=== PATIENT | male | born 1940 | race Caucasian/White ===

== ENCOUNTER 2021-01-13 11:55 | Outpatient (REF) | payer MEDICARE, SELFPAY ==
[2021-01-13 13:11] LABS: Estimated Average Glucose 105 mg/dL; Hemoglobin A1c % 5.3 %
[2021-01-13 13:41] LABS: Anion Gap 11 (12-20); Blood Urea Nitrogen 21 mg/dL (9-16); Carbon Dioxide 30 mmol/L (22-29); Chloride 109 mmol/L (96-108); Estimated Glomerular Filt Rate > 60; Glucose Fasting 109 mg/dL (60-99); Potassium 4.4 mmol/L (3.3-5.1); Sodium 146 mmol/L (135-145)
[2021-01-13 14:43] LABS: Creatinine Urine 203.04 mg/dL; Microalbum/Creatinine Ratio Ur 9.3 ug/mg cr
== END 2021-01-13 11:56 | disposition home or self-care (01) ==
LOC: HO.LAB 11:55
PROVIDERS: PCP Family Medicine; Visit Provider Family Medicine
DX: I10 Essential (primary) hypertension (principal); E11.9 Type 2 diabetes mellitus without complications
CPT/HCPCS: 36415; 80051; 82043; 82565; 82947; 83036; 84520

== ENCOUNTER 2021-06-10 12:08 | Outpatient (REF) | payer MEDICARE, SELFPAY ==
[2021-06-10 13:34] LABS: Alanine Aminotransferase 24 U/L (0-40); Anion Gap 9 (12-20); Blood Urea Nitrogen 20 mg/dL (9-16); Carbon Dioxide 30 mmol/L (22-29); Chloride 105 mmol/L (96-108); Estimated Glomerular Filt Rate > 60; Glucose Fasting 109 mg/dL (60-99); Potassium 4.4 mmol/L (3.3-5.1); Sodium 140 mmol/L (135-145)
[2021-06-10 13:56] LABS: Estimated Average Glucose 111 mg/dL; Hemoglobin A1c % 5.5 %
== END 2021-06-10 12:09 | disposition home or self-care (01) ==
LOC: HO.LAB 12:08
PROVIDERS: PCP Family Medicine; Visit Provider Family Medicine
DX: I10 Essential (primary) hypertension (principal); E11.9 Type 2 diabetes mellitus without complications; E78.00 Pure hypercholesterolemia, unspecified; Z79.899 Other long term (current) drug therapy
CPT/HCPCS: 36415; 80051; 82550; 82565; 82947; 83036; 84460; 84520

== ENCOUNTER 2021-08-20 13:22 | Outpatient (REF) | payer MEDICARE, SELFPAY ==
[2021-08-20 13:44] LABS: MANUAL DIFF FLAG NO
[2021-08-20 14:29] LABS: Basophils Percent Auto 0.3 % (0-2); Eosinophils Absolute Auto 0.1 X10*3/uL (0.0-0.4); Eosinophils Percent Auto 1.5 % (0-4); Hematocrit 38.7 % (42-52); Hemoglobin 12.7 g/dl (14.0-18.0); Imm Gran Abs Auto 0.02 X10*3/uL (0.00-0.03); Imm Gran Pct Auto 0.3 % (0.0-0.4); Lymphocytes Absolute Auto 0.7 X10*3/uL (1.2-4.9); Lymphocytes Percent Auto 11.3 % (20-40); Mean Corpuscular HGB Conc 32.8 g/dl (31.0-36.0); Mean Corpuscular Hemoglobin 33.6 pg (27.0-33.0); Mean Corpuscular Volume 102.4 fL (80-98); Mean Platelet Volume 10.4 fL (9.4-12.4); Monocytes Absolute Auto 0.7 X10*3/uL (0.1-1.2); Neutrophils Absolute Auto 4.5 X10*3/uL (2.0-8.3); Neutrophils Percent Auto 75.6 % (45-73); Platelet Count 134 X10*3/uL (160-400); Red Blood Count 3.78 X10*6/uL (4.60-5.80); Red Cell Distribution Width 13.4 % (11.0-16.0)
[2021-08-20 14:33] LABS: Alanine Aminotransferase 24 U/L (0-40); Albumin Level 3.6 g/dL (3.5-5.0); Alkaline Phosphatase 73 U/L (39-117); Anion Gap 11 (12-20); Aspartate Amino Transferase 22 U/L (5-37); Bilirubin Total 1.3 mg/dL (0.0-1.0); Blood Urea Nitrogen 26 mg/dL (9-16); Calcium 8.9 mg/dL (8.4-10.2); Carbon Dioxide 28 mmol/L (22-29); Chloride 106 mmol/L (96-108); Estimated Glomerular Filt Rate > 60; Glucose Fasting 102 mg/dL (60-99); Potassium 4.5 mmol/L (3.3-5.1); Sodium 140 mmol/L (135-145); Total Protein 6.1 g/dL (6.5-8.0)
[2021-08-20 14:47] LABS: Estimated Average Glucose 103 mg/dL; Hemoglobin A1c % 5.2 %
[2021-08-20 14:55] LABS: Free T4 (Free Thyroxine) 0.98 ng/dL (0.71-1.85)
== END 2021-08-20 13:23 | disposition home or self-care (01) ==
LOC: HO.LAB 13:22
PROVIDERS: PCP Student in an Organized Health Care Education/Training Program; Visit Provider Family Medicine
DX: R63.4 Abnormal weight loss (principal); R53.83 Other fatigue; E11.9 Type 2 diabetes mellitus without complications
CPT/HCPCS: 36415; 80053; 83036; 84439; 85025

== ENCOUNTER 2021-09-06 14:59 | Outpatient (REF) | payer MEDICARE, SELFPAY ==
[2021-09-06 16:11] LABS: Appearance Urine CLOUDY; Color Urine YELLOW; Glucose Urine UA NEG (NEG); Leukocyte Esterase Urine 3+ (NEG); Nitrite Urine POS (NEG); PH 7.5 (5.0-8.0); UACC Culture Trigger YES; Urine Blood 1+ (NEG); Urine Ketones NEG (NEG); Urine Protein 1+ MG/DL (NEG-TRACE)
[2021-09-06 16:18] LABS: WBC Urine TNTC /HPF (0-4)
[2021-09-06 16:19] LABS: Bacteria Urine 2+ /LPF
== END 2021-09-06 15:00 | disposition home or self-care (01) ==
LOC: HO.LAB 14:59
PROVIDERS: PCP Family Medicine; Visit Provider Family Medicine
DX: N39.0 Urinary tract infection, site not specified (principal)
CPT/HCPCS: 81001; 87086; 87088; 87186

== ENCOUNTER 2021-11-18 13:02 | Outpatient (REF) | payer MEDICARE, SELFPAY ==
[2021-11-18 13:56] LABS: Estimated Average Glucose 103 mg/dL; Glucose Fasting 105 mg/dL (60-99); Hemoglobin A1c % 5.2 %
[2021-11-18 14:15] LABS: Prostate Specific Antigen 1.57 ng/mL (<0.05-4.0)
== END 2021-11-18 13:03 | disposition home or self-care (01) ==
LOC: HO.LAB 13:02
PROVIDERS: PCP Family Medicine; Visit Provider Family Medicine
DX: Z12.5 Encounter for screening for malignant neoplasm of prostate (principal); E11.9 Type 2 diabetes mellitus without complications; N40.0 Benign prostatic hyperplasia without lower urinary tract symptoms; R33.9 Retention of urine, unspecified
CPT/HCPCS: 36415; 82947; 83036; 84153

== ENCOUNTER 2022-05-11 13:02 | Outpatient (REF) | payer MEDICARE, SELFPAY ==
[2022-05-11 13:25] LABS: MANUAL DIFF FLAG NO
[2022-05-11 14:17] LABS: Basophils Percent Auto 0.5 % (0-2); Eosinophils Absolute Auto 0.1 X10*3/uL (0.0-0.4); Eosinophils Percent Auto 1.9 % (0-4); Hemoglobin 13.3 g/dl (14.0-18.0); Imm Gran Abs Auto 0.02 X10*3/uL (0.00-0.03); Imm Gran Pct Auto 0.5 % (0.0-0.4); Lymphocytes Absolute Auto 0.7 X10*3/uL (1.2-4.9); Lymphocytes Percent Auto 17.3 % (20-40); Mean Corpuscular HGB Conc 33.3 g/dl (31.0-36.0); Mean Corpuscular Hemoglobin 33.8 pg (27.0-33.0); Mean Corpuscular Volume 101.8 fL (80.0-98.0); Mean Platelet Volume 10.7 fL (9.4-12.4); Monocytes Absolute Auto 0.5 X10*3/uL (0.1-1.2); Neutrophils Absolute Auto 2.9 x10*3/uL (2.0-8.3); Neutrophils Percent Auto 68.8 % (45-73); Platelet Count 117 X10*3/uL (160-400); Red Blood Count 3.93 X10*6/uL (4.60-5.80); Red Cell Distribution Width 13.1 % (11.0-16.0); White Blood Count 4.3 X10*3/uL (4.8-10.8)
[2022-05-11 14:25] LABS: Alanine Aminotransferase 30 U/L (0-40); Anion Gap 11 (12-20); Blood Urea Nitrogen 28 mg/dL (9-16); Carbon Dioxide 28 mmol/L (22-29); Chloride 105 mmol/L (96-108); Estimated Glomerular Filt Rate > 60; Potassium 4.6 mmol/L (3.3-5.1); Sodium 139 mmol/L (135-145)
== END 2022-05-11 13:03 | disposition home or self-care (01) ==
LOC: HO.LAB 13:02
PROVIDERS: PCP Family Medicine; Visit Provider Family Medicine
DX: I10 Essential (primary) hypertension (principal); E78.00 Pure hypercholesterolemia, unspecified; D69.6 Thrombocytopenia, unspecified; Z79.899 Other long term (current) drug therapy
CPT/HCPCS: 36415; 80051; 82550; 82565; 84460; 84520; 85025

== ENCOUNTER 2022-08-17 15:07 | Outpatient (REF) | payer MEDICARE, SELFPAY ==
[2022-08-17 15:38] LABS: Hemoglobin 13.3 g/dl (14.0-18.0); Imm Gran Abs Auto 0.02 X10*3/uL (0.00-0.03); Imm Gran Pct Auto 0.4 % (0.0-0.4); MANUAL DIFF FLAG SCAN; PLT CLUMP 1; SCAN SMEAR FLAG 1
[2022-08-17 15:39] LABS: Basophils Percent Auto 0.6 % (0-2); Eosinophils Absolute Auto 0.1 X10*3/uL (0.0-0.4); Eosinophils Percent Auto 1.7 % (0-4); Hematocrit 40.5 % (42.0-52.0); Lymphocytes Absolute Auto 0.6 X10*3/uL (1.2-4.9); Lymphocytes Percent Auto 11.4 % (20-40); Mean Corpuscular HGB Conc 32.8 g/dl (31.0-36.0); Mean Corpuscular Hemoglobin 33.3 pg (27.0-33.0); Mean Corpuscular Volume 101.5 fL (80.0-98.0); Mean Platelet Volume 11.1 fL (9.4-12.4); Monocytes Absolute Auto 0.8 X10*3/uL (0.1-1.2); Neutrophils Absolute Auto 3.7 x10*3/uL (2.0-8.3); Neutrophils Percent Auto 70.9 % (45-73); Red Blood Count 3.99 X10*6/uL (4.60-5.80); Red Cell Distribution Width 13.3 % (11.0-16.0)
[2022-08-17 15:57] LABS: Iron 84 mcg/dL (45-160); Percent Iron Saturation 33 % (15-50); Total Iron Binding Capacity 252 mcg/dL (228-428); Unsaturated Iron Binding 168 ug/dL
[2022-08-17 15:59] LABS: White Blood Count 5.3 X10*3/uL (4.8-10.8)
[2022-08-17 16:00] LABS: Platelet Count 118 X10*3/uL (160-400); SLIDE REVIEW VERIFIED
== END 2022-08-17 15:08 | disposition home or self-care (01) ==
LOC: HO.LAB 15:07
PROVIDERS: PCP Family Medicine; Visit Provider Family Medicine
DX: K62.5 Hemorrhage of anus and rectum (principal); R53.83 Other fatigue; R53.1 Weakness
CPT/HCPCS: 36415; 83540; 85025

== ENCOUNTER 2023-01-11 14:17 | Outpatient (REF) | payer MEDICARE, SELFPAY ==
[2023-01-11 15:46] LABS: Anion Gap 7 (12-20); Blood Urea Nitrogen 25 mg/dL (9-16); Carbon Dioxide 36 mmol/L (22-29); Chloride 106 mmol/L (96-108); Estimated Glomerular Filt Rate > 60; Potassium 4.2 mmol/L (3.3-5.1); Sodium 145 mmol/L (135-145)
== END 2023-01-11 14:18 | disposition home or self-care (01) ==
LOC: HO.LAB 14:17
PROVIDERS: PCP Family Medicine; Visit Provider Family Medicine
DX: I10 Essential (primary) hypertension (principal)
CPT/HCPCS: 36415; 80051; 82565; 84520

== ENCOUNTER 2023-07-17 12:54 | Outpatient (REF) | payer MEDICARE, SELFPAY ==
[2023-07-17 13:09] LABS: MANUAL DIFF FLAG NO
[2023-07-17 13:30] LABS: Estimated Average Glucose 97 mg/dL
[2023-07-17 13:35] LABS: Basophils Percent Auto 0.8 % (0-2); Eosinophils Absolute Auto 0.1 X10*3/uL (0.0-0.4); Eosinophils Percent Auto 1.5 % (0-4); Hematocrit 40.1 % (42.0-52.0); Hemoglobin 13.4 g/dl (14.0-18.0); Imm Gran Abs Auto 0.02 X10*3/uL (0.00-0.03); Imm Gran Pct Auto 0.4 % (0.0-0.4); Lymphocytes Absolute Auto 0.8 X10*3/uL (1.2-4.9); Lymphocytes Percent Auto 16.4 % (20-40); Mean Corpuscular HGB Conc 33.4 g/dl (31.0-36.0); Mean Corpuscular Volume 101.8 fL (80.0-98.0); Monocytes Absolute Auto 0.6 X10*3/uL (0.1-1.2); Monocytes Percent Auto 11.5 % (2-11); Neutrophils Absolute Auto 3.3 x10*3/uL (2.0-8.3); Neutrophils Percent Auto 69.4 % (45-73); Platelet Count 126 X10*3/uL (160-400); Red Blood Count 3.94 X10*6/uL (4.60-5.80); Red Cell Distribution Width 13.2 % (11.0-16.0); White Blood Count 4.8 X10*3/uL (4.8-10.8)
[2023-07-17 13:54] LABS: Alanine Aminotransferase 20 U/L (0-40); Albumin Level 3.7 g/dL (3.5-5.0); Alkaline Phosphatase 57 U/L (39-117); Anion Gap 9 (12-20); Aspartate Amino Transferase 21 U/L (5-37); Bilirubin Total 1.1 mg/dL (0.0-1.0); Blood Urea Nitrogen 24 mg/dL (9-16); Calcium 9.3 mg/dL (8.4-10.2); Carbon Dioxide 29 mmol/L (22-29); Chloride 106 mmol/L (96-108); Estimated Glomerular Filt Rate > 60; Glucose Fasting 102 mg/dL (60-99); Potassium 4.4 mmol/L (3.3-5.1); Sodium 140 mmol/L (135-145); Total Protein 6.5 g/dL (6.5-8.0)
== END 2023-07-17 12:55 | disposition home or self-care (01) ==
LOC: HO.LAB 12:54
PROVIDERS: PCP Family Medicine; Visit Provider Family Medicine
DX: R63.4 Abnormal weight loss (principal); E78.00 Pure hypercholesterolemia, unspecified; E11.9 Type 2 diabetes mellitus without complications; Z79.899 Other long term (current) drug therapy
CPT/HCPCS: 36415; 80053; 82550; 83036; 85025

== ENCOUNTER 2023-11-23 12:30 | Outpatient (REF) | payer MEDICARE, SELFPAY | END 2023-11-23 12:31 | disposition home or self-care (01) | LOC: HO.SH 12:30 | PROVIDERS: Visit Provider Family Medicine | DX: Z01.118 Encounter for examination of ears and hearing with other abnormal findings (principal); H90.3 Sensorineural hearing loss, bilateral | CPT/HCPCS: 92557 ==

== ENCOUNTER 2024-01-08 12:46 | Outpatient (REF) | payer MEDICARE, SELFPAY ==
[2024-01-08 13:00] LABS: MANUAL DIFF FLAG NO
[2024-01-08 13:14] LABS: Basophils Percent Auto 0.7 % (0-2); Eosinophils Absolute Auto 0.1 X10*3/uL (0.0-0.4); Eosinophils Percent Auto 2.4 % (0-4); Hematocrit 39.5 % (42.0-52.0); Imm Gran Abs Auto 0.01 X10*3/uL (0.00-0.03); Imm Gran Pct Auto 0.2 % (0.0-0.4); Lymphocytes Absolute Auto 0.9 X10*3/uL (1.2-4.9); Lymphocytes Percent Auto 22.1 % (20-40); Mean Corpuscular HGB Conc 32.9 g/dl (31.0-36.0); Mean Corpuscular Hemoglobin 32.9 pg (27.0-33.0); Mean Platelet Volume 10.4 fL (9.4-12.4); Monocytes Absolute Auto 0.5 X10*3/uL (0.1-1.2); Monocytes Percent Auto 11.9 % (2-11); Neutrophils Absolute Auto 2.6 x10*3/uL (2.0-8.3); Neutrophils Percent Auto 62.7 % (45-73); Platelet Count 110 X10*3/uL (160-400); Red Blood Count 3.95 X10*6/uL (4.60-5.80); Red Cell Distribution Width 13.2 % (11.0-16.0); White Blood Count 4.1 X10*3/uL (4.8-10.8)
[2024-01-08 13:34] LABS: Alanine Aminotransferase 20 U/L (0-40); Anion Gap 9 (12-20); Aspartate Amino Transferase 22 U/L (5-37); Blood Urea Nitrogen 27 mg/dL (9-16); Carbon Dioxide 32 mmol/L (22-29); Chloride 105 mmol/L (96-108); Estimated Glomerular Filt Rate > 60; Potassium 4.4 mmol/L (3.3-5.1); Sodium 142 mmol/L (135-145)
== END 2024-01-08 12:47 | disposition home or self-care (01) ==
LOC: HO.LAB 12:46
PROVIDERS: Visit Provider Family Medicine
DX: I10 Essential (primary) hypertension (principal); D61.818 Other pancytopenia; R27.0 Ataxia, unspecified
CPT/HCPCS: 36415; 80051; 82565; 84450; 84460; 84520; 85025

== ENCOUNTER 2024-05-22 13:25 | Outpatient (REF) | payer MEDICARE, SELFPAY ==
[2024-05-22 13:59] LABS: MANUAL DIFF FLAG NO
[2024-05-22 14:47] LABS: Basophils Percent Auto 0.8 % (0-2); Eosinophils Absolute Auto 0.1 X10*3/uL (0.0-0.4); Eosinophils Percent Auto 2.3 % (0-4); Hematocrit 38.9 % (42.0-52.0); Hemoglobin 13.1 g/dl (14.0-18.0); Imm Gran Abs Auto 0.02 X10*3/uL (0.00-0.03); Imm Gran Pct Auto 0.5 % (0.0-0.4); Lymphocytes Absolute Auto 0.7 X10*3/uL (1.2-4.9); Lymphocytes Percent Auto 16.8 % (20-40); Mean Corpuscular HGB Conc 33.7 g/dl (31.0-36.0); Mean Corpuscular Hemoglobin 34.7 pg (27.0-33.0); Mean Corpuscular Volume 102.9 fL (80.0-98.0); Mean Platelet Volume 11.4 fL (9.4-12.4); Monocytes Absolute Auto 0.5 X10*3/uL (0.1-1.2); Monocytes Percent Auto 12.8 % (2-11); Neutrophils Absolute Auto 2.7 x10*3/uL (2.0-8.3); Neutrophils Percent Auto 66.8 % (45-73); Platelet Count 103 X10*3/uL (160-400); Red Blood Count 3.78 X10*6/uL (4.60-5.80); Red Cell Distribution Width 13.2 % (11.0-16.0)
[2024-05-22 14:53] LABS: Estimated Average Glucose 105 mg/dL; Hemoglobin A1c % 5.3 % (<6.0)
[2024-05-22 15:13] LABS: Alanine Aminotransferase 23 U/L (0-40); Albumin Level 3.7 g/dL (3.5-5.0); Alkaline Phosphatase 56 U/L (39-117); Anion Gap 8 (12-20); Aspartate Amino Transferase 24 U/L (5-37); Blood Urea Nitrogen 23 mg/dL (9-16); Calcium 9.3 mg/dL (8.4-10.2); Carbon Dioxide 32 mmol/L (22-29); Chloride 105 mmol/L (96-108); Estimated Glomerular Filt Rate > 60; Glucose Random 103 mg/dL (60-115); Sodium 140 mmol/L (135-145); Total Protein 6.4 g/dL (6.5-8.0)
[2024-05-22 15:48] LABS: Creatinine Urine 141.95 mg/dL; Microalbum/Creatinine Ratio Ur 7.7 ug/mg cr (<30)
== END 2024-05-22 13:26 | disposition home or self-care (01) ==
LOC: HO.LAB 13:25
PROVIDERS: PCP Family Medicine; Visit Provider Family Medicine
DX: E11.9 Type 2 diabetes mellitus without complications (principal); I10 Essential (primary) hypertension; D61.818 Other pancytopenia; E78.00 Pure hypercholesterolemia, unspecified; Z79.899 Other long term (current) drug therapy
CPT/HCPCS: 36415; 80053; 82043; 82570; 83036; 85025

== ENCOUNTER 2024-09-10 14:53 | Inpatient (IN) | payer MEDICARE, SELFPAY ==
--- NOTE | ~2024-09-10 | XR_ITS ---
EXAMINATION: XR CHEST CLINICAL INFORMATION: Shortness of breath with question of pneumonia COMPARISON: 04/15/2019 TECHNIQUE: Frontal view of the chest was obtained. FINDINGS: Again seen are hypoinflated lungs with mild elevation of the left hemidiaphragm. Some coarse reticulonodular densities are seen most predominantly peripherally with some bibasilar atelectasis. No focal consolidation is seen. No large effusions. XR/XR chest 1V IMPRESSION: Hypoinflated lungs with coarse reticulonodular densities and bibasilar atelectasis. No focal consolidation. Electronically signed by: Emiliano Conteh MD 09/10/2024 07:12 PM EDT RP
--- NOTE | ~2024-09-10 | XR_ITS ---
EXAMINATION: XR CHEST CLINICAL INFORMATION: Hypoxia. COMPARISON: Prior mammograms, most recently 09/08/2024. TECHNIQUE: Frontal view of the chest was obtained. FINDINGS: The heart, great vessels, pulmonary vasculature and mediastinum are stable. Lung volumes are again somewhat diminished. In particular, there is stable moderate elevation of the left hemidiaphragm. At the lateral right base, there is very mild atelectasis versus infiltrate, with some silhouetting of the hemidiaphragm. The left base is now relatively clear. Tiny bilateral pleural effusions are questioned, with slight blunting of the bilateral lateral costophrenic angles. Monitor leads somewhat limited evaluation of the right lateral costophrenic angle. No pneumothorax is seen. There is no acute osseous abnormality. There appear to be garment buttons overlapping the bilateral shoulders. XR/XR chest 1V IMPRESSION: Lung volumes are somewhat diminished. There is stable moderate elevation of the left hemidiaphragm. Slight right base atelectasis versus infiltrate is redemonstrated. Minimal bilateral pleural effusions are questioned. Electronically signed by: Malcom Jewell MD 09/13/2024 10:36 PM EDT
--- NOTE | 2024-09-10 15:01 | ECG_ITS ---
Test Reason : ABNORMAL H/R Blood Pressure : / mmHG Vent. Rate : 053 BPM Atrial Rate : 000 BPM P-R Int : 000 ms QRS Dur : 078 ms QT Int : 412 ms P-R-T Axes : 000 -29 014 degrees QTc Int : 386 ms Normal sinus rhythm with first degree AV block and blocked PACs Inferior infarct , age undetermined Abnormal ECG When compared with ECG of 15-APR-2019 04:03, Blocked PACs present Referred By: Generic ED Physician Electronically Signed By:Kapil Fonseca
[2024-09-10 15:04] VITALS: BP 117/62; PULSE 63; RESP 12; TEMP 36.6; O2SAT 96; BMI 28.3
--- NOTE | 2024-09-10 15:13 | PC.NURSE ---
Patient reports that he missed his morning medications today.
[2024-09-10 15:57] LABS: MANUAL DIFF FLAG NO
[2024-09-10 16:04] LABS: INTERNATIONAL NORM RATIO 1.2 (0.9-1.1); Prothrombin Time 13.7 SEC (10.9-12.4)
[2024-09-10 16:14] LABS: Basophils Percent Auto 0.6 % (0-2); Eosinophils Absolute Auto 0.1 X10*3/uL (0.0-0.4); Eosinophils Percent Auto 1.7 % (0-4); Hematocrit 37.5 % (42.0-52.0); Hemoglobin 12.4 g/dl (14.0-18.0); Imm Gran Abs Auto 0.01 X10*3/uL (0.00-0.03); Imm Gran Pct Auto 0.3 % (0.0-0.4); Lymphocytes Absolute Auto 0.5 X10*3/uL (1.2-4.9); Mean Corpuscular HGB Conc 33.1 g/dl (31.0-36.0); Mean Corpuscular Hemoglobin 33.6 pg (27.0-33.0); Mean Corpuscular Volume 101.6 fL (80.0-98.0); Mean Platelet Volume 10.5 fL (9.4-12.4); Monocytes Absolute Auto 0.4 X10*3/uL (0.1-1.2); Monocytes Percent Auto 12.4 % (2-11); Neutrophils Absolute Auto 2.5 x10*3/uL (2.0-8.3); Red Blood Count 3.69 X10*6/uL (4.60-5.80); Red Cell Distribution Width 13.4 % (11.0-16.0); White Blood Count 3.6 X10*3/uL (4.8-10.8)
[2024-09-10 16:22] LABS: Platelet Count 95 X10*3/uL (160-400)
[2024-09-10 16:23] LABS: Alanine Aminotransferase 27 U/L (0-40); Albumin Level 3.4 g/dL (3.5-5.0); Alkaline Phosphatase 54 U/L (39-117); Anion Gap 9 (12-20); Aspartate Amino Transferase 30 U/L (5-37); Bilirubin Total 0.7 mg/dL (0.0-1.0); Blood Urea Nitrogen 25 mg/dL (9-16); Calcium 9.1 mg/dL (8.4-10.2); Carbon Dioxide 30 mmol/L (22-29); Chloride 108 mmol/L (96-108); Creatinine Clr Calc Pharmacy 55.4; Estimated Glomerular Filt Rate > 60; Glucose Random 116 mg/dL (60-115); Potassium 4.4 mmol/L (3.3-5.1); Sodium 143 mmol/L (135-145)
[2024-09-10 16:30] LABS: Troponin-I High Sensitivity 7.4 ng/L (<3.5-35.0)
--- NOTE | 2024-09-10 17:02 | ECG_ITS ---
Test Reason : RYTHMN CHANGE Blood Pressure : / mmHG Vent. Rate : 060 BPM Atrial Rate : 060 BPM P-R Int : 246 ms QRS Dur : 084 ms QT Int : 432 ms P-R-T Axes : 027 -25 013 degrees QTc Int : 432 ms Sinus rhythm with 1st degree A-V block Inferior infarct (cited on or before 10-SEP-2024) Abnormal ECG When compared with ECG of 10-SEP-2024 14:57, No significant changes seen Referred By: Generic ED Physician Electronically Signed By:Kapil Fonseca
--- NOTE | 2024-09-10 17:08 | ED.ARRPALP ---
HPI - Arrhythmia/Palpitations General Chief Complaint: Arrhythmia/Palpitations Stated Complaint: Sent by maciej Greer pacemaker Time Seen by Provider: 09/10/24 17:07 Source: patient Mode of arrival: EMS Limitations: no limitations History of Present Illness HPI narrative: 84-year-old male with a history of coronary artery disease status post RCA stent 09/12/2023 at [facility], diabetes, hypercholesterolemia, TIA, ataxic gait, second-degree AV block, pulmonary fibrosis, vascular dementia, GERD, hypertension, truong lobar emphysema, who was seen today for routine visit by his PCP Dr. Nelson and found to be in a heart block he was referred to the emergency department for evaluation. The patient states that he has been having shortness of breath x3 months. He states that he was having difficulty walking up the stairs and his apartment and has to walk 1 stair at a time. He denied chest pain, lightheadedness or dizziness. Denied fever, chills, nausea, vomiting, diarrhea, myalgias arthralgias. Patient states that his doctor noted a low pulse, did an EKG and was concerned and symptoms here to the emergency department by ambulance. PCP medication list includes the following atorvastatin, clopidogrel, famotidine, finasteride, lisinopril, ondansetron, terazosin, donepezil l, latanoprost eyedrops, antibiotic eyedrops, prednisolone eyedrops Related Data Allergies Allergy/AdvReac Type Severity Reaction Status Date / Time Penicillins [PCN] Allergy Unknown RASH Verified 09/10/24 15:08 Review of Systems Review of Systems: Yes all other systems are reviewed and are negative [facility] Social History Social History Smoked in Last 30 Days: No Use of substances other than those prescribed or required for medical reasons: No Advance Directives: No Advance Directives Information Provided: Yes Physical Exam Vital Signs: Vital Signs: Last Vital Signs Temp 97.8 F 09/10/24 15:04 Pulse 63 09/10/24 15:04 Resp 12 09/10/24 15:04 BP 117/62 09/10/24 15:04 Pulse Ox 96 09/10/24 15:04 O2 Del Method Room Air 09/10/24 15:04 BMI result Body Mass Index 28.3 Vital signs were normal Exam: General: Awake, alert in no distress Head: Normocephalic, atraumatic EENT: PERRL, Lids normal, sclera normal, conjunctiva normal, nose normal , ears normal, throat without erythema or exudates Neck: Supple, no adenopathy Lung: breath sounds symmetric, no wheezing, rales or rhonchi Chest: symmetric movement, nontender Heart: regular rate and rhythm, normal S1, S2 no murmurs or rubs Abdomen: soft, non-tender, nondistended, normal bowel sounds Back: no vertebral tenderness, no CVAT Extremities: no deformities, moves all extremities symmetrically, trace pitting edema bilaterally symmetric in his lower extremities Neuro: Awake, alert, oriented, normal speech, cranial nerves intact, moves all extremities symmetrically Psych: Pleasant, cooperative Medical Decision Making Medical Decision Making MDM Narrative: 84-year-old male with a history of coronary artery disease status post RCA stent 09/12/2023 at [facility], diabetes, hypercholesterolemia, TIA, ataxic gait, second-degree AV block, pulmonary fibrosis, vascular dementia, GERD, hypertension, truong lobar emphysema, who was seen today for routine visit by his PCP Dr. Nelson and found to be in a heart block he was referred to the emergency department for evaluation. Patient has had increased shortness of breath over last 3 months but no lightheadedness, dizziness or new syncopal episodes. Review of systems otherwise negative. Exam did reveal trace pitting edema bilaterally symmetric in his lower extremities otherwise unremarkable. Patient's EKG done at his PCP's office revealed a first-degree AV block, EKG in the emergency department revealed a 2nd-degree AV block but rhythm strip did reveal a episode of complete heart block. Differential diagnosis: ?Includes but is not limited to myocardial infarction, myocardial ischemia, bradyarrhythmia, third-degree heart block, electrolyte abnormalities, anemia, adverse reaction to medication Following evaluation was ordered: CBC, CMP, PT/INR, troponin, EKG Course: 18:01 My interpretation patient's laboratory evaluation as follows: Pancytopenia with macrocytic anemia-WBC 3600, H&H 12.4 and 37.5 with an MCV of 101.6. Platelet count was 40003. These values are unchanged since 2020. PT/INR elevated 1.2 and 13.7. BUN elevated 25 with a normal creatinine of 0.95. Elevated BUN is chronic. Bicarb elevated at 30-chronic. Glucose elevated 116. Troponin was detectable but not elevated at 7.4. Total protein and albumin were low 6.0 and 3.4. Patient's initial 12 EKG and repeat EKG were consistent with a Wenckebach 2nd-degree AV block with a IL interval of 246 milliseconds. Second EKG was also Wenckebach second-degree AV block. The rhythm strip was concerning and I did review this with our senior vice president and chief information officer Dr. Fonseca and he felt that this rhythm strip was consistent with a second-degree AV Wenckebach block as well. His recommendation was to admit the patient for telemetry observation. I did discuss the patient's presentation over tiger text with the covering hospitalist, Dr. Michael ross Admission/Observation Consideration of admission/observation: Escalation of care including admission/observation considered (Yes) Lab Data MDM Lab Attestation statement: I reviewed the patient's lab results. 09/10/24 15:51 09/10/24 15:51 Labs: Lab Results 09/10/24 Range/Units 15:51 WBC 3.6 L (4.8-10.8) X10*3/uL RBC 3.69 L (4.60-5.80) X10*6/uL Hgb 12.4 L (14.0-18.0) g/dl Hct 37.5 L (42.0-52.0) % MCV 101.6 H (80.0-98.0) fL MCH 33.6 H (27.0-33.0) pg MCHC 33.1 (31.0-36.0) g/dl RDW 13.4 (11.0-16.0) % Plt Count 95 L (160-400) X10*3/uL MPV 10.5 (9.4-12.4) fL Immature Gran % (Auto) 0.3 (0.0-0.4) % Neut % (Auto) 71.0 (45-73) % Lymph % (Auto) 14.0 L (20-40) % [place] % (Auto) 12.4 H (2-11) % Eos % (Auto) 1.7 (0-4) % Baso % (Auto) 0.6 (0-2) % Lymph # (Auto) 0.5 L (1.2-4.9) X10*3/uL [place] # (Auto) 0.4 (0.1-1.2) X10*3/uL Eos # (Auto) 0.1 (0.0-0.4) X10*3/uL Baso # (Auto) 0.0 (0.0-0.2) X10*3/uL Abs Immat Gran (auto) 0.01 (0.00-0.03) X10*3/uL Absolute Neuts (auto) 2.5 (2.0-8.3) x10*3/uL Absolute Nucleated RBC 0.000 (0.0-0.012) X10*3/uL Nucleated RBC % (auto) 0.0 (0.0-0.2) /100WBC PT 13.7 H (10.9-12.4) SEC INR 1.2 H (0.9-1.1) Sodium 143 (135-145) mmol/L Potassium 4.4 (3.3-5.1) mmol/L Chloride 108 (96-108) mmol/L Carbon Dioxide 30 H (22-29) mmol/L Anion Gap 9 L (12-20) BUN 25 H (9-16) mg/dL Creatinine 0.98 (0.5-1.4) mg/dL Estim Creat Clear Calc 55.4 Estimated GFR > 60 Random Glucose 116 H (60-115) mg/dL Calcium 9.1 (8.4-10.2) mg/dL Total Bilirubin 0.7 (0.0-1.0) mg/dL AST 30 (5-37) U/L ALT 27 (0-40) U/L Alkaline Phosphatase 54 (39-117) U/L Troponin I High Sens 7.4 (<3.5-35.0) ng/L Total Protein 6.0 L (6.5-8.0) g/dL Albumin 3.4 L (3.5-5.0) g/dL Independent Interpretation I performed an independent interpretation of an: EKG Interpretation: 1st EKG done at 14:57 hours was interpreted by me as follows: Bradycardia with a rate of 53, second-degree AV block Wenckebach type with prolonged IL interval and normal QRS and QTC intervals with Q-waves in 3 and AVF, no ST segment elevation, no ST segment depression, no significant T-wave abnormalities, no PACs, no PVCs My independent interpretation of the patient's 2nd EKG done 16:57 hours is as follows: Consistent with a second-degree AV block with a rate of 60, IL interval of 246 milliseconds, no significant change from the 1st EKG My independent interpretation of the patient's rhythm strip done at 17:02 hours was as follows: Complete heart block however Dr. Fonseca felt that this rhythm strip was more consistent with second-degree AV block Wenckebach type as well. Critical Care Time Critical Care Time Critical Care Time: Yes Total Critical Care Time: 40 Attestation: Critical Care: The patient was critically ill with a high probability of imminent or life threatening deterioration. I spent greater than 30 minutes of discontinuous time evaluating the patient,delivering critical care at the bedside, discussing and evaluating pertinent data with consultants. Critical care time does not include time spent performing separately billable procedures or teaching. Total time spent performing critical care was 40 minutes. Discharge Plan Discharge Patient Disposition: Admitted As Inpatient Print Language: Kiswahili
--- NOTE | 2024-09-10 18:44 | P.HPHOSP_ITS ---
History of Present Illness Date of Service: 09/10/24 Chief Complaint: Heart block 84-year-old gentleman with past medical history significant for hypertension, hyperlipidemia, type 2 diabetes mellitus, TIA, history of inferior wall OH with complete heart block status post drug eluded stent to RCA require temporary pacemaker for bradycardia, post OH course was complicated by sinus bradycardia with second-degree heart block Mobitz type 1 in 2022 was seen for a routine follow-up by PCP today and was found to be in heart block therefore was referred to emergency department for further evaluation, patient complains of shortness of breath of several weeks duration worse with reclining , denies shortness of breath with climbing stairs, he denies associated chest pain, no lightheadedness, no dizziness, denies recent bout of fever, no chills, no upper respiratory symptoms of cough or sputum production, no sick contacts, no new medication at baseline patient not on calcium channel blockers or beta-blockers, EKG in the emergency room showed second-degree heart block Mobitz type 1, few rhythm strip showed first-degree AV block, ED physician discuss case with show operations supervisor Dr. Fonseca he recommended admission to telemetry unit for close monitoring , workup in the ED showed chronic pancytopenia, stable hematocrit and platelets , stable renal function, blood sugar 116, troponin 7.4, normal LFTs, calcium 9.1 albumin 3.4, chest x-ray obtained report pending, will admit patient to telemetry unit. Review of Systems 2 Review of Systems: General no headache, no dizziness no fever chills. CVS no chest pain, no palpitation. Respiratory no cough , shortness of breath with reclining . Gastrointestinal no nausea no vomiting, left lower quadrant abdominal pain , not pressure-like on and off, normal bowel movement this morning, history of intermittent constipation Skin no rash no urinary urgency or frequency. All other system reviewed and are negative PMFSH Pertinent family history: No significant family history of coronary artery disease Social History Household Members: Children Household Members Other:: Son Housing: House Do you presently have visiting nurse or other home services: No Patient Tobacco Use Status: Former Tobacco user Tobacco use type: Cigarette Smoked in Last 30 Days: No e-Cigarette/Vaping Use: Never Used Use of substances other than those prescribed or required for medical reasons: No Currently Displaying Signs/Symptoms of Drug Intoxication Withdrawal: No Have you been hit, kicked, punched, or otherwise hurt by someone within the past year? If so, by whom?: No Do you feel safe in your current relationship?: No Current Relationship Is there a partner from a previous relationship who is making you feel unsafe now?: No Are you made to feel afraid or neglected: No [employer] Healthcare Practices: Buddhism Advance Directives: No Advance Directives Information Provided: Yes Recently lost weight without trying: Unsure Nutrition Risks: Dental problems Poor oral hygiene: Yes Meds Allergies Allergy/AdvReac Type Severity Reaction Status Date / Time Penicillins [PCN] Allergy Unknown RASH Verified 09/10/24 15:08 Active Medications: Current Medications Acetaminophen (Acetaminophen 325 Mg Tablet) 650 mg PO Q6H PRN PRN Reason: Pain, Mild (Pain Scale 1-3), fever or headache Calcium Carbonate (Calcium Carbonate 750 Mg Tab.Chew) 750 mg PO Q4H PRN PRN Reason: Heartburn Latanoprost (Latanoprost 0.005 % Ophth Isabel 2.5 Ml Drops) 1 drop EYE-BOTH BEDTIME JD Magnesium Hydroxide (Milk Of Magnesia 30 Ml Oral.Susp) 30 ml PO DAILY PRN PRN Reason: Constipation Melatonin (Melatonin 3 Mg Tablet) 6 mg PO BEDTIME PRN PRN Reason: Insomnia Ondansetron HCl (Ondansetron Hcl 4 Mg/2 Ml Vial) 4 mg IVPUSH Q8H PRN PRN Reason: Nausea and Vomiting Sodium Chloride (0.9 % Sodium Chloride Flush 3 Ml Syringe) 3 ml [facility]FLUSH [facility] Medications ?Medication ?Instructions ?Recorded ?Confirmed ?Last Taken ?Type atorvastatin 40 mg tablet 40 mg PO DAILY 09/10/24 09/10/24 09/09/24 History clopidogrel 75 mg tablet 75 mg PO DAILY 09/10/24 09/10/24 09/09/24 History famotidine 40 mg tablet 40 mg PO DAILY 09/10/24 09/10/24 09/09/24 History finasteride 5 mg tablet 5 mg PO BEDTIME 09/10/24 09/10/24 09/09/24 History latanoprost 0.005 % eye drops 1 drp ophthalmic (eye) BEDTIME 09/10/24 09/10/24 09/09/24 History lisinopril 5 mg tablet 5 mg PO DAILY 09/10/24 09/10/2409/09/24 History terazosin 5 mg capsule 5 mg PO BEDTIME 09/10/24 09/10/24 09/09/24 History Physical Exam 2 Vital Signs and Narrative: Vital Signs: Last Vital Signs Temp 97.8 F 09/10/24 15:04 Pulse 63 09/10/24 15:04 Resp 12 09/10/24 15:04 BP 117/62 09/10/24 15:04 Pulse Ox 96 09/10/24 15:04 O2 Del Method Room Air 09/10/24 15:04 BMI result Body Mass Index 28.3 Const: Other: General awake alert x3, resting comfortably in no acute distress. Anicteric sclera Neck supple no JVD. CVS regular rate rhythm, systolic murmur Respiratory lungs crackles at bases,no respiratory distress, no wheeze, no rhonchi. Gastrointestinal abdomen soft, non tender, bowel sounds audible, no guarding , no rigidity. Extremities mild edema. Neuro non focal, moving all 4 extremity speech clear. Skin no rash Psych appropriate affect Results Labs 09/10/24 15:51 09/10/24 15:51 Labs: Laboratory Results - last 24 hr 09/10/24 15:51 MCV 101.6 H MCH 33.6 H MCHC 33.1 RDW 13.4 Plt Count 95 L MPV 10.5 Immature Gran % (Auto) 0.3 Neut % (Auto) 71.0 Lymph % (Auto) 14.0 L [place] % (Auto) 12.4 H Eos % (Auto) 1.7 Baso % (Auto) 0.6 Lymph # (Auto) 0.5 L [place] # (Auto) 0.4 Eos # (Auto) 0.1 Baso # (Auto) 0.0 Abs Immat Gran (auto) 0.01 Absolute Neuts (auto) 2.5 Absolute Nucleated RBC 0.000 Nucleated RBC % (auto) 0.0 PT 13.7 H INR 1.2 H APTT 32.0 Anion Gap 9 L Estim Creat Clear Calc 55.4 Estimated GFR > 60 Random Glucose 116 H Calcium 9.1 Total Bilirubin 0.7 AST 30 ALT 27 Alkaline Phosphatase 54 Troponin I High Sens 7.4 Total Protein 6.0 L Albumin 3.4 L Assessment and Plan (1) Atrioventricular block, Mobitz type 1, Wenckebach: Status: Acute Plan 84-year-old gentleman with past medical history significant for inferior wall OH status post RCA stent currently on Plavix, history of TIA , hyperlipidemia type 2 diabetes mellitus, presented with type 2 heart block Mobitz type one [place]. Second-degree heart block Mobitz type 1 Shortness of breath times several weeks otherwise, no chest pain, no lightheadedness or dizziness Tele monitor Cardiology consult Not on beta-blockers or calcium channel blockers Follow chest x-ray/electrolytes/TSH/check BNP echo 09/11 showed normal systolic function oftaxdyl-vo-sajvaj hypokinesis inferior and inferolateral wall, moderately calcified aortic valve, decreased right ventricular systolic function, diastolic function not assessed. History of coronary artery disease status post RCA stent 08/2023 No chest pain, normal troponin, continue statins History of urinary retention continue terazosin and finasteride History of TIA Full code DVT prophylaxis with compression boots In my clinical judgment patient requires hospitalization for monitoring of second-degree heart block Mobitz type 1 requiring tele monitoring and expert consultation. Quality Stroke Does the patient have a stroke diagnosis?: No VTE Prior VTE?: No VTE Risk Level:: Medical - moderate - high VTE Device Contraindication: Treatment Not Indicated VTE Drug Contraindication: N/A - Med Ordered
[2024-09-10 19:15] VITALS: BP 145/60; PULSE 56; RESP 20; TEMP 36.9; O2SAT 97
--- NOTE | 2024-09-10 19:45 | PHA.MEDREC ---
Addendum entered by Júnior Schmitz [facility] 09/10/24 19:55: Med rec reviewed Original Note: Pharmacy Consult ? Medication Reconciliation Pharmacy has completed the medication reconciliation. Confirmed medications with patient and list brought in by patient. On patient list he had both Atorvastatin 10mg tabs and 40mg, in claims we only have Atorvastatin 40mg once daily at bedtime and no claims for 10, I called [facility] on [address] in [place] and they confirmed he got the Atorvastatin 40mg tabs and they have no claims for 10mg tabs once at bedtime. I also asked about Lisinopril 5mg tabs since the patient confirmed he was still on that once daily but in claims that has not been filled since 04/13/24 and that matched [facility] claims but they state that the patient ran out of refills and was waiting on the doctor to write more. He confirmed his Trazosin 5mg cap 1 cap at bedtime. He confirmed he took his medications yesterday and was not able to take any today.
--- NOTE | 2024-09-10 21:42 | PC.NURSE ---
pt on monitor sinus aida vs 2nd degree heart block. heart rate 60s-70s with episodes of dropping to 30s-40s, asymptomatic. pt is pleasant denies cp/sob bpo wnl. monitor strip printed and MD aware.
--- NOTE | 2024-09-10 23:07 | PC.NURSE ---
pt monitor alert for extreme aida, printed and shown to MD Talley. pt asymptomatic. vss.
[2024-09-10 23:08] VITALS: BP 119/54; PULSE 54; RESP 16; O2SAT 96
[2024-09-11] VITALS (7 sets, daily range): BP systolic 118–164; BP diastolic 56–73; PULSE 54–62; RESP 18–21; TEMP 36.3–36.8; O2SAT 91–94; BMI 28.6
--- NOTE | 2024-09-11 | ECG_ITS ---
Test Reason : follow up on abnormal rythm Blood Pressure : / mmHG Vent. Rate : 049 BPM Atrial Rate : 000 BPM P-R Int : 000 ms QRS Dur : 078 ms QT Int : 424 ms P-R-T Axes : 000 -30 013 degrees QTc Int : 383 ms Sinus bradycardia with first degree AV block with blocked PACs and junctional beats Left axis deviation Inferior infarct (cited on or before 10-SEP-2024) Abnormal ECG When compared with ECG of 10-SEP-2024 16:57, QT has shortened Referred By: Cristóbal Thompson Electronically Signed By:Kapil Fonseca
[2024-09-11] MEDS: 0.9 % Sodium Chloride Flush 3 ML SYRINGE IVFLUSH ×4 (00:45→20:48)
--- NOTE | 2024-09-11 01:59 | PC.NURSE ---
Patient admitted to Med/Tele from ED at approx [id number]. Upon initial assessment, patient A&Ox4, cooperative and pleasant. On tele, 2nd degree heart block type 1 noted, occasional bouts of bradycardia. Bilateral lower extremity edema noted, patient states this is his baseline and he wears compression socks. Denies dizziness and CP. Lung sounds clear to auscultation, on room air with even, unlabored RR. Abdomen soft, round, nontender, patient educated on NPO diet order. Given urinal to void. Skin overall warm dry and intact. Denies pain, and educated on plan of care. Call kilgore within reach, bed locked in lowest position, bed alarm on.
[2024-09-11] MEDS: lisinopriL 5 MG TABLET PO (08:06)
[2024-09-11] MEDS: Atorvastatin Calcium 40 MG TABLET PO (08:06)
[2024-09-11] MEDS: Famotidine 20 MG TABLET 40 MG PO (08:06)
[2024-09-11 08:56] LABS: Magnesium 2.1 mg/dL (1.6-2.6)
[2024-09-11 09:11] LABS: Thyroid Stimulating Hormone 2.37 uIU/mL (0.32-4.0)
--- NOTE | 2024-09-11 09:51 | PM.CNCAR ---
History of Present Illness History of Present Illness Date of Service: 09/11/24 Requesting physician: Cristóbal Thompson Chief complaint: SOB, Carmen. Narrative: 84-year-old gentleman who is presenting with concern for heart block. He has history of inferior wall LA in 08/2023. He is presenting for bradycardia. He is saying that he is bradycardic all the time. Denying any dizziness or lightheadedness. No syncope. He has been short of breath mostly with activity but also has been experiencing some orthopnea like episodes. No chest discomfort. EKGs reviewed which showed first-degree AV block. Telemetry has shown sinus bradycardia with blocked PACs. [facility] Social History Social History Household Members: Children Household Members Other:: Son Housing: House Do you presently have visiting nurse or other home services: No Patient Tobacco Use Status: Former Tobacco user Tobacco use type: Cigarette Smoked in Last 30 Days: No e-Cigarette/Vaping Use: Never Used Use of substances other than those prescribed or required for medical reasons: No Currently Displaying Signs/Symptoms of Drug Intoxication Withdrawal: No Have you been hit, kicked, punched, or otherwise hurt by someone within the past year? If so, by whom?: No Do you feel safe in your current relationship?: No Current Relationship Is there a partner from a previous relationship who is making you feel unsafe now?: No Are you made to feel afraid or neglected: No [employer] Healthcare Practices: [employer] Advance Directives: No Advance Directives Information Provided: Yes Recently lost weight without trying: Unsure Nutrition Risks: Dental problems Poor oral hygiene: Yes Meds Allergies Allergy/AdvReac Type Severity Reaction Status Date / Time Penicillins [PCN] Allergy Unknown RASH Verified 09/10/24 15:08 Active Medications: Current Medications Acetaminophen (Acetaminophen 325 Mg Tablet) 650 mg PO Q6H PRN PRN Reason: Pain, Mild (Pain Scale 1-3), fever or headache Atorvastatin Calcium (Atorvastatin Calcium 40 Mg Tablet) 40 mg PO DAILY [facility] Last Admin: 09/11/24 08:06 Dose: 40 mg Calcium Carbonate (Calcium Carbonate 750 Mg Tab.Chew) 750 mg PO Q4H PRN PRN Reason: Heartburn Doxazosin Mesylate (Doxazosin Mesylate 2 Mg Tablet) 4 mg PO BEDTIME [facility] Famotidine (Famotidine 20 Mg Tablet) 40 mg PO DAILY [facility] Last Admin: 09/11/24 08:06 Dose: 40 mg Finasteride (Finasteride 5 Mg Tablet) 5 mg PO BEDTIME [facility] Latanoprost (Latanoprost 0.005 % Ophth Isabel 2.5 Ml Drops) 1 drop EYE-BOTH BEDTIME [facility] Last Admin: 09/10/24 21:43 Dose: Not Given Lisinopril (Lisinopril 5 Mg Tablet) 5 mg PO DAILY [facility]; Protocol Last Admin: 09/11/24 08:06 Dose: 5 mg Magnesium Hydroxide (Milk Of Magnesia 30 Ml Oral.Susp) 30 ml PO DAILY PRN PRN Reason: Constipation Melatonin (Melatonin 3 Mg Tablet) 6 mg PO BEDTIME PRN PRN Reason: Insomnia Ondansetron HCl (Ondansetron Hcl 4 Mg/2 Ml Vial) 4 mg IVPUSH Q8H PRN PRN Reason: Nausea and Vomiting Sodium Chloride (0.9 % Sodium Chloride Flush 3 Ml Syringe) 3 ml IVFLUSH QSHIFT [facility] Last Admin: 09/11/24 08:06 Dose: 3 ml Home Medications ?Medication ?Instructions ?Recorded ?Confirmed ?Last Taken ?Type atorvastatin 40 mg tablet 40 mg PO DAILY 09/10/24 09/10/24 09/09/24 History clopidogrel 75 mg tablet 75 mg PO DAILY 09/10/24 09/10/24 09/09/24 History famotidine 40 mg tablet 40 mg PO DAILY 09/10/24 09/10/24 09/09/24 History finasteride 5 mg tablet 5 mg PO BEDTIME 09/10/24 09/10/24 09/09/24 History latanoprost 0.005 % eye drops 1 drp ophthalmic (eye) BEDTIME 09/10/24 09/10/24 09/09/24 History lisinopril 5 mg tablet 5 mg PO DAILY 09/10/24 09/10/24 09/09/24 History terazosin 5 mg capsule 5 mg PO BEDTIME 09/10/24 09/10/24 09/09/24 History Physical Exam Vital Signs: Vital Signs: Last Vital Signs Temp 97.9 F 09/11/24 07:04 Pulse 54 09/11/24 07:04 Resp 18 09/11/24 07:04 BP 143/63 H 09/11/24 07:04 Pulse Ox 92 09/11/24 07:04 O2 Del Method Room Air 09/11/24 07:04 BMI result Body Mass Index 28.6 GENERAL APPEARANCE: in no acute distress, pleasant. NECK: no carotid bruit, + jugular venous distention. SKIN: no suspicious lesions, warm and dry. HEART: no murmurs, irregular rate and rhythm. bradycardic LUNGS: Crackles both bases. ABDOMEN: soft, nontender. EXTREMITIES: + edema. PERIPHERAL PULSES: equal. NEUROLOGIC: No gross deficits, AAO X 3 Objective Labs and Meds 09/10/24 15:51 09/10/24 15:51 Lab results: Laboratory Results - last 24 hr 09/10/24 09/11/24 15:51 08:22 WBC 3.6 L RBC 3.69 L Hgb 12.4 L Hct 37.5 L MCV 101.6 H MCH 33.6 H MCHC 33.1 RDW 13.4 Plt Count 95 L MPV 10.5 Immature Gran % (Auto) 0.3 Neut % (Auto) 71.0 Lymph % (Auto) 14.0 L [place] % (Auto) 12.4 H Eos % (Auto) 1.7 Baso % (Auto) 0.6 Lymph # (Auto) 0.5 L [place] # (Auto) 0.4 Eos # (Auto) 0.1 Baso # (Auto) 0.0 Abs Immat Gran (auto) 0.01 Absolute Neuts (auto) 2.5 Absolute Nucleated RBC 0.000 Nucleated RBC % (auto) 0.0 Hold Purple Top SEE NOTE PT 13.7 H INR 1.2 H APTT 32.0 Sodium 143 Potassium 4.4 Chloride 108 Carbon Dioxide 30 H Anion Gap 9 L BUN 25 H Creatinine 0.98 Estim Creat Clear Calc 55.4 Estimated GFR > 60 Random Glucose 116 H Calcium 9.1 Magnesium 2.1 Total Bilirubin 0.7 AST 30 ALT 27 Alkaline Phosphatase 54 Troponin I High Sens 7.4 Total Protein 6.0 L Albumin 3.4 L TSH 2.37 Imaging Radiologist's impression: Impressions Chest X-Ray 09/10/24 18:20 IMPRESSION: Hypoinflated lungs with coarse reticulonodular densities and bibasilar atelectasis. No focal consolidation. Electronically signed by: Emiliano Conteh MD 09/10/2024 07:12 PM EDT Assessment and Plan (1) Bradycardia: Status: Acute (2) CHF (congestive heart failure): Status: Acute Plan Pleasant 84 year gentleman who has history of coronary artery disease with previous inferior wall LA and primary PCI in 09/08/2024 now presenting for bradycardia. Denying any chest discomfort. No syncope or dizziness. Telemetry is showing blocked PACs. Advised the nurse to walking in the hallways to see how his heart rate response to exercise. He is short of breath due to mild congestive heart failure. IV diuretics. Monitor I's and O's. Currently no clear indication for permanent pacemaker placement. I have discussed this with the patient. Obviously if clinical situation changes then we will arrange pacemaker for him. Thank you for allowing me to participate in the care of your patient. Please feel free to contact me if you have any questions. Procedures Date of Service Date of Service: 09/11/24
[2024-09-11] MEDS: Furosemide 40 MG/4 ML VIAL IVPUSH (10:26)
[2024-09-11 10:28] LABS: B Type Natriuretic Peptide 425 pg/mL (<100)
--- NOTE | 2024-09-11 12:22 | P.PNIM_ITS ---
Subjective Subjective Date of Service: 09/12/24 Interval History: Being followed for second-degree heart block, tele monitor showed is stable heart rate in 60s Patient denies chest pain, no lightheadedness or dizziness but c/o shortness of breath with reclining no shortness a breath with climbing stairs or ambulating. Review of Systems All other system reviewed and are negative Physical Exam 2 Vital Signs: Vital Signs: Last Vital Signs Temp 97.3 F 09/11/24 10:52 Pulse 62 09/11/24 10:52 Resp 20 09/11/24 10:52 BP 141/70 H 09/11/24 10:52 Pulse Ox 91 L 09/11/24 10:52 O2 Del Method Room Air 09/11/24 10:52 BMI result Body Mass Index 28.6 Const: Other: General awake alert x3, resting comfortably in no acute distress. Anicteric sclera Neck supple no JVD. CVS regular rate rhythm, systolic murmur Respiratory lungs crackles at bases,no respiratory distress, no wheeze, no rhonchi. Gastrointestinal abdomen soft, non tender, bowel sounds audible, no guarding , no rigidity. Extremities mild edema. Neuro non focal, moving all 4 extremity speech clear. Skin no rash Psych appropriate affect Objective Data Active Medications Acetaminophen (Acetaminophen 325 Mg Tablet) 650 mg PO Q6H PRN PRN Reason: Pain, Mild (Pain Scale 1-3), fever or headache Atorvastatin Calcium (Atorvastatin Calcium 40 Mg Tablet) 40 mg PO DAILY [facility] Last Admin: 09/11/24 08:06 Dose: 40 mg Documented By: DERRICK Calcium Carbonate (Calcium Carbonate 750 Mg Tab.Chew) 750 mg PO Q4H PRN PRN Reason: Heartburn Doxazosin Mesylate (Doxazosin Mesylate 2 Mg Tablet) 4 mg PO BEDTIME [facility] Famotidine (Famotidine 20 Mg Tablet) 40 mg PO DAILY [facility] Last Admin: 09/11/24 08:06 Dose: 40 mg Documented By: DERRICK Finasteride (Finasteride 5 Mg Tablet) 5 mg PO BEDTIME [facility] Latanoprost (Latanoprost 0.005 % Ophth Isabel 2.5 Ml Drops) 1 drop EYE-BOTH BEDTIME [facility] Last Admin: 09/10/24 21:43 Dose: Not Given Documented By: CARLOTTA Non-Admin Reason: Med Not Available Lisinopril (Lisinopril 5 Mg Tablet) 5 mg PO DAILY [facility]; Protocol Last Admin: 09/11/24 08:06 Dose: 5 mg Documented By: DERRICK Magnesium Hydroxide (Milk Of Magnesia 30 Ml Oral.Susp) 30 ml PO DAILY PRN PRN Reason: Constipation Melatonin (Melatonin 3 Mg Tablet) 6 mg PO BEDTIME PRN PRN Reason: Insomnia Ondansetron HCl (Ondansetron Hcl 4 Mg/2 Ml Vial) 4 mg IVPUSH Q8H PRN PRN Reason: Nausea and Vomiting Sodium Chloride (0.9 % Sodium Chloride Flush 3 Ml Syringe) 3 ml IVFLUSH QSHIFT [facility] Last Admin: 09/11/24 08:06 Dose: 3 ml Documented By: DERRICK Labs 09/10/24 15:51 09/12/24 08:11 Labs: Laboratory Results - last 24 hr 09/10/24 09/11/24 15:51 08:22 MCV 101.6 H MCH 33.6 H MCHC 33.1 RDW 13.4 Plt Count 95 L MPV 10.5 Immature Gran % (Auto) 0.3 Neut % (Auto) 71.0 Lymph % (Auto) 14.0 L Thomas % (Auto) 12.4 H Eos % (Auto) 1.7 Baso % (Auto) 0.6 Lymph # (Auto) 0.5 L Thomas # (Auto) 0.4 Eos # (Auto) 0.1 Baso # (Auto) 0.0 Abs Immat Gran (auto) 0.01 Absolute Neuts (auto) 2.5 Absolute Nucleated RBC 0.000 Nucleated RBC % (auto) 0.0 Hold Purple Top SEE NOTE PT 13.7 H INR 1.2 H APTT 32.0 Anion Gap 9 L Estim Creat Clear Calc 55.4 Estimated GFR > 60 Random Glucose 116 H Calcium 9.1 Magnesium 2.1 Total Bilirubin 0.7 AST 30 ALT 27 Alkaline Phosphatase 54 Troponin I High Sens 7.4 B-Natriuretic Peptide 425 H Total Protein 6.0 L Albumin 3.4 L TSH 2.37 Assessment and Plan (1) Atrioventricular block, Mobitz type 1, Wenckebach: Status: Acute (2) CHF (congestive heart failure): Status: Acute (3) Bradycardia: Status: Acute Plan 84-year-old gentleman with past medical history significant for inferior wall NE status post RCA stent currently on Plavix, history of TIA , hyperlipidemia type 2 diabetes mellitus, presented with type 2 heart block Mobitz type one Wenkebach. Second-degree heart block Mobitz type 1 Shortness of breath of several weeks duration with reclining, excessive daytime sleep , no chest pain, no lightheadedness or dizziness Tele monitor shows variable heart rate, prolonged [place], P waves with different morphology and Mobitz type 2 Wenckebach Not on beta-blockers or calcium channel blockers Stable electrolytes, normal magnesium, chest x-ray showed hypoinflated lungs with coarse reticulonodular densities and bibasilar atelectasis, no focal consolidation noted, normal TSH Elevated BNP echo 09/11 showed normal systolic function [id number] hypokinesis inferior and inferolateral wall, moderately calcified aortic valve, decreased right ventricular systolic function, diastolic function not assessed. Case discussed with Cardiology will continue tele monitor,Obtain echo, repeat EKG Give IV Lasix since appear fluid overloaded with bilateral leg edema and shortness of breath with reclining, follow echo History of coronary artery disease status post RCA stent 08/2023 No chest pain, normal troponin, continue statins History of urinary retention continue terazosin and finasteride History of TIA no acute neurological symptoms Full code DVT prophylaxis with compression boots In my clinical judgment patient requires inpatient hospitalization for monitoring of second-degree heart block Mobitz type 1 requiring tele monitoring and and further testing. Quality Stroke Does the patient have a stroke diagnosis?: No VTE Prior VTE?: No VTE Risk Level:: Medical - moderate - high VTE Device Contraindication: Treatment Not Indicated VTE Drug Contraindication: N/A - Med Ordered
[2024-09-11 12:48] LABS: Glucose, Whole Blood 113 mg/dL (60-115)
--- NOTE | 2024-09-11 14:15 | CA_ITS ---
Transthoracic Echocardiogram Patient (Last, First, Middle): Danish Cevallos, Gender: Male Date of : 1940 Age: 84 Procedure Date: 09/11/2024 Procedure Type: Transthoracic Echocardiogram Location: [facility] [place] Height: 170.18 cm Weight: 82.56 kg BSA: 1.94 m2 Heart Rate: bpm BP: 141 / 70 mmHg Staff Research Associate: Referring MD: Cristóbal Thompson MD Symptoms: arrythmia/chf Study Quality: Fair ECG Rhythm: Sinus with extra beats Conclusions: - Normal left ventricular size and systolic function. There is moderately increased left ventricular wall thickness. The visually estimated ejection fraction is between 60-65%. - Normal right ventricular cavity size and systolic function. - The left atrium is severely dilated. - There is severe mitral annular calcification. Findings Procedure Information Contrast agent, definity, is being given per protocol without apparent complications. Left Ventricle Normal left ventricular size and systolic function. There is moderately increased left ventricular wall thickness. The visually estimated ejection fraction is between 60-65%. There is no evidence of regional wall motion abnormalities. Diastolic function is indeterminate on the basis of available data. Right Ventricle Normal right ventricular cavity size and systolic function. Atria The left atrium is severely dilated. Aortic Valve The aortic valve was not well visualized. There is no aortic valve stenosis. There is no aortic valve regurgitation. Mitral Valve There is severe mitral annular calcification. There is trace mitral valve regurgitation. There is no mitral valve stenosis. Pulmonic Valve The pulmonic valve is likely normal. Tricuspid Valve Normal tricuspid valve structure and function. Normal right atrial pressure. There is no evidence of pulmonary hypertension. Great Vessels All visible segments of the aorta are normal in size. Venous The inferior vena cava is normal in size and collapses greater than 50% with inspiration. Pericardium/Pleural There is no evidence of pericardial effusion. Prior Study Comparison No prior study available for comparison. Measurements 2D Linear Measurements IVSd: 1.30 0.6-0.9/0.6-1.0 cm LVIDd: 4.24 3.9-5.3/4.2-5.9 cm LVIDd Index: 2.19 2.4-3.2/2.2-3.1 cm/m2 LVIDs: 2.93 2.0-3.6 cm LVPWd: 1.34 0.7-1.1 cm Ao Root: 3.20 2.1-3.5 cm LA Diam: 4.30 2.7-3.8/3.0-4.0 cm LAIDs Index: 2.22 1.5-2.3 cm/m2 LV Mass: 259.41 67-162/88-224 g LV Mass Index: 133.72 43-95/49-115 g/m2 LVOT Diam: 2.10 3.0+(-)1.3 cm Mitral Valve MV VTI: 0.50 MV Pk Jose: 1.49 MV Mn Jose: 0.89 MV Pk Grad: 9.00 MV Mn Grad: 4.00 MV Pk E: 1.23 MV PK A: 1.07 MV Decel Time: 517.00 E/A: 1.10 E'Lateral: 5.22 E'Medial: 4.24 E/E' Med: 29.00 E/E' Lat: 23.60 PHT: 151.00 MVA PHT: 1.46 MVA Continuity: 1.73 Decel [place]: 2.37 Aortic Valve AoV Pk Jose: 1.48 AoV Mn Jose: 1.00 AoV VTI: 0.32 AoV Pk Grad: 9.00 Aov Mn Grad: 5.00 SARA Cont.VTI: 2.70 LVOT LVOT Pk Jose: 0.88 LVOT Mn Jose: 0.61 LVOT VTI: 0.25 LVOT Pk Grad: 3.00 LVOT Mn Grad: 2.00 LVOT Diam: 2.10 LVOT Area: 3.46 Diastolic Function MV Pk E: 1.23 MV Pk A: 1.07 E/A: 1.10 E'Medial: 4.24 E/E' Med: 29.00 E' Laterial: 5.22 E/E' Lat: 23.60 Right Ventricle TAPSE (mm): 31.00 TVS' Jose: 10.00 Tricuspid Valve TR Pk Jose: 1.77 TR Pk Grad: 13.00 RA Press: 3.00 RVSP: 16.00 Great Vessels Aorta Ao Root-2D: 3.20 2.0-3.7 cm Ao Asc: 2.70 2.1-3.4 cm Pulmonary Valve PV Pk Jose: 1.02 Peak PV Grad: 4.00 Updated in Other Vendor System with Status of Final Kapil Fonseca MD electronically signed on 09/12/2024 2:03:08 PM with status of Final
[2024-09-11] MEDS: Doxazosin Mesylate 2 MG TABLET 4 MG PO (20:47)
[2024-09-11] MEDS: Latanoprost 0.005 % Ophth Sol 2.5 ML DROPS 1 DROP EYE-BOTH (20:47)
[2024-09-11] MEDS: Finasteride 5 MG TABLET PO (20:48)
[2024-09-12 03:23] VITALS: BP 107/55; PULSE 53; RESP 19; TEMP 36.7; O2SAT 91
[2024-09-12 07:05] VITALS: BP 117/59; PULSE 60; RESP 18; TEMP 36.1; O2SAT 91
--- NOTE | 2024-09-12 08:26 | MHC.CM.PN ---
CM met with Patient at bedside and addressed IMM with him, providing Patient with the original and a copy has been placed on the chart. Patient lives alone on his side of a duplex, with his Son/Jeff living on the other side. Patient receives [employer] 1/week for 2 hours and he uses a cane to assist with mobility. Home/resume said services is the goal and CM has initiated and will follow for dc planning. PCP is Dr. Pavel Nelson and Son will transport to home.
[2024-09-12 08:37] LABS: Anion Gap 8 (12-20); Blood Urea Nitrogen 25 mg/dL (9-16); Carbon Dioxide 33 mmol/L (22-29); Chloride 104 mmol/L (96-108); Creatinine Clr Calc Pharmacy 54.5; Estimated Glomerular Filt Rate > 60; Glucose Random 100 mg/dL (60-115); Potassium 4.4 mmol/L (3.3-5.1); Sodium 141 mmol/L (135-145)
[2024-09-12 08:44] LABS: B Type Natriuretic Peptide 370 pg/mL (<100)
[2024-09-12] MEDS: Famotidine 20 MG TABLET 40 MG PO (08:55)
[2024-09-12] MEDS: lisinopriL 5 MG TABLET PO (08:55)
[2024-09-12] MEDS: Atorvastatin Calcium 40 MG TABLET PO (08:55)
[2024-09-12] MEDS: 0.9 % Sodium Chloride Flush 3 ML SYRINGE IVFLUSH ×2 (08:55→20:19)
--- NOTE | 2024-09-12 09:39 | ECG_ITS ---
Test Reason : Assesment Blood Pressure : / mmHG Vent. Rate : 046 BPM Atrial Rate : 046 BPM P-R Int : 000 ms QRS Dur : 078 ms QT Int : 428 ms P-R-T Axes : 051 -42 010 degrees QTc Int : 374 ms Sinus bradycardia with Mobitz type 1 AV block Left axis deviation Inferior infarct (cited on or before 10-SEP-2024) Abnormal ECG When compared with ECG of 11-SEP-2024 13:54, Mobitz type 1 block Referred By: Kapli Fonseca Electronically Signed By:Kapil Fonseca
[2024-09-12 11:07] VITALS: BP 127/58; PULSE 47; RESP 17; TEMP 36.1; O2SAT 93
--- NOTE | 2024-09-12 11:30 | PM.PNCARD ---
Subjective Subjective Date of Service: 09/12/24 Interval history: Seen examined at bedside. No new complaints. Physical Exam Vital Signs: Last Vital Signs Temp 97.0 F 09/12/24 11:07 Pulse 47 L 09/12/24 11:07 Resp 17 09/12/24 11:07 BP 127/58 L 09/12/24 11:07 Pulse Ox 93 09/12/24 11:07 O2 Del Method Room Air 09/12/24 11:07 BMI result Body Mass Index 28.6 GENERAL APPEARANCE: in no acute distress, pleasant. NECK: no carotid bruit, no jugular venous distention. SKIN: no suspicious lesions, warm and dry. HEART: no murmurs, irregular rate and rhythm. bradycardic LUNGS: Clear to auscultation. ABDOMEN: soft, nontender. EXTREMITIES: + edema. PERIPHERAL PULSES: equal. NEUROLOGIC: No gross deficits, AAO X 3 Objective Labs and Meds 09/10/24 15:51 09/12/24 08:11 Lab results: Laboratory Results - last 24 hr 09/11/24 09/12/24 12:43 08:11 Sodium 141 Potassium 4.4 Chloride 104 Carbon Dioxide 33 H Anion Gap 8 L BUN 25 H Creatinine 1.00 Estim Creat Clear Calc 54.5 Estimated GFR > 60 POC Glucose 113 Random Glucose 100 Calcium 9.0 B-Natriuretic Peptide 370 H Progress Note: A&P Assessment and plan (1) CHF (congestive heart failure): Status: Acute (2) Bradycardia: Status: Acute Plan 84-year-old gentleman presenting for bradycardia. No advanced AV block has been noted so far. He also is asymptomatic and has no dizziness or lightheadedness. He was given diuretics yesterday for shortness of breath. He is saying his breathing is stable and he slept well overnight. Continue with oral Lasix. Ambulate in hallways to see how his heart rate is with activity. Please check the telemetry electrodes before ambulation because he has significant artifact on his telemetry. Thank you for allowing me to participate in the care of your patient. Please feel free to contact me if you have any questions. Time Spent With Patient Time: Total time managing care of this patient today ____ minutes. Progress Note: Quality Stroke Does the patient have a stroke diagnosis?: No Procedures Date of Service Date of Service: 09/12/24
--- NOTE | 2024-09-12 14:32 | HO.PM.IMPN ---
Subjective Subjective Date of Service: 09/12/24 Interval History: Being followed for Mobitz type 2 block Noted to have bradycardia, no significant heart blocks noted, patient denies chest pain, no palpitations no dizziness, no lightheadedness, slept well denies shortness of breath. Review of Systems All other system reviewed and are negative. Physical Exam Vital Signs: Vital Signs: Last Vital Signs Temp 97.0 F 09/12/24 11:07 Pulse 47 L 09/12/24 11:07 Resp 17 09/12/24 11:07 BP 127/58 L 09/12/24 11:07 Pulse Ox 93 09/12/24 11:07 O2 Del Method Room Air 09/12/24 11:07 BMI result Body Mass Index 28.6 Const: Other: General awake alert x3, resting comfortably in no acute distress. Anicteric sclera Neck supple no JVD. CVS regular rate rhythm, systolic murmur Respiratory lungs clear to auscultation,no respiratory distress, no wheeze, no rhonchi. Gastrointestinal abdomen soft, non tender, bowel sounds audible, no guarding , no rigidity. Extremities mild edema, improved. Neuro non focal, moving all 4 extremity, speech clear. Skin no rash Psych appropriate affect Objective Data Active Medications Acetaminophen (Acetaminophen 325 Mg Tablet) 650 mg PO Q6H PRN PRN Reason: Pain, Mild (Pain Scale 1-3), fever or headache Atorvastatin Calcium (Atorvastatin Calcium 40 Mg Tablet) 40 mg PO DAILY [facility] Last Admin: 09/12/24 08:55 Dose: 40 mg Documented By: DERRICK Calcium Carbonate (Calcium Carbonate 750 Mg Tab.Chew) 750 mg PO Q4H PRN PRN Reason: Heartburn Doxazosin Mesylate (Doxazosin Mesylate 2 Mg Tablet) 4 mg PO BEDTIME [facility] Last Admin: 09/11/24 20:47 Dose: 4 mg Documented By: SONIA Famotidine (Famotidine 20 Mg Tablet) 40 mg PO DAILY [facility] Last Admin: 09/12/24 08:55 Dose: 40 mg Documented By: DERRICK Finasteride (Finasteride 5 Mg Tablet) 5 mg PO BEDTIME [facility] Last Admin: 09/11/24 20:48 Dose: 5 mg Documented By: SONIA Latanoprost (Latanoprost 0.005 % Ophth Isabel 2.5 Ml Drops) 1 drop EYE-BOTH BEDTIME [facility] Last Admin: 09/11/24 20:47 Dose: 1 drop Documented By: SONIA Lisinopril (Lisinopril 5 Mg Tablet) 5 mg PO DAILY [facility]; Protocol Last Admin: 09/12/24 08:55 Dose: 5 mg Documented By: DERRICK Magnesium Hydroxide (Milk Of Magnesia 30 Ml Oral.Susp) 30 ml PO DAILY PRN PRN Reason: Constipation Melatonin (Melatonin 3 Mg Tablet) 6 mg PO BEDTIME PRN PRN Reason: Insomnia Ondansetron HCl (Ondansetron Hcl 4 Mg/2 Ml Vial) 4 mg IVPUSH Q8H PRN PRN Reason: Nausea and Vomiting Sodium Chloride (0.9 % Sodium Chloride Flush 3 Ml Syringe) 3 ml IVFLUSH QSHIFT [facility] Last Admin: 09/12/24 08:55 Dose: 3 ml Documented By: DERRICK Labs 09/10/24 15:51 09/12/24 08:11 Labs: Laboratory Results - last 24 hr 09/12/24 08:11 Anion Gap 8 L Estim Creat Clear Calc 54.5 Estimated GFR > 60 Random Glucose 100 Calcium 9.0 B-Natriuretic Peptide 370 H Assessment and Plan (1) CHF (congestive heart failure): Status: Acute (2) Atrioventricular block, Mobitz type 1, Wenckebach: Status: Acute (3) Bradycardia: Status: Acute Plan 84-year-old gentleman with past medical history significant for inferior wall [place] status post RCA stent currently on Plavix, history of TIA , hyperlipidemia type 2 diabetes mellitus, presented with type 2 heart block Mobitz type one Wenkebach. Second-degree heart block Mobitz type 1 Shortness of breath resolved, no chest pain, no lightheadedness or dizziness Tele monitor shows variable heart rate, prolonged [place], and Mobitz type 2 Wenckebach Not on beta-blockers or calcium channel blockers Stable electrolytes, normal magnesium, chest x-ray showed hypoinflated lungs with coarse reticulonodular densities and bibasilar atelectasis, no focal consolidation noted, normal TSH Patient ambulated in hallway heart rate remained stable, patient remained asymptomatic cardiology recommend to discharge home with no further intervention Mild acute diastolic heart failure Elevated BNP 425 improved to 370 after IV Lasix, greater than 1 L negative shortness of breath resolved echo 08/2023 showed normal systolic function [id number] hypokinesis inferior and inferolateral wall, moderately calcified aortic valve, decreased right ventricular systolic function, diastolic function not assessed. Will place on low-dose Lasix 20 mg daily starting tomorrow echo 09/10/24 showed EF 60-65%, severely dilated left atrium, no regional wall motion abnormality, indeterminate diastolic function. History of coronary artery disease status post RCA stent 08/2023 No chest pain, normal troponin, continue statins History of urinary retention continue terazosin and finasteride History of TIA no acute neurological symptoms Disposition patient feels he is not ready for discharge due to weakness and requiring assistance with ambulation, PT eval obtained they recommend home PT services for optimal functional gains due to gross deconditioning, impaired gait pattern and safety. Full code DVT prophylaxis with compression boots In my clinical judgment patient requires inpatient hospitalization for monitoring of second-degree heart block Mobitz type 1 requiring tele monitoring and safe disposition Quality Stroke Does the patient have a stroke diagnosis?: No VTE Prior VTE?: No VTE Risk Level:: Medical - moderate - high VTE Device Contraindication: Treatment Not Indicated VTE Drug Contraindication: N/A - Med Ordered
[2024-09-12 15:28] VITALS: BP 118/57; PULSE 55; RESP 18; TEMP 36.2; O2SAT 94
[2024-09-12 19:31] VITALS: BP 108/64; PULSE 56; RESP 18; TEMP 36.5; O2SAT 95
[2024-09-12] MEDS: Finasteride 5 MG TABLET PO (20:18)
[2024-09-12] MEDS: Latanoprost 0.005 % Ophth Sol 2.5 ML DROPS 1 DROP EYE-BOTH (20:18)
[2024-09-12] MEDS: Doxazosin Mesylate 2 MG TABLET 4 MG PO (20:18)
[2024-09-12 23:23] VITALS: BP 111/50; PULSE 65; RESP 20; TEMP 36.3; O2SAT 96
[2024-09-13 04:00] VITALS: BP 118/57; PULSE 54; RESP 16; TEMP 36.1; O2SAT 96
[2024-09-13 07:03] VITALS: BP 111/58; PULSE 53; RESP 18; TEMP 36.2; O2SAT 97
[2024-09-13] MEDS: Famotidine 20 MG TABLET 40 MG PO (08:27)
[2024-09-13] MEDS: Atorvastatin Calcium 40 MG TABLET PO (08:27)
[2024-09-13] MEDS: lisinopriL 5 MG TABLET PO (08:27)
[2024-09-13] MEDS: 0.9 % Sodium Chloride Flush 3 ML SYRINGE IVFLUSH ×2 (08:28→16:50)
[2024-09-13 09:25] VITALS: BP 111/58; PULSE 53; O2SAT 97
--- NOTE | 2024-09-13 09:37 | MHC.CM.PN ---
PT is now recommending STR; CM will follow.
[2024-09-13] MEDS: Enoxaparin Sodium 40 MG/0.4 ML SYRINGE SUBCUT (10:35)
[2024-09-13 11:02] VITALS: BP 111/56; PULSE 55; RESP 18; TEMP 36.4; O2SAT 97
--- NOTE | 2024-09-13 12:25 | PM.PNCARD ---
Subjective Subjective Date of Service: 09/13/24 Interval history: Seen and examined at bedside. He ambulated the hallways and was feeling rigidity in his muscles. No dizziness or lightheadedness. Telemetry reviewed which is showing Wenckebach and at times two-to-one block. Physical Exam Vital Signs: Last Vital Signs Temp 97.6 F 09/13/24 11:02 Pulse 55 09/13/24 11:02 Resp 18 09/13/24 11:02 BP 111/56 L 09/13/24 11:02 Pulse Ox 97 09/13/24 11:02 O2 Del Method Nasal Cannula 09/13/24 11:02 O2 Flow Rate 2 09/13/24 11:02 BMI result Body Mass Index 28.6 GENERAL APPEARANCE: in no acute distress, pleasant. NECK: no carotid bruit, no jugular venous distention. SKIN: no suspicious lesions, warm and dry. HEART: no murmurs, irregular rate and rhythm. bradycardic LUNGS: Clear to auscultation. ABDOMEN: soft, nontender. EXTREMITIES: + edema. PERIPHERAL PULSES: equal. NEUROLOGIC: No gross deficits, AAO X 3 Objective Labs and Meds 09/10/24 15:51 09/12/24 08:11 Progress Note: A&P Assessment and plan (1) Bradycardia: Status: Acute Plan [age] gentleman with background history of coronary disease with previous PCI to RCA in 09/08/2023. He is here for concern for bradycardia. He has been asymptomatic. With ambulation no advanced blocks noticed. He has AV Wenckebach on telemetry along with two-to-one block at times (mostly at nighttime when he sleeping). No obvious AV dissociation or any concerns for complete heart block. He has ambulated in the hallways and has no symptoms with activity other than muscle weakness and stiffness. He had episode of congestive heart failure on admission. Stop the lisinopril because blood pressure has been borderline. Lasix 20 mg p.o. daily. Stop the famotidine and changed to omeprazole. We will arrange a cardiac event monitor for him as outpatient. I have explained to the patient that currently there is no obvious indication for pacemaker placement but if his monitoring down the line showed any concerns and we will arrange permanent pacemaker placement. Thank you for allowing me to participate in the care of your patient. Please feel free to contact me if you have any questions. Time Spent With Patient Time: Total time managing care of this patient today ____ minutes. Progress Note: Quality Stroke Does the patient have a stroke diagnosis?: No Procedures Date of Service Date of Service: 09/13/24
--- NOTE | 2024-09-13 12:40 | PM.DS ---
DS: Providers Provider Date of Service: 09/13/24 Date of admission: 09/10/24 18:40 Primary care physician: Pavel Nelson MD Consults: 09/10/24 18:43 Consult to Cardiology Routine Consulting Provider: Kapil Fonseca Reason for consultation: heart block Has provider been notified: No DS: Diagnosis Discharge Diagnosis (1) Bradycardia: Status: Acute DS: Summary Hospital Course Hospital Course: History of presenting illness: Date of Service: 09/10/24 Chief Complaint: Heart block 84-year-old gentleman with past medical history significant for hypertension, hyperlipidemia, type 2 diabetes mellitus, TIA, history of inferior wall [place] with complete heart block status post drug eluded stent to RCA require temporary pacemaker for bradycardia, post [place] course was complicated by sinus bradycardia with second-degree heart block Mobitz type 1 in 2022 was seen for a routine follow-up by PCP today and was found to be in heart block therefore was referred to emergency department for further evaluation, patient complains of shortness of breath of several weeks duration worse with reclining , denies shortness of breath with climbing stairs, he denies associated chest pain, no lightheadedness, no dizziness, denies recent bout of fever, no chills, no upper respiratory symptoms of cough or sputum production, no sick contacts, no new medication at baseline patient not on calcium channel blockers or beta-blockers, EKG in the emergency room showed second-degree heart block Mobitz type 1, few rhythm strip showed first-degree AV block, ED physician discuss case with mems process engineer Dr. Fonseca he recommended admission to telemetry unit for close monitoring , workup in the ED showed chronic pancytopenia, stable hematocrit and platelets , stable renal function, blood sugar 116, troponin 7.4, normal LFTs, calcium 9.1 albumin 3.4, chest x-ray obtained report pending, will admit patient to telemetry unit. Hospital course: 84-year-old gentleman with past medical history significant for inferior wall [place] status post RCA stent currently on Plavix, history of TIA , hyperlipidemia type 2 diabetes mellitus, presented with type 2 Mobitz heart block Wenkebach and admitted to telemetry unit, patient noted to have persistent type 2 Wenckebach and type 1 heart block, no high-grade blocks noted, Pepcid discontinued since can cause heart blocks, patient electrolytes magnesium and TSH within normal range patient evaluated by mems process engineer they recommend outpatient event recorder, in regard to coronary artery disease status post RCA stent in 09/08/2023 patient had no recurrent chest pain troponins were negative has been continued on statins and Plavix. Mild acute diastolic heart failure noted to have shortness of breath and Elevated BNP 425 treated with IV Lasix BNP improved to 370 ,echo 09/10/24 showed EF 60-65%, severely dilated left atrium, no regional wall motion abnormality, indeterminate diastolic function, will place on low-dose Lasix 20 mg daily due to borderline soft blood pressure will discontinue lisinopril, noted to have hypoxia likely due to atelectasis stasis question aspiration continue oxygen and wean as tolerated no evidence of overt congestive heart failure or pneumonia. History of urinary retention continue terazosin and finasteride History of TIA no acute neurological symptoms on Plavix. Time Attestation Discharge Coordination Time (in mins): 36 Quality: Safe Use of Opioids Does Pt have an Active Cancer Diagnosis on the Problem List?: No Quality: Stroke Does the patient have a stroke diagnosis?: No Physical Exam Vital Signs: Vital Signs: Last Vital Signs Temp 97.6 F 09/13/24 11:02 Pulse 55 09/13/24 11:02 Resp 18 09/13/24 11:02 BP 111/56 L 09/13/24 11:02 Pulse Ox 97 09/13/24 11:02 O2 Del Method Nasal Cannula 09/13/24 11:02 O2 Flow Rate 2 09/13/24 11:02 BMI result Body Mass Index 28.6 Const: Other: General awake alert x3, resting comfortably in no acute distress. Anicteric sclera Neck supple no JVD. CVS regular rate rhythm, systolic murmur Respiratory lungs clear to auscultation,no respiratory distress, no wheeze, no rhonchi. Gastrointestinal abdomen soft, non tender, bowel sounds audible, no guarding , no rigidity. Extremities mild edema, improved. Neuro non focal, moving all 4 extremity, speech clear. Skin no rash Psych appropriate affect Discharge Plan Discharge Anticipated Discharge Date/Time: 09/13/24 07:33 Patient Disposition: Xfer Inpatient Rehab Fac Discharge Diagnosis: AV heart block Wenckebach Bradycardia Mild acute diastolic heart failure Referrals: [facility] [Outside] - 1 Week Pavel Nelson MD [Primary Care Provider] - 1 Week Discharge Medications: New omeprazole 20 mg capsule,delayed release(DR/EC) 20 mg PO DAILY Qty: 30 0RF furosemide [Lasix] 20 mg tablet 20 mg PO DAILY Qty: 30 0RF Continued terazosin 5 mg capsule 5 mg PO BEDTIME atorvastatin 40 mg tablet 40 mg PO DAILY clopidogrel 75 mg tablet 75 mg PO DAILY finasteride 5 mg tablet 5 mg PO BEDTIME latanoprost 0.005 % drops 1 drp ophthalmic (eye) BEDTIME Discontinued famotidine 40 mg tablet 40 mg PO DAILY lisinopril 5 mg tablet 5 mg PO DAILY Discharge Orders: Discharge Order (Routine); Ordered 09/13/24 Ordered By: Cristóbal Thompson Diet: Low fat, low cholesterol Activity on Discharge: As tolerated Stand Alone Forms: Patient Portal Discharge page Print Language: Divehi Care Plan Goals: Mild hypoxia continue oxygen supplement wean as tolerated not on home oxygen Bradycardia/second-degree AV block no concern for complete heart block avoid beta-blockers outpatient follow-up with Cardiology Take Lasix 20 mg daily for mild CHF Health Concerns: Coronary artery disease stable Plan of Treatment: Outpatient follow-up with primary care physician call for appointment Outpatient follow-up with mems process engineer Dr. Fonseca with, they will arrange for cardiac event monitor Assessment: As above
--- NOTE | 2024-09-13 12:46 | MHC.CM.PN ---
Patient has been medically cleared for dc to [facility] today at 3:30 PM, via [facility]. CM met with Patient at bedside, who spoke with his Son/Jeff, while CM was with him, and informed him of the dc plan. Last IMM addressed on 09/12/2024.
== END 2024-09-13 17:40 | DRG 308 ==
LOC: HO.ED 18:02 → HO.EDOVER 18:51 → HO.IMC 23:39
PROVIDERS: Admitting Provider Hospitalist; Emergency Provider Emergency Medicine Emergency Medical Services; PCP Family Medicine; Visit Provider Hospitalist
DX: I44.1 Atrioventricular block, second degree (principal); I50.31 Acute diastolic (congestive) heart failure; D61.818 Other pancytopenia; I25.2 Old myocardial infarction; I25.10 Atherosclerotic heart disease of native coronary artery without angina pectoris; J84.10 Pulmonary fibrosis, unspecified; J43.1 Panlobular emphysema; R33.9 Retention of urine, unspecified; Z86.73 Personal history of transient ischemic attack (TIA), and cerebral infarction without residual deficits; Z79.02 Long term (current) use of antithrombotics/antiplatelets; Z79.899 Other long term (current) drug therapy
CPT/HCPCS: 36415; 71045; 80048; 80053; 82947; 83735; 83880; 84443; 84484; 85025; 85610; 85730; 93005; 93306; 97110; 97116; 97162; 99222; 99285; J1650; J1940; Q9957

== ENCOUNTER 2024-09-10 18:40 | Outpatient (BNV) | payer MEDICARE, SELFPAY | END 2024-09-11 14:15 | PROVIDERS: Admitting Provider Hospitalist; Emergency Provider Emergency Medicine Emergency Medical Services; PCP Family Medicine; Visit Provider Internal Medicine Cardiovascular Disease | DX: I34.81 Nonrheumatic mitral (valve) annulus calcification (principal); I51.7 Cardiomegaly | CPT/HCPCS: 93010; 93306 ==

== ENCOUNTER 2024-09-10 18:40 | Outpatient (BNV) | payer MEDICARE, SELFPAY | END 2024-09-12 09:39 | PROVIDERS: Admitting Provider Hospitalist; Emergency Provider Emergency Medicine Emergency Medical Services; PCP Family Medicine; Visit Provider Internal Medicine Cardiovascular Disease | DX: R94.31 Abnormal electrocardiogram [ECG] [EKG] (principal) | CPT/HCPCS: 93010 ==

== ENCOUNTER → 2024-09-10 18:40 | Outpatient (BNV) | payer MEDICARE, SELFPAY | PROVIDERS: Admitting Provider Hospitalist; Emergency Provider Emergency Medicine Emergency Medical Services; PCP Family Medicine; Visit Provider Hospitalist | DX: I50.9 Heart failure, unspecified (principal); I44.1 Atrioventricular block, second degree; R00.1 Bradycardia, unspecified | CPT/HCPCS: 99223; 99232; 99233; 99239 ==

== ENCOUNTER → 2024-09-10 18:40 | Outpatient (BNV) | payer MEDICARE, SELFPAY | PROVIDERS: Admitting Provider Hospitalist; Emergency Provider Emergency Medicine Emergency Medical Services; PCP Family Medicine; Visit Provider Internal Medicine Cardiovascular Disease | DX: I50.9 Heart failure, unspecified (principal); R00.1 Bradycardia, unspecified | CPT/HCPCS: 93010; 99223; 99233 ==

== ENCOUNTER → 2024-10-04 13:44 | Outpatient (REF) | payer MEDICARE, SELFPAY | LOC: HO.CARD 13:44 | PROVIDERS: PCP Family Medicine; Visit Provider Internal Medicine Cardiovascular Disease | DX: R00.1 Bradycardia, unspecified (principal) | CPT/HCPCS: 93270 ==

== ENCOUNTER → 2024-10-04 13:47 | Outpatient (BNV) | payer MEDICARE, SELFPAY | PROVIDERS: PCP Family Medicine; Visit Provider Internal Medicine | DX: I48.91 Unspecified atrial fibrillation (principal); I47.10 Supraventricular tachycardia, unspecified | CPT/HCPCS: 93272 ==

== ENCOUNTER 2024-10-16 14:25 | Outpatient (AMB) | payer MEDICARE, SELFPAY ==
[2024-10-16 14:38] VITALS: BP 110/64; PULSE 56; BMI 29.3
--- NOTE | 2024-10-16 14:38 | MHC.OFFVIS ---
Vital Signs 10/16/24 14:38 Height 5 ft 7 in Weight 187 lb 6.287 oz BMI 29.3 BP 110/64 Blood Pressure Location Lt brachial Position Sitting Pulse 56 Pulse Source Pulse Oximeter Intake Visit Reasons: f/up-SOB Intake Note: f/up-SOB- pt state that his SOB have gotten better Enterprise Resource Planning Consultant Required: No Accompanied by: Son Allergies Penicillins [PCN] Allergy (Unknown, Verified 09/10/24 15:08) RASH Medication List - Last Reconciled 10/16/24 by Kapil Fonseca MD atorvastatin 40 mg PO DAILY finasteride 5 mg PO BEDTIME furosemide (Lasix) 20 mg PO DAILY latanoprost 0.005% 1 drp ophthalmic (eye) BEDTIME omeprazole 20 mg PO DAILY terazosin 5 mg PO BEDTIME HPI Comments Details: [age] year gentleman who is here for follow-up. He was seen in the hospital when he presented with bradycardia and congestive heart failure. He had AV Wenckebach on EKG and his heart rate was responding well with activity and exercise. He was sent home and a cardiac event monitor was arranged. Cardiac event monitor showed episodes of atrial fibrillation. He is brought back for discussion for management of AFib. He is on clopidogrel because he had inferior ST-elevation HI last year. He was quite sick at that time and had temporary pacemaker placement and stenting of the right coronary artery performed. No anginal symptoms. [facility] Social History (Reviewed 10/16/24 @ 14:45 by Aydee Hassan [facility]) Household Members: Children Household Members Other:: Son Housing: House Do you presently have visiting nurse or other home services: No Patient Tobacco Use Status: Former Tobacco user Tobacco use type: Cigarette e-Cigarette/Vaping Use: Never Used service: Yes Review of Systems Const Denies chills, Denies fatigue, Denies fever(s), Denies frequent falls, Denies weakness, Denies weight gain and Denies weight loss ENT Denies dizziness Card Denies chest pain, Denies leg edema, Denies lightheadedness, Denies palpitations, Denies dyspnea and Denies dyspnea on exertion Resp Denies cough, Denies dyspnea and Denies dyspnea on exertion GI Denies hematochezia Musc Denies abnormal gait, Denies muscle weakness, Denies numbness, Denies radiating pain into limb and Denies tingling Neuro Denies abnormal gait, Denies dizziness, Denies frequent falls, Denies numbness, Denies tingling and Denies weakness Endo Denies fatigue and Denies palpitations Physical Exam Vital Signs: Last Vital Signs Pulse 56 10/16/24 14:38 BP 110/64 10/16/24 14:38 BMI result Body Mass Index 29.3 GENERAL APPEARANCE: in no acute distress, pleasant. NECK: no carotid bruit, no jugular venous distention. SKIN: no suspicious lesions, warm and dry. HEART: no murmurs,regular rate and rhythm. bradycardic LUNGS: Crackles at bases.. ABDOMEN: soft, nontender. EXTREMITIES: +1 edema. PERIPHERAL PULSES: equal. NEUROLOGIC: No gross deficits, AAO X 3 Assessment & Plan Assessment & Plan (1) PAF (paroxysmal atrial fibrillation): Code(s): I48.0 - Paroxysmal atrial fibrillation Category: Medical (2) Bradycardia: Code(s): R00.1 - Bradycardia, unspecified Category: Medical (3) Chronic diastolic heart failure: Code(s): I50.32 - Chronic diastolic (congestive) heart failure Category: Medical Plan [age] year gentleman who has history of coronary disease with previous RCA PCI for inferior ST-elevation HI and recent admission with bradycardia to [facility]. He had episode of heart failure at that time. He is saying his breathing has been stable. Occasionally gets short of breath. He does have peripheral edema but no JVD. He has some crackles at bases. He is on Lasix 20 mg daily. Currently no changes in medicines from heart failure point of view. I have advised him that in case he notices any changes in his breathing then we may have to discuss increasing her Lasix dose. He will reach out to us. His cardiac event monitor has not shown any advanced heart block but did show episodes of atrial fibrillation. At his age he is high-risk for stroke. I had a detailed discussion with him about anticoagulation. We are going to stop the Plavix at this stage and start him on Eliquis 5 mg twice a day. I will check a CBC in 1 month to reassess hemoglobin. He will see us back in 3 months. Thank you for allowing me to participate in the care of your patient. Please feel free to contact me if you have any questions. Orders: Orders Complete Blood Count no Diff Today I48.0 - Paroxysmal atrial fibrillation Medications: New apixaban 5 mg PO BID 60 tabs 4RF Coding Level of Care Code Est Pt Level 4 (41962) Diagnoses PAF (paroxysmal atrial fibrillation) I48.0 Bradycardia R00.1 Chronic diastolic heart failure I50.32
== END 2024-10-16 15:15 | disposition home or self-care (01) ==
PROVIDERS: PCP Family Medicine; Visit Provider Internal Medicine Cardiovascular Disease
DX: I48.0 Paroxysmal atrial fibrillation (principal); R00.1 Bradycardia, unspecified; I50.32 Chronic diastolic (congestive) heart failure
CPT/HCPCS: 99214

== ENCOUNTER → 2024-10-16 14:25 | Outpatient (BNVA) | payer MEDICARE, SELFPAY | PROVIDERS: PCP Family Medicine; Visit Provider Internal Medicine Cardiovascular Disease | DX: I48.0 Paroxysmal atrial fibrillation (principal); I50.32 Chronic diastolic (congestive) heart failure; R00.1 Bradycardia, unspecified | CPT/HCPCS: 99212 ==

== ENCOUNTER 2024-10-24 12:21 | Inpatient (IN) | payer MEDICARE, SELFPAY ==
--- NOTE | ~2024-10-24 | CT_ITS ---
EXAMINATION: CT ANGIOGRAM CHEST CLINICAL INFORMATION: Cough. Shortness of breath. Heart failure. Paroxysmal atrial fibrillation. COMPARISON: Chest radiograph from 10/24/2024. TECHNIQUE: Prior to contrast administration, noncontrast localization images were obtained. Subsequently, multidetector volumetric imaging was performed from the thoracic inlet to below the diaphragms following the administration of 60 mL Omnipaque 350 intravenous contrast. No contrast reaction reported. Sagittal, coronal, and MIP oblique sagittal reformatted images were obtained on the CT workstation, uploaded to PACS, and reviewed. This CT examination was performed using dose optimization techniques as appropriate, variously including the following: *Automated exposure control. *Adjustment of mA and/or kV according to patient size (this includes techniques or standardized protocols for targeted exams where dose is matched to indication/reason for exam; i.e. extremities or head). *Use of iterative reconstruction technique. DLP: 363 mGy-cm FINDINGS: QUALITY OF STUDY/CONTRAST BOLUS: Satisfactory bolus timing. Moderate degradation related to respiratory motion. PULMONARY ARTERIES: No central or segmental pulmonary emboli. THORACIC AORTA: The thoracic aorta is of normal contour and caliber with moderate calcific atherosclerotic disease. LUNG: Small to moderate right-sided pleural effusion. Trace left-sided pleural effusion. No pneumothorax. Mild bibasilar compressive subsegmental moderate subpleural architectural distortion within the right greater than left lungs. Atelectasis. No focal consolidation, nodules or masses. MEDIASTINUM: Normal heart size. No pericardial effusion. No hilar or mediastinal lymphadenopathy. No evidence of septal bowing or right heart strain. Coronary artery calcifications: Present - advanced. CHEST WALL/AXILLA: No axillary or internal mammary lymphadenopathy. OSSEOUS STRUCTURES: Moderate multilevel degenerative spondyloarthropathy of the thoracic spine. Chronic healed deformity of the mid sternal body. No acute or suspicious osseous abnormality. UPPER ABDOMEN: No demonstrated significant abnormalities of the visualized upper abdomen. No reflux of contrast into the hepatic veins to suggest elevated right heart pressures. CT/CT angio chest PE protocol IMPRESSION: 1. No evidence of pulmonary embolism. 2. Small to moderate right-sided pleural effusion. Trace left-sided pleural effusion. 3. No additional acute pulmonary abnormalities. VTE: negative. Electronically signed by: Tucker Santacruz DO 10/24/2024 07:39 PM [facility]
--- NOTE | ~2024-10-24 | XR_ITS ---
EXAMINATION: XR CHEST 1 VIEW CLINICAL INFORMATION: Obtunded COMPARISON: October 24, 2024 TECHNIQUE: Single portable frontal view. Tubes and lines: Electronic device embedded in the left chest wall unchanged. Lungs and pleura: There is pulmonary vascular congestion, redemonstration of small subpulmonic pleural effusions, cannot rule out underlying mild infiltrate and/or atelectasis. Heart and mediastinum: The mediastinum is within normal limits.. Bones/soft tissue: Skeletal structures included are normal for patient's age. XR/XR chest 1V IMPRESSION: 1. Mild congestive heart failure. 2. Redemonstration of small subpulmonic pleural effusions, cannot rule out underlying mild infiltrate and/or atelectasis. 3. No significant change. Electronically signed by: Radha Reddy MD 10/27/2024 11:14 AM ESTHER MIKE
--- NOTE | ~2024-10-24 | CT_ITS ---
EXAMINATION: CT HEAD WITHOUT CONTRAST CLINICAL INFORMATION: Obtunded, cerebral vascular accident COMPARISON: CT scan of brain on 09/09/2019 TECHNIQUE: Contiguous axial imaging was performed from the skull base to vertex without intravenous administration of contrast. This CT examination was performed using dose optimization techniques as appropriate, variously including the following: *Automated exposure control *Adjustment of mA and/or kV according to patient size (this includes techniques or standardized protocols for targeted exams where dose is matched to indication/reason for exam; i.e. extremities or head) *Use of iterative reconstruction technique DLP: 671 mGy-cm FINDINGS: Ventricles, sulci and cisterns are dilated. Bilateral frontal and parietal deep white matters show patchy mild decrease in attenuation. There is no midline shift, no abnormal intra- or extra- axial fluid accumulation. Francois and white matter differentiation is normal. Bone window images show no evidence of skull fracture. CT/CT head/brain wo IV con IMPRESSION: 1. Unchanged age related cerebral atrophy and ischemic white matter disease compatible with microangiopathy. 2. No intracranial hemorrhage or skull fracture is seen. 3. No evidence of space occupying lesion could be found. 4. The current plain CT scan of the brain shows no diagnostic evidence of acute cerebral infarction. Electronically signed by: Vanesa Covarrubias MD 10/28/2024 07:37 AM EST
--- NOTE | ~2024-10-24 | XR_ITS ---
EXAMINATION: XR CHEST CLINICAL INFORMATION: productive cough COMPARISON: X-ray dated September 13, 2024. TECHNIQUE: 2 views of the chest were obtained. FINDINGS: Patchy opacities extending from the perihilar region to the periphery of the lower lungs. Blunting of the costophrenic angles bilaterally. Haziness in the lower hemithoraces bilaterally. No pneumothorax. Elevated left hemidiaphragm. Cardiomediastinal silhouette appears normal in size with calcified plaque thoracic aortic arch. Multilevel thoracic spondylosis. Osteopenia versus osteoporosis. XR/XR chest 2V IMPRESSION: Pulmonary edema and bilateral pleural effusions right greater than left. Electronically signed by: Ed Ansari MD 10/24/2024 02:23 PM ESTHER
--- NOTE | 2024-10-24 12:24 | ED_ITS ---
HPI - General Adult General Chief complaint: Upper Respiratory Symptoms Stated complaint: SOB, congestion Time Seen by Provider: 10/24/24 16:00 Source: patient Mode of arrival: ambulatory Limitations: no limitations History of Present Illness ED Provider: Ashley Kapadia NP HPI narrative: Patient is an 84-year-old male who presents to the emergency department for evaluation reporting chills, productive cough with yellow phlegm, chest congestion, shortness of breath over the past few days. Reports that visiting nurse was in the home today and expressed concern for lung sounds consistent with ?fluid in the lungs? and advised him to seek evaluation in the emergency department. He states that he experiences orthopnea. He reports having chronic swelling to the bilateral ankles does not feel this is any worse than usual. He denies any known sick contacts. He denies associated chest pain or known fever. Denies nausea, vomiting, abdominal pain, numbness or tingling of the extremities, alcohol use, or recreational drug use Related Data Home Medications ?Medication ?Instructions ?Recorded ?Confirmed atorvastatin 40 mg tablet 40 mg PO DAILY 09/10/24 10/24/24 finasteride 5 mg tablet 5 mg PO BEDTIME 09/10/24 10/24/24 latanoprost 0.005 % eye drops 1 drp ophthalmic (eye) BEDTIME 09/10/24 10/24/24 terazosin 5 mg capsule 5 mg PO BEDTIME 09/10/24 10/24/24 clopidogrel 75 mg tablet 75 mg PO DAILY 10/24/24 10/24/24 famotidine 40 mg tablet 40 mg PO DAILY 10/24/24 10/24/24 multivitamin 1 tab PO DAILY 10/24/24 10/24/24 Previous Rx's ?Medication ?Instructions ?Recorded furosemide 20 mg tablet (Lasix) 20 mg PO DAILY #30 tabs 09/13/24 Allergies Allergy/AdvReac Type Severity Reaction Status Date / Time Penicillins [PCN] Allergy Unknown RASH Verified 10/24/24 12:28 Review of Systems 2 Review of Systems: Yes all other systems are reviewed and are negative PMFSH Past Medical History Attestation statement: The following information was validated with the patient. Source: old records reviewed Medical History (Updated 10/24/24 @ 22:37 by Robyn Lisa MD) BPH (benign prostatic hyperplasia) CAD (coronary artery disease) Social History Social History (Reviewed 10/16/24 @ 14:45 by Aydee Hassan [facility]) Household Members: Children Household Members Other:: Son Housing: House Do you presently have visiting nurse or other home services: No Patient Tobacco Use Status: Former Tobacco user Tobacco use type: Cigarette e-Cigarette/Vaping Use: Never Used Advance Directives: No Advance Directives Information Provided: Yes Do you have a plan to hurt others: No Plan service: Yes Physical Exam ED Vital Signs: Vital Signs - 24 hr 10/24/24 12:25 10/24/24 16:36 10/24/24 17:17 Temperature 98.0 F 98.6 F Pulse Rate 72 74 Respiratory Rate 18 20 Blood Pressure 135/60 135/60 140/66 H Pulse Oximetry 94 93 Oxygen Delivery Method Room Air Room Air 10/24/24 19:07 10/24/24 19:07 Temperature 97.9 F Pulse Rate 55 Respiratory Rate 17 Blood Pressure 136/73 Pulse Oximetry 93 93 Oxygen Delivery Method Room Air Room Air BMI result Body Mass Index 29.1 Appearance: Alert.?Oriented to person, place and time. No acute distress.?Normal affect. Eyes: Pupils equal, round and reactive to light.? ENT: Pharynx normal.?? Neck: Normal inspection.? Neck supple.??No JVD. CVS: Heart sounds normal. Normal heart rate and rhythm.? Pulses normal.?? Respiratory: No respiratory distress.? Lung sounds rales bilaterally Abdomen: Soft and non-tender. Normoactive bowel sounds. Skin: Skin warm and dry.? Normal skin color.? Extremities: 2+ pitting bilateral lower extremity edema.? No calf ttp? Neuro: Moves all extremities spontaneously. Sensation intact bilaterally. No focal neuro deficits. Ambulates with ataxic gait. Course Course Course Narrative: This is a Rapid Medical Examination (RME) performed by Zackary Menard PA-C in triage. Full HPI, ROS, assessment and treatment plan per primary provider in the Main ED. 84-year-old male with past medical history significant for atrial fibrillation, CHF, first-degree AV block here for eval of chills, congestion and cough productive of yellow sputum times a few days. no known sick contacts. denies chest pain. + satting 94% on room air Plan: Labs, EKG, chest x-ray Medications Administered Generic Name Dose Route Start Last Admin Trade Name Freq PRN Reason Stop Dose Admin Apixaban 5 mg 10/24/24 22:35 10/24/24 23:37 Apixaban 5 Mg Tablet PO Not Given BID JD Finasteride 5 mg 10/24/24 22:30 10/24/24 23:07 Finasteride 5 Mg Tablet PO 5 mg BEDTIME JD Administration Latanoprost 1 drop 10/24/24 22:30 10/24/24 23:11 Latanoprost 0.005 % Ophth Isabel 2.5 Ml Drops EYE-BOTH Not Given BEDTIME JD Discontinued Medications Generic Name Dose Route Start Last Admin Trade Name Freq PRN Reason Stop Dose Admin Furosemide 40 mg 10/24/24 16:15 10/24/24 16:36 Furosemide 40 Mg/4 Ml Vial IVPUSH 10/24/24 16:16 40 mg ONCE ONE Administration Protocol Iohexol 100 ml 10/24/24 18:15 10/24/24 18:15 Iohexol 350 Mg/Ml 100 Ml Infus..Btl IV 10/24/24 18:16 65 ml ONCE ONE Administration Medical Decision Making Medical Decision Making MDM Narrative: Patient is an 84-year-old male with past medical history of coronary artery disease status post RCA stent 09/12/2023 [facility], diabetes, hypercholesterolemia, TIA, ataxic gait, second-degree AV block Wenckebach, paroxysmal atrial fibrillation, pulmonary fibrosis, vascular dementia, GERD, hypertension, lobar emphysema presenting to emergency department for evaluation of cough, chest congestion and chills as per HPI. Overall appearing, nontoxic, afebrile, no respiratory distress at rest. He endorses orthopnea and has 2+ bilateral pitting lower extremity edema, rales upon auscultation of the lungs bilaterally concerning for CHF exacerbation, pleural effusion. He denies lower extremity pain or redness, no history of VTE/malignancy. he does have by his account chronic pitting edema, recent cardiac event monitoring showing episodes of atrial fibrillation, on Plavix due to a prior [place]. He was recently evaluated by Dr. Fonseca in office, with recommendation to discontinue the Plavix and start him on Eliquis due to high risk for stroke, however patient informs me at this time that the cost at the pharmacy was upwards of 500 dollars therefore he has not begun taking this nor has he been able to get in contact with the ad operations specialist office to discuss next steps. Differential Diagnosis Differential Diagnoses: The differential diagnosis associated with the presentation includes No rash or lesions, urticaria, or evidence of angioedema to suggest allergic reaction/anaphylaxis. No swallowing difficulties to suggest aspiration. No associated chest pain to suggest ACS. No palpitations or history of known arrhythmias. No recent trauma or injury, no tracheal deviation, unlikely tension pneumothorax. No recent URI symptoms to suggest viral illness, or pneumonia. No history of diabetes, unlikely DKA. No acute bleeding or known anemia, no associated dizziness fatigue or chest pain to suggest acute anemia. No history of asthma or COPD to suggest acute exacerbation. Admission/Observation Consideration of admission/observation: Escalation of care including admission/observation considered Consult Healthcare Provider Management of the patient was discussed with: Hospitalist Admitted to medicine service spoke with hospitalist Dr. Sukhdeep Lisa, admission for CHF exacerbation, CT angio of the chest without evidence of pulmonary embolism Lab Data MDM Lab Attestation statement: I reviewed the patient's lab results. CBC revealing a chronic pancytopenia consistent with baseline, does not meet criteria for blood transfusion. No electrolyte derangement. No AVINASH. LFTs within normal range. High sensitive troponin within normal range. BNP 681, increased when compared to prior viral serologies are negative 10/24/24 22:53 10/24/24 22:53 Labs: Lab Results 10/24/24 Range/Units 13:08 WBC 3.8 L (4.8-10.8) X10*3/uL RBC 3.83 L (4.60-5.80) X10*6/uL Hgb 12.7 L (14.0-18.0) g/dl Hct 38.2 L (42.0-52.0) % MCV 99.7 H (80.0-98.0) fL MCH 33.2 H (27.0-33.0) pg MCHC 33.2 (31.0-36.0) g/dl RDW 13.8 (11.0-16.0) % Plt Count 97 L (160-400) X10*3/uL MPV 10.5 (9.4-12.4) fL Immature Gran % (Auto) 0.3 (0.0-0.4) % Neut % (Auto) 72.5 (45-73) % Lymph % (Auto) 13.6 L (20-40) % [place] % (Auto) 12.3 H (2-11) % Eos % (Auto) 1.0 (0-4) % Baso % (Auto) 0.3 (0-2) % Lymph # (Auto) 0.5 L (1.2-4.9) X10*3/uL [place] # (Auto) 0.5 (0.1-1.2) X10*3/uL Eos # (Auto) 0.0 (0.0-0.4) X10*3/uL Baso # (Auto) 0.0 (0.0-0.2) X10*3/uL Abs Immat Gran (auto) 0.01 (0.00-0.03) X10*3/uL Absolute Neuts (auto) 2.8 (2.0-8.3) x10*3/uL Absolute Nucleated RBC 0.000 (0.0-0.012) X10*3/uL Nucleated RBC % (auto) 0.0 (0.0-0.2) /100WBC Sodium 141 (135-145) mmol/L Potassium 4.1 (3.3-5.1) mmol/L Chloride 107 (96-108) mmol/L Carbon Dioxide 31 H (22-29) mmol/L Anion Gap 7 L (12-20) BUN 26 H (9-16) mg/dL Creatinine 1.09 (0.5-1.4) mg/dL Estim Creat Clear Calc 50.5 Estimated GFR > 60 Random Glucose 125 H (60-115) mg/dL Calcium 8.7 (8.4-10.2) mg/dL Magnesium 2.1 (1.6-2.6) mg/dL Total Bilirubin 0.9 (0.0-1.0) mg/dL AST 27 (5-37) U/L ALT 18 (0-40) U/L Alkaline Phosphatase 63 (39-117) U/L Troponin I High Sens 9.0 (<3.5-35.0) ng/L B-Natriuretic Peptide 601 H (<100) pg/mL Total Protein 6.4 L (6.5-8.0) g/dL Albumin 3.3 L (3.5-5.0) g/dL Influenza Type A (PCR) NEGATIVE (Negative) Influenza Type B (PCR) NEGATIVE (Negative) RSV RNA Qual (PCR) NEGATIVE (Negative) SARS-CoV-2 RNA (RT-PCR) NEGATIVE (Negative) Independent Interpretation I performed an independent interpretation of an: Plain X-Ray (Bilateral pleural effusion) Radiology Impression Discussion of test interpretation with radiology: I have reviewed the radiologist's reading. Radiologist Impression: XR/XR chest 2V IMPRESSION: Pulmonary edema and bilateral pleural effusions right greater than left. CT/CT angio chest PE protocol IMPRESSION: 1. No evidence of pulmonary embolism. 2. Small to moderate right-sided pleural effusion. Trace left-sided pleural effusion. 3. No additional acute pulmonary abnormalities. External Record Review External record reviewed: Inpatient record and Outpatient record Critical Care Time Critical Care Time Critical Care Time: Yes Total Critical Care Time: 40 Attestation: I personally attest to this critical care time spent taking care of the patient exclusive of all other billable procedures was approximately 40 minutes including initial evaluation of patient, ordering tests, x-ray interpretation, EKG interpretation, IV furosemide and re-evaluation, medical consultation, documentation, re-evaluation. Discharge Plan Discharge Patient Disposition: Admitted As Inpatient Interventions: Admission Worksheet (ED) Last Done: 10/24/24 23:25
[2024-10-24 12:25] VITALS: BP 135/60; PULSE 72; RESP 18; TEMP 36.7; O2SAT 94; BMI 29.1
--- NOTE | 2024-10-24 12:33 | ECG_ITS ---
Test Reason : SOB Blood Pressure : / mmHG Vent. Rate : 069 BPM Atrial Rate : 069 BPM P-R Int : 220 ms QRS Dur : 080 ms QT Int : 406 ms P-R-T Axes : 002 -47 012 degrees QTc Int : 435 ms Sinus rhythm with 1st degree A-V block with occasional Premature ventricular complexes and Premature atrial complexes Left axis deviation Inferior infarct (cited on or before 10-SEP-2024) Abnormal ECG When compared with ECG of 12-SEP-2024 09:44, Premature ventricular complexes are now Present Premature atrial complexes are now Present NE interval has increased Vent. rate has increased BY 23 BPM QT has lengthened Referred By: Angelica Menard Electronically Signed By:Kapil Fonseca
[2024-10-24 13:16] LABS: MANUAL DIFF FLAG NO
[2024-10-24 13:20] LABS: Basophils Percent Auto 0.3 % (0-2); Hematocrit 38.2 % (42.0-52.0); Hemoglobin 12.7 g/dl (14.0-18.0); Imm Gran Abs Auto 0.01 X10*3/uL (0.00-0.03); Imm Gran Pct Auto 0.3 % (0.0-0.4); Lymphocytes Absolute Auto 0.5 X10*3/uL (1.2-4.9); Lymphocytes Percent Auto 13.6 % (20-40); Mean Corpuscular HGB Conc 33.2 g/dl (31.0-36.0); Mean Corpuscular Hemoglobin 33.2 pg (27.0-33.0); Mean Corpuscular Volume 99.7 fL (80.0-98.0); Mean Platelet Volume 10.5 fL (9.4-12.4); Monocytes Absolute Auto 0.5 X10*3/uL (0.1-1.2); Monocytes Percent Auto 12.3 % (2-11); Neutrophils Absolute Auto 2.8 x10*3/uL (2.0-8.3); Neutrophils Percent Auto 72.5 % (45-73); Red Blood Count 3.83 X10*6/uL (4.60-5.80); Red Cell Distribution Width 13.8 % (11.0-16.0); White Blood Count 3.8 X10*3/uL (4.8-10.8)
[2024-10-24 13:22] LABS: Platelet Count 97 X10*3/uL (160-400)
[2024-10-24 13:32] LABS: Alanine Aminotransferase 18 U/L (0-40); Albumin Level 3.3 g/dL (3.5-5.0); Alkaline Phosphatase 63 U/L (39-117); Anion Gap 7 (12-20); Aspartate Amino Transferase 27 U/L (5-37); Bilirubin Total 0.9 mg/dL (0.0-1.0); Blood Urea Nitrogen 26 mg/dL (9-16); Calcium 8.7 mg/dL (8.4-10.2); Carbon Dioxide 31 mmol/L (22-29); Chloride 107 mmol/L (96-108); Creatinine Clr Calc Pharmacy 50.5; Estimated Glomerular Filt Rate > 60; Glucose Random 125 mg/dL (60-115); Magnesium 2.1 mg/dL (1.6-2.6); Potassium 4.1 mmol/L (3.3-5.1); Sodium 141 mmol/L (135-145); Total Protein 6.4 g/dL (6.5-8.0)
[2024-10-24 13:37] LABS: B Type Natriuretic Peptide 601 pg/mL (<100)
[2024-10-24 14:06] LABS: Influenza A PCR NEGATIVE (Negative); Influenza B PCR NEGATIVE (Negative); Resp Syncy Virus RNA Qual PCR NEGATIVE (Negative); SARS COV2 PCR INHOUSE NEGATIVE (Negative)
[2024-10-24 16:36] VITALS: BP 135/60
[2024-10-24] MEDS: Furosemide 40 MG/4 ML VIAL IVPUSH (16:36)
[2024-10-24 17:17] VITALS: BP 140/66; PULSE 74; RESP 20; TEMP 37; O2SAT 93
[2024-10-24] MEDS: iohexoL 350 MG/ML 100 ML INFUS..BTL IV (18:15)
[2024-10-24 19:07] VITALS: BP 136/73; PULSE 55; RESP 17; TEMP 36.6; O2SAT 93
--- NOTE | 2024-10-24 19:10 | PC.NURSE ---
Addendum entered by Rosanne Graham RN 10/24/24 19:57: IV noted to left forearm and left AC placed by prior RN, left AC IV removed d/t unable to flush Original Note: Assumed care of pt at this time, pt resting comfortably in stretcher reporting no pain, urinal emptied at this time. stretcher locked in lowest position callbell within reach
--- NOTE | 2024-10-24 22:09 | PHA.MEDREC ---
Addendum entered by Darren Palomo RPh 10/24/24 22:13: Reviewed by [facility]. Original Note: Pharmacy Consult ? Medication Reconciliation Pharmacy has completed the medication reconciliation. Spoke to patient to confirm med list. patient states he no longer takes Diclofenac sod gel, Lisinopril 5 mg ( stopped 3 weeks ago) Omeprazole 20 mg and Eliquis 5 mg (Never started due to high copay) patient is on plavix 75 mg.
--- NOTE | 2024-10-24 22:12 | PM.IMHP ---
History of Present Illness Date of Service: 10/24/24 Attending physician on admission: Robyn Lisa Chief Complaint: Shortness on breath Danish Cevallos is a very pleasant 84 years old man with past medical history significant for CAD s/p RCA stent Aug 2023, dementia and hypercholesterolemia presents to the emergency department complaining of shortness on breath over the last week associated with productive cough. He also report worsening swelling to the lower extremities. He denied chest pain, palpitations or dizziness. He denies fever or chills. He did not report any acute gastrointestinal or genitourinary symptoms. He denied tobacco smoking, alcohol abuse or illicit drug use. The patient was recently evaluated by Cardiology and has a cardiac event monitor that showed AFib. He was prescribed Eliquis but unable to obtain it due to insurance issues. In the ED, to have stable vital signs. Blood workup is essentially unremarkable due to elevated BNP, 601 and troponin is negative. CXR showed pulmonary edema and bilateral pleural effusions (R>L). He underwent a pulmonary CTA with IV contrast and showed no evidence of pulmonary embolism, there is [id number] right pleural effusion and trace left pleural effusion. ECG shows some mild sinus rhythm with 1st degree AV block and PACs. ED tx: Lasix 40 mg IV Review of Systems Review of Systems: All 12 systems were reviewed and normal except as noted in HPI. [facility] Medical History (Updated 10/24/24 @ 22:37 by Robyn Lisa MD) BPH (benign prostatic hyperplasia) CAD (coronary artery disease) Social History Household Members: Children Household Members Other:: Son Housing: House Do you presently have visiting nurse or other home services: No Patient Tobacco Use Status: Former Tobacco user Tobacco use type: Cigarette e-Cigarette/Vaping Use: Never Used Advance Directives: No Advance Directives Information Provided: Yes Do you have a plan to hurt others: No Plan service: Yes Meds Allergies Allergy/AdvReac Type Severity Reaction Status Date / Time Penicillins [PCN] Allergy Unknown RASH Verified 10/24/24 12:28 Active Medications: Current Medications Acetaminophen (Acetaminophen 325 Mg Tablet) 650 mg PO Q6H PRN PRN Reason: Pain, Mild (Pain Scale 1-3), fever or headache Calcium Carbonate (Calcium Carbonate 750 Mg Tab.Chew) 750 mg PO Q4H PRN PRN Reason: Heartburn Magnesium Hydroxide (Milk Of Magnesia 30 Ml Oral.Susp) 30 ml PO DAILY PRN PRN Reason: Constipation Melatonin (Melatonin 3 Mg Tablet) 6 mg PO BEDTIME PRN PRN Reason: Insomnia Sodium Chloride (0.9 % Sodium Chloride Flush 3 Ml Syringe) 3 ml IVFLUSH QSHIFT [facility] Home Medications ?Medication ?Instructions ?Recorded ?Confirmed ?Last Taken ?Type atorvastatin 40 mg tablet 40 mg PO DAILY 09/10/24 10/24/24 10/23/24 History finasteride 5 mg tablet 5 mg PO BEDTIME 09/10/24 10/24/24 10/23/24 History latanoprost 0.005 % eye drops 1 drp ophthalmic (eye) BEDTIME 09/10/24 10/24/24 10/23/24 History terazosin 5 mg capsule 5 mg PO BEDTIME 09/10/24 10/24/24 10/23/24 History clopidogrel 75 mg tablet 75 mg PO DAILY 10/24/24 10/24/24 10/23/24 History famotidine 40 mg tablet 40 mg PO DAILY 10/24/24 10/24/24 10/23/24 History multivitamin 1 tab PO DAILY 10/24/24 10/24/24 10/23/24 History Physical Exam Vital Signs and Narrative: Vital Signs: Last Vital Signs Temp 97.9 F 10/24/24 19:07 Pulse 55 10/24/24 19:07 Resp 17 10/24/24 19:07 BP 136/73 10/24/24 19:07 Pulse Ox 93 10/24/24 19:07 O2 Del Method Room Air 10/24/24 19:07 BMI result Body Mass Index 29.1 Constitutional - Awake and Alert, No apparent distress. Pleasant. Cooperative. Coughing at times. HEENT - PER, EOMI Heart - RRR, no murmurs. Extra beats. Respiratory - Normal lung expansion, Normal respiratory effort, No respiratory distress. Decreased breath sounds bilaterally. No crackles. No rhonchi. Abdomen - NT / ND; +BS; No rebound or guarding Extremities - bilateral pitting edema Musculoskeletal - Normal inspection, normal ROM Skin - Warm/Dry Neurological - Alert & oriented x3. No focal weakness grossly noted. Normal speech. Psychological - Appropriate affect Results Labs 10/24/24 13:08 10/24/24 13:08 Labs: Laboratory Results - last 24 hr 10/24/24 13:08 MCV 99.7 H MCH 33.2 H MCHC 33.2 RDW 13.8 Plt Count 97 L MPV 10.5 Immature Gran % (Auto) 0.3 Neut % (Auto) 72.5 Lymph % (Auto) 13.6 L Rankin % (Auto) 12.3 H Eos % (Auto) 1.0 Baso % (Auto) 0.3 Lymph # (Auto) 0.5 L Rankin # (Auto) 0.5 Eos # (Auto) 0.0 Baso # (Auto) 0.0 Abs Immat Gran (auto) 0.01 Absolute Neuts (auto) 2.8 Absolute Nucleated RBC 0.000 Nucleated RBC % (auto) 0.0 Anion Gap 7 L Estim Creat Clear Calc 50.5 Estimated GFR > 60 Random Glucose 125 H Calcium 8.7 Magnesium 2.1 Total Bilirubin 0.9 AST 27 ALT 18 Alkaline Phosphatase 63 Troponin I High Sens 9.0 B-Natriuretic Peptide 601 H Total Protein 6.4 L Albumin 3.3 L Influenza Type A (PCR) NEGATIVE Influenza Type B (PCR) NEGATIVE RSV RNA Qual (PCR) NEGATIVE SARS-CoV-2 RNA (RT-PCR) NEGATIVE Imaging Radiologist's Impressions: Impressions Chest X-Ray 10/24/24 12:28 IMPRESSION: Pulmonary edema and bilateral pleural effusions right greater than left. Electronically signed by: Ed Ansari MD 10/24/2024 02:23 PM EST RP Chest CTA 10/24/24 18:06 IMPRESSION: 1. No evidence of pulmonary embolism. 2. Small to moderate right-sided pleural effusion. Trace left-sided pleural effusion. 3. No additional acute pulmonary abnormalities. VTE: negative. Electronically signed by: Tucker Santacruz DO 10/24/2024 07:39 PM EST RP Assessment and Plan (1) Acute on chronic diastolic congestive heart failure: Status: Acute (2) Bilateral pleural effusion: Status: Acute Plan Danish Cevallos is a 84 y/o man with PMHx significant for CAD s/p RCA stent admitted with: Acute on chronic diastolic congestive heart failure associated with bilateral pleural effusions (R>L). Admit to hospitalist service. Telemetry. Pulse oximetry. Supplemental oxygen as needed to keep O2 sats > 90%. I's and o's. Daily weight. Low-salt diet. Continue Lasix 40 mg IV daily. Cardiology consult. Paroxysmal atrial fibrillation, currently NSR. Start Eliquis. Stop Plavix. CAD. Continue statin. GERD. Continue PPI. BPH. Continue terazosin and finasteride. DVT prophylaxis: Cieraquis Code status: Full Patient will need hospitalization for at least 2 midnights for acute on chronic diastolic congestive heart failure associated with bilateral pleural effusion treatment with IV diuresis, continuous cardiac monitoring and specialty evaluation. Quality Stroke Does the patient have a stroke diagnosis?: No VTE Prior VTE?: No VTE Risk Level:: Medical - moderate - high VTE Device Contraindication: Treatment Not Indicated VTE Drug Contraindication: N/A - Med Ordered
[2024-10-24 22:15] VITALS: BP 138/71; PULSE 63; RESP 24; TEMP 36.6; O2SAT 92
[2024-10-24 23:04] LABS: PLT CLUMP 1; Red Cell Distribution Width 13.6 % (11.0-16.0)
[2024-10-24 23:06] LABS: Hemoglobin 13.2 g/dl (14.0-18.0); Mean Corpuscular HGB Conc 33.8 g/dl (31.0-36.0); Mean Corpuscular Hemoglobin 33.2 pg (27.0-33.0); Mean Platelet Volume 10.8 fL (9.4-12.4); Red Blood Count 3.98 X10*6/uL (4.60-5.80)
[2024-10-24] MEDS: Finasteride 5 MG TABLET PO (23:07)
[2024-10-24 23:14] LABS: Anion Gap 13 (12-20); Blood Urea Nitrogen 23 mg/dL (9-16); Calcium 8.8 mg/dL (8.4-10.2); Carbon Dioxide 29 mmol/L (22-29); Chloride 104 mmol/L (96-108); Creatinine Clr Calc Pharmacy 58.5; Estimated Glomerular Filt Rate > 60; Glucose Random 88 mg/dL (60-115); Magnesium 2.1 mg/dL (1.6-2.6); Potassium 3.8 mmol/L (3.3-5.1); Sodium 142 mmol/L (135-145)
[2024-10-24 23:16] LABS: Platelet Count 93 X10*3/uL (160-400); White Blood Count 3.5 X10*3/uL (4.8-10.8)
[2024-10-25] VITALS (8 sets, daily range): BP systolic 108–148; BP diastolic 50–72; PULSE 42–100; RESP 18–19; TEMP 36.1–37; O2SAT 92–94; BMI 29.1
[2024-10-25] MEDS: Omeprazole 20 MG CAPSULE.DR PO (08:32)
[2024-10-25] MEDS: Multivitamin TABLET 1 TAB PO (08:32)
[2024-10-25] MEDS: Atorvastatin Calcium 40 MG TABLET PO (08:32)
[2024-10-25] MEDS: 0.9 % Sodium Chloride Flush 3 ML SYRINGE IVFLUSH ×2 (08:33→16:13)
[2024-10-25] MEDS: Furosemide 40 MG/4 ML VIAL IVPUSH (08:33)
--- NOTE | 2024-10-25 09:37 | MHC.CM.PN ---
IMM 10/25/24, Pt lives in a duplex with his son on the other side. He has home manager services from [facility] and [place]. He is active with [facility] following a stay at [facility] in Aug. HCP on file and confirmed: Law, PCP confirmed: Paulie Nelson. Transport home at DC is by son. DCP: home, resume services. CM to follow and assist with DC plan.
--- NOTE | 2024-10-25 11:20 | P.CONCA_ITS ---
History of Present Illness History of Present Illness Date of Service: 10/25/24 Requesting physician: Oz Cuevas Chief complaint: Right pleural effusion Narrative: [age] year gentleman with known history of coronary artery disease with previous RCA PCI in the setting of ST-elevation HI and recent admission with bradycardia and diastolic heart failure. He was diuresed and sent home on 20 of Lasix. He had cardiac event monitor placed which interestingly did not show any significant bradycardia but did show episodes of paroxysmal atrial fibrillation. He was seen in the office end of September at nighttime he had lower extremity edema and some crackles on examination but he was denying any symptoms and was taking 20 mg of Lasix only. A discussion was done with him to change Plavix to Eliquis given the fact that he has atrial fibrillation and has stroke risk. He is here because he has been experiencing shortness of breath and cough. His imaging has shown bilateral effusions with concern for heart failure. He is saying that he got 1 month of Eliquis free but he will be charged 500 dollars by insurance if he continues this. This is not affordable for him. We will check whether he can have better coverage for this. His questions are can be changed to any other medication and we discussed about Coumadin as an option. [facility] Past Medical History Medical History BPH (benign prostatic hyperplasia) CAD (coronary artery disease) Social History Social History Household Members: Other Household Members Other:: live in [facility]. He lives on one sidee, son lives on other side Housing: Apartment Do you presently have visiting nurse or other home services: No Patient Tobacco Use Status: Former Tobacco user Tobacco use type: Cigarette e-Cigarette/Vaping Use: Never Used service: No Meds Allergies Allergy/AdvReac Type Severity Reaction Status Date / Time Penicillins [PCN] Allergy Unknown RASH Verified 10/24/24 12:28 Active Medications: Current Medications Acetaminophen (Acetaminophen 325 Mg Tablet) 650 mg PO Q6H PRN PRN Reason: Pain, Mild (Pain Scale 1-3), fever or headache Apixaban (Apixaban 5 Mg Tablet) 5 mg PO BID JD Last Admin: 10/25/24 08:34 Dose: Not Given Atorvastatin Calcium (Atorvastatin Calcium 40 Mg Tablet) 40 mg PO DAILY [facility] Last Admin: 10/25/24 08:32 Dose: 40 mg Calcium Carbonate (Calcium Carbonate 750 Mg Tab.Chew) 750 mg PO Q4H PRN PRN Reason: Heartburn Doxazosin Mesylate (Doxazosin Mesylate 2 Mg Tablet) 4 mg PO BEDTIME [facility] Finasteride (Finasteride 5 Mg Tablet) 5 mg PO BEDTIME [facility] Last Admin: 10/24/24 23:07 Dose: 5 mg Furosemide (Furosemide 40 Mg/4 Ml Vial) 40 mg IVPUSH DAILY [facility]; Protocol Last Admin: 10/25/24 08:33 Dose: 40 mg Latanoprost (Latanoprost 0.005 % Ophth Isabel 2.5 Ml Drops) 1 drop EYE-BOTH BEDTIME [facility] Last Admin: 10/24/24 23:11 Dose: Not Given Magnesium Hydroxide (Milk Of Magnesia 30 Ml Oral.Susp) 30 ml PO DAILY PRN PRN Reason: Constipation Melatonin (Melatonin 3 Mg Tablet) 6 mg PO BEDTIME PRN PRN Reason: Insomnia Multivitamins/Vitamin C (Multivitamin Tablet) 1 tab PO DAILY [facility] Last Admin: 10/25/24 08:32 Dose: 1 tab Omeprazole (Omeprazole 20 Mg Capsule.Dr) 20 mg PO DAILY [facility] Last Admin: 10/25/24 08:32 Dose: 20 mg Sodium Chloride (0.9 % Sodium Chloride Flush 3 Ml Syringe) 3 ml IVFLUSH QSHIFT [facility] Last Admin: 10/25/24 08:33 Dose: 3 ml Home Medications ?Medication ?Instructions ?Recorded ?Confirmed ?Last Taken ?Type atorvastatin 40 mg tablet 40 mg PO DAILY 09/10/24 10/24/24 10/23/24 History finasteride 5 mg tablet 5 mg PO BEDTIME 09/10/24 10/24/24 10/23/24 History latanoprost 0.005 % eye drops 1 drp ophthalmic (eye) BEDTIME 09/10/24 10/24/24 10/23/24 History terazosin 5 mg capsule 5 mg PO BEDTIME 09/10/24 10/24/24 10/23/24 History clopidogrel 75 mg tablet 75 mg PO DAILY 10/24/24 10/24/24 10/23/24 History famotidine 40 mg tablet 40 mg PO DAILY 10/24/24 10/24/24 10/23/24 History multivitamin 1 tab PO DAILY 10/24/24 10/24/24 10/23/24 History Physical Exam 2 Vital Signs: Vital Signs: Last Vital Signs Temp 98.0 F 10/25/24 11:03 Pulse 58 10/25/24 11:03 Resp 18 10/25/24 11:03 BP 117/55 L 10/25/24 11:03 Pulse Ox 92 10/25/24 11:03 O2 Del Method Room Air 10/25/24 11:03 BMI result Body Mass Index 29.1 GENERAL APPEARANCE: in no acute distress, pleasant. NECK: no carotid bruit, + jugular venous distention. SKIN: no suspicious lesions, warm and dry. HEART: no murmurs, regular rate and rhythm. LUNGS: Diminished breath sounds at bases. ABDOMEN: soft, nontender. EXTREMITIES: no edema. PERIPHERAL PULSES: equal. NEUROLOGIC: No gross deficits, AAO X 3 Objective Labs and Meds 10/24/24 22:53 10/24/24 22:53 Lab results: Laboratory Results - last 24 hr 10/24/24 10/24/24 13:08 22:53 WBC 3.8 L 3.5 L RBC 3.83 L 3.98 L Hgb 12.7 L 13.2 L Hct 38.2 L 39.0 L MCV 99.7 H 98.0 MCH 33.2 H 33.2 H MCHC 33.2 33.8 RDW 13.8 13.6 Plt Count 97 L 93 L MPV 10.5 10.8 Immature Gran % (Auto) 0.3 Neut % (Auto) 72.5 Lymph % (Auto) 13.6 L Kershaw % (Auto) 12.3 H Eos % (Auto) 1.0 Baso % (Auto) 0.3 Lymph # (Auto) 0.5 L Kershaw # (Auto) 0.5 Eos # (Auto) 0.0 Baso # (Auto) 0.0 Abs Immat Gran (auto) 0.01 Absolute Neuts (auto) 2.8 Absolute Nucleated RBC 0.000 0.000 Nucleated RBC % (auto) 0.0 0.0 Sodium 141 142 Potassium 4.1 3.8 Chloride 107 104 Carbon Dioxide 31 H 29 Anion Gap 7 L 13 BUN 26 H 23 H Creatinine 1.09 0.94 Estim Creat Clear Calc 50.5 58.5 Estimated GFR > 60 > 60 Random Glucose 125 H 88 Calcium 8.7 8.8 Magnesium 2.1 2.1 Total Bilirubin 0.9 AST 27 ALT 18 Alkaline Phosphatase 63 Troponin I High Sens 9.0 B-Natriuretic Peptide 601 H Total Protein 6.4 L Albumin 3.3 L Influenza Type A (PCR) NEGATIVE Influenza Type B (PCR) NEGATIVE RSV RNA Qual (PCR) NEGATIVE SARS-CoV-2 RNA (RT-PCR) NEGATIVE Imaging Radiologist's impression: Impressions Chest X-Ray 10/24/24 12:28 IMPRESSION: Pulmonary edema and bilateral pleural effusions right greater than left. Electronically signed by: Ed Ansari MD 10/24/2024 02:23 PM EST RP Chest CTA 10/24/24 18:06 IMPRESSION: 1. No evidence of pulmonary embolism. 2. Small to moderate right-sided pleural effusion. Trace left-sided pleural effusion. 3. No additional acute pulmonary abnormalities. VTE: negative. Electronically signed by: Tucker Santacruz DO 10/24/2024 07:39 PM EST RP Assessment and Plan (1) Bilateral pleural effusion: Status: Acute (2) Acute on chronic diastolic congestive heart failure: Status: Acute (3) PAF (paroxysmal atrial fibrillation): Status: Acute Plan 84-year-old gentleman with known history of coronary artery disease, diastolic heart failure and paroxysmal atrial fibrillation diagnosed recently on cardiac event monitor. He is presenting with shortness of breath and diastolic heart failure. He is on IV diuretics 40 mg IV daily. Clinically he is overloaded at this point I think we should continue diuretics. I have sent a message to our nurse to see if he can get better coverage for Eliquis. If in fact he can not get coverage then only good option left will be Coumadin and he will be referred to Coumadin Clinic. He has been taken off the Plavix at this stage. We will follow along with you. Thank you for allowing me to participate in the care of your patient. Please feel free to contact me if you have any questions. Procedures Date of Service Date of Service: 10/25/24
--- NOTE | 2024-10-25 14:30 | HO.PM.IMPN ---
Subjective Subjective Date of Service: 10/25/24 Interval History: breathing 90% better negative 2350 mL thus far no chest pain Review of Systems Review of Systems: Yes all other systems are reviewed and are negative Physical Exam Vital Signs: Vital Signs: Last Vital Signs Temp 98.0 F 10/25/24 11:03 Pulse 58 10/25/24 11:03 Resp 18 10/25/24 11:03 BP 117/55 L 10/25/24 11:03 Pulse Ox 92 10/25/24 11:03 O2 Del Method Room Air 10/25/24 11:03 BMI result Body Mass Index 29.1 Gen: in no acute distress HEENT: sclera anicteric, moist mucus membranes Neck: supple, JVD Lungs: diminished R base Heart: regular rate and rhythm, no murmurs Abd: soft, non-tender, non-distended Ext: no edema Skin: warm/well-perfused Neuro: alert and oriented x3, no focal findings Psych: appropriate affect Objective Data Active Medications Acetaminophen (Acetaminophen 325 Mg Tablet) 650 mg PO Q6H PRN PRN Reason: Pain, Mild (Pain Scale 1-3), fever or headache Apixaban (Apixaban 5 Mg Tablet) 5 mg PO BID [facility] Last Admin: 10/25/24 08:34 Dose: Not Given Documented By: WESLEY Non-Admin Reason: Patient Refused Atorvastatin Calcium (Atorvastatin Calcium 40 Mg Tablet) 40 mg PO DAILY [facility] Last Admin: 10/25/24 08:32 Dose: 40 mg Documented By: WESLEY Calcium Carbonate (Calcium Carbonate 750 Mg Tab.Chew) 750 mg PO Q4H PRN PRN Reason: Heartburn Doxazosin Mesylate (Doxazosin Mesylate 2 Mg Tablet) 4 mg PO BEDTIME [facility] Finasteride (Finasteride 5 Mg Tablet) 5 mg PO BEDTIME [facility] Last Admin: 10/24/24 23:07 Dose: 5 mg Documented By: NONI Furosemide (Furosemide 40 Mg/4 Ml Vial) 40 mg IVPUSH DAILY [facility]; Protocol Last Admin: 10/25/24 08:33 Dose: 40 mg Documented By: WESLEY Latanoprost (Latanoprost 0.005 % Ophth Isabel 2.5 Ml Drops) 1 drop EYE-BOTH BEDTIME [facility] Last Admin: 10/24/24 23:11 Dose: Not Given Documented By: NONI Non-Admin Reason: Med Not Available Magnesium Hydroxide (Milk Of Magnesia 30 Ml Oral.Susp) 30 ml PO DAILY PRN PRN Reason: Constipation Melatonin (Melatonin 3 Mg Tablet) 6 mg PO BEDTIME PRN PRN Reason: Insomnia Multivitamins/Vitamin C (Multivitamin Tablet) 1 tab PO DAILY [facility] Last Admin: 10/25/24 08:32 Dose: 1 tab Documented By: WESLEY Omeprazole (Omeprazole 20 Mg Capsule.Dr) 20 mg PO DAILY [facility] Last Admin: 10/25/24 08:32 Dose: 20 mg Documented By: WESLEY Sodium Chloride (0.9 % Sodium Chloride Flush 3 Ml Syringe) 3 ml IVFLUSH QSHIFT [facility] Last Admin: 10/25/24 08:33 Dose: 3 ml Documented By: WESLEY Labs 10/24/24 22:53 10/24/24 22:53 Labs: Laboratory Results - last 24 hr 10/24/24 10/24/24 13:08 22:53 MCV 98.0 MCH 33.2 H MCHC 33.8 RDW 13.6 Plt Count 93 L MPV 10.8 Absolute Nucleated RBC 0.000 Nucleated RBC % (auto) 0.0 Anion Gap 13 Estim Creat Clear Calc 58.5 Estimated GFR > 60 Random Glucose 88 Calcium 8.8 Magnesium 2.1 Troponin I High Sens 9.0 Assessment and Plan (1) Chronic diastolic heart failure: Status: Acute Plan d2 for 84yo M with CAD, dCHF, pAF recently diagnosed on CHEMO; presenting with dyspnea; admitted for CHF exacerbation acute/chronic HFpEF - continue IV furosemide, trend BNP, monitor I/O + lytes; Cardiology consulted pAF - continue apixaban- will need to look into coverage as it is unaffordable for pt; may need to go on warfarin unless rivaroxaban is an option CAD - continue statin GERD - continue PPI BPH - continue terazosin + finasteride VTE ppx - apixaban dispo - PT eval In my clinical judgment, the patient requires continued inpatient hospitalization for the following reasons: IV diuresis Quality Stroke Does the patient have a stroke diagnosis?: No VTE Prior VTE?: No VTE Risk Level:: Medical - moderate - high VTE Device Contraindication: Treatment Not Indicated VTE Drug Contraindication: N/A - Med Ordered
[2024-10-25] MEDS: Finasteride 5 MG TABLET PO (23:40)
[2024-10-25] MEDS: Doxazosin Mesylate 2 MG TABLET 4 MG PO (23:40)
[2024-10-25] MEDS: Melatonin 3 MG TABLET 6 MG PO (23:40)
[2024-10-25] MEDS: Apixaban 5 MG TABLET PO (23:40)
[2024-10-26] VITALS (8 sets, daily range): BP systolic 110–126; BP diastolic 56–66; PULSE 50–84; RESP 12–20; TEMP 36.1–36.4; O2SAT 86–98
[2024-10-26 08:05] LABS: B Type Natriuretic Peptide 393 pg/mL (<100)
[2024-10-26] MEDS: Furosemide 40 MG/4 ML VIAL IVPUSH (08:07)
[2024-10-26] MEDS: Multivitamin TABLET 1 TAB PO (08:08)
[2024-10-26] MEDS: Atorvastatin Calcium 40 MG TABLET PO (08:08)
[2024-10-26] MEDS: Omeprazole 20 MG CAPSULE.DR PO (08:08)
[2024-10-26] MEDS: 0.9 % Sodium Chloride Flush 3 ML SYRINGE IVFLUSH ×4 (08:09→22:44)
[2024-10-26 08:31] LABS: Anion Gap 12 (12-20); Blood Urea Nitrogen 27 mg/dL (9-16); Calcium 8.4 mg/dL (8.4-10.2); Carbon Dioxide 27 mmol/L (22-29); Chloride 103 mmol/L (96-108); Creatinine Clr Calc Pharmacy 49.1; Estimated Glomerular Filt Rate > 60; Glucose Random 105 mg/dL (60-115); Magnesium 2.1 mg/dL (1.6-2.6); Potassium 3.8 mmol/L (3.3-5.1); Sodium 138 mmol/L (135-145)
--- NOTE | 2024-10-26 10:02 | PM.PNCARD ---
Subjective Subjective Date of Service: 10/26/24 Interval history: Seen examined at bedside. Clinically improving. He can not afford Eliquis. Physical Exam Vital Signs: Last Vital Signs Temp 96.9 F 10/26/24 03:35 Pulse 59 10/26/24 03:35 Resp 18 10/26/24 03:35 BP 121/66 10/26/24 03:35 Pulse Ox 93 10/26/24 05:49 O2 Del Method Nasal Cannula 10/26/24 05:49 O2 Flow Rate 2 10/26/24 05:49 BMI result Body Mass Index 29.1 GENERAL APPEARANCE: in no acute distress, pleasant. NECK: no carotid bruit, no jugular venous distention. SKIN: no suspicious lesions, warm and dry. HEART: no murmurs, regular rate and rhythm. LUNGS: Diminished breath sounds at bases. ABDOMEN: soft, nontender. EXTREMITIES: no edema. PERIPHERAL PULSES: equal. NEUROLOGIC: No gross deficits, AAO X 3 Objective Labs and Meds 10/24/24 22:53 10/26/24 06:41 Lab results: Laboratory Results - last 24 hr 10/26/24 06:41 Sodium 138 Potassium 3.8 Chloride 103 Carbon Dioxide 27 Anion Gap 12 BUN 27 H Creatinine 1.12 Estim Creat Clear Calc 49.1 Estimated GFR > 60 Random Glucose 105 Calcium 8.4 Magnesium 2.1 B-Natriuretic Peptide 393 H Progress Note: A&P Assessment and plan (1) Bradycardia: Status: Acute Plan [age] year gentleman with background history of coronary disease with previous PCI to RCA in 09/08/2023 a recent admission with bradycardia when he had AV Wenckebach and diastolic heart failure. He was diuresed and discharged home. He had cardiac event monitor placed which showed paroxysmal atrial fibrillation. He was changed to Eliquis. He got admitted again with cough and shortness of breath and clinically he was noted to be in heart failure. He is being diuresed and is getting better. He is more or less euvolemic at this stage. Can be changed to oral Lasix 40 mg daily from tomorrow. He can not afford Eliquis. We tried to talk to insurance but unfortunately he is monthly cost will be 500 dollars. We have decided to change him to Coumadin. I am referring him to Coumadin clinic. Thank you for allowing me to participate in the care of your patient. Please feel free to contact me if you have any questions. Time Spent With Patient Time: Total time managing care of this patient today ____ minutes. Progress Note: Quality Stroke Does the patient have a stroke diagnosis?: No Procedures Date of Service Date of Service: 10/26/24
[2024-10-26 12:01] LABS: INTERNATIONAL NORM RATIO 1.3 (0.9-1.1); Prothrombin Time 14.7 SEC (10.9-12.4)
--- NOTE | 2024-10-26 13:36 | P.PNIM_ITS ---
Subjective Subjective Date of Service: 10/26/24 Interval History: net negative 3.1L dyspnea improved Review of Systems Review of Systems: Yes all other systems are reviewed and are negative Physical Exam 2 Vital Signs: Vital Signs: Last Vital Signs Temp 97.2 F 10/26/24 12:00 Pulse 57 10/26/24 12:00 Resp 20 10/26/24 12:00 BP 110/56 L 10/26/24 12:00 Pulse Ox 96 10/26/24 12:00 O2 Del Method Nasal Cannula 10/26/24 12:00 O2 Flow Rate 1 10/26/24 12:00 BMI result Body Mass Index 29.1 Gen: in no acute distress HEENT: sclera anicteric, moist mucus membranes Neck: supple, no JVD Lungs: diminished R base Heart: regular rate and rhythm, no murmurs Abd: soft, non-tender, non-distended Ext: no edema Skin: warm/well-perfused Neuro: alert and oriented x3, no focal findings Psych: appropriate affect Objective Data Active Medications Acetaminophen (Acetaminophen 325 Mg Tablet) 650 mg PO Q6H PRN PRN Reason: Pain, Mild (Pain Scale 1-3), fever or headache Atorvastatin Calcium (Atorvastatin Calcium 40 Mg Tablet) 40 mg PO DAILY [facility] Last Admin: 10/26/24 08:08 Dose: 40 mg Documented By: PODMORASHID Calcium Carbonate (Calcium Carbonate 750 Mg Tab.Chew) 750 mg PO Q4H PRN PRN Reason: Heartburn Doxazosin Mesylate (Doxazosin Mesylate 2 Mg Tablet) 4 mg PO BEDTIME [facility] Last Admin: 10/25/24 23:40 Dose: 4 mg Documented By: ANASTASIYA Finasteride (Finasteride 5 Mg Tablet) 5 mg PO BEDTIME [facility] Last Admin: 10/25/24 23:40 Dose: 5 mg Documented By: ANASTASIYA Furosemide (Furosemide 40 Mg Tablet) 40 mg PO DAILY [facility]; Protocol Latanoprost (Latanoprost 0.005 % Ophth Isabel 2.5 Ml Drops) 1 drop EYE-BOTH BEDTIME [facility] Last Admin: 10/25/24 23:30 Dose: Not Given Documented By: ANASTASIYA Non-Admin Reason: Med Not Available Magnesium Hydroxide (Milk Of Magnesia 30 Ml Oral.Susp) 30 ml PO DAILY PRN PRN Reason: Constipation Melatonin (Melatonin 3 Mg Tablet) 6 mg PO BEDTIME PRN PRN Reason: Insomnia Last Admin: 10/25/24 23:40 Dose: 6 mg Documented By: ANASTASIYA Multivitamins/Vitamin C (Multivitamin Tablet) 1 tab PO DAILY [facility] Last Admin: 10/26/24 08:08 Dose: 1 tab Documented By: PODMORP Omeprazole (Omeprazole 20 Mg Capsule.Dr) 20 mg PO DAILY [facility] Last Admin: 10/26/24 08:08 Dose: 20 mg Documented By: PODMORP Sodium Chloride (0.9 % Sodium Chloride Flush 3 Ml Syringe) 3 ml IVFLUSH QSHIFT [facility] Last Admin: 10/26/24 08:09 Dose: 3 ml Documented By: PODMORP Warfarin Sodium (Warfarin Sodium 5 Mg Tablet) 5 mg PO DAILY@1800 [facility] Labs 10/24/24 22:53 10/26/24 06:41 Labs: Laboratory Results - last 24 hr 10/26/24 10/26/24 10/26/24 06:41 11:44 11:44 PT 14.7 H Cancelled INR 1.3 H Anion Gap 12 Estim Creat Clear Calc 49.1 Estimated GFR > 60 Random Glucose 105 Calcium 8.4 Magnesium 2.1 B-Natriuretic Peptide 393 H 10/26/24 11:44 PT INR Cancelled Anion Gap Estim Creat Clear Calc Estimated GFR Random Glucose Calcium Magnesium B-Natriuretic Peptide Assessment and Plan (1) Chronic diastolic heart failure: Status: Acute Plan d3 for 84yo M with CAD, dCHF, pAF recently diagnosed on CHEMO; presenting with dyspnea; admitted for CHF exacerbation acute/chronic HFpEF - chnage IV to PO furosemide tomorrow, trend BNP, monitor I/O [3.1L negative thus far] + lytes; Cardiology following pAF - apixaban unaffordable for pt; will start warfarin with daily INR monitoring for now CAD - continue statin GERD - continue PPI BPH - continue terazosin + finasteride VTE ppx - warfarin dispo - PT eval: AIR recommended In my clinical judgment, the patient requires continued inpatient hospitalization for the following reasons: IV diuresis then placement Total time managing care of this patient today: 35 minutes. Quality Stroke Does the patient have a stroke diagnosis?: No VTE Prior VTE?: No VTE Risk Level:: Medical - moderate - high VTE Device Contraindication: Treatment Not Indicated VTE Drug Contraindication: N/A - Med Ordered
[2024-10-26] MEDS: Warfarin Sodium 5 MG TABLET PO (17:18)
[2024-10-26] MEDS: Finasteride 5 MG TABLET PO (22:42)
[2024-10-26] MEDS: Doxazosin Mesylate 2 MG TABLET 4 MG PO (22:42)
[2024-10-26] MEDS: Latanoprost 0.005 % Ophth Sol 2.5 ML DROPS 1 DROP EYE-BOTH (23:03)
[2024-10-27] VITALS (7 sets, daily range): BP systolic 110–126; BP diastolic 51–61; PULSE 51–67; RESP 16–22; TEMP 36.3–37.1; O2SAT 94–98
--- NOTE | 2024-10-27 | ECG_ITS ---
Test Reason : Obtunded Blood Pressure : / mmHG Vent. Rate : 096 BPM Atrial Rate : 119 BPM P-R Int : 000 ms QRS Dur : 080 ms QT Int : 346 ms P-R-T Axes : 000 -54 020 degrees QTc Int : 437 ms Sinus tachycardia with 2nd degree A-V block (Mobitz I) Left axis deviation Inferior-posterior infarct (cited on or before 10-SEP-2024) Abnormal ECG When compared with ECG of 24-OCT-2024 12:31, Premature ventricular complexes are no longer Present Premature atrial complexes are no longer Present Sinus rhythm is now with 2nd degree A-V block (Mobitz I) Referred By: Joyce Burdick Electronically Signed By:Kapil Fonseca
[2024-10-27] MEDS: Acetaminophen 325 MG TABLET 650 MG PO (03:19)
[2024-10-27 06:40] LABS: Glucose, Whole Blood 111 mg/dL (60-115)
[2024-10-27 06:50] LABS: ABG HCO3 29 mmol/L (22-26); ABG pCO2 57 mmHg (32-45); ABG pH 7.31 (7.35-7.45); ABG pO2 139 mmHg (83-108)
--- NOTE | 2024-10-27 07:12 | PM.EVENT ---
Event Note Date of Service: 10/27/24 Event Note: Rapid response called for pt, rresponded to call with Dr Tarango. pt was obtunded. O2 sat dropped to 77%. started on oxymask and ABG showed respiratory acidosis. ICU consulted and discussed case, pt to be transferred to ICU for bipap. morning team aware. Time Spent With Patient Time: Total time managing care of this patient today ____ minutes.
[2024-10-27 07:13] LABS: MANUAL DIFF FLAG NO
--- NOTE | 2024-10-27 07:15 | PC.RT ---
Rapid response at approximately [address]. [address] patient on Bipap per MD order, per ABG results. Patient unwilling to have mask placed on face. patient ripped mask off when placed on his face. patient was never placed on bipap for any period of time.
[2024-10-27 07:21] LABS: Eosinophils Absolute Auto 0.1 X10*3/uL (0.0-0.4); Eosinophils Percent Auto 1.2 % (0-4); Hematocrit 39.7 % (42.0-52.0); Imm Gran Abs Auto 0.02 X10*3/uL (0.00-0.03); Imm Gran Pct Auto 0.3 % (0.0-0.4); Mean Corpuscular Volume 96.6 fL (80.0-98.0); PLT CLUMP 1; Red Blood Count 4.11 X10*6/uL (4.60-5.80); SCAN SMEAR FLAG 1
[2024-10-27 07:23] LABS: Basophils Percent Auto 0.3 % (0-2); Hemoglobin 13.6 g/dl (14.0-18.0); Lymphocytes Absolute Auto 0.9 X10*3/uL (1.2-4.9); Lymphocytes Percent Auto 12.6 % (20-40); Mean Corpuscular HGB Conc 34.3 g/dl (31.0-36.0); Mean Corpuscular Hemoglobin 33.1 pg (27.0-33.0); Mean Platelet Volume 10.6 fL (9.4-12.4); Monocytes Percent Auto 14.1 % (2-11); Neutrophils Absolute Auto 5.2 x10*3/uL (2.0-8.3); Neutrophils Percent Auto 71.5 % (45-73); Red Cell Distribution Width 13.1 % (11.0-16.0)
[2024-10-27 07:32] LABS: White Blood Count 7.2 X10*3/uL (4.8-10.8)
[2024-10-27 07:33] LABS: Platelet Count 109 X10*3/uL (160-400)
[2024-10-27 07:38] LABS: Alanine Aminotransferase 12 U/L (0-40); Albumin Level 3.3 g/dL (3.5-5.0); Alkaline Phosphatase 66 U/L (39-117); Anion Gap 16 (12-20); Aspartate Amino Transferase 22 U/L (5-37); Blood Urea Nitrogen 28 mg/dL (9-16); Calcium 8.4 mg/dL (8.4-10.2); Calcium 8.7 mg/dL (8.4-10.2); Carbon Dioxide 26 mmol/L (22-29); Carbon Dioxide 27 mmol/L (22-29); Chloride 99 mmol/L (96-108); Creatinine Clr Calc Pharmacy 56.1; Estimated Glomerular Filt Rate > 60; Glucose Random 126 mg/dL (60-115); Glucose Random 127 mg/dL (60-115); Potassium 3.7 mmol/L (3.3-5.1); Sodium 137 mmol/L (135-145); Sodium 138 mmol/L (135-145); Total Protein 6.5 g/dL (6.5-8.0)
[2024-10-27 07:43] LABS: B Type Natriuretic Peptide 392 pg/mL (<100)
--- NOTE | 2024-10-27 07:46 | PC.NURSE ---
around 0640 This RN notified by [employer] and floor nurses to come to patients bedside STAT. Upon my arrival patient is unresponsive with clear secretions coming out the side of his mouth-yankauer used for oral suction. patient only withdrawing from deep pain, visibly diaphoretic & said to have been hypoxic down to 77 on 2L nasal cannula before my arrival. pt with admitted for CHF, lungs remain unchanged upon assessment with coarse crackles. Rapid response called. blood sugar was checked - 111. blood pressure stable, patient was placed on oxy mask 15 liters and deep suctioned by respiratory for a junky cough- deep suction with good effect patient turned down to 9L oxy mask sating 94%. Patient is now more responsive, spontaneously opening his eyes, moving all 4 extremities, pushing against staff in attempts for ABG to be obtained, pt held and ABGs performed. Stat labs, chest x ray and head CT ordered. Patient said to be retaining CO2, Dr. Tarango consulted ICU. Bipap trialed on patient, as soon as the mask was secured patient ripped it off and would not keep it on. Mental status re-assessed patient is now alert to self, and 88% on RA, awaiting further testing to be performed along with transfer to ICU. Upon waiting for transfer Dr. Cuevas came to bedside to assess patient along with respiratory and decided for patient to stay on med/tele floor and receive further work up. at this time this RN gave report to day nurse.
[2024-10-27] MEDS: Atorvastatin Calcium 40 MG TABLET PO (08:46)
[2024-10-27] MEDS: Furosemide 40 MG TABLET PO (08:46)
[2024-10-27] MEDS: 0.9 % Sodium Chloride Flush 3 ML SYRINGE IVFLUSH (08:46)
[2024-10-27] MEDS: Multivitamin TABLET 1 TAB PO (08:46)
[2024-10-27] MEDS: Omeprazole 20 MG CAPSULE.DR PO (08:46)
--- NOTE | 2024-10-27 10:48 | HO.PM.IMPN ---
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 found to be obtunded, hypoxic with SaO2 77% placed on Oxymask 15L, ABG with pH 7.31/pCO2 57 [no known hx of chronic lung disease or CO2 retention] large amount of secretions suctioned placed on BiPAP for <2 , pulled off and now awake/alert/oriented, no c/o dyspnea Review of Systems Review of Systems: Yes all other systems are reviewed and are negative Physical Exam Vital Signs: Vital Signs: Last Vital Signs Temp 97.3 F 10/27/24 08:00 Pulse 60 10/27/24 08:00 Resp 22 H 10/27/24 08:00 BP 121/61 10/27/24 08:00 Pulse Ox 94 10/27/24 08:00 O2 Del Method Nasal Cannula 10/27/24 08:00 O2 Flow Rate 3 10/27/24 08:00 Oxygen Flow Rate 9 10/27/24 07:35 BMI result Body Mass Index 29.1 Gen: in no acute distress HEENT: sclera anicteric, moist mucus membranes Neck: supple Lungs: clear to auscultation bilaterally Heart: regular rate and rhythm, no murmurs Abd: soft, non-tender, non-distended Ext: no edema Skin: warm/well-perfused Neuro: alert and oriented x3, no focal findings Psych: appropriate affect Objective Data Active Medications Acetaminophen (Acetaminophen 325 Mg Tablet) 650 mg PO Q6H PRN PRN Reason: Pain, Mild (Pain Scale 1-3), fever or headache Last Admin: 10/27/24 03:19 Dose: 650 mg Documented By: LENO Atorvastatin Calcium (Atorvastatin Calcium 40 Mg Tablet) 40 mg PO DAILY [facility] Last Admin: 10/27/24 08:46 Dose: 40 mg Documented By: SHANDA Calcium Carbonate (Calcium Carbonate 750 Mg Tab.Chew) 750 mg PO Q4H PRN PRN Reason: Heartburn Doxazosin Mesylate (Doxazosin Mesylate 2 Mg Tablet) 4 mg PO BEDTIME [facility] Last Admin: 10/26/24 22:42 Dose: 4 mg Documented By: LEON Finasteride (Finasteride 5 Mg Tablet) 5 mg PO BEDTIME [facility] Last Admin: 10/26/24 22:42 Dose: 5 mg Documented By: LEON Furosemide (Furosemide 40 Mg Tablet) 40 mg PO DAILY [facility]; Protocol Last Admin: 10/27/24 08:46 Dose: 40 mg Documented By: SHANDA Latanoprost (Latanoprost 0.005 % Ophth Isabel 2.5 Ml Drops) 1 drop EYE-BOTH BEDTIME [facility] Last Admin: 10/26/24 23:03 Dose: 1 drop Documented By: LEON Magnesium Hydroxide (Milk Of Magnesia 30 Ml Oral.Susp) 30 ml PO DAILY PRN PRN Reason: Constipation Melatonin (Melatonin 3 Mg Tablet) 6 mg PO BEDTIME PRN PRN Reason: Insomnia Last Admin: 10/25/24 23:40 Dose: 6 mg Documented By: ANASTASIYA Multivitamins/Vitamin C (Multivitamin Tablet) 1 tab PO DAILY [facility] Last Admin: 10/27/24 08:46 Dose: 1 tab Documented By: SHANDA Omeprazole (Omeprazole 20 Mg Capsule.Dr) 20 mg PO DAILY [facility] Last Admin: 10/27/24 08:46 Dose: 20 mg Documented By: SHANDA Sodium Chloride (0.9 % Sodium Chloride Flush 3 Ml Syringe) 3 ml IVFLUSH QSHIFT [facility] Last Admin: 10/27/24 08:46 Dose: 3 ml Documented By: SHANDA Warfarin Sodium (Warfarin Sodium 5 Mg Tablet) 5 mg PO DAILY@1800 [facility] Last Admin: 10/26/24 17:18 Dose: 5 mg Documented By: PODMORP Labs 10/27/24 07:09 10/27/24 07:09 Labs: Laboratory Results - last 24 hr 10/26/24 10/26/24 10/26/24 11:44 11:44 11:44 MCV MCH MCHC RDW Plt Count MPV Immature Gran % (Auto) Neut % (Auto) Lymph % (Auto) [place] % (Auto) Eos % (Auto) Baso % (Auto) Lymph # (Auto) [place] # (Auto) Eos # (Auto) Baso # (Auto) Abs Immat Gran (auto) Absolute Neuts (auto) Absolute Nucleated RBC Nucleated RBC % (auto) PT 14.7 H Cancelled INR 1.3 H Cancelled O2 Saturation ABG pH at Pt Temp ABG pCO2 at Pt Temp ABG pO2 at Pt Temp ABG HCO3 ABG Base Excess (Actual) Anion Gap Estim Creat Clear Calc Estimated GFR POC Glucose Random Glucose Calcium Magnesium Total Bilirubin AST ALT Alkaline Phosphatase B-Natriuretic Peptide Total Protein Albumin 10/27/24 10/27/24 10/27/24 06:37 06:40 07:09 MCV Cancelled MCH MCHC RDW Plt Count MPV Immature Gran % (Auto) Neut % (Auto) Lymph % (Auto) [place] % (Auto) Eos % (Auto) Baso % (Auto) Lymph # (Auto) [place] # (Auto) Eos # (Auto) Baso # (Auto) Abs Immat Gran (auto) Absolute Neuts (auto) Absolute Nucleated RBC Nucleated RBC % (auto) PT INR O2 Saturation 100.0 ABG pH at Pt Temp 7.31 L ABG pCO2 at Pt Temp 57 H ABG pO2 at Pt Temp 139 H ABG HCO3 29 H ABG Base Excess (Actual) 2.0 Anion Gap Estim Creat Clear Calc Estimated GFR POC Glucose 111 Random Glucose Calcium Magnesium Total Bilirubin AST ALT Alkaline Phosphatase B-Natriuretic Peptide Total Protein Albumin 10/27/24 10/27/24 10/27/24 07:09 07:09 07:09 MCV 96.6 MCH Cancelled 33.1 H MCHC Cancelled 34.3 RDW Cancelled Plt Count MPV Immature Gran % (Auto) Neut % (Auto) Lymph % (Auto) [place] % (Auto) Eos % (Auto) Baso % (Auto) Lymph # (Auto) [place] # (Auto) Eos # (Auto) Baso # (Auto) Abs Immat Gran (auto) Absolute Neuts (auto) Absolute Nucleated RBC Nucleated RBC % (auto) PT INR O2 Saturation ABG pH at Pt Temp ABG pCO2 at Pt Temp ABG pO2 at Pt Temp ABG HCO3 ABG Base Excess (Actual) Anion Gap Estim Creat Clear Calc Estimated GFR POC Glucose Random Glucose Calcium Magnesium Total Bilirubin AST ALT Alkaline Phosphatase B-Natriuretic Peptide Total Protein Albumin 10/27/24 10/27/24 10/27/24 07:09 07:09 07:09 MCV MCH MCHC RDW 13.1 Plt Count Cancelled 109 L MPV Cancelled 10.6 Immature Gran % (Auto) 0.3 Neut % (Auto) 71.5 Lymph % (Auto) 12.6 L [place] % (Auto) 14.1 H Eos % (Auto) 1.2 Baso % (Auto) 0.3 Lymph # (Auto) 0.9 L [place] # (Auto) 1.0 Eos # (Auto) 0.1 Baso # (Auto) 0.0 Abs Immat Gran (auto) 0.02 Absolute Neuts (auto) 5.2 Absolute Nucleated RBC Cancelled Nucleated RBC % (auto) PT INR O2 Saturation ABG pH at Pt Temp ABG pCO2 at Pt Temp ABG pO2 at Pt Temp ABG HCO3 ABG Base Excess (Actual) Anion Gap Estim Creat Clear Calc Estimated GFR POC Glucose Random Glucose Calcium Magnesium Total Bilirubin AST ALT Alkaline Phosphatase B-Natriuretic Peptide Total Protein Albumin 10/27/24 10/27/24 10/27/24 07:09 07:09 07:09 MCV MCH MCHC RDW Plt Count MPV Immature Gran % (Auto) Neut % (Auto) Lymph % (Auto) [place] % (Auto) Eos % (Auto) Baso % (Auto) Lymph # (Auto) [place] # (Auto) Eos # (Auto) Baso # (Auto) Abs Immat Gran (auto) Absolute Neuts (auto) Absolute Nucleated RBC 0.000 Nucleated RBC % (auto) Cancelled 0.0 PT INR O2 Saturation ABG pH at Pt Temp ABG pCO2 at Pt Temp ABG pO2 at Pt Temp ABG HCO3 ABG Base Excess (Actual) Anion Gap 16 16 Estim Creat Clear Calc 55.0 Estimated GFR POC Glucose Random Glucose Calcium Magnesium Total Bilirubin AST ALT Alkaline Phosphatase B-Natriuretic Peptide Total Protein Albumin 10/27/24 10/27/24 10/27/24 07:09 07:09 07:09 MCV MCH MCHC RDW Plt Count MPV Immature Gran % (Auto) Neut % (Auto) Lymph % (Auto) [place] % (Auto) Eos % (Auto) Baso % (Auto) Lymph # (Auto) [place] # (Auto) Eos # (Auto) Baso # (Auto) Abs Immat Gran (auto) Absolute Neuts (auto) Absolute Nucleated RBC Nucleated RBC % (auto) PT INR O2 Saturation ABG pH at Pt Temp ABG pCO2 at Pt Temp ABG pO2 at Pt Temp ABG HCO3 ABG Base Excess (Actual) Anion Gap Estim Creat Clear Calc 56.1 Estimated GFR > 60 > 60 POC Glucose Random Glucose 127 H 126 H Calcium 8.4 Magnesium Total Bilirubin AST ALT Alkaline Phosphatase B-Natriuretic Peptide Total Protein Albumin 10/27/24 07:09 MCV MCH MCHC RDW Plt Count MPV Immature Gran % (Auto) Neut % (Auto) Lymph % (Auto) [place] % (Auto) Eos % (Auto) Baso % (Auto) Lymph # (Auto) [place] # (Auto) Eos # (Auto) Baso # (Auto) Abs Immat Gran (auto) Absolute Neuts (auto) Absolute Nucleated RBC Nucleated RBC % (auto) PT INR O2 Saturation ABG pH at Pt Temp ABG pCO2 at Pt Temp ABG pO2 at Pt Temp ABG HCO3 ABG Base Excess (Actual) Anion Gap Estim Creat Clear Calc Estimated GFR POC Glucose Random Glucose Calcium 8.7 Magnesium 2.0 Total Bilirubin 1.0 AST 22 ALT 12 Alkaline Phosphatase 66 B-Natriuretic Peptide 392 H Total Protein 6.5 Albumin 3.3 L Assessment and Plan (1) Chronic diastolic heart failure: Status: Acute Plan d4 for 84yo M with CAD, dCHF, pAF recently diagnosed on CHEMO; presenting with dyspnea; admitted for CHF exacerbation acute hypoxic/hypercapneic resp failure - due to secretions, ?undiagnosed MARY GRACE- Pulm consult pending - continue on suppl O2 with goal SaO2 88-92% acute/chronic HFpEF - negative 3.57L cumulatively; changed IV to PO furosemide today pAF - apixaban unaffordable for pt; started warfarin 10/26 with daily INR monitoring CAD - continue statin GERD - continue PPI BPH - continue terazosin + finasteride VTE ppx - warfarin dispo - PT eval: AIR recommended In my clinical judgment, the patient requires continued inpatient hospitalization for the following reasons: resp failure Total time managing care of this patient today: 55 minutes. Quality Stroke Does the patient have a stroke diagnosis?: No VTE Prior VTE?: No VTE Risk Level:: Medical - moderate - high VTE Device Contraindication: Treatment Not Indicated VTE Drug Contraindication: N/A - Med Ordered
[2024-10-27 10:53] LABS: INTERNATIONAL NORM RATIO 1.2 (0.9-1.1); Prothrombin Time 13.4 SEC (10.9-12.4)
--- NOTE | 2024-10-27 11:17 | P.PNCA_ITS ---
Subjective Subjective Date of Service: 10/27/24 Interval history: Seen examined at bedside. Clinically does not appear to be volume overloaded. He had hypoxia earlier today-etiology is unclear. Physical Exam Vital Signs: Last Vital Signs Temp 97.3 F 10/27/24 08:00 Pulse 60 10/27/24 08:00 Resp 22 H 10/27/24 08:00 BP 121/61 10/27/24 08:00 Pulse Ox 94 10/27/24 08:00 O2 Del Method Nasal Cannula 10/27/24 08:00 O2 Flow Rate 3 10/27/24 08:00 Oxygen Flow Rate 9 10/27/24 07:35 BMI result Body Mass Index 29.1 GENERAL APPEARANCE: in no acute distress, pleasant. NECK: no carotid bruit, no jugular venous distention. SKIN: no suspicious lesions, warm and dry. HEART: no murmurs, regular rate and rhythm. LUNGS: Bibasilar crackles. ABDOMEN: soft, nontender. EXTREMITIES: no edema. PERIPHERAL PULSES: equal. NEUROLOGIC: No gross deficits, AAO X 3 Objective Labs and Meds 10/27/24 07:09 10/27/24 07:09 Lab results: Laboratory Results - last 24 hr 10/26/24 10/26/24 10/26/24 11:44 11:44 11:44 WBC RBC Hgb Hct MCV MCH MCHC RDW Plt Count MPV Immature Gran % (Auto) Neut % (Auto) Lymph % (Auto) [place] % (Auto) Eos % (Auto) Baso % (Auto) Lymph # (Auto) [place] # (Auto) Eos # (Auto) Baso # (Auto) Abs Immat Gran (auto) Absolute Neuts (auto) Absolute Nucleated RBC Nucleated RBC % (auto) PT 14.7 H Cancelled INR 1.3 H Cancelled O2 Saturation ABG pH at Pt Temp ABG pCO2 at Pt Temp ABG pO2 at Pt Temp ABG HCO3 ABG Base Excess (Actual) Sodium Potassium Chloride Carbon Dioxide Anion Gap BUN Creatinine Estim Creat Clear Calc Estimated GFR POC Glucose Random Glucose Calcium Magnesium Total Bilirubin AST ALT Alkaline Phosphatase B-Natriuretic Peptide Total Protein Albumin 10/27/24 10/27/24 10/27/24 06:37 06:40 07:09 WBC Cancelled RBC Hgb Hct MCV MCH MCHC RDW Plt Count MPV Immature Gran % (Auto) Neut % (Auto) Lymph % (Auto) [place] % (Auto) Eos % (Auto) Baso % (Auto) Lymph # (Auto) [place] # (Auto) Eos # (Auto) Baso # (Auto) Abs Immat Gran (auto) Absolute Neuts (auto) Absolute Nucleated RBC Nucleated RBC % (auto) PT INR O2 Saturation 100.0 ABG pH at Pt Temp 7.31 L ABG pCO2 at Pt Temp 57 H ABG pO2 at Pt Temp 139 H ABG HCO3 29 H ABG Base Excess (Actual) 2.0 Sodium Potassium Chloride Carbon Dioxide Anion Gap BUN Creatinine Estim Creat Clear Calc Estimated GFR POC Glucose 111 Random Glucose Calcium Magnesium Total Bilirubin AST ALT Alkaline Phosphatase B-Natriuretic Peptide Total Protein Albumin 10/27/24 10/27/24 10/27/24 07:09 07:09 07:09 WBC 7.2 RBC Cancelled 4.11 L Hgb Cancelled 13.6 L Hct Cancelled MCV MCH MCHC RDW Plt Count MPV Immature Gran % (Auto) Neut % (Auto) Lymph % (Auto) [place] % (Auto) Eos % (Auto) Baso % (Auto) Lymph # (Auto) [place] # (Auto) Eos # (Auto) Baso # (Auto) Abs Immat Gran (auto) Absolute Neuts (auto) Absolute Nucleated RBC Nucleated RBC % (auto) PT INR O2 Saturation ABG pH at Pt Temp ABG pCO2 at Pt Temp ABG pO2 at Pt Temp ABG HCO3 ABG Base Excess (Actual) Sodium Potassium Chloride Carbon Dioxide Anion Gap BUN Creatinine Estim Creat Clear Calc Estimated GFR POC Glucose Random Glucose Calcium Magnesium Total Bilirubin AST ALT Alkaline Phosphatase B-Natriuretic Peptide Total Protein Albumin 10/27/24 10/27/24 10/27/24 07:09 07:09 07:09 WBC RBC Hgb Hct 39.7 L MCV Cancelled 96.6 MCH Cancelled 33.1 H MCHC Cancelled RDW Plt Count MPV Immature Gran % (Auto) Neut % (Auto) Lymph % (Auto) [place] % (Auto) Eos % (Auto) Baso % (Auto) Lymph # (Auto) [place] # (Auto) Eos # (Auto) Baso # (Auto) Abs Immat Gran (auto) Absolute Neuts (auto) Absolute Nucleated RBC Nucleated RBC % (auto) PT INR O2 Saturation ABG pH at Pt Temp ABG pCO2 at Pt Temp ABG pO2 at Pt Temp ABG HCO3 ABG Base Excess (Actual) Sodium Potassium Chloride Carbon Dioxide Anion Gap BUN Creatinine Estim Creat Clear Calc Estimated GFR POC Glucose Random Glucose Calcium Magnesium Total Bilirubin AST ALT Alkaline Phosphatase B-Natriuretic Peptide Total Protein Albumin 10/27/24 10/27/24 10/27/24 07:09 07:09 07:09 WBC RBC Hgb Hct MCV MCH MCHC 34.3 RDW Cancelled 13.1 Plt Count Cancelled 109 L MPV Cancelled Immature Gran % (Auto) Neut % (Auto) Lymph % (Auto) [place] % (Auto) Eos % (Auto) Baso % (Auto) Lymph # (Auto) [place] # (Auto) Eos # (Auto) Baso # (Auto) Abs Immat Gran (auto) Absolute Neuts (auto) Absolute Nucleated RBC Nucleated RBC % (auto) PT INR O2 Saturation ABG pH at Pt Temp ABG pCO2 at Pt Temp ABG pO2 at Pt Temp ABG HCO3 ABG Base Excess (Actual) Sodium Potassium Chloride Carbon Dioxide Anion Gap BUN Creatinine Estim Creat Clear Calc Estimated GFR POC Glucose Random Glucose Calcium Magnesium Total Bilirubin AST ALT Alkaline Phosphatase B-Natriuretic Peptide Total Protein Albumin 10/27/24 10/27/24 10/27/24 07:09 07:09 07:09 WBC RBC Hgb Hct MCV MCH MCHC RDW Plt Count MPV 10.6 Immature Gran % (Auto) 0.3 Neut % (Auto) 71.5 Lymph % (Auto) 12.6 L [place] % (Auto) 14.1 H Eos % (Auto) 1.2 Baso % (Auto) 0.3 Lymph # (Auto) 0.9 L [place] # (Auto) 1.0 Eos # (Auto) 0.1 Baso # (Auto) 0.0 Abs Immat Gran (auto) 0.02 Absolute Neuts (auto) 5.2 Absolute Nucleated RBC Cancelled 0.000 Nucleated RBC % (auto) Cancelled 0.0 PT INR O2 Saturation ABG pH at Pt Temp ABG pCO2 at Pt Temp ABG pO2 at Pt Temp ABG HCO3 ABG Base Excess (Actual) Sodium 137 Potassium Chloride Carbon Dioxide Anion Gap BUN Creatinine Estim Creat Clear Calc Estimated GFR POC Glucose Random Glucose Calcium Magnesium Total Bilirubin AST ALT Alkaline Phosphatase B-Natriuretic Peptide Total Protein Albumin 10/27/24 10/27/2410/27/24 07:09 07:09 07:09 WBC RBC Hgb Hct MCV MCH MCHC RDW Plt Count MPV Immature Gran % (Auto) Neut % (Auto) Lymph % (Auto) [place] % (Auto) Eos % (Auto) Baso % (Auto) Lymph # (Auto) [place] # (Auto) Eos # (Auto) Baso # (Auto) Abs Immat Gran (auto) Absolute Neuts (auto) Absolute Nucleated RBC Nucleated RBC % (auto) PT INR O2 Saturation ABG pH at Pt Temp ABG pCO2 at Pt Temp ABG pO2 at Pt Temp ABG HCO3 ABG Base Excess (Actual) Sodium 138 Potassium 3.7 3.7 Chloride 99 99 Carbon Dioxide 26 Anion Gap BUN Creatinine Estim Creat Clear Calc Estimated GFR POC Glucose Random Glucose Calcium Magnesium Total Bilirubin AST ALT Alkaline Phosphatase B-Natriuretic Peptide Total Protein Albumin 10/27/24 10/27/24 10/27/24 07:09 07:09 07:09 WBC RBC Hgb Hct MCV MCH MCHC RDW Plt Count MPV Immature Gran % (Auto) Neut % (Auto) Lymph % (Auto) [place] % (Auto) Eos % (Auto) Baso % (Auto) Lymph # (Auto) [place] # (Auto) Eos # (Auto) Baso # (Auto) Abs Immat Gran (auto) Absolute Neuts (auto) Absolute Nucleated RBC Nucleated RBC % (auto) PT INR O2 Saturation ABG pH at Pt Temp ABG pCO2 at Pt Temp ABG pO2 at Pt Temp ABG HCO3 ABG Base Excess (Actual) Sodium Potassium Chloride Carbon Dioxide 27 Anion Gap 16 16 BUN 28 H 28 H Creatinine 1.00 Estim Creat Clear Calc Estimated GFR POC Glucose Random Glucose Calcium Magnesium Total Bilirubin AST ALT Alkaline Phosphatase B-Natriuretic Peptide Total Protein Albumin 10/27/24 10/27/24 10/27/24 07:09 07:09 07:09 WBC RBC Hgb Hct MCV MCH MCHC RDW Plt Count MPV Immature Gran % (Auto) Neut % (Auto) Lymph % (Auto) [place] % (Auto) Eos % (Auto) Baso % (Auto) Lymph # (Auto) [place] # (Auto) Eos # (Auto) Baso # (Auto) Abs Immat Gran (auto) Absolute Neuts (auto) Absolute Nucleated RBC Nucleated RBC % (auto) PT INR O2 Saturation ABG pH at Pt Temp ABG pCO2 at Pt Temp ABG pO2 at Pt Temp ABG HCO3 ABG Base Excess (Actual) Sodium Potassium Chloride Carbon Dioxide Anion Gap BUN Creatinine 0.98 Estim Creat Clear Calc 55.0 56.1 Estimated GFR > 60 > 60 POC Glucose Random Glucose 127 H Calcium Magnesium Total Bilirubin AST ALT Alkaline Phosphatase B-Natriuretic Peptide Total Protein Albumin 10/27/24 10/27/24 10/27/24 07:09 07:09 10:35 WBC RBC Hgb Hct MCV MCH MCHC RDW Plt Count MPV Immature Gran % (Auto) Neut % (Auto) Lymph % (Auto) [place] % (Auto) Eos % (Auto) Baso % (Auto) Lymph # (Auto) [place] # (Auto) Eos # (Auto) Baso # (Auto) Abs Immat Gran (auto) Absolute Neuts (auto) Absolute Nucleated RBC Nucleated RBC % (auto) PT 13.4 H INR 1.2 H O2 Saturation ABG pH at Pt Temp ABG pCO2 at Pt Temp ABG pO2 at Pt Temp ABG HCO3 ABG Base Excess (Actual) Sodium Potassium Chloride Carbon Dioxide Anion Gap BUN Creatinine Estim Creat Clear Calc Estimated GFR POC Glucose Random Glucose 126 H Calcium 8.4 8.7 Magnesium 2.0 Total Bilirubin 1.0 AST 22 ALT 12 Alkaline Phosphatase 66 B-Natriuretic Peptide 392 H Total Protein 6.5 Albumin 3.3 L Progress Note: A&P Assessment and plan (1) Bilateral pleural effusion: Status: Acute (2) Acute on chronic diastolic congestive heart failure: Status: Acute (3) PAF (paroxysmal atrial fibrillation): Status: Acute Plan [age] year gentleman with acute on chronic diastolic heart failure. He has been diuresed and clinically appears to be euvolemic at this stage. Continue 40 mg Lasix p.o.. He had episode of hypoxia earlier. He is saying that he has poor appetite and has no energy. These symptoms can be due to a developing infection. Chest x-ray is showing atelectasis with effusions. Maybe we should empirically treat him for pneumonia. We will discuss with Medicine team. On Coumadin for atrial fibrillation. Thank you for allowing me to participate in the care of your patient. Please feel free to contact me if you have any questions. Time Spent With Patient Time: Total time managing care of this patient today ____ minutes. Progress Note: Quality Stroke Does the patient have a stroke diagnosis?: No Procedures Date of Service Date of Service: 10/27/24
--- NOTE | 2024-10-27 12:07 | PM.CNPUL ---
History of Present Illness History of Present Illness Consult date: 10/27/24 Chief complaint: Right pleural effusion Narrative: 84-year-old gentleman, former 30+ pack-year smoker, with underlying CAD, dementia, likely COPD admitted on 10/24/2024 with dyspnea and treated for exacerbation of underlying congestive heart failure with significant improvement. Hospital course is significant for development of acute hypercapnic respiratory failure secondary to iatrogenic hyperoxia this a.m. briefly requiring BiPAP support, now again nasal cannula. On my examination patient is complaining productive cough and improving dyspnea. Review of Systems Cardiovascular: Cardiovascular: Reports dyspnea on exertion and Reports orthopnea Respiratory: Respiratory: Reports cough, Reports excessive phlegm production and Reports dyspnea on exertion PMFSH Past Medical History Medical History (Updated 10/27/24 @ 12:13 by Hema Fuentes MD) BPH (benign prostatic hyperplasia) CAD (coronary artery disease) Social History Social History Household Members: Other Household Members Other:: live in [facility]. He lives on one sidee, son lives on other side Housing: Apartment Do you presently have visiting nurse or other home services: No Patient Tobacco Use Status: Former Tobacco user Tobacco use type: Cigarette e-Cigarette/Vaping Use: Never Used service: No Meds Allergies Allergy/AdvReac Type Severity Reaction Status Date / Time Penicillins [PCN] Allergy Unknown RASH Verified 10/24/24 12:28 Active Medications: Current Medications Acetaminophen (Acetaminophen 325 Mg Tablet) 650 mg PO Q6H PRN PRN Reason: Pain, Mild (Pain Scale 1-3), fever or headache Last Admin: 10/27/24 03:19 Dose: 650 mg Atorvastatin Calcium (Atorvastatin Calcium 40 Mg Tablet) 40 mg PO DAILY [facility] Last Admin: 10/27/24 08:46 Dose: 40 mg Calcium Carbonate (Calcium Carbonate 750 Mg Tab.Chew) 750 mg PO Q4H PRN PRN Reason: Heartburn Doxazosin Mesylate (Doxazosin Mesylate 2 Mg Tablet) 4 mg PO BEDTIME [facility] Last Admin: 10/26/24 22:42 Dose: 4 mg Doxycycline Monohydrate (Doxycycline Monohydrate 100 Mg Capsule) 100 mg PO Q12H JD Finasteride (Finasteride 5 Mg Tablet) 5 mg PO BEDTIME JD Last Admin: 10/26/24 22:42 Dose: 5 mg Furosemide (Furosemide 40 Mg Tablet) 40 mg PO DAILY [facility]; Protocol Last Admin: 10/27/24 08:46 Dose: 40 mg Latanoprost (Latanoprost 0.005 % Ophth Isabel 2.5 Ml Drops) 1 drop EYE-BOTH BEDTIME [facility] Last Admin: 10/26/24 23:03 Dose: 1 drop Magnesium Hydroxide (Milk Of Magnesia 30 Ml Oral.Susp) 30 ml PO DAILY PRN PRN Reason: Constipation Melatonin (Melatonin 3 Mg Tablet) 6 mg PO BEDTIME PRN PRN Reason: Insomnia Last Admin: 10/25/24 23:40 Dose: 6 mg Multivitamins/Vitamin C (Multivitamin Tablet) 1 tab PO DAILY [facility] Last Admin: 10/27/24 08:46 Dose: 1 tab Omeprazole (Omeprazole 20 Mg Capsule.Dr) 20 mg PO DAILY [facility] Last Admin: 10/27/24 08:46 Dose: 20 mg Sodium Chloride (0.9 % Sodium Chloride Flush 3 Ml Syringe) 3 ml IVFLUSH QSHIFT [facility] Last Admin: 10/27/24 08:46 Dose: 3 ml Warfarin Sodium (Warfarin Sodium 5 Mg Tablet) 5 mg PO DAILY@1800 [facility] Last Admin: 10/26/24 17:18 Dose: 5 mg Home Medications ?Medication ?Instructions ?Recorded ?Confirmed ?Last Taken ?Type atorvastatin 40 mg tablet 40 mg PO DAILY 09/10/24 10/24/24 10/23/24 History finasteride 5 mg tablet 5 mg PO BEDTIME 09/10/24 10/24/24 10/23/24 History latanoprost 0.005 % eye drops 1 drp ophthalmic (eye) BEDTIME 09/10/24 10/24/24 10/23/24 History terazosin 5 mg capsule 5 mg PO BEDTIME 09/10/24 10/24/24 10/23/24 History famotidine 40 mg tablet 40 mg PO DAILY 10/24/24 10/24/24 10/23/24 History multivitamin 1 tab PO DAILY 10/24/24 10/24/24 10/23/24 History Physical Exam Vital Signs: Vital Signs: Last Vital Signs Temp 97.3 F 10/27/24 08:00 Pulse 60 10/27/24 08:00 Resp 22 H 10/27/24 08:00 BP 121/61 10/27/24 08:00 Pulse Ox 94 10/27/24 08:00 O2 Del Method Nasal Cannula 10/27/24 08:00 O2 Flow Rate 3 10/27/24 08:00 Oxygen Flow Rate 9 10/27/24 07:35 BMI result Body Mass Index 29.1 Const: General: no acute distress, alert and awake Eyes: Sclerae: sclerae normal EOM: EOMs intact bilaterally Neck: Neck: Yes no lymphadenopathy, Yes trachea midline and Yes supple Resp: Effort & Inspection: normal respiratory effort and no respiratory distress Auscultation: clear to auscultation bilaterally Cardio: Rate: regular rate Rhythm: regular rhythm Heart sounds: no gallops, no murmurs and no rubs GI: Palpation (GI): Soft to palpation and Other GI palpation findings present ( Nontender) Auscultation: normal bowel sounds Extrem: General: No clubbing, No cyanosis and Yes edema (1+ bilateral) Results Laboratory Findings 10/27/24 07:09 10/27/24 07:09 ABG, PT/INR, D-dimer: PT/INR, D-dimer PT 13.4 SEC (10.9-12.4) H 10/27/24 10:35 INR 1.2 (0.9-1.1) H 10/27/24 10:35 Abnormal lab findings: Abnormal Labs 10/24/24 10/24/24 10/26/24 13:08 22:53 06:41 WBC 3.8 L 3.5 L RBC 3.83 L 3.98 L Hgb 12.7 L 13.2 L Hct 38.2 L 39.0 L MCV 99.7 H MCH 33.2 H 33.2 H Plt Count 97 L 93 L Lymph % (Auto) 13.6 L [place] % (Auto) 12.3 H Lymph # (Auto) 0.5 L PT INR ABG pH at Pt Temp ABG pCO2 at Pt Temp ABG pO2 at Pt Temp ABG HCO3 Carbon Dioxide 31 H Anion Gap 7 L BUN 26 H 23 H 27 H Random Glucose 125 H B-Natriuretic Peptide 601 H 393 H Total Protein 6.4 L Albumin 3.3 L 10/26/24 10/27/24 10/27/24 11:44 06:40 07:09 WBC RBC 4.11 L Hgb 13.6 L Hct 39.7 L MCV MCH 33.1 H Plt Count 109 L Lymph % (Auto) 12.6 L [place] % (Auto) 14.1 H Lymph # (Auto) 0.9 L PT 14.7 H INR 1.3 H ABG pH at Pt Temp 7.31 L ABG pCO2 at Pt Temp 57 H ABG pO2 at Pt Temp 139 H ABG HCO3 29 H Carbon Dioxide Anion Gap BUN 28 H Random Glucose B-Natriuretic Peptide Total Protein Albumin 10/27/24 10/27/24 10/27/24 07:09 07:09 10:35 WBC RBC Hgb Hct MCV MCH Plt Count Lymph % (Auto) [place] % (Auto) Lymph # (Auto) PT 13.4 H INR 1.2 H ABG pH at Pt Temp ABG pCO2 at Pt Temp ABG pO2 at Pt Temp ABG HCO3 Carbon Dioxide Anion Gap BUN 28 H Random Glucose 127 H 126 H B-Natriuretic Peptide 392 H Total Protein Albumin 3.3 L Assessment and Plan (1) Chronic diastolic heart failure: Status: Acute (2) COPD (chronic obstructive pulmonary disease): Status: Acute (3) CO2 retention: Status: Acute Plan Impression: 84-year-old gentleman with chronic diastolic congestive heart failure admitted with dyspnea secondary to acute chronic exacerbation of his underlying diastolic heart failure and bronchitic exacerbation of underlying COPD with CO2 retention, improving slowly. Patient did have a mild episode of CO2 retention secondary to iatrogenic hyperoxia this a.m. at resolved with brief application of BiPAP. Recommendations: Maintain O2 sat of 88-92%. Agree with empiric diuresis, consider addition azithromycin for mild COPD exacerbation. Procedures Date of Service Date of Service: 10/27/24
[2024-10-27] MEDS: Doxycycline Monohydrate 100 MG CAPSULE PO (12:26)
[2024-10-27 12:52] LABS: Procalcitonin 0.04 ng/mL
[2024-10-27] MEDS: Warfarin Sodium 5 MG TABLET PO (18:13)
[2024-10-27 18:27] LABS: ABG Refer to POC result
[2024-10-27] MEDS: Doxazosin Mesylate 2 MG TABLET 4 MG PO (22:13)
[2024-10-27] MEDS: Finasteride 5 MG TABLET PO (22:16)
[2024-10-27] MEDS: Latanoprost 0.005 % Ophth Sol 2.5 ML DROPS 1 DROP EYE-BOTH (22:17)
[2024-10-28] VITALS (8 sets, daily range): BP systolic 119–135; BP diastolic 56–62; PULSE 50–62; RESP 16–20; TEMP 36.4–37.1; O2SAT 92–97; BMI 27.4
[2024-10-28] MEDS: Doxycycline Monohydrate 100 MG CAPSULE PO ×3 (00:46→22:41)
[2024-10-28] MEDS: 0.9 % Sodium Chloride Flush 3 ML SYRINGE IVFLUSH ×4 (00:49→22:41)
[2024-10-28] MEDS: Milk of Magnesia 30 ML ORAL.SUSP PO (05:48)
[2024-10-28 06:31] LABS: Venous Blood Gas Refer to POC result
[2024-10-28 06:40] LABS: Hematocrit 38.8 % (42.0-52.0); Hemoglobin 13.1 g/dl (14.0-18.0); Mean Corpuscular HGB Conc 33.8 g/dl (31.0-36.0); Mean Corpuscular Hemoglobin 33.2 pg (27.0-33.0); Mean Corpuscular Volume 98.5 fL (80.0-98.0); Mean Platelet Volume 11.3 fL (9.4-12.4); Red Blood Count 3.94 X10*6/uL (4.60-5.80); White Blood Count 5.2 X10*3/uL (4.8-10.8)
[2024-10-28 06:41] LABS: Platelet Count 94 X10*3/uL (160-400)
[2024-10-28 07:03] LABS: Anion Gap 10 (12-20); Blood Urea Nitrogen 27 mg/dL (9-16); Calcium 8.8 mg/dL (8.4-10.2); Carbon Dioxide 33 mmol/L (22-29); Chloride 98 mmol/L (96-108); Creatinine Clr Calc Pharmacy 49.1; Estimated Glomerular Filt Rate > 60; Glucose Random 102 mg/dL (60-115); Potassium 3.7 mmol/L (3.3-5.1); Sodium 137 mmol/L (135-145)
[2024-10-28 08:46] LABS: INTERNATIONAL NORM RATIO 1.3 (0.9-1.1); Prothrombin Time 14.7 SEC (10.9-12.4)
[2024-10-28] MEDS: Omeprazole 20 MG CAPSULE.DR PO (09:16)
[2024-10-28] MEDS: Furosemide 40 MG TABLET PO (09:16)
[2024-10-28] MEDS: Multivitamin TABLET 1 TAB PO (09:16)
[2024-10-28] MEDS: Atorvastatin Calcium 40 MG TABLET PO (09:16)
--- NOTE | 2024-10-28 14:24 | HO.WOUND ---
Wound Consult: Initial 84yr old?male admitted to [facility] on 10/24/24 - See progress notes and H&P for detailed history.? Wound consult placed for coccyx.? Patient agreeable to assessment and photo documentation.? Coccyx Etiology: ?MASD (Moisture Associated Skin Damage) Measurements: 4cm xc4m x 0.1cm Wound Bed: maceration noted - scattered partial thickness tissue loss red pink wound bed Drainage / Odor: none noted Edges: ? mirrored with in the deep gluteal fold [place] wound: intact - ? No Induration, Fluctuance or Warmth noted Pain: denies Goals of Treatment: ? Off L:oad Pressure and barrier cream to protect from moisture and friction Recommendations: 1. Turn and Reposition every 2 hours and as needed for patient comfort.? Use pillows or wedges to support off loading positions. 2. Off Load all bony prominences with use of pillows and heel boots if needed.? Apply Preventative foams where needed. ? 3. Monitor for incontinence and moisture control, use barrier creams when needed for prevention and treatment. 4. Provide adequate and supplemental nutrition.? 5. Order low air loss mattress. 6. When applicable maintain blood glucose levels per Providers order. 7. Coccyx / Gluteal fold - Off load pressure - Q2hr turns when in bed. Cleanse with Ph Balanced wipes, dry well. Apply barrier cream twice a day and PRN. Prevent further skin breakdown with Low air loss mattress, continue with waffle chair cushion. Foam dressing would not benefit patient as the gluteal fold is deep and the foam dressing would likely not reach depth of fold. Re-consult wound care Nurse for wound deterioration or wound changes.
--- NOTE | 2024-10-28 14:43 | HO.PM.IMPN ---
Subjective Subjective Date of Service: 10/28/24 Interval History: Feels better able having difficulty coughing up phlegm, denies pain, no headaches no dizziness, noted to have hypoxia overnight with oxygenation dropping in 70s, stable oxygenation during daytime, Tolerating diet no nausea, no vomiting, no other acute events overnight. Review of Systems All other system reviewed and are negative Physical Exam Vital Signs: Vital Signs: Last Vital Signs Temp 98.8 F 10/28/24 11:10 Pulse 56 10/28/24 11:10 Resp 20 10/28/24 11:10 BP 119/57 L 10/28/24 11:10 Pulse Ox 97 10/28/24 11:10 O2 Del Method Room Air 10/28/24 11:10 O2 Flow Rate 1 10/28/24 07:06 Oxygen Flow Rate 9 10/27/24 07:35 BMI result Body Mass Index 27.4 Const: Other: Gen: in no acute distress HEENT: sclera anicteric, moist mucus membranes Neck: supple Lungs: clear to auscultation bilaterally, diminished Heart: regular rate and rhythm, no murmurs Abd: soft, non-tender, non-distended Ext: no edema Skin: warm/well-perfused Neuro: alert and oriented x3, no focal findings Psych: appropriate affect Objective Data Active Medications Acetaminophen (Acetaminophen 325 Mg Tablet) 650 mg PO Q6H PRN PRN Reason: Pain, Mild (Pain Scale 1-3), fever or headache Last Admin: 10/27/24 03:19 Dose: 650 mg Documented By: LEON Albuterol Sulfate (Albuterol Sulfate (0.083%) 2.5 Mg/3 Ml Vial.Neb) 2.5 mg INHALE Q2H PRN PRN Reason: Shortness of Breath/Wheezing Atorvastatin Calcium (Atorvastatin Calcium 40 Mg Tablet) 40 mg PO DAILY [facility] Last Admin: 10/28/24 09:16 Dose: 40 mg Documented By: LARISSA Calcium Carbonate (Calcium Carbonate 750 Mg Tab.Chew) 750 mg PO Q4H PRN PRN Reason: Heartburn Doxazosin Mesylate (Doxazosin Mesylate 2 Mg Tablet) 4 mg PO BEDTIME [facility] Last Admin: 10/27/24 22:13 Dose: 4 mg Documented By: LEON Doxycycline Monohydrate (Doxycycline Monohydrate 100 Mg Capsule) 100 mg PO Q12H [facility] Last Admin: 10/28/24 11:12 Dose: 100 mg Documented By: LARISSA Finasteride (Finasteride 5 Mg Tablet) 5 mg PO BEDTIME [facility] Last Admin: 10/27/24 22:16 Dose: 5 mg Documented By: LEON Furosemide (Furosemide 40 Mg Tablet) 40 mg PO DAILY [facility]; Protocol Last Admin: 10/28/24 09:16 Dose: 40 mg Documented By: LARISSA Latanoprost (Latanoprost 0.005 % Ophth Isabel 2.5 Ml Drops) 1 drop EYE-BOTH BEDTIME [facility] Last Admin: 10/27/24 22:17 Dose: 1 drop Documented By: LEON Magnesium Hydroxide (Milk Of Magnesia 30 Ml Oral.Susp) 30 ml PO DAILY PRN PRN Reason: Constipation Last Admin: 10/28/24 05:48 Dose: 30 ml Documented By: LEON Melatonin (Melatonin 3 Mg Tablet) 6 mg PO BEDTIME PRN PRN Reason: Insomnia Last Admin: 10/25/24 23:40 Dose: 6 mg Documented By: ANASTASIYA Multivitamins/Vitamin C (Multivitamin Tablet) 1 tab PO DAILY [facility] Last Admin: 10/28/24 09:16 Dose: 1 tab Documented By: LARISSA Omeprazole (Omeprazole 20 Mg Capsule.Dr) 20 mg PO DAILY [facility] Last Admin: 10/28/24 09:16 Dose: 20 mg Documented By: LARISSA Sodium Chloride (0.9 % Sodium Chloride Flush 3 Ml Syringe) 3 ml IVFLUSH QSHIFT [facility] Last Admin: 10/28/24 09:16 Dose: 3 ml Documented By: LARISSA Warfarin Sodium (Warfarin Sodium 5 Mg Tablet) 5 mg PO DAILY@1800 [facility] Last Admin: 10/27/24 18:13 Dose: 5 mg Documented By: SHANDA Labs 10/28/24 06:18 10/28/24 06:18 Labs: Laboratory Results - last 24 hr 10/28/24 10/28/24 06:18 07:48 MCV 98.5 H MCH 33.2 H MCHC 33.8 RDW 13.0 Plt Count 94 L MPV 11.3 Absolute Nucleated RBC 0.000 Nucleated RBC % (auto) 0.0 PT 14.7 H INR 1.3 H Anion Gap 10 L Estim Creat Clear Calc 49.1 Estimated GFR > 60 Random Glucose 102 Calcium 8.8 Assessment and Plan (1) CO2 retention: Status: Acute (2) COPD (chronic obstructive pulmonary disease): Status: Acute (3) Acute on chronic diastolic congestive heart failure: Status: Acute Plan 84yo M with CAD, dCHF, pAF recently diagnosed on CHEMO; presenting with dyspnea; admitted for CHF exacerbation acute hypoxic/hypercapneic resp failure with mild acute COPD exacerbation - due to secretions, likely undiagnosed COPD with CO2 retention likely secondary to iatrogenic hypoxia improved with use of BiPAP, seen by pulmonology they recommend to keep O2 sat 88-92% and agreed with empiric diuresis - continue on suppl O2 with goal SaO2 88-92% - continue doxycycline, add expectorant, noted to have hypoxia at night will obtain overnight finger oximetry acute/chronic HFpEF - negative 3.57L cumulatively; status post IV diuretics, transitioned to PO furosemide 10/27 pAF - apixaban unaffordable for pt; started warfarin 10/26 with daily INR monitoring, INR remains subtherapeutic 1.3 will increase dose of Coumadin to 7.5 mg CAD - continue statin GERD - continue PPI BPH - continue terazosin + finasteride VTE ppx - warfarin dispo - PT eval: AIR recommended In my clinical judgment, the patient requires continued inpatient hospitalization for the following reasons: resp failure. Quality Stroke Does the patient have a stroke diagnosis?: No VTE Prior VTE?: No VTE Risk Level:: Medical - moderate - high VTE Device Contraindication: Treatment Not Indicated VTE Drug Contraindication: N/A - Med Ordered
--- NOTE | 2024-10-28 14:47 | MHC.CM.PN ---
Addendum entered by Yany Edwards 10/28/24 14:54: This CM met with pt to discuss his discharge plan, PT evaluated him and recommended acute rehab. At this time, the pt would not like to go to a facility for rehab, and would like to return home with resumption of VNA services. Original Note: EMR reviewed and per MD rounds, pt is not medically cleared for discharge due to management of CHF exacerbation.
[2024-10-28] MEDS: Warfarin Sodium 7.5 MG TABLET PO (17:14)
[2024-10-28] MEDS: Doxazosin Mesylate 2 MG TABLET 4 MG PO (22:33)
[2024-10-28] MEDS: Finasteride 5 MG TABLET PO (22:39)
[2024-10-28] MEDS: guaiFENesin LA 600 MG TAB.ER.12H PO (22:40)
[2024-10-28] MEDS: Latanoprost 0.005 % Ophth Sol 2.5 ML DROPS 1 DROP EYE-BOTH (22:40)
[2024-10-29] VITALS (8 sets, daily range): BP systolic 105–147; BP diastolic 52–63; PULSE 58–70; RESP 18–20; TEMP 36.3–37.1; O2SAT 89–93; BMI 27.6
[2024-10-29] MEDS: Furosemide 40 MG TABLET PO (07:47)
[2024-10-29] MEDS: Omeprazole 20 MG CAPSULE.DR PO (07:47)
[2024-10-29] MEDS: guaiFENesin LA 600 MG TAB.ER.12H PO ×2 (07:47→22:25)
[2024-10-29] MEDS: 0.9 % Sodium Chloride Flush 3 ML SYRINGE IVFLUSH ×3 (07:47→22:26)
[2024-10-29] MEDS: Multivitamin TABLET 1 TAB PO (07:47)
[2024-10-29] MEDS: Atorvastatin Calcium 40 MG TABLET PO (07:47)
[2024-10-29 07:55] LABS: INTERNATIONAL NORM RATIO 1.4 (0.9-1.1); Prothrombin Time 16.3 SEC (10.9-12.4)
[2024-10-29] MEDS: Albuterol Sulfate 2.5 MG, Albuterol/Iprat 2.5/0.5MG 3 ML 3 ML INHALE (10:01)
--- NOTE | 2024-10-29 10:16 | MHC.CM.PN ---
EMR REVIEWED, PER HOSPITALIST ANTIC PT WILL BE CLEARED FOR DC TOMORROW FOR REHAB, CM MET W/PT NOW AGREEABLE TO ACUTE REHAB AT [facility] HOWEVER DOES HAVE CONCERNS REGARDING PAYING FOR AMBULANCE LAST TIME HE WENT TO [facility] HE RECEIVED A BILL FOR $300, REFERRAL PLACED AND CM WILL ENQUIRE IF PT CAN TAKE HIS OWN TRANSPORT, CM WILL CONT TO FOLLOW DC NEEDS.
[2024-10-29] MEDS: Doxycycline Monohydrate 100 MG CAPSULE PO ×2 (13:21→22:23)
--- NOTE | 2024-10-29 13:21 | P.PNIM_ITS ---
Subjective Subjective Date of Service: 10/29/24 Interval History: Complaining of coughing with difficulty bringing up phlegm, denies fever, no chills, had overnight oximetry and qualifies for 2 L of oxygen at night. Review of Systems All other system reviewed and are negative. Physical Exam 2 Vital Signs: Vital Signs: Last Vital Signs Temp 98.4 F 10/29/24 11:14 Pulse 70 10/29/24 11:14 Resp 18 10/29/24 11:14 BP 105/55 L 10/29/24 11:14 Pulse Ox 92 10/29/24 11:14 O2 Del Method Room Air 10/29/24 11:14 O2 Flow Rate 1 10/28/24 07:06 Oxygen Flow Rate 9 10/27/24 07:35 BMI result Body Mass Index 27.6 Const: Other: Gen: in no acute distress HEENT: sclera anicteric, moist mucus membranes Neck: supple Lungs: clear to auscultation bilaterally, diminished, few expiratory wheeze Heart: regular rate and rhythm, no murmurs Abd: soft, non-tender, non-distended Ext: no edema Skin: warm/well-perfused Neuro: alert and oriented x3, no focal findings Psych: appropriate affect Objective Data Active Medications Acetaminophen (Acetaminophen 325 Mg Tablet) 650 mg PO Q6H PRN PRN Reason: Pain, Mild (Pain Scale 1-3), fever or headache Last Admin: 10/27/24 03:19 Dose: 650 mg Documented By: NURY-VELMA Acetylcysteine (Acetylcysteine 10 % 400 Mg/4 Ml Vial) 400 mg INHALE RBID [facility] Last Admin: 10/29/24 10:24 Dose: Not Given Documented By: TALYA Non-Admin Reason: Patient Condition Contraindication Albuterol Sulfate (Albuterol Sulfate (0.083%) 2.5 Mg/3 Ml Vial.Neb) 2.5 mg INHALE Q2H PRN PRN Reason: Shortness of Breath/Wheezing Atorvastatin Calcium (Atorvastatin Calcium 40 Mg Tablet) 40 mg PO DAILY [facility] Last Admin: 10/29/24 07:47 Dose: 40 mg Documented By: LARISSA Calcium Carbonate (Calcium Carbonate 750 Mg Tab.Chew) 750 mg PO Q4H PRN PRN Reason: Heartburn Doxazosin Mesylate (Doxazosin Mesylate 2 Mg Tablet) 4 mg PO BEDTIME [facility] Last Admin: 10/28/24 22:33 Dose: 4 mg Documented By: LEON Doxycycline Monohydrate (Doxycycline Monohydrate 100 Mg Capsule) 100 mg PO Q12H [facility] Last Admin: 10/28/24 22:41 Dose: 100 mg Documented By: LEON Finasteride (Finasteride 5 Mg Tablet) 5 mg PO BEDTIME [facility] Last Admin: 10/28/24 22:39 Dose: 5 mg Documented By: LEON Furosemide (Furosemide 40 Mg Tablet) 40 mg PO DAILY [facility]; Protocol Last Admin: 10/29/24 07:47 Dose: 40 mg Documented By: LARISSA Guaifenesin (Guaifenesin La 600 Mg Tab.Er.12h) 600 mg PO BID [facility] Last Admin: 10/29/24 07:47 Dose: 600 mg Documented By: LARISSA Latanoprost (Latanoprost 0.005 % Ophth Isabel 2.5 Ml Drops) 1 drop EYE-BOTH BEDTIME [facility] Last Admin: 10/28/24 22:40 Dose: 1 drop Documented By: LEON Magnesium Hydroxide (Milk Of Magnesia 30 Ml Oral.Susp) 30 ml PO DAILY PRN PRN Reason: Constipation Last Admin: 10/28/24 05:48 Dose: 30 ml Documented By: LEON Melatonin (Melatonin 3 Mg Tablet) 6 mg PO BEDTIME PRN PRN Reason: Insomnia Last Admin: 10/25/24 23:40 Dose: 6 mg Documented By: ANASTASIYA Multivitamins/Vitamin C (Multivitamin Tablet) 1 tab PO DAILY [facility] Last Admin: 10/29/24 07:47 Dose: 1 tab Documented By: LARISSA Omeprazole (Omeprazole 20 Mg Capsule.Dr) 20 mg PO DAILY [facility] Last Admin: 10/29/24 07:47 Dose: 20 mg Documented By: LARISSA Sodium Chloride (0.9 % Sodium Chloride Flush 3 Ml Syringe) 3 ml IVFLUSH QSHIFT [facility] Last Admin: 10/29/24 07:47 Dose: 3 ml Documented By: LARISSA Warfarin Sodium (Warfarin Sodium 7.5 Mg Tablet) 7.5 mg PO DAILY@1800 [facility] Last Admin: 10/28/24 17:14 Dose: 7.5 mg Documented By: LARISSA Labs 10/28/24 06:18 10/28/24 06:18 Labs: Laboratory Results - last 24 hr 10/29/24 06:43 PT 16.3 H INR 1.4 H Assessment and Plan (1) CO2 retention: Status: Acute (2) COPD (chronic obstructive pulmonary disease): Status: Acute (3) Acute on chronic diastolic congestive heart failure: Status: Acute Plan 84yo M with CAD, dCHF, pAF recently diagnosed on CHEMO; presenting with dyspnea; admitted for CHF exacerbation acute hypoxic/hypercapneic resp failure with mild acute COPD exacerbation - likely undiagnosed COPD with CO2 retention likely secondary to iatrogenic hypoxia improved with use of BiPAP, seen by pulmonology they recommend to keep O2 sat 88-92% and agreed with empiric diuresis - overnight finger oximetry showed hypoxia qualifies for 2 L of oxygen with goal SaO2 88-92% - continue doxycycline, expectorant, and as needed inhalers acute/chronic HFpEF - negative 3.57L cumulatively; status post IV diuretics, now on PO furosemide since 10/27 - BNP improved from 601-392, follow BMP pAF - apixaban unaffordable for pt; started warfarin 10/26 with daily INR monitoring, INR remains subtherapeutic 1.4 on Coumadin inc. to 7.5 mg on 10/28. CAD - continue statin GERD - continue PPI BPH - continue terazosin + finasteride VTE ppx - warfarin dispo - PT eval: Recommend acute rehab protective services case worker arranging for safe disposition to acute rehab versus short-term rehab, lives alone in a duplex with son living next door In my clinical judgment, the patient requires continued inpatient hospitalization for the following reasons: resp failure. Quality Stroke Does the patient have a stroke diagnosis?: No VTE Prior VTE?: No VTE Risk Level:: Medical - moderate - high VTE Device Contraindication: Treatment Not Indicated VTE Drug Contraindication: N/A - Med Ordered
[2024-10-29] MEDS: Warfarin Sodium 7.5 MG TABLET PO (16:52)
[2024-10-29] MEDS: Doxazosin Mesylate 2 MG TABLET 4 MG PO (22:23)
[2024-10-29] MEDS: Finasteride 5 MG TABLET PO (22:25)
[2024-10-29] MEDS: Latanoprost 0.005 % Ophth Sol 2.5 ML DROPS 1 DROP EYE-BOTH (22:26)
[2024-10-30] VITALS: BP 114/55; PULSE 53; RESP 20; TEMP 36.8; O2SAT 92
--- OUTSIDE RECORDS SUMMARY | 2024-10-30 02:06 | XMS_ITS | Clinical Summary ---
Author Organization Unknown Care Team Providers Care Toppiece Chopper Name Role Phone JACKSON PALOMO, CANDACE Unavailable Unavailable JUAN J STONE, KALYANI Unavailable Unavailab javier BEARD LPN, HERMES Unavailable Unavail able JAYANT PT, MARINA Unavailable Unavailable [facility] AIDE, ALTAGRACIA Unavailable Unavailable SPAFFORD OT, ABELARDO Unavailable Unavailable CONDINO KIANA/OLGUIN, ANASTACIA Unavailable Unav ailable Payers Payer Name Policy Type Policy Number Effective Date Expira tion Date MEDICARE.NGS.PDGM [id number] Problems Condition Name Condition Details Condition Category Status Onset Date Resolution Date Last Treatment Date Treating Clinician Comments ATRIOVENTRIC ULAR BLOCK, SECOND DEGREE Active 2023-11 00:00: 00 HYPERTENSIVE HEART DISEASE WITH HEART FAILURE Active 11-20 00:00: 00 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 Active 11-20 00:00: 00 TYPE 2 DIABETES MELLITUS WITHOUT COMPLICATION S Active 11-20 00:00: 00 ACUTE RESPIRATORY FAILURE, UNSP W HYPOXIA OR HYPERCAPNIA Active 11-20 00:00: 00 ANEMIA, UNSPECIFIED Active 11-20 00:00: 00 OLD MYOCARDIAL INFARCTION Active 11-20 00:00: 00 HYPERLIPIDEM IA, UNSPECIFIED Active 11-20 00:00: 00 GASTRO-ESOPH AGEAL REFLUX DISEASE WITHOUT ESOPHAGITIS Active 11-20 00:00: 00 BENIGN PROSTATIC HYPERPLASIA WITHOUT LOWER URINRY TRACT SYMP Active 11-20 00:00: 00 CARE HOME (CURRENT) USE OF ANTITHROMBOT ICS/ANTIPLAT ELETS Active 11-20 00:00: 00 DEPENDENCE ON SUPPLEMENTAL OXYGEN Active 11-20 00:00: 00 PRSNL HX OF TIA (TIA), 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 Ordering Clinician Indication Dosage Frequency Signature (SIG) Comments Components diclofenac 1 % topical gel 2023-11 00:00: 00 Yes [id number] ARTHRITIS Per instruc tions 3 TIMES DAILY Per instructio ns 3 TIMES DAILY (route: topical) Med Classific ation: Dermatolo gical finasteride 5 mg tablet 2023-11 00:00: 00 Yes [id number] BPH 1 tablet AT BEDTIME 1 tablet AT BEDTIME (route: oral) Med Classific ation: Genitouri nary Therapy atorvastati n 40 mg tablet 2023-11 00:00: 00 Yes [id number] CHOLESTEROL 1 tablet DAILY 1 tablet DAILY (route: oral) Med Classific ation: Cardiovas cular Therapy Agents calcium magnesium zinc 15mcg-1000m g-40 2023-11 00:00: 00 Yes [id number] SUPPLEMENT 3 tablet DAILY 3 tablet DAILY (route: BY MOUTH) Med Classific ation: MISCELLAN EOUS HERBS AND SUPPLEMEN TS Co Q-10 100 mg capsule 2023-11 00:00: 00 Yes [id number] SUPPLEMENT 1 capsule DAILY 1 capsule DAILY (route: oral) Med Classific ation: Alternati ve Therapy famotidine 40 mg tablet 2023-11 00:00: 00 Yes [id number] GERD 1 tablet DAILY 1 tablet DAILY (route: oral) Med Classific ation: Gastroint estinal Therapy Agents furosemide 20 mg tablet 2023-11 00:00: 00 Yes [id number] CHF 1 tablet DAILY 1 tablet DAILY (route: oral) Med Classific ation: Cardiovas cular Therapy Agents latanoprost 0.005 % eye drops 2023-11 00:00: 00 Yes [id number] GLAUCOMA 1 drops DAILY 1 drops DAILY (route: ophthalmic (eye)) Med Classific ation: Ophthalmi c Agents multivitami n with minerals tablet 2023-11 00:00: 00 Yes [id number] SUPPLEMENT 1 tablet DAILY 1 tablet DAILY (route: oral) Med Classific ation: Electroly te Balance-N utritiona l Products terazosin 5 mg capsule 2023-11 00:00: 00 Yes [id number] HTN 1 capsule DAILY 1 capsule DAILY (route: oral) Med Classific ation: Cardiovas cular Therapy Agents Senna Lax 8.6 mg tablet 2023-11 00:00: 00 Yes [id number] CONSTIPATIO N 1 tablet DAILY 1 tablet DAILY (route: oral) Med Classific ation: Gastroint estinal Therapy Agents clopidogrel 75 mg tablet 2023-11 00:00: 00 Yes [id number] hld 1 tablet DAILY 1 tablet DAILY (route: oral) Med Classific ation: Hematolog ical Agents Immunizations Ordered Immunization Name Filled Immunization Name Date Status Comments Refusal Reason INFLUENZA, TIV (INACTIVATED) 2024-09-10 00:00:00 SINGLE DOSE REGIMEN, COVID-19 VACCINE 2024-09-02 00:00:00 Vital Signs Vital Name Observation Time Observation Value Commen ts Temperature 2024-10-24 10:54:00.000 97.5 [degF] Temperature 2024-10-18 14:29:00.000 97.6 [degF] Temperature 2024-10-15 11:30:00.000 98.4 [degF] Temperature 2024-10-09 11:59:00.000 97.6 [degF] Temperature 2024-10-08 15:12:00.000 97.7 [degF] Temperature 2024-10-07 15:01:00.000 97.3 [degF] Temperature 2024-10-02 12:41:00.000 97.1 [degF] Temperature 2024-10-01 15:00:00.000 97.6 [degF] Temperature 2024-09-25 11:54:00.000 97.6 [degF] BMI (%) 2024-09-25 11:36:22.000 26 kg/m2 Height 2024-09-25 11:36:06.000 67 [in_us] Pulse 2024-10-24 10:54:00.000 66 /min Pulse 2024-10-18 14:29:00.000 60 /min Pulse 2024-10-15 11:30:00.000 63 /min Pulse 2024-10-09 11:59:00.000 82 /min Pulse 2024-10-08 15:12:00.000 67 /min Pulse 2024-10-07 15:01:00.000 73 /min Pulse 2024-10-02 12:41:00.000 58 /min Pulse 2024-10-01 15:00:00.000 63 /min Pulse 2024-09-25 11:54:00.000 55 /min O2 Saturation (%) 2024-10-24 10:54:00.000 92 % O2 Saturation (%) 2024-10-18 14:29:00.000 94 % O2 Saturation (%) 2024-10-15 11:30:00.000 95 % O2 Saturation (%) 2024-10-09 12:00:00.000 98 % O2 Saturation (%) 2024-10-08 15:12:00.000 95 % O2 Saturation (%) 2024-10-07 15:01:00.000 96 % O2 Saturation (%) 2024-10-02 12:46:00.000 97 % O2 Saturation (%) 2024-10-01 15:00:00.000 95 % O2 Saturation (%) 2024-09-25 11:54:00.000 99 % Respirations 2024-10-24 10:54:00.000 25 /min Respirations 2024-10-18 14:29:00.000 16 /min Respirations 2024-10-15 11:30:00.000 18 /min Respirations 2024-10-09 11:59:00.000 18 /min Respirations 2024-10-08 15:12:00.000 18 /min Respirations 2024-10-07 15:01:00.000 18 /min Respirations 2024-10-02 12:41:00.000 18 /min Respirations 2024-10-01 15:00:00.000 18 /min Respirations 2024-09-25 11:54:00.000 18 /min Weight (lbs) 2024-10-18 14:29:00.000 183.4 [lb_av] Weight (lbs) 2024-10-15 11:30:00.000 184.4 [lb_av] Weight (lbs) 2024-10-09 12:00:00.000 185.4 [lb_av] Weight (lbs) 2024-10-08 15:12:00.000 184.8 [lb_av] Weight (lbs) 2024-10-07 15:11:00.000 184.8 [lb_av] Weight (lbs) 2024-10-02 12:46:00.000 185.8 [lb_av] Weight (lbs) 2024-10-01 15:00:00.000 180 [lb_av] Weight (lbs) 2024-09-25 11:36:22.000 170 [lb_av] Systolic Blood Pressure 2024-10-24 10:54:00.000 118 mm [Hg] Systolic Blood Pressure 2024-10-18 14:29:00.000 128 mm [Hg] Systolic Blood Pressure 2024-10-15 11:30:00.000 126 mm [Hg] Systolic Blood Pressure 2024-10-09 11:59:00.000 110 mm [Hg] Systolic Blood Pressure 2024-10-08 15:12:00.000 140 mm [Hg] Systolic Blood Pressure 2024-10-07 15:01:00.000 126 mm [Hg] Systolic Blood Pressure 2024-10-02 12:41:00.000 144 mm [Hg] Systolic Blood Pressure 2024-10-01 15:00:00.000 130 mm [Hg] Systolic Blood Pressure 2024-09-25 11:54:00.000 130 mm [Hg] Diastolic Blood Pressure 2024-10-24 10:54:00.000 64 mm [Hg] Diastolic Blood Pressure 2024-10-18 14:29:00.000 64 mm [Hg] Diastolic Blood Pressure 2024-10-15 11:30:00.000 62 mm [Hg] Diastolic Blood Pressure 2024-10-09 11:59:00.000 58 mm [Hg] Diastolic Blood Pressure 2024-10-08 15:12:00.000 70 mm [Hg] Diastolic Blood Pressure 2024-10-07 15:01:00.000 62 mm [Hg] Diastolic Blood Pressure 2024-10-02 12:41:00.000 68 mm [Hg] Diastolic Blood Pressure 2024-10-01 15:00:00.000 66 mm [Hg] Diastolic Blood Pressure 2024-09-25 11:54:00.000 62 mm [Hg] Plan of Treatment Planned Activity Planned Date Details Comments Future Scheduled Test PHYSICAL T HERAPIST TO EVALUATE FOR STRENGTH AND MOBILITY [code = PHYSICAL THERAPIST TO EVALUATE FOR STRENGTH AND MOBILITY ] Future Scheduled Test OCCUPATION AL THERAPIST TO EVALUATE FOR ADLS [code = OCCUPATIONAL THERAPIST TO EVALUATE FOR ADLS ] Future Scheduled Test MEDICATION MANAGEMENT; RN/CLINICAL TRAINING SPECIALIST/ENVIRONMENTAL ASSISTANT TO REVIEW MEDICATIONS FOR INTERACTIONS, EFFECTIVENESS OF DRUG THERAPY, AND SIGNS/SYMPTOMS OF ADVERSE REACTIONS. MAY INSTRUCT AND REINFORCE MEDICATION TEACHING RELATED TO THE USE OF MEDICATIONS, DOSAGE, FREQUENCY, PURPOSE, SIDE EFFECTS, AND TO REPORT COMPLICATIONS. [code = MEDICATION MANAGEMENT; RN/CLINICAL TRAINING SPECIALIST/ENVIRONMENTAL ASSISTANT TO REVIEW MEDICATIONS FOR INTERACTIONS, EFFECTIVENESS OF DRUG THERAPY, AND SIGNS/SYMPTOMS OF ADVERSE REACTIONS. MAY INSTRUCT AND REINFORCE MEDICATION TEACHING RELATED TO THE USE OF MEDICATIONS, DOSAGE, FREQUENCY, PURPOSE, SIDE EFFECTS, AND TO REPORT COMPLICATIONS.] Future Scheduled Test FALL REDUC TION MANAGEMENT; RN TO ASSESS AND TEACH, CLINICAL TRAINING SPECIALIST/ENVIRONMENTAL ASSISTANT TO OBSERVE AND TEACH ON EDUCATION AND INTERVENTION TO IDENTIFY FALL RISK FACTORS SUCH MEDICATIONS THAT MAY CAUSE DIZZINESS, CHRONIC DISEASES, PSYCHOLOGICAL FACTORS, AND EMPOWER/EDUCATE PATIENT/CAREGIVER TO MINIMIZE FALL RISK. [code = FALL REDUCTION MANAGEMENT; RN TO ASSESS AND TEACH, CLINICAL TRAINING SPECIALIST/ENVIRONMENTAL ASSISTANT TO OBSERVE AND TEACH ON EDUCATION AND INTERVENTION TO IDENTIFY FALL RISK FACTORS SUCH MEDICATIONS THAT MAY CAUSE DIZZINESS, CHRONIC DISEASES, PSYCHOLOGICAL FACTORS, AND EMPOWER/EDUCATE PATIENT/CAREGIVER TO MINIMIZE FALL RISK.] Future Scheduled Test DIABETES M ANAGEMENT; RN TO ASSESS AND TEACH, ENVIRONMENTAL ASSISTANT/CLINICAL TRAINING SPECIALIST TO OBSERVE AND TEACH INSTRUCTIONS OF DIABETIC CARE TO INCLUDE: DIABETIC DIET, SKIN CARE, SIGNS AND SYMPTOMS OF HYPO/HYPERGLYCEMIA, RN/ENVIRONMENTAL ASSISTANT/CLINICAL TRAINING SPECIALIST TO INSTRUCT ON DIABETIC FOOT CARE AND MONITOR FOR SKIN LESIONS ON LOWER EXTREMITIES. RN/ENVIRONMENTAL ASSISTANT/CLINICAL TRAINING SPECIALIST TO INSTRUCT PATIENT ON IMPORTANCE OF HGBA1C MONITORING, KIDNEY FUNCTION TEST, EYE AND FOOT EXAMS. [code = DIABETES MANAGEMENT; RN TO ASSESS AND TEACH, ENVIRONMENTAL ASSISTANT/CLINICAL TRAINING SPECIALIST TO OBSERVE AND TEACH INSTRUCTIONS OF DIABETIC CARE TO INCLUDE: DIABETIC DIET, SKIN CARE, SIGNS AND SYMPTOMS OF HYPO/HYPERGLYCEMIA, RN/ENVIRONMENTAL ASSISTANT/CLINICAL TRAINING SPECIALIST TO INSTRUCT ON DIABETIC FOOT CARE AND MONITOR FOR SKIN LESIONS ON LOWER EXTREMITIES. RN/ENVIRONMENTAL ASSISTANT/CLINICAL TRAINING SPECIALIST TO INSTRUCT PATIENT ON IMPORTANCE OF HGBA1C MONITORING, KIDNEY FUNCTION TEST, EYE AND FOOT EXAMS.] Future Scheduled Test RN TO OBSE RVE, ASSESS, EVALUATE, AND DEVELOP AN INDIVIDUALIZED PLAN OF CARE. AGENCY MAY ACCEPT ORDERS FROM CONSULTING PHYSICIANS. RN TO OBSERVE AND ASSESS, CLINICAL TRAINING SPECIALIST/ENVIRONMENTAL ASSISTANT TO OBSERVE FOR RISK FOR FALLS AND INSTRUCT IN FALL PREVENTION, HOME SAFETY, MEDICATION MANAGEMENT, INFECTION PREVENTION, AND NUTRITION MANAGEMENT. RN/CLINICAL TRAINING SPECIALIST/ENVIRONMENTAL ASSISTANT NURSE MAY PERFORM O2 SATURATION LEVEL ON ADMISSION AND PRN FOR RN TO ASSESS/CLINICAL TRAINING SPECIALIST TO OBSERVE PATIENT, WITH NOTIFICATION TO THE PHYSICIAN IF SATURATION IS 90% IN THE ABSENCE OF MORE SPECIFIC PARAMETERS FROM THE PHYSICIAN. AGENCY MAY PERFORM A RESUMPTION OF CARE VISIT FOLLOWING ANY HOSPITAL ADMISSION. RN/CLINICAL TRAINING SPECIALIST/ENVIRONMENTAL ASSISTANT TO MONITOR CO-MORBID CONDITIONS LISTED ON THE PLAN OF CARE AND ANY NEW CONDITIONS THAT PRESENT THEMSELVES DURING THIS EPISODE TO IDENTIFY CHANGES AND INTERVENE TO MINIMIZE COMPLICATIONS. [code = RN TO OBSERVE, ASSESS, EVALUATE, AND DEVELOP AN INDIVIDUALIZED PLAN OF CARE. AGENCY MAY ACCEPT ORDERS FROM CONSULTING PHYSICIANS. RN TO OBSERVE AND ASSESS, CLINICAL TRAINING SPECIALIST/ENVIRONMENTAL ASSISTANT TO OBSERVE FOR RISK FOR FALLS AND INSTRUCT IN FALL PREVENTION, HOME SAFETY, MEDICATION MANAGEMENT, INFECTION PREVENTION, AND NUTRITION MANAGEMENT. RN/CLINICAL TRAINING SPECIALIST/ENVIRONMENTAL ASSISTANT NURSE MAY PERFORM O2 SATURATION LEVEL ON ADMISSION AND PRN FOR RN TO ASSESS/CLINICAL TRAINING SPECIALIST TO OBSERVE PATIENT, WITH NOTIFICATION TO THE PHYSICIAN IF SATURATION IS 90% IN THE ABSENCE OF MORE SPECIFIC PARAMETERS FROM THE PHYSICIAN. AGENCY MAY PERFORM A RESUMPTION OF CARE VISIT FOLLOWING ANY HOSPITAL ADMISSION. RN/CLINICAL TRAINING SPECIALIST/ENVIRONMENTAL ASSISTANT TO MONITOR CO-MORBID CONDITIONS LISTED ON THE PLAN OF CARE AND ANY NEW CONDITIONS THAT PRESENT THEMSELVES DURING THIS EPISODE TO IDENTIFY CHANGES AND INTERVENE TO MINIMIZE COMPLICATIONS.] Future Scheduled Test PAIN MANAG EMENT; RN TO ASSESS AND TEACH, ENVIRONMENTAL ASSISTANT/CLINICAL TRAINING SPECIALIST TO OBSERVE AND TEACH AND PROVIDE EDUCATION ON PAIN MANAGEMENT TECHNIQUES. [code = PAIN MANAGEMENT; RN TO ASSESS AND TEACH, ENVIRONMENTAL ASSISTANT/CLINICAL TRAINING SPECIALIST TO OBSERVE AND TEACH AND PROVIDE EDUCATION ON PAIN MANAGEMENT TECHNIQUES.] Future Scheduled Test RISK FOR H OSPITALIZATION; RN TO ASSESS/TEACH, ENVIRONMENTAL ASSISTANT/CLINICAL TRAINING SPECIALIST TO OBSERVE/TEACH PATIENT/CAREGIVER ON RISK FOR HOSPITALIZATION/EMERGENCY ROOM VISITS, TEACH SIGNS AND SYMPTOMS THAT PUT PATIENT AT RISK, WHEN TO NOTIFY NURSE/PHYSICIAN OF COMPLICATIONS/DECLINE, AND WHEN TO CALL 911. [code = RISK FOR HOSPITALIZATION; RN TO ASSESS/TEACH, ENVIRONMENTAL ASSISTANT/CLINICAL TRAINING SPECIALIST TO OBSERVE/TEACH PATIENT/CAREGIVER ON RISK FOR HOSPITALIZATION/EMERGENCY ROOM VISITS, TEACH SIGNS AND SYMPTOMS THAT PUT PATIENT AT RISK, WHEN TO NOTIFY NURSE/PHYSICIAN OF COMPLICATIONS/DECLINE, AND WHEN TO CALL 911.] Future Scheduled Test CARDIOVASC ULAR SYSTEM; RN TO ASSESS/TEACH, CLINICAL TRAINING SPECIALIST/ENVIRONMENTAL ASSISTANT TO OBSERVE/TEACH RELATED TO ALTERED CARDIOVASCULAR STATUS TO MINIMIZE COMPLICATIONS AND REDUCE HOSPITALIZATION. [code = CARDIOVASCULAR SYSTEM; RN TO ASSESS/TEACH, CLINICAL TRAINING SPECIALIST/ENVIRONMENTAL ASSISTANT TO OBSERVE/TEACH RELATED TO ALTERED CARDIOVASCULAR STATUS TO MINIMIZE COMPLICATIONS AND REDUCE HOSPITALIZATION.] Future Scheduled Test HEART FAIL URE; RN TO ASSESS/TEACH, CLINICAL TRAINING SPECIALIST/ENVIRONMENTAL ASSISTANT TO OBSERVE/TEACH CARDIOPULMONARY SYSTEM TO IDENTIFY SIGNS OF DECOMPENSATION AND INTERVENE TO MINIMIZE THE SEVERITY OF FLUID OVERLOAD. OBSERVE PATIENT ABILITY TO MONITOR AND RECORD DAILY WEIGHTS AND VITAL SIGNS, INCLUDING PULSE AND BLOOD PRESSURE; RECORD PATIENT REPORTED WEIGHT, OR WEIGH PATIENT NEEDED. REPORT INCREASED EDEMA OR WEIGHT GAIN OF >2 LBS IN 1 DAY OR >5 LBS IN 1 WEEK OR 5LBS OR MORE OVER TARGET WEIGHT. MAY MEASURE ABDOMINAL GIRTH IF UNABLE TO WEIGH. SCALES AND BP MONITOR TO BE PROVIDED IF NEEDED. [code = HEART FAILURE; RN TO ASSESS/TEACH, CLINICAL TRAINING SPECIALIST/ENVIRONMENTAL ASSISTANT TO OBSERVE/TEACH CARDIOPULMONARY SYSTEM TO IDENTIFY SIGNS OF DECOMPENSATION AND INTERVENE TO MINIMIZE THE SEVERITY OF FLUID OVERLOAD. OBSERVE PATIENT ABILITY TO MONITOR AND RECORD DAILY WEIGHTS AND VITAL SIGNS, INCLUDING PULSE AND BLOOD PRESSURE; RECORD PATIENT REPORTED WEIGHT, OR WEIGH PATIENT NEEDED. REPORT INCREASED EDEMA OR WEIGHT GAIN OF >2 LBS IN 1 DAY OR >5 LBS IN 1 WEEK OR 5LBS OR MORE OVER TARGET WEIGHT. MAY MEASURE ABDOMINAL GIRTH IF UNABLE TO WEIGH. SCALES AND BP MONITOR TO BE PROVIDED IF NEEDED.] Future Scheduled Test ACUTE MYOC ARDIAL INFARCT; RN TO ASSESS/TEACH, CLINICAL TRAINING SPECIALIST/ENVIRONMENTAL ASSISTANT TO OBSERVE/TEACH WARNING SIGNS AND SYMPTOMS TO AVOID HOSPITALIZATION. [code = ACUTE MYOCARDIAL INFARCT; RN TO ASSESS/TEACH, CLINICAL TRAINING SPECIALIST/ENVIRONMENTAL ASSISTANT TO OBSERVE/TEACH WARNING SIGNS AND SYMPTOMS TO AVOID HOSPITALIZATION.] Future Scheduled Test HYPERTENSI ON MANAGEMENT; RN TO ASSESS AND TEACH, CLINICAL TRAINING SPECIALIST/ENVIRONMENTAL ASSISTANT TO OBSERVE AND TEACH WARNING SIGNS AND SYMPTOMS TO AVOID HOSPITALIZATION. [code = HYPERTENSION MANAGEMENT; RN TO ASSESS AND TEACH, CLINICAL TRAINING SPECIALIST/ENVIRONMENTAL ASSISTANT TO OBSERVE AND TEACH WARNING SIGNS AND SYMPTOMS TO AVOID HOSPITALIZATION.] Future Scheduled Test SKIN INTEG RITY RN TO ASSESS AND TEACH, CLINICAL TRAINING SPECIALIST/ENVIRONMENTAL ASSISTANT TO OBSERVE AND TEACH INTEGUMENTARY STATUS TO IDENTIFY CHANGES AND INTERVENE TO MINIMIZE COMPLICATIONS. PROVIDE SKILLED TEACHING OF GENERAL WOUND AND SKIN CARE AND PREVENTION RELATED TO POTENTIAL FOR OR ACTUAL ALTERED SKIN INTEGRITY [code = SKIN INTEGRITY RN TO ASSESS AND TEACH, CLINICAL TRAINING SPECIALIST/ENVIRONMENTAL ASSISTANT TO OBSERVE AND TEACH INTEGUMENTARY STATUS TO IDENTIFY CHANGES AND INTERVENE TO MINIMIZE COMPLICATIONS. PROVIDE SKILLED TEACHING OF GENERAL WOUND AND SKIN CARE AND PREVENTION RELATED TO POTENTIAL FOR OR ACTUAL ALTERED SKIN INTEGRITY ] Future Scheduled Test ARRHYTHMIA MANAGEMENT; RN TO ASSESS AND TEACH, CLINICAL TRAINING SPECIALIST/ENVIRONMENTAL ASSISTANT TO OBSERVE AND TEACH WARNING SIGNS AND SYMPTOMS TO AVOID HOSPITALIZATION. [code = ARRHYTHMIA MANAGEMENT; RN TO ASSESS AND TEACH, CLINICAL TRAINING SPECIALIST/ENVIRONMENTAL ASSISTANT TO OBSERVE AND TEACH WARNING SIGNS AND SYMPTOMS TO AVOID HOSPITALIZATION.] Goal Patient Goal - I WOULD LIKE TO BE ABLE TO GET MORE STEADY ON MY FEET AND FEEL CONFIDENT WALKING Goal Provider Goal - Goal Provider Goal - Goal Provider Goal - PATIENT/CAREGIVER TO VERBALIZE, AND CONSISTENTLY DEMONSTRATE EFFECTIVE, SAFE MANAGEMENT OF MEDICATION INCLUDING KNOWLEDGE OF EFFECTIVENESS, POTENTIAL SIDE EFFECTS AND DRUG REACTIONS AND WHEN TO CONTACT THE APPROPRIATE CARE PROVIDER. PATIENT/CAREGIVER WILL BE ABLE TO VERBALIZE UNDERSTANDING OF MEDICATION REGIMEN AND ACCURATELY TAKE MEDICATIONS PRESCRIBED WITHOUT ADVERSE EFFECTS BY EOE Goal Provider Goal - PATIENT/CAREGIVER ABLE TO IDENTIFY FALL RISK FACTORS AND IMPLEMENT STRATEGIES TO MINIMIZE FALL RISK. PATIENT/CAREGIVER WILL VERBALIZE/DEMONSTRATE AN ABILITY TO ADHERE TO FALL REDUCTION SELF-MANAGEMENT AND LIFE-STYLE CHANGES AT DISCHARGE. PERSONAL GOAL(S) STATED BY PATIENT/CAREGIVER WILL BE MET BY EOE. Goal Provider Goal - PATIENT / CAREGIVER WILL VERBALIZE / DEMONSTRATE AN ABILITY TO ADHERE TO SELF-MANAGEMENT OF DIABETES MANAGEMENT BY EOE. Goal Provider Goal - A PLAN OF CARE WILL BE ESTABLISHED THAT MEETS THE PATIENTS NEEDS. PATIENT WILL DEMONSTRATE OXYGEN SATURATION WITHIN NORMAL LIMITS OR PATIENTS OPTIMAL LEVEL ESTABLISHED BY THE PHYSICIAN THROUGHOUT CARE. CHANGES TO CO-MORBID CONDITIONS AND ANY NEW CONDITIONS WILL BE IDENTIFIED AND REPORTED TO THE PHYSICIAN. Goal Provider Goal - PATIENT / CAREGIVER WILL VERBALIZE / DEMONSTRATE UNDERSTANDING OF PAIN CONTROL MEASURES BY EOE Goal Provider Goal - PATIENT/CAREGIVER WILL VERBALIZE UNDERSTANDING OF SIGNS AND SYMPTOMS THAT PUT THE PATIENT AT RISK FOR HOSPITALIZATION /EMERGENCY ROOM VISITS, WHEN TO NOTIFY NURSE/PHYSICIAN OF COMPLICATIONS/DECLINE AND WHEN TO CALL 911. Goal Provider Goal - PATIENT / CAREGIVER WILL VERBALIZE/DEMONSTRATE UNDERSTANDING OF MEASURES TO MANAGE ALTERED CARDIOVASCULAR STATUS BY EOE. Goal Provider Goal - PATIENT / CAREGIVER WILL VERBALIZE/DEMONSTRATE AN ABILITY TO ADHERE TO SELF-MANAGEMENT OF HF TO MINIMIZE COMPLICATIONS AND AVOID HOSPITALIZATION BY END OF EPISODE. Goal Provider Goal - PATIENT / CAREGIVER WILL VERBALIZE/DEMONSTRATE CARE AND SELF-MANAGEMENT OF AMI TO MINIMIZE COMPLICATIONS AND AVOID HOSPITALIZATION BY END OF EPISODE. Goal Provider Goal - PATIENT / CAREGIVER WILL VERBALIZE/DEMONSTRATE AN ABILITY TO ADHERE TO SELF-MANAGEMENT OF HTN TO MINIMIZE COMPLICATIONS AND AVOID HOSPITALIZATION BY END OF EPISODE. Goal Provider Goal - CHANGES IN SKIN INTEGRITY STATUS WILL BE IDENTIFIED AND REPORTED TO THE PHYSICIAN FOR PROMPT INTERVENTION. PATIENT / CAREGIVER WILL VERBALIZE/DEMONSTRATE ADEQUATE KNOWLEDGE OF INTEGUMENTARY STATUS AND APPROPRIATE MEASURES TO PROMOTE SKIN INTEGRITY AND PREVENT INJURY BY EOE Goal Provider Goal - PATIENT / CAREGIVER WILL VERBALIZE/DEMONSTRATE AN ABILITY TO ADHERE TO SELF-MANAGEMENT OF HEART ARRHYTHMIA TO MINIMIZE COMPLICATIONS AND AVOID HOSPITALIZATION BY END OF EPISODE. Encounters Start Date/Time End Date/Time Encounter Type Admission Type Attending [facility] Care Department Encounter ID Discharge Date Discharge Status Discharge Condition Discharge Reason Percent Goals Met 2024-09-25 00:00:00 2024-11-23 00:00:00 Outpatient NEW ADMISSION KALYANI ARITA [facility] [id number]
--- OUTSIDE RECORDS SUMMARY | 2024-10-30 02:10 | XMS_ITS | Clinical Summary ---
Author Organization Unknown Care Team Providers Care German Teacher Name Role Phone JACKSON PALOMO, CANDACE Unavailable Unavailable JUAN J STONE, KALYANI Unavailable Unavailab javier BEARD LPN, HERMES Unavailable Unavail able JAYANT PT, MARINA Unavailable Unavailable SAMANTHA AIR QUALITY ENGINEER, ALTAGRACIA Unavailable Unavailable SPAFFORD OT, ABELARDO Unavailable Unavailable CONDINO KIANA/OLGUIN, ANASTACIA Unavailable Unav ailable Payers Payer Name Policy Type Policy Number Effective Date Expira tion Date MEDICARE.NGS.PDGM [id number] Problems Condition Name Condition Details Condition Category [...] URINRY TRACT SYMP Active 11-20 00:00: 00 SKILLED NURSING (CURRENT) USE OF ANTITHROMBOT ICS/ANTIPLAT ELETS Active [...] % topical gel 2023-11 00:00: 00 Yes [id number] ARTHRITIS Per instruc tions 3 TIMES DAILY Per instructio ns 3 TIMES DAILY (route: topical) Med Classific ation: Dermatolo gical finasteride 5 mg tablet 2023-11 00:00: 00 Yes [id number] BPH 1 tablet AT BEDTIME 1 tablet AT BEDTIME (route: oral) Med Classific ation: Genitouri nary Therapy atorvastati n 40 mg tablet 2023-11 00:00: 00 Yes [id number] CHOLESTEROL 1 tablet DAILY 1 tablet DAILY (route: oral) Med Classific ation: Cardiovas cular Therapy Agents calcium magnesium zinc 15mcg-1000m g-40 2023-11 00:00: 00 Yes [id number] SUPPLEMENT 3 tablet DAILY 3 tablet DAILY (route: BY MOUTH) Med Classific ation: MISCELLAN EOUS HERBS AND SUPPLEMEN TS Co Q-10 100 mg capsule 2023-11 00:00: 00 Yes [id number] SUPPLEMENT 1 capsule DAILY 1 capsule DAILY (route: oral) Med Classific ation: Alternati ve Therapy famotidine 40 mg tablet 2023-11 00:00: 00 Yes [id number] GERD 1 tablet DAILY 1 tablet DAILY (route: oral) Med Classific ation: Gastroint estinal Therapy Agents furosemide 20 mg tablet 2023-11 00:00: 00 Yes [id number] CHF 1 tablet DAILY 1 tablet DAILY (route: oral) Med Classific ation: Cardiovas cular Therapy Agents latanoprost 0.005 % eye drops 2023-11 00:00: 00 Yes [id number] GLAUCOMA 1 drops DAILY 1 drops DAILY (route: ophthalmic (eye)) Med Classific ation: Ophthalmi c Agents multivitami n with minerals tablet 2023-11 00:00: 00 Yes [id number] SUPPLEMENT 1 tablet DAILY 1 tablet DAILY (route: oral) Med Classific ation: Electroly te Balance-N utritiona l Products terazosin 5 mg capsule 2023-11 00:00: 00 Yes [id number] HTN 1 capsule DAILY 1 capsule DAILY (route: oral) Med Classific ation: Cardiovas cular Therapy Agents Senna Lax 8.6 mg tablet 2023-11 00:00: 00 Yes [id number] CONSTIPATIO N 1 tablet DAILY 1 tablet DAILY (route: oral) Med Classific ation: Gastroint estinal Therapy Agents clopidogrel 75 mg tablet 2023-11 00:00: 00 Yes [id number] hld 1 tablet DAILY 1 tablet DAILY [...] ADLS ] Future Scheduled Test MEDICATION MANAGEMENT; RN/MANAGER DEMAND/DECK OFFICER TO REVIEW MEDICATIONS FOR INTERACTIONS, EFFECTIVENESS OF DRUG THERAPY, AND SIGNS/SYMPTOMS OF ADVERSE REACTIONS. MAY INSTRUCT AND REINFORCE MEDICATION TEACHING RELATED TO THE USE OF MEDICATIONS, DOSAGE, FREQUENCY, PURPOSE, SIDE EFFECTS, AND TO REPORT COMPLICATIONS. [code = MEDICATION MANAGEMENT; RN/MANAGER DEMAND/DECK OFFICER TO REVIEW MEDICATIONS FOR INTERACTIONS, EFFECTIVENESS OF DRUG THERAPY, AND SIGNS/SYMPTOMS OF ADVERSE REACTIONS. MAY INSTRUCT AND REINFORCE MEDICATION TEACHING RELATED TO THE USE OF MEDICATIONS, DOSAGE, FREQUENCY, PURPOSE, SIDE EFFECTS, AND TO REPORT COMPLICATIONS.] Future Scheduled Test FALL REDUC TION MANAGEMENT; RN TO ASSESS AND TEACH, MANAGER DEMAND/DECK OFFICER TO OBSERVE AND TEACH ON EDUCATION AND INTERVENTION TO IDENTIFY FALL RISK FACTORS SUCH MEDICATIONS THAT MAY CAUSE DIZZINESS, CHRONIC DISEASES, PSYCHOLOGICAL FACTORS, AND EMPOWER/EDUCATE PATIENT/CAREGIVER TO MINIMIZE FALL RISK. [code = FALL REDUCTION MANAGEMENT; RN TO ASSESS AND TEACH, MANAGER DEMAND/DECK OFFICER TO OBSERVE AND TEACH ON EDUCATION AND INTERVENTION TO IDENTIFY FALL RISK FACTORS SUCH MEDICATIONS THAT MAY CAUSE DIZZINESS, CHRONIC DISEASES, PSYCHOLOGICAL FACTORS, AND EMPOWER/EDUCATE PATIENT/CAREGIVER TO MINIMIZE FALL RISK.] Future Scheduled Test DIABETES M ANAGEMENT; RN TO ASSESS AND TEACH, DECK OFFICER/MANAGER DEMAND TO OBSERVE AND TEACH INSTRUCTIONS OF DIABETIC CARE TO INCLUDE: DIABETIC DIET, SKIN CARE, SIGNS AND SYMPTOMS OF HYPO/HYPERGLYCEMIA, RN/DECK OFFICER/MANAGER DEMAND TO INSTRUCT ON DIABETIC FOOT CARE AND MONITOR FOR SKIN LESIONS ON LOWER EXTREMITIES. RN/DECK OFFICER/MANAGER DEMAND TO INSTRUCT PATIENT ON IMPORTANCE OF HGBA1C MONITORING, KIDNEY FUNCTION TEST, EYE AND FOOT EXAMS. [code = DIABETES MANAGEMENT; RN TO ASSESS AND TEACH, DECK OFFICER/MANAGER DEMAND TO OBSERVE AND TEACH INSTRUCTIONS OF DIABETIC CARE TO INCLUDE: DIABETIC DIET, SKIN CARE, SIGNS AND SYMPTOMS OF HYPO/HYPERGLYCEMIA, RN/DECK OFFICER/MANAGER DEMAND TO INSTRUCT ON DIABETIC FOOT CARE AND MONITOR FOR SKIN LESIONS ON LOWER EXTREMITIES. RN/DECK OFFICER/MANAGER DEMAND TO INSTRUCT PATIENT ON IMPORTANCE OF HGBA1C MONITORING, KIDNEY FUNCTION TEST, EYE AND FOOT EXAMS.] Future Scheduled Test RN TO OBSE RVE, ASSESS, EVALUATE, AND DEVELOP AN INDIVIDUALIZED PLAN OF CARE. AGENCY MAY ACCEPT ORDERS FROM CONSULTING PHYSICIANS. RN TO OBSERVE AND ASSESS, MANAGER DEMAND/DECK OFFICER TO OBSERVE FOR RISK FOR FALLS AND INSTRUCT IN FALL PREVENTION, HOME SAFETY, MEDICATION MANAGEMENT, INFECTION PREVENTION, AND NUTRITION MANAGEMENT. RN/MANAGER DEMAND/DECK OFFICER NURSE MAY PERFORM O2 SATURATION LEVEL ON ADMISSION AND PRN FOR RN TO ASSESS/MANAGER DEMAND TO OBSERVE PATIENT, WITH NOTIFICATION TO THE PHYSICIAN IF SATURATION IS 90% IN THE ABSENCE OF MORE SPECIFIC PARAMETERS FROM THE PHYSICIAN. AGENCY MAY PERFORM A RESUMPTION OF CARE VISIT FOLLOWING ANY HOSPITAL ADMISSION. RN/MANAGER DEMAND/DECK OFFICER TO MONITOR CO-MORBID CONDITIONS LISTED ON THE PLAN OF CARE AND ANY NEW CONDITIONS THAT PRESENT THEMSELVES DURING THIS EPISODE TO IDENTIFY CHANGES AND INTERVENE TO MINIMIZE COMPLICATIONS. [code = RN TO OBSERVE, ASSESS, EVALUATE, AND DEVELOP AN INDIVIDUALIZED PLAN OF CARE. AGENCY MAY ACCEPT ORDERS FROM CONSULTING PHYSICIANS. RN TO OBSERVE AND ASSESS, MANAGER DEMAND/DECK OFFICER TO OBSERVE FOR RISK FOR FALLS AND INSTRUCT IN FALL PREVENTION, HOME SAFETY, MEDICATION MANAGEMENT, INFECTION PREVENTION, AND NUTRITION MANAGEMENT. RN/MANAGER DEMAND/DECK OFFICER NURSE MAY PERFORM O2 SATURATION LEVEL ON ADMISSION AND PRN FOR RN TO ASSESS/MANAGER DEMAND TO OBSERVE PATIENT, WITH NOTIFICATION TO THE PHYSICIAN IF SATURATION IS 90% IN THE ABSENCE OF MORE SPECIFIC PARAMETERS FROM THE PHYSICIAN. AGENCY MAY PERFORM A RESUMPTION OF CARE VISIT FOLLOWING ANY HOSPITAL ADMISSION. RN/MANAGER DEMAND/DECK OFFICER TO MONITOR CO-MORBID CONDITIONS LISTED ON THE PLAN OF CARE AND ANY NEW CONDITIONS THAT PRESENT THEMSELVES DURING THIS EPISODE TO IDENTIFY CHANGES AND INTERVENE TO MINIMIZE COMPLICATIONS.] Future Scheduled Test PAIN MANAG EMENT; RN TO ASSESS AND TEACH, DECK OFFICER/MANAGER DEMAND TO OBSERVE AND TEACH AND PROVIDE EDUCATION ON PAIN MANAGEMENT TECHNIQUES. [code = PAIN MANAGEMENT; RN TO ASSESS AND TEACH, DECK OFFICER/MANAGER DEMAND TO OBSERVE AND TEACH AND PROVIDE EDUCATION ON PAIN MANAGEMENT TECHNIQUES.] Future Scheduled Test RISK FOR H OSPITALIZATION; RN TO ASSESS/TEACH, DECK OFFICER/MANAGER DEMAND TO OBSERVE/TEACH PATIENT/CAREGIVER ON RISK FOR HOSPITALIZATION/EMERGENCY ROOM VISITS, TEACH SIGNS AND SYMPTOMS THAT PUT PATIENT AT RISK, WHEN TO NOTIFY NURSE/PHYSICIAN OF COMPLICATIONS/DECLINE, AND WHEN TO CALL 911. [code = RISK FOR HOSPITALIZATION; RN TO ASSESS/TEACH, DECK OFFICER/MANAGER DEMAND TO OBSERVE/TEACH PATIENT/CAREGIVER ON RISK FOR HOSPITALIZATION/EMERGENCY ROOM VISITS, TEACH SIGNS AND SYMPTOMS THAT PUT PATIENT AT RISK, WHEN TO NOTIFY NURSE/PHYSICIAN OF COMPLICATIONS/DECLINE, AND WHEN TO CALL 911.] Future Scheduled Test CARDIOVASC ULAR SYSTEM; RN TO ASSESS/TEACH, MANAGER DEMAND/DECK OFFICER TO OBSERVE/TEACH RELATED TO ALTERED CARDIOVASCULAR STATUS TO MINIMIZE COMPLICATIONS AND REDUCE HOSPITALIZATION. [code = CARDIOVASCULAR SYSTEM; RN TO ASSESS/TEACH, MANAGER DEMAND/DECK OFFICER TO OBSERVE/TEACH RELATED TO ALTERED CARDIOVASCULAR STATUS TO MINIMIZE COMPLICATIONS AND REDUCE HOSPITALIZATION.] Future Scheduled Test HEART FAIL URE; RN TO ASSESS/TEACH, MANAGER DEMAND/DECK OFFICER TO OBSERVE/TEACH CARDIOPULMONARY SYSTEM TO IDENTIFY SIGNS [...] [code = HEART FAILURE; RN TO ASSESS/TEACH, MANAGER DEMAND/DECK OFFICER TO OBSERVE/TEACH CARDIOPULMONARY SYSTEM TO IDENTIFY SIGNS [...] ACUTE MYOC ARDIAL INFARCT; RN TO ASSESS/TEACH, MANAGER DEMAND/DECK OFFICER TO OBSERVE/TEACH WARNING SIGNS AND SYMPTOMS TO AVOID HOSPITALIZATION. [code = ACUTE MYOCARDIAL INFARCT; RN TO ASSESS/TEACH, MANAGER DEMAND/DECK OFFICER TO OBSERVE/TEACH WARNING SIGNS AND SYMPTOMS TO AVOID HOSPITALIZATION.] Future Scheduled Test HYPERTENSI ON MANAGEMENT; RN TO ASSESS AND TEACH, MANAGER DEMAND/DECK OFFICER TO OBSERVE AND TEACH WARNING SIGNS AND SYMPTOMS TO AVOID HOSPITALIZATION. [code = HYPERTENSION MANAGEMENT; RN TO ASSESS AND TEACH, MANAGER DEMAND/DECK OFFICER TO OBSERVE AND TEACH WARNING SIGNS AND SYMPTOMS TO AVOID HOSPITALIZATION.] Future Scheduled Test SKIN INTEG RITY RN TO ASSESS AND TEACH, MANAGER DEMAND/DECK OFFICER TO OBSERVE AND TEACH INTEGUMENTARY STATUS TO IDENTIFY CHANGES AND INTERVENE TO MINIMIZE COMPLICATIONS. PROVIDE SKILLED TEACHING OF GENERAL WOUND AND SKIN CARE AND PREVENTION RELATED TO POTENTIAL FOR OR ACTUAL ALTERED SKIN INTEGRITY [code = SKIN INTEGRITY RN TO ASSESS AND TEACH, MANAGER DEMAND/DECK OFFICER TO OBSERVE AND TEACH INTEGUMENTARY STATUS TO IDENTIFY CHANGES AND INTERVENE TO MINIMIZE COMPLICATIONS. PROVIDE SKILLED TEACHING OF GENERAL WOUND AND SKIN CARE AND PREVENTION RELATED TO POTENTIAL FOR OR ACTUAL ALTERED SKIN INTEGRITY ] Future Scheduled Test ARRHYTHMIA MANAGEMENT; RN TO ASSESS AND TEACH, MANAGER DEMAND/DECK OFFICER TO OBSERVE AND TEACH WARNING SIGNS AND SYMPTOMS TO AVOID HOSPITALIZATION. [code = ARRHYTHMIA MANAGEMENT; RN TO ASSESS AND TEACH, MANAGER DEMAND/DECK OFFICER TO OBSERVE AND TEACH WARNING SIGNS AND [...] End Date/Time Encounter Type Admission Type Attending [facility] Care Department Encounter ID Discharge Date Discharge Status Discharge Condition Discharge Reason Percent Goals Met 2024-09-25 00:00:00 2024-11-23 00:00:00 Outpatient NEW ADMISSION KALYANI ARITA [facility] [id number] 42.42
--- OUTSIDE RECORDS SUMMARY | 2024-10-30 02:10 | XMS_ITS | Clinical Summary ---
Author Organization Unknown Care Team Providers Care Cabin Equipment Supervisor Name Role Phone JACKSON PALOMO, CANDACE Unavailable Unavailable JUAN J STONE, KALYANI Unavailable Unavailab javier BEARD LPN, HERMES Unavailable Unavail able JAYANT PT, MARINA Unavailable Unavailable SAMANTHA AMMONIA NITRATE OPERATOR, ALTAGRACIA Unavailable Unavailable SPAFFORD OT, ABELARDO Unavailable Unavailable CONDINO KIANA/OLGUIN, ANASTACIA Unavailable Unav ailable Payers Payer Name Policy Type Policy Number Effective Date Expira tion Date MEDICARE.NGS.PDGM [id number] Problems Condition Name Condition Details Condition Category [...] % topical gel 2023-11 00:00: 00 Yes [id number] ARTHRITIS Per instruc tions 3 TIMES DAILY Per instructio ns 3 TIMES DAILY (route: topical) Med Classific ation: Dermatolo gical finasteride 5 mg tablet 2023-11 00:00: 00 Yes [id number] BPH 1 tablet AT BEDTIME 1 tablet AT BEDTIME (route: oral) Med Classific ation: Genitouri nary Therapy atorvastati n 40 mg tablet 2023-11 00:00: 00 Yes [id number] CHOLESTEROL 1 tablet DAILY 1 tablet DAILY (route: oral) Med Classific ation: Cardiovas cular Therapy Agents calcium magnesium zinc 15mcg-1000m g-40 2023-11 00:00: 00 Yes [id number] SUPPLEMENT 3 tablet DAILY 3 tablet DAILY (route: BY MOUTH) Med Classific ation: MISCELLAN EOUS HERBS AND SUPPLEMEN TS Co Q-10 100 mg capsule 2023-11 00:00: 00 Yes [id number] SUPPLEMENT 1 capsule DAILY 1 capsule DAILY (route: oral) Med Classific ation: Alternati ve Therapy famotidine 40 mg tablet 2023-11 00:00: 00 Yes [id number] GERD 1 tablet DAILY 1 tablet DAILY (route: oral) Med Classific ation: Gastroint estinal Therapy Agents furosemide 20 mg tablet 2023-11 00:00: 00 Yes [id number] CHF 1 tablet DAILY 1 tablet DAILY (route: oral) Med Classific ation: Cardiovas cular Therapy Agents latanoprost 0.005 % eye drops 2023-11 00:00: 00 Yes [id number] GLAUCOMA 1 drops DAILY 1 drops DAILY (route: ophthalmic (eye)) Med Classific ation: Ophthalmi c Agents multivitami n with minerals tablet 2023-11 00:00: 00 Yes [id number] SUPPLEMENT 1 tablet DAILY 1 tablet DAILY (route: oral) Med Classific ation: Electroly te Balance-N utritiona l Products terazosin 5 mg capsule 2023-11 00:00: 00 Yes [id number] HTN 1 capsule DAILY 1 capsule DAILY (route: oral) Med Classific ation: Cardiovas cular Therapy Agents Senna Lax 8.6 mg tablet 2023-11 00:00: 00 Yes [id number] CONSTIPATIO N 1 tablet DAILY 1 tablet DAILY (route: oral) Med Classific ation: Gastroint estinal Therapy Agents clopidogrel 75 mg tablet 2023-11 00:00: 00 Yes [id number] hld 1 tablet DAILY 1 tablet DAILY [...] ADLS ] Future Scheduled Test MEDICATION MANAGEMENT; RN/BUNG DROPPER/SHIPPING MANAGER TO REVIEW MEDICATIONS FOR INTERACTIONS, EFFECTIVENESS OF DRUG THERAPY, AND SIGNS/SYMPTOMS OF ADVERSE REACTIONS. MAY INSTRUCT AND REINFORCE MEDICATION TEACHING RELATED TO THE USE OF MEDICATIONS, DOSAGE, FREQUENCY, PURPOSE, SIDE EFFECTS, AND TO REPORT COMPLICATIONS. [code = MEDICATION MANAGEMENT; RN/BUNG DROPPER/SHIPPING MANAGER TO REVIEW MEDICATIONS FOR INTERACTIONS, EFFECTIVENESS OF DRUG THERAPY, AND SIGNS/SYMPTOMS OF ADVERSE REACTIONS. MAY INSTRUCT AND REINFORCE MEDICATION TEACHING RELATED TO THE USE OF MEDICATIONS, DOSAGE, FREQUENCY, PURPOSE, SIDE EFFECTS, AND TO REPORT COMPLICATIONS.] Future Scheduled Test FALL REDUC TION MANAGEMENT; RN TO ASSESS AND TEACH, BUNG DROPPER/SHIPPING MANAGER TO OBSERVE AND TEACH ON EDUCATION AND INTERVENTION TO IDENTIFY FALL RISK FACTORS SUCH MEDICATIONS THAT MAY CAUSE DIZZINESS, CHRONIC DISEASES, PSYCHOLOGICAL FACTORS, AND EMPOWER/EDUCATE PATIENT/CAREGIVER TO MINIMIZE FALL RISK. [code = FALL REDUCTION MANAGEMENT; RN TO ASSESS AND TEACH, BUNG DROPPER/SHIPPING MANAGER TO OBSERVE AND TEACH ON EDUCATION AND INTERVENTION TO IDENTIFY FALL RISK FACTORS SUCH MEDICATIONS THAT MAY CAUSE DIZZINESS, CHRONIC DISEASES, PSYCHOLOGICAL FACTORS, AND EMPOWER/EDUCATE PATIENT/CAREGIVER TO MINIMIZE FALL RISK.] Future Scheduled Test DIABETES M ANAGEMENT; RN TO ASSESS AND TEACH, SHIPPING MANAGER/BUNG DROPPER TO OBSERVE AND TEACH INSTRUCTIONS OF DIABETIC CARE TO INCLUDE: DIABETIC DIET, SKIN CARE, SIGNS AND SYMPTOMS OF HYPO/HYPERGLYCEMIA, RN/SHIPPING MANAGER/BUNG DROPPER TO INSTRUCT ON DIABETIC FOOT CARE AND MONITOR FOR SKIN LESIONS ON LOWER EXTREMITIES. RN/SHIPPING MANAGER/BUNG DROPPER TO INSTRUCT PATIENT ON IMPORTANCE OF HGBA1C MONITORING, KIDNEY FUNCTION TEST, EYE AND FOOT EXAMS. [code = DIABETES MANAGEMENT; RN TO ASSESS AND TEACH, SHIPPING MANAGER/BUNG DROPPER TO OBSERVE AND TEACH INSTRUCTIONS OF DIABETIC CARE TO INCLUDE: DIABETIC DIET, SKIN CARE, SIGNS AND SYMPTOMS OF HYPO/HYPERGLYCEMIA, RN/SHIPPING MANAGER/BUNG DROPPER TO INSTRUCT ON DIABETIC FOOT CARE AND MONITOR FOR SKIN LESIONS ON LOWER EXTREMITIES. RN/SHIPPING MANAGER/BUNG DROPPER TO INSTRUCT PATIENT ON IMPORTANCE OF HGBA1C MONITORING, KIDNEY FUNCTION TEST, EYE AND FOOT EXAMS.] Future Scheduled Test RN TO OBSE RVE, ASSESS, EVALUATE, AND DEVELOP AN INDIVIDUALIZED PLAN OF CARE. AGENCY MAY ACCEPT ORDERS FROM CONSULTING PHYSICIANS. RN TO OBSERVE AND ASSESS, BUNG DROPPER/SHIPPING MANAGER TO OBSERVE FOR RISK FOR FALLS AND INSTRUCT IN FALL PREVENTION, HOME SAFETY, MEDICATION MANAGEMENT, INFECTION PREVENTION, AND NUTRITION MANAGEMENT. RN/BUNG DROPPER/SHIPPING MANAGER NURSE MAY PERFORM O2 SATURATION LEVEL ON ADMISSION AND PRN FOR RN TO ASSESS/BUNG DROPPER TO OBSERVE PATIENT, WITH NOTIFICATION TO THE PHYSICIAN IF SATURATION IS 90% IN THE ABSENCE OF MORE SPECIFIC PARAMETERS FROM THE PHYSICIAN. AGENCY MAY PERFORM A RESUMPTION OF CARE VISIT FOLLOWING ANY HOSPITAL ADMISSION. RN/BUNG DROPPER/SHIPPING MANAGER TO MONITOR CO-MORBID CONDITIONS LISTED ON THE PLAN OF CARE AND ANY NEW CONDITIONS THAT PRESENT THEMSELVES DURING THIS EPISODE TO IDENTIFY CHANGES AND INTERVENE TO MINIMIZE COMPLICATIONS. [code = RN TO OBSERVE, ASSESS, EVALUATE, AND DEVELOP AN INDIVIDUALIZED PLAN OF CARE. AGENCY MAY ACCEPT ORDERS FROM CONSULTING PHYSICIANS. RN TO OBSERVE AND ASSESS, BUNG DROPPER/SHIPPING MANAGER TO OBSERVE FOR RISK FOR FALLS AND INSTRUCT IN FALL PREVENTION, HOME SAFETY, MEDICATION MANAGEMENT, INFECTION PREVENTION, AND NUTRITION MANAGEMENT. RN/BUNG DROPPER/SHIPPING MANAGER NURSE MAY PERFORM O2 SATURATION LEVEL ON ADMISSION AND PRN FOR RN TO ASSESS/BUNG DROPPER TO OBSERVE PATIENT, WITH NOTIFICATION TO THE PHYSICIAN IF SATURATION IS 90% IN THE ABSENCE OF MORE SPECIFIC PARAMETERS FROM THE PHYSICIAN. AGENCY MAY PERFORM A RESUMPTION OF CARE VISIT FOLLOWING ANY HOSPITAL ADMISSION. RN/BUNG DROPPER/SHIPPING MANAGER TO MONITOR CO-MORBID CONDITIONS LISTED ON THE PLAN OF CARE AND ANY NEW CONDITIONS THAT PRESENT THEMSELVES DURING THIS EPISODE TO IDENTIFY CHANGES AND INTERVENE TO MINIMIZE COMPLICATIONS.] Future Scheduled Test PAIN MANAG EMENT; RN TO ASSESS AND TEACH, SHIPPING MANAGER/BUNG DROPPER TO OBSERVE AND TEACH AND PROVIDE EDUCATION ON PAIN MANAGEMENT TECHNIQUES. [code = PAIN MANAGEMENT; RN TO ASSESS AND TEACH, SHIPPING MANAGER/BUNG DROPPER TO OBSERVE AND TEACH AND PROVIDE EDUCATION ON PAIN MANAGEMENT TECHNIQUES.] Future Scheduled Test RISK FOR H OSPITALIZATION; RN TO ASSESS/TEACH, SHIPPING MANAGER/BUNG DROPPER TO OBSERVE/TEACH PATIENT/CAREGIVER ON RISK FOR HOSPITALIZATION/EMERGENCY ROOM VISITS, TEACH SIGNS AND SYMPTOMS THAT PUT PATIENT AT RISK, WHEN TO NOTIFY NURSE/PHYSICIAN OF COMPLICATIONS/DECLINE, AND WHEN TO CALL 911. [code = RISK FOR HOSPITALIZATION; RN TO ASSESS/TEACH, SHIPPING MANAGER/BUNG DROPPER TO OBSERVE/TEACH PATIENT/CAREGIVER ON RISK FOR HOSPITALIZATION/EMERGENCY ROOM VISITS, TEACH SIGNS AND SYMPTOMS THAT PUT PATIENT AT RISK, WHEN TO NOTIFY NURSE/PHYSICIAN OF COMPLICATIONS/DECLINE, AND WHEN TO CALL 911.] Future Scheduled Test CARDIOVASC ULAR SYSTEM; RN TO ASSESS/TEACH, BUNG DROPPER/SHIPPING MANAGER TO OBSERVE/TEACH RELATED TO ALTERED CARDIOVASCULAR STATUS TO MINIMIZE COMPLICATIONS AND REDUCE HOSPITALIZATION. [code = CARDIOVASCULAR SYSTEM; RN TO ASSESS/TEACH, BUNG DROPPER/SHIPPING MANAGER TO OBSERVE/TEACH RELATED TO ALTERED CARDIOVASCULAR STATUS TO MINIMIZE COMPLICATIONS AND REDUCE HOSPITALIZATION.] Future Scheduled Test HEART FAIL URE; RN TO ASSESS/TEACH, BUNG DROPPER/SHIPPING MANAGER TO OBSERVE/TEACH CARDIOPULMONARY SYSTEM TO IDENTIFY SIGNS [...] [code = HEART FAILURE; RN TO ASSESS/TEACH, BUNG DROPPER/SHIPPING MANAGER TO OBSERVE/TEACH CARDIOPULMONARY SYSTEM TO IDENTIFY SIGNS [...] ACUTE MYOC ARDIAL INFARCT; RN TO ASSESS/TEACH, BUNG DROPPER/SHIPPING MANAGER TO OBSERVE/TEACH WARNING SIGNS AND SYMPTOMS TO AVOID HOSPITALIZATION. [code = ACUTE MYOCARDIAL INFARCT; RN TO ASSESS/TEACH, BUNG DROPPER/SHIPPING MANAGER TO OBSERVE/TEACH WARNING SIGNS AND SYMPTOMS TO AVOID HOSPITALIZATION.] Future Scheduled Test HYPERTENSI ON MANAGEMENT; RN TO ASSESS AND TEACH, BUNG DROPPER/SHIPPING MANAGER TO OBSERVE AND TEACH WARNING SIGNS AND SYMPTOMS TO AVOID HOSPITALIZATION. [code = HYPERTENSION MANAGEMENT; RN TO ASSESS AND TEACH, BUNG DROPPER/SHIPPING MANAGER TO OBSERVE AND TEACH WARNING SIGNS AND SYMPTOMS TO AVOID HOSPITALIZATION.] Future Scheduled Test SKIN INTEG RITY RN TO ASSESS AND TEACH, BUNG DROPPER/SHIPPING MANAGER TO OBSERVE AND TEACH INTEGUMENTARY STATUS TO IDENTIFY CHANGES AND INTERVENE TO MINIMIZE COMPLICATIONS. PROVIDE SKILLED TEACHING OF GENERAL WOUND AND SKIN CARE AND PREVENTION RELATED TO POTENTIAL FOR OR ACTUAL ALTERED SKIN INTEGRITY [code = SKIN INTEGRITY RN TO ASSESS AND TEACH, BUNG DROPPER/SHIPPING MANAGER TO OBSERVE AND TEACH INTEGUMENTARY STATUS TO IDENTIFY CHANGES AND INTERVENE TO MINIMIZE COMPLICATIONS. PROVIDE SKILLED TEACHING OF GENERAL WOUND AND SKIN CARE AND PREVENTION RELATED TO POTENTIAL FOR OR ACTUAL ALTERED SKIN INTEGRITY ] Future Scheduled Test ARRHYTHMIA MANAGEMENT; RN TO ASSESS AND TEACH, BUNG DROPPER/SHIPPING MANAGER TO OBSERVE AND TEACH WARNING SIGNS AND SYMPTOMS TO AVOID HOSPITALIZATION. [code = ARRHYTHMIA MANAGEMENT; RN TO ASSESS AND TEACH, BUNG DROPPER/SHIPPING MANAGER TO OBSERVE AND TEACH WARNING SIGNS AND [...] End Date/Time Encounter Type Admission Type Attending [facility] Care Department Encounter ID Discharge Date Discharge Status Discharge Condition Discharge Reason Percent Goals Met 2024-09-25 00:00:00 2024-11-23 00:00:00 Outpatient NEW ADMISSION KALYANI ARITA [facility] [id number] 42.42
[2024-10-30 04:00] VITALS: BP 117/55; PULSE 56; RESP 18; TEMP 36.4; O2SAT 94
[2024-10-30 06:00] VITALS: BMI 28.4
[2024-10-30 06:30] LABS: Prothrombin Time 22.8 SEC (10.9-12.4)
[2024-10-30 06:40] LABS: Anion Gap 11 (12-20); Blood Urea Nitrogen 33 mg/dL (9-16); Calcium 8.7 mg/dL (8.4-10.2); Carbon Dioxide 33 mmol/L (22-29); Chloride 101 mmol/L (96-108); Creatinine Clr Calc Pharmacy 45.1; Estimated Glomerular Filt Rate 58; Glucose Random 109 mg/dL (60-115); Potassium 4.2 mmol/L (3.3-5.1); Sodium 141 mmol/L (135-145)
[2024-10-30 07:22] VITALS: BP 126/58; PULSE 57; RESP 20; TEMP 37; O2SAT 93
[2024-10-30] MEDS: Omeprazole 20 MG CAPSULE.DR PO (09:29)
[2024-10-30] MEDS: Multivitamin TABLET 1 TAB PO (09:29)
[2024-10-30] MEDS: 0.9 % Sodium Chloride Flush 3 ML SYRINGE IVFLUSH (09:30)
[2024-10-30] MEDS: Furosemide 40 MG TABLET PO (09:30)
[2024-10-30] MEDS: Atorvastatin Calcium 40 MG TABLET PO (09:30)
[2024-10-30] MEDS: guaiFENesin LA 600 MG TAB.ER.12H PO (09:30)
--- NOTE | 2024-10-30 10:27 | MHC.CM.PN ---
IMM 10/30/24, PT MEDICALLY CLEARED FOR DC TO [facility] AT 11:30AM, PT'S SON WILL TRANSPORT TO FACILITY.
--- NOTE | 2024-10-30 10:50 | P.DS_ITS ---
DS: Providers Provider Date of Service: 10/30/24 Date of admission: 10/24/24 22:01 Date of discharge: 10/30/24 Primary care physician: Pavel Nelson MD Consults: 10/24/24 22:11 Consult to Cardiology Routine Consulting Provider: [facility] Reason for consultation: right pleural effusion, a-fib Has provider been notified: Yes 10/27/24 07:22 Consult to Pulmonology Routine Consulting Provider: [facility] Reason for consultation: hypercapnea 10/28/24 09:31 Consult to Wound Care Routine Reason for consultation: redness to coccyx DS: Diagnosis Discharge Diagnosis (1) CO2 retention: Status: Acute (2) COPD (chronic obstructive pulmonary disease): Status: Acute (3) Acute on chronic diastolic congestive heart failure: Status: Acute DS: Summary Hospital Course Hospital Course: HISTORY OF PRESENTING ILLNESS: Date of Service: 10/24/24 Attending physician on admission: Robyn Lisa Chief Complaint: Shortness on breath Danish Cevallos is a very pleasant 84 years old man with past medical history significant for CAD s/p RCA stent Aug 2023, dementia and hypercholesterolemia presents to the emergency department complaining of shortness on breath over the last week associated with productive cough. He also report worsening swelling to the lower extremities. He denied chest pain, palpitations or dizziness. He denies fever or chills. He did not report any acute gastrointestinal or genitourinary symptoms. He denied tobacco smoking, alcohol abuse or illicit drug use. The patient was recently evaluated by Cardiology and has a cardiac event monitor that showed AFib. He was prescribed Eliquis but unable to obtain it due to insurance issues. In the ED, to have stable vital signs. Blood workup is essentially unremarkable due to elevated BNP, 601 and troponin is negative. CXR showed pulmonary edema and bilateral pleural effusions (R>L). He underwent a pulmonary CTA with IV contrast and showed no evidence of pulmonary embolism, there is [id number] right pleural effusion and trace left pleural effusion. ECG shows some mild sinus rhythm with 1st degree AV block and PACs. ED tx: Lasix 40 mg IV Hospital course: 84yo M with CAD, dCHF, pAF recently diagnosed presented with dyspnea; admitted for CHF exacerbation and had following medical issues. acute hypoxic/hypercapneic resp failure with mild acute COPD exacerbation, likely undiagnosed COPD with CO2 retention likely secondary to iatrogenic hypoxia improved with use of BiPAP, seen by pulmonology they recommend to keep O2 sat 88-92% , overnight finger oximetry showed hypoxia qualifies for 1- 2 L of oxygen with goal SaO2 88-92%, continue doxycycline, expectorant, and as needed inhalers. Acute on chronic HFpEF treated with intravenous diuretics with good response, transition to by mouth Lasix 40 mg daily, BNP improved, electrolytes and renal function are stable recommend to follow BMP since dose of Lasix increased from 20 mg baseline to 40 mg daily. Paroxysmal atrial pAF, not on beta-blockers with history of bradycardia, currently in normal sinus rhythm, apixaban unaffordable for pt; started warfarin 10/26 with daily INR monitoring, INR 2 today on Coumadin 7.5 mg since 10/28, recommend to check INR daily keep INR between 2-2.5 and adjust dose. CAD - continue statin, not on beta-blockers with history of bradycardia and first-degree AV block, had no acute chest pains during hospitalization. GERD - continue famotidine BPH - continue terazosin + finasteride Time Attestation Discharge Coordination Time (in mins): 40 Quality: Safe Use of Opioids Does Pt have an Active Cancer Diagnosis on the Problem List?: No Quality: Stroke Does the patient have a stroke diagnosis?: No Physical Exam Vital Signs: Vital Signs: Last Vital Signs Temp 98.6 F 10/30/24 07:22 Pulse 57 10/30/24 07:22 Resp 20 10/30/24 07:22 BP 126/58 L 10/30/24 07:22 Pulse Ox 93 10/30/24 07:22 O2 Del Method Room Air 10/30/24 07:22 O2 Flow Rate 1 10/28/24 07:06 Oxygen Flow Rate 9 10/27/24 07:35 BMI result Body Mass Index 28.4 Const: Other: Gen: Awake alert x3, in no acute distress HEENT: sclera anicteric, moist mucus membranes Neck: supple Lungs: clear to auscultation bilaterally, diminished, few expiratory wheeze Heart: regular rate and rhythm, no murmurs Abd: soft, non-tender, non-distended Ext: no edema Skin: warm/well-perfused Neuro: alert and oriented x3, no focal findings Psych: appropriate affect DS: Data Data Completed and Pending Labs on day of discharge: Laboratory Results - last 24 hr 10/30/24 05:58 PT 22.8 H D INR 2.0 H Sodium 141 Potassium 4.2 Chloride 101 Carbon Dioxide 33 H Anion Gap 11 L BUN 33 H Creatinine 1.19 Estim Creat Clear Calc 45.1 Estimated GFR 58 Random Glucose 109 Calcium 8.7 Discharge Plan Discharge Anticipated Discharge Date/Time: 10/30/24 10:25 Patient Disposition: Xfer SNF Discharge Diagnosis: Acute hypoxic/hypercapnic respiratory failure Mild acute COPD exacerbation Acute on chronic CHF with preserved EF Paroxysmal atrial fibrillation on Coumadin Referrals: [facility] [Outside] - 1 Day (SHORT TERM REHAB) Pavel Nelson MD [Primary Care Provider] - 1 Week Discharge Medications: New furosemide 40 mg Tablet 40 mg PO DAILY Qty: 30 0RF Protocol: Hold for SBP< HOLD for SBP < : 90 doxycycline monohydrate 100 mg capsule 100 mg PO BID Qty: 4 0RF warfarin [Jantoven] 7.5 mg Tablet 7.5 mg PO DAILY@1800 Qty: 30 0RF dextromethorphan-guaifenesin 10-100 mg/5 mL Syrup 10 ml PO TID Qty: 237 0RF Continued terazosin 5 mg capsule 5 mg PO BEDTIME atorvastatin 40 mg tablet 40 mg PO DAILY finasteride 5 mg tablet 5 mg PO BEDTIME latanoprost 0.005 % drops 1 drp ophthalmic (eye) BEDTIME famotidine 40 mg tablet 40 mg PO DAILY multivitamin Tablet 1 tab PO DAILY Discontinued furosemide [Lasix] 20 mg tablet 20 mg PO DAILY Qty: 30 0RF Discharge Orders: Discharge Order (Routine); Ordered 10/30/24 Ordered By: Cristóbal Thompson Diet: Low salt diet Activity on Discharge: As tolerated Stand Alone Forms: Patient Portal Discharge page Print Language: Estonian Care Plan Goals: Nocturnal hypoxia continue oxygen 1-2 L at night only to keep finger oximetry 88-92% Continue Coumadin monitor INR closely to keep INR between 2-2.5, INR today 2 currently on 7.5 mg of Coumadin Monitor BMP, since dose of Lasix increased to 40 mg Finished course of doxycycline and continue cough medication for next 3-4 days. PT/INR AT AM Health Concerns: COPD Atrial fibrillation Take all medications as prescribed Plan of Treatment: Outpatient follow-up with primary care physician Outpatient follow-up with Dr. Fonseca with for acute on chronic diastolic heart failure, call for appointment. Assessment: As above
[2024-10-30] MEDS: guaiFENesin DM 200/20/10 ML 10 ML SYRUP PO (11:23)
[2024-10-30] MEDS: Doxycycline Monohydrate 100 MG CAPSULE PO (11:23)
== END 2024-10-30 11:39 | disposition skilled nursing facility (03) | DRG 291 ==
LOC: HO.ED 17:22 → HO.EDOVER 22:34 → HO.IMC 23:16
PROVIDERS: Family Medicine; Physician Assistant; Physician Assistant Medical; Admitting Provider Internal Medicine; Emergency Provider Emergency Medicine; PCP Family Medicine; Visit Provider Hospitalist
DX: I50.33 Acute on chronic diastolic (congestive) heart failure (principal); J96.01 Acute respiratory failure with hypoxia; J96.02 Acute respiratory failure with hypercapnia; J44.1 Chronic obstructive pulmonary disease with (acute) exacerbation; I25.10 Atherosclerotic heart disease of native coronary artery without angina pectoris; I48.0 Paroxysmal atrial fibrillation; T45.516A Underdosing of anticoagulants, initial encounter; D69.6 Thrombocytopenia, unspecified; Z91.120 Patient's intentional underdosing of medication regimen due to financial hardship; F03.90 Unspecified dementia, unspecified severity, without behavioral disturbance, psychotic disturbance, mood disturbance, and anxiety; K21.9 Gastro-esophageal reflux disease without esophagitis; N40.0 Benign prostatic hyperplasia without lower urinary tract symptoms; E78.00 Pure hypercholesterolemia, unspecified; T41.5X5A Adverse effect of therapeutic gases, initial encounter; Z20.822 Contact with and (suspected) exposure to COVID-19; Z95.5 Presence of coronary angioplasty implant and graft; Z79.01 Long term (current) use of anticoagulants; Z87.891 Personal history of nicotine dependence; Z79.899 Other long term (current) drug therapy
CPT/HCPCS: 0241U; 36415; 70450; 71045; 71046; 71275; 80048; 80053; 82803; 82947; 83735; 83880; 84145; 84484; 85025; 85027; 85610; 93005; 94640; 97162; 97166; 97530; 97535; 99285; J1940; Q9967

== ENCOUNTER → 2024-10-24 12:28 | Outpatient (BNV) | payer MEDICARE, SELFPAY | PROVIDERS: PCP Family Medicine; Visit Provider Radiology Diagnostic Radiology | DX: R05.8 Other specified cough (principal) | CPT/HCPCS: 71046 ==

== ENCOUNTER → 2024-10-24 12:33 | Outpatient (BNV) | payer MEDICARE, SELFPAY | PROVIDERS: Emergency Provider Emergency Medicine; PCP Family Medicine; Visit Provider Internal Medicine Cardiovascular Disease | DX: R94.31 Abnormal electrocardiogram [ECG] [EKG] (principal) | CPT/HCPCS: 93010 ==

== ENCOUNTER 2024-10-24 22:01 | Outpatient (BNV) | payer MEDICARE, SELFPAY | END 2024-10-27 06:46 | PROVIDERS: Admitting Provider Internal Medicine; Emergency Provider Emergency Medicine; PCP Family Medicine; Visit Provider Internal Medicine Cardiovascular Disease | DX: R94.31 Abnormal electrocardiogram [ECG] [EKG] (principal) | CPT/HCPCS: 93010 ==

== ENCOUNTER → 2024-10-24 22:01 | Outpatient (BNV) | payer MEDICARE, SELFPAY | PROVIDERS: Admitting Provider Internal Medicine; Emergency Provider Emergency Medicine; PCP Family Medicine; Visit Provider Internal Medicine Pulmonary Disease | DX: I50.32 Chronic diastolic (congestive) heart failure (principal); J44.9 Chronic obstructive pulmonary disease, unspecified; E87.29 Other acidosis | CPT/HCPCS: 99222 ==

== ENCOUNTER → 2024-10-24 22:01 | Outpatient (BNV) | payer MEDICARE, SELFPAY | PROVIDERS: Admitting Provider Internal Medicine; Emergency Provider Emergency Medicine; PCP Family Medicine; Visit Provider Internal Medicine Cardiovascular Disease | DX: R00.1 Bradycardia, unspecified (principal) | CPT/HCPCS: 99223; 99232; 99233 ==

== ENCOUNTER → 2024-10-24 22:01 | Outpatient (BNV) | payer MEDICARE, SELFPAY | PROVIDERS: Admitting Provider Internal Medicine; Emergency Provider Emergency Medicine; PCP Family Medicine; Visit Provider Internal Medicine | DX: I50.33 Acute on chronic diastolic (congestive) heart failure (principal); J44.1 Chronic obstructive pulmonary disease with (acute) exacerbation; E87.29 Other acidosis | CPT/HCPCS: 99223; 99232; 99233; 99239; 99499 ==

== ENCOUNTER 2024-11-27 12:50 | Outpatient (AMB) | payer MEDICARE, SELFPAY ==
--- OUTSIDE RECORDS SUMMARY | 2024-11-27 12:53 | XMS_ITS | Clinical Summary ---
Author Organization Unknown Care Team Providers Care Drafting Teacher Name Role Phone JACKSON PALOMO, CANDACE Unavailable Unavailable JUAN J STONE, KALYANI Unavailable Unavailab javier BEARD LPN, HERMES Unavailable Unavail able JAYANT PT, MARINA Unavailable Unavailable SAMANTHA PSYCHOLOGY TECHNICIAN, ALTAGRACIA Unavailable Unavailable SPAFFORD OT, ABELARDO Unavailable Unavailable CONDINO KIANA/OLGUIN, ANASTACIA Unavailable Unav ailable Payers Payer Name Policy Type Policy Number Effective Date Expira tion Date MEDICARE.NGS.PDGM [id number] Problems Condition Name Condition Details Condition Category Status Onset Date Resolution Date Last Treatment Date Treating Clinician Comments 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 Active 11-21 00:00: 00 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 Active 11-21 00:00: 00 ACUTE RESPIRATORY FAILURE WITH HYPOXIA Active 11-21 00:00: 00 ACUTE RESPIRATORY FAILURE WITH HYPERCAPNIA Active 11-21 00:00: 00 ATHSCL HEART DISEASE OF [place] CORONARY ARTERY W/O ANG PCTRS Active 11-21 00:00: 00 PAROXYSMAL ATRIAL FIBRILLATION Active 11-21 00:00: 00 NONSPECIFIC INTRAVENTRIC ULAR BLOCK Active 11-21 00:00: 00 PLEURAL EFFUSION, NOT ELSEWHERE CLASSIFIED Active 11-21 00:00: 00 UNSP DEMENTIA, UNSP SEVERITY, WITHOUT BEH/PSYCH/MO OD/ANX Active 11-21 00:00: 00 BENIGN PROSTATIC HYPERPLASIA WITHOUT LOWER URINRY TRACT SYMP Active 11-21 00:00: 00 UNSPECIFIED GLAUCOMA Active 11-21 00:00: 00 GASTRO-ESOPH AGEAL REFLUX DISEASE WITHOUT ESOPHAGITIS Active 11-21 00:00: 00 HYPERLIPIDEM IA, UNSPECIFIED Active 11-21 00:00: 00 FAMILY DINNER SERVICE SPECIALIST (CURRENT) USE OF ANTICOAGULAN TS Active 11-21 00:00: 00 DEPENDENCE ON SUPPLEMENTAL OXYGEN Active 11-21 00:00: 00 Allergies, Adverse Reactions, Alerts Allergy Name Allergy Type Status Severity Reaction(s) Onset Date Inactive Date Treating Clinician Comments NO KNOWN ALLERGIES Propensity to adverse reactions Active 11-21 12:52: 35 Medications Ordered Medication Name Filled Medication Name Start Date Stop Date Current Medication? Ordering Clinician Indication Dosage Frequency Signature (SIG) Comments Components diclofenac 1 % topical gel 2023-11 00:00: 00 Yes [id number] ARTHRITIS Per instruc tions 3 TIMES DAILY Per instructio ns 3 TIMES DAILY (route: topical) Med Classific ation: Dermatolo gical finasteride 5 mg tablet 2023-11 00:00: 00 Yes [id number] BPH 1 tablet AT BEDTIME 1 tablet AT BEDTIME (route: oral) Med Classific ation: Genitouri nary Therapy atorvastati n 40 mg tablet 2023-11 00:00: 00 Yes [id number] CHOLESTEROL 1 tablet DAILY 1 tablet DAILY (route: oral) Med Classific ation: Cardiovas cular Therapy Agents calcium magnesium zinc 15mcg-1000m g-40 2023-11 00:00: 00 Yes [id number] SUPPLEMENT 3 tablet DAILY 3 tablet DAILY (route: BY MOUTH) Med Classific ation: MISCELLAN EOUS HERBS AND SUPPLEMEN TS Co Q-10 100 mg capsule 2023-11 00:00: 00 Yes [id number] SUPPLEMENT 1 capsule DAILY 1 capsule DAILY (route: oral) Med Classific ation: Alternati ve Therapy famotidine 40 mg tablet 2023-11 00:00: 00 Yes [id number] GERD 1 tablet DAILY 1 tablet DAILY (route: oral) Med Classific ation: Gastroint estinal Therapy Agents furosemide 20 mg tablet 2023-11 00:00: 00 Yes [id number] CHF 1 tablet DAILY 1 tablet DAILY (route: oral) Med Classific ation: Cardiovas cular Therapy Agents latanoprost 0.005 % eye drops 2023-11 00:00: 00 Yes [id number] GLAUCOMA 1 drops DAILY 1 drops DAILY (route: ophthalmic (eye)) Med Classific ation: Ophthalmi c Agents multivitami n with minerals tablet 2023-11 00:00: 00 Yes [id number] SUPPLEMENT 1 tablet DAILY 1 tablet DAILY (route: oral) Med Classific ation: Electroly te Balance-N utritiona l Products terazosin 5 mg capsule 2023-11 00:00: 00 Yes [id number] HTN 1 capsule DAILY 1 capsule DAILY (route: oral) Med Classific ation: Cardiovas cular Therapy Agents Senna Lax 8.6 mg tablet 2023-11 00:00: 00 Yes [id number] CONSTIPATIO N 1 tablet DAILY 1 tablet DAILY (route: oral) Med Classific ation: Gastroint estinal Therapy Agents clopidogrel 75 mg tablet 2023-11 00:00: 00 Yes [id number] hld 1 tablet DAILY 1 tablet DAILY (route: oral) Med Classific ation: Hematolog ical Agents Vital Signs Vital Name Observation Time Observation Value Commen ts Temperature 2024-11-25 13:08:00.000 98.6 [degF] Temperature 2024-11-21 13:29:00.000 96.4 [degF] BMI (%) 2024-11-21 13:15:11.000 26 kg/m2 Height 2024-11-21 13:15:00.000 67 [in_us] Pulse 2024-11-25 13:08:00.000 60 /min Pulse 2024-11-21 13:29:00.000 61 /min O2 Saturation (%) 2024-11-25 13:13:00.000 94 % Respirations 2024-11-25 13:08:00.000 18 /min Respirations 2024-11-21 13:29:00.000 18 /min Weight (lbs) 2024-11-25 13:13:00.000 170.6 [lb_av] Weight (lbs) 2024-11-21 13:15:11.000 170 [lb_av] Systolic Blood Pressure 2024-11-25 13:08:00.000 158 mm [Hg] Systolic Blood Pressure 2024-11-21 13:29:00.000 142 mm [Hg] Diastolic Blood Pressure 2024-11-25 13:08:00.000 80 mm [Hg] Diastolic Blood Pressure 2024-11-21 13:29:00.000 64 mm [Hg] Plan of Treatment Planned Activity Planned Date Details Comments Future Scheduled Test MEDICATION MANAGEMENT; RN/IT COMMUNICATIONS MANAGER/RADIO MECHANIC HELPER TO REVIEW MEDICATIONS FOR INTERACTIONS, EFFECTIVENESS OF DRUG THERAPY, AND SIGNS/SYMPTOMS OF ADVERSE REACTIONS. MAY INSTRUCT AND REINFORCE MEDICATION TEACHING RELATED TO THE USE OF MEDICATIONS, DOSAGE, FREQUENCY, PURPOSE, SIDE EFFECTS, AND TO REPORT COMPLICATIONS. [code = MEDICATION MANAGEMENT; RN/IT COMMUNICATIONS MANAGER/RADIO MECHANIC HELPER TO REVIEW MEDICATIONS FOR INTERACTIONS, EFFECTIVENESS OF DRUG THERAPY, AND SIGNS/SYMPTOMS OF ADVERSE REACTIONS. MAY INSTRUCT AND REINFORCE MEDICATION TEACHING RELATED TO THE USE OF MEDICATIONS, DOSAGE, FREQUENCY, PURPOSE, SIDE EFFECTS, AND TO REPORT COMPLICATIONS.] Future Scheduled Test ANTICOAGUL ATION MANAGEMENT; RN TO ASSESS AND TEACH, IT COMMUNICATIONS MANAGER/RADIO MECHANIC HELPER TO OBSERVE/TEACH/MONITOR EFFECTIVENESS OF ANTICOAGULATION THERAPY. RN/IT COMMUNICATIONS MANAGER/RADIO MECHANIC HELPER TO INSTRUCT ON SIGNS AND SYMPTOMS OF BLEEDING/ADVERSE REACTIONS TO REPORT TO PHYSICIAN. RN/IT COMMUNICATIONS MANAGER/RADIO MECHANIC HELPER TO PERFORM PT/INR VIA VENIPUNCTURE OR COAGUCHECK PER MD ORDER DUE 11/25/24 RN/IT COMMUNICATIONS MANAGER/RADIO MECHANIC HELPER TO FAX/CALL IN RESULTS TO DR PAZ TIMELY IF NO PT/INR ORDERED, PT/INR TO BE PERFORMED AT [facility] RN/IT COMMUNICATIONS MANAGER/RADIO MECHANIC HELPER TO OBTAIN LAB RESULTS FROM [facility] AND FOLLOW UP WITH THE PHYSICIAN WITH RESULTS TO VERIFY ANY MEDICATION CHANGES. [code = ANTICOAGULATION MANAGEMENT; RN TO ASSESS AND TEACH, IT COMMUNICATIONS MANAGER/RADIO MECHANIC HELPER TO OBSERVE/TEACH/MONITOR EFFECTIVENESS OF ANTICOAGULATION THERAPY. RN/IT COMMUNICATIONS MANAGER/RADIO MECHANIC HELPER TO INSTRUCT ON SIGNS AND SYMPTOMS OF BLEEDING/ADVERSE REACTIONS TO REPORT TO PHYSICIAN. RN/IT COMMUNICATIONS MANAGER/RADIO MECHANIC HELPER TO PERFORM PT/INR VIA VENIPUNCTURE OR COAGUCHECK PER MD ORDER DUE 11/25/24 RN/IT COMMUNICATIONS MANAGER/RADIO MECHANIC HELPER TO FAX/CALL IN RESULTS TO DR PAZ TIMELY IF NO PT/INR ORDERED, PT/INR TO BE PERFORMED AT [facility] RN/IT COMMUNICATIONS MANAGER/RADIO MECHANIC HELPER TO OBTAIN LAB RESULTS FROM [facility] AND FOLLOW UP WITH THE PHYSICIAN WITH RESULTS TO VERIFY ANY MEDICATION CHANGES.] Future Scheduled Test RESPIRATOR Y SYSTEM MANAGEMENT; RN TO ASSESS AND TEACH, IT COMMUNICATIONS MANAGER/RADIO MECHANIC HELPER TO OBSERVE AND TEACH RELATED TO ALTERED RESPIRATORY STATUS TO MINIMIZE COMPLICATIONS AND REDUCE HOSPITALIZATION. [code = RESPIRATORY SYSTEM MANAGEMENT; RN TO ASSESS AND TEACH, IT COMMUNICATIONS MANAGER/RADIO MECHANIC HELPER TO OBSERVE AND TEACH RELATED TO ALTERED RESPIRATORY STATUS TO MINIMIZE COMPLICATIONS AND REDUCE HOSPITALIZATION.] Future Scheduled Test COPD MANAG EMENT; RN TO ASSESS AND TEACH, IT COMMUNICATIONS MANAGER/RADIO MECHANIC HELPER TO OBSERVE AND TEACH SIGNS/SYMPTOMS OF COPD EXACERBATION AND PROVIDE EARLY INTERVENTIONS TO MINIMIZE RISK OF HOSPITALIZATION. RN/IT COMMUNICATIONS MANAGER/RADIO MECHANIC HELPER TO INSTRUCT ON SELF-CARE MANAGEMENT INCLUDING BREATHING TECHNIQUES, AIRWAY CLEARANCE, AND PROPER USE OF COPD MEDICATIONS. RN TO ASSESS AND TEACH, IT COMMUNICATIONS MANAGER/RADIO MECHANIC HELPER TO OBSERVE AND TEACH PATIENT/CAREGIVER ABILITY TO MONITOR AND RECORD VITAL SIGNS INCLUDING PULSE OXIMETRY AND BLOOD PRESSURE. PULSE OXIMETER AND BP MONITOR TO BE PROVIDED IF NEEDED [code = COPD MANAGEMENT; RN TO ASSESS AND TEACH, IT COMMUNICATIONS MANAGER/RADIO MECHANIC HELPER TO OBSERVE AND TEACH SIGNS/SYMPTOMS OF COPD EXACERBATION AND PROVIDE EARLY INTERVENTIONS TO MINIMIZE RISK OF HOSPITALIZATION. RN/IT COMMUNICATIONS MANAGER/RADIO MECHANIC HELPER TO INSTRUCT ON SELF-CARE MANAGEMENT INCLUDING BREATHING TECHNIQUES, AIRWAY CLEARANCE, AND PROPER USE OF COPD MEDICATIONS. RN TO ASSESS AND TEACH, IT COMMUNICATIONS MANAGER/RADIO MECHANIC HELPER TO OBSERVE AND TEACH PATIENT/CAREGIVER ABILITY TO MONITOR AND RECORD VITAL SIGNS INCLUDING PULSE OXIMETRY AND BLOOD PRESSURE. PULSE OXIMETER AND BP MONITOR TO BE PROVIDED IF NEEDED ] Future Scheduled Test OXYGEN THE RAPY; RN/IT COMMUNICATIONS MANAGER/RADIO MECHANIC HELPER TO INSTRUCT ON OXYGEN MANAGEMENT INCLUDING: ADMINISTRATION AT 1L/MIN VIA NC AT BEDTIME FOR HYPOXIA, CARE OF EQUIPMENT AND SAFETY. [code = OXYGEN THERAPY; RN/IT COMMUNICATIONS MANAGER/RADIO MECHANIC HELPER TO INSTRUCT ON OXYGEN MANAGEMENT INCLUDING: ADMINISTRATION AT 1L/MIN VIA NC AT BEDTIME FOR HYPOXIA, CARE OF EQUIPMENT AND SAFETY.] Future Scheduled Test FALL REDUC TION MANAGEMENT; RN TO ASSESS AND OBSERVE, IT COMMUNICATIONS MANAGER/RADIO MECHANIC HELPER TO OBSERVE FALL RISK FACTORS AND EDUCATE PATIENT/CAREGIVER ON STRATEGIES TO MINIMIZE THE RISK OF FALLING. [code = FALL REDUCTION MANAGEMENT; RN TO ASSESS AND OBSERVE, IT COMMUNICATIONS MANAGER/RADIO MECHANIC HELPER TO OBSERVE FALL RISK FACTORS AND EDUCATE PATIENT/CAREGIVER ON STRATEGIES TO MINIMIZE THE RISK OF FALLING.] Future Scheduled Test RN TO OBSE RVE, ASSESS, EVALUATE, AND DEVELOP AN INDIVIDUALIZED PLAN OF CARE. AGENCY MAY ACCEPT ORDERS FROM CONSULTING PHYSICIANS RN TO OBSERVE AND ASSESS, IT COMMUNICATIONS MANAGER/RADIO MECHANIC HELPER TO OBSERVE FOR RISK FOR FALLS AND INSTRUCT IN FALL PREVENTION, HOME SAFETY, MEDICATION MANAGEMENT, INFECTION PREVENTION, AND NUTRITION MANAGEMENT. RN/IT COMMUNICATIONS MANAGER/RADIO MECHANIC HELPER NURSE MAY PERFORM O2 SATURATION LEVEL ON ADMISSION AND PRN FOR RESP STATUS CHANGES FOR RN TO ASSESS/IT COMMUNICATIONS MANAGER TO OBSERVE PATIENT, WITH NOTIFICATION TO THE PHYSICIAN IF SATURATION IS 90% IN THE ABSENCE OF MORE SPECIFIC PARAMETERS FROM THE PHYSICIAN. AGENCY MAY PERFORM A RESUMPTION OF CARE VISIT FOLLOWING ANY HOSPITAL ADMISSION. RN/IT COMMUNICATIONS MANAGER/RADIO MECHANIC HELPER TO MONITOR CO-MORBID CONDITIONS LISTED ON THE PLAN OF CARE AND ANY NEW CONDITIONS THAT PRESENT THEMSELVES DURING THIS EPISODE TO IDENTIFY CHANGES AND INTERVENE TO MINIMIZE COMPLICATIONS. [code = RN TO OBSERVE, ASSESS, EVALUATE, AND DEVELOP AN INDIVIDUALIZED PLAN OF CARE. AGENCY MAY ACCEPT ORDERS FROM CONSULTING PHYSICIANS RN TO OBSERVE AND ASSESS, IT COMMUNICATIONS MANAGER/RADIO MECHANIC HELPER TO OBSERVE FOR RISK FOR FALLS AND INSTRUCT IN FALL PREVENTION, HOME SAFETY, MEDICATION MANAGEMENT, INFECTION PREVENTION, AND NUTRITION MANAGEMENT. RN/IT COMMUNICATIONS MANAGER/RADIO MECHANIC HELPER NURSE MAY PERFORM O2 SATURATION LEVEL ON ADMISSION AND PRN FOR RESP STATUS CHANGES FOR RN TO ASSESS/IT COMMUNICATIONS MANAGER TO OBSERVE PATIENT, WITH NOTIFICATION TO THE PHYSICIAN IF SATURATION IS 90% IN THE ABSENCE OF MORE SPECIFIC PARAMETERS FROM THE PHYSICIAN. AGENCY MAY PERFORM A RESUMPTION OF CARE VISIT FOLLOWING ANY HOSPITAL ADMISSION. RN/IT COMMUNICATIONS MANAGER/RADIO MECHANIC HELPER TO MONITOR CO-MORBID CONDITIONS LISTED ON THE PLAN OF CARE AND ANY NEW CONDITIONS THAT PRESENT THEMSELVES DURING THIS EPISODE TO IDENTIFY CHANGES AND INTERVENE TO MINIMIZE COMPLICATIONS.] Future Scheduled Test PAIN MANAG EMENT; RN TO ASSESS AND TEACH, RADIO MECHANIC HELPER/IT COMMUNICATIONS MANAGER TO OBSERVE AND TEACH AND PROVIDE EDUCATION ON PAIN MANAGEMENT TECHNIQUES. [code = PAIN MANAGEMENT; RN TO ASSESS AND TEACH, RADIO MECHANIC HELPER/IT COMMUNICATIONS MANAGER TO OBSERVE AND TEACH AND PROVIDE EDUCATION ON PAIN MANAGEMENT TECHNIQUES.] Future Scheduled Test RISK FOR H OSPITALIZATION; RN TO ASSESS/TEACH, RADIO MECHANIC HELPER/IT COMMUNICATIONS MANAGER TO OBSERVE/TEACH PATIENT/CAREGIVER ON RISK FOR HOSPITALIZATION/EMERGENCY ROOM VISITS, TEACH SIGNS AND SYMPTOMS THAT PUT PATIENT AT RISK, WHEN TO NOTIFY NURSE/PHYSICIAN OF COMPLICATIONS/DECLINE, AND WHEN TO CALL 911. [code = RISK FOR HOSPITALIZATION; RN TO ASSESS/TEACH, RADIO MECHANIC HELPER/IT COMMUNICATIONS MANAGER TO OBSERVE/TEACH PATIENT/CAREGIVER ON RISK FOR HOSPITALIZATION/EMERGENCY ROOM VISITS, TEACH SIGNS AND SYMPTOMS THAT PUT PATIENT AT RISK, WHEN TO NOTIFY NURSE/PHYSICIAN OF COMPLICATIONS/DECLINE, AND WHEN TO CALL 911.] Future Scheduled Test CARDIOVASC ULAR SYSTEM; RN TO ASSESS/TEACH, IT COMMUNICATIONS MANAGER/RADIO MECHANIC HELPER TO OBSERVE/TEACH RELATED TO ALTERED CARDIOVASCULAR STATUS TO MINIMIZE COMPLICATIONS AND REDUCE HOSPITALIZATION. [code = CARDIOVASCULAR SYSTEM; RN TO ASSESS/TEACH, IT COMMUNICATIONS MANAGER/RADIO MECHANIC HELPER TO OBSERVE/TEACH RELATED TO ALTERED CARDIOVASCULAR STATUS TO MINIMIZE COMPLICATIONS AND REDUCE HOSPITALIZATION.] Future Scheduled Test HEART FAIL URE; RN TO ASSESS/TEACH, IT COMMUNICATIONS MANAGER/RADIO MECHANIC HELPER TO OBSERVE/TEACH CARDIOPULMONARY SYSTEM TO IDENTIFY SIGNS [...] [code = HEART FAILURE; RN TO ASSESS/TEACH, IT COMMUNICATIONS MANAGER/RADIO MECHANIC HELPER TO OBSERVE/TEACH CARDIOPULMONARY SYSTEM TO IDENTIFY SIGNS [...] BE PROVIDED IF NEEDED.] Future Scheduled Test ARRHYTHMIA MANAGEMENT; RN TO ASSESS AND TEACH, IT COMMUNICATIONS MANAGER/RADIO MECHANIC HELPER TO OBSERVE AND TEACH WARNING SIGNS AND SYMPTOMS TO AVOID HOSPITALIZATION. [code = ARRHYTHMIA MANAGEMENT; RN TO ASSESS AND TEACH, IT COMMUNICATIONS MANAGER/RADIO MECHANIC HELPER TO OBSERVE AND TEACH WARNING SIGNS AND SYMPTOMS TO AVOID HOSPITALIZATION. ] Goal Patient Goal - TO STAY HOME Goal Provider Goal - PATIENT/CAREGIVER TO VERBALIZE, AND CONSISTENTLY DEMONSTRATE EFFECTIVE, SAFE MANAGEMENT OF MEDICATION INCLUDING KNOWLEDGE OF EFFECTIVENESS, POTENTIAL SIDE EFFECTS AND DRUG REACTIONS AND WHEN TO CONTACT THE APPROPRIATE CARE PROVIDER. PATIENT/CAREGIVER WILL BE ABLE TO VERBALIZE UNDERSTANDING OF MEDICATION REGIMEN AND ACCURATELY TAKE MEDICATIONS PRESCRIBED WITHOUT ADVERSE EFFECTS BY 01/19/25 Goal Provider Goal - INEFFECTIVE ANTICOAGULATION THERAPY WILL BE IDENTIFIED AND PROMPTLY REPORTED TO THE PHYSICIAN. PATIENT / CAREGIVER WILL VERBALIZE UNDERSTANDING OF MEASURES TO MAINTAIN EFFECTIVE ANTICOAGULATION THERAPY BY 01/19/25 Goal Provider Goal - PATIENT / CAREGIVER WILL VERBALIZE/DEMONSTRATE UNDERSTANDING OF MEASURES TO MANAGE ALTERED RESPIRATORY STATUS BY END OF EPISODE. Goal Provider Goal - PATIENT / CAREGIVER WILL VERBALIZE/DEMONSTRATE AN ABILITY TO ADHERE TO SELF-MANAGEMENT OF COPD TO MINIMIZE COMPLICATIONS AND AVOID HOSPITALIZATION BY END OF EPISODE. Goal Provider Goal - PATIENT/CAREGIVER WILL VERBALIZE/DEMONSTRATE UNDERSTANDING OF CARE AND MANAGEMENT OF OXYGEN THERAPY BY END OF EPISODE Goal Provider Goal - PATIENT/CAREGIVER WILL VERBALIZE/DEMONSTRATE UNDERSTANDING OF FALL RISK FACTORS AND IMPLEMENT STRATEGIES TO MINIMIZE FALL RISK. PATIENT/CAREGIVER WILL VERBALIZE/DEMONSTRATE AN ABILITY TO ADHERE TO FALL REDUCTION SELF-MANAGEMENT AND LIFE-STYLE CHANGES BY 01/19/25 Goal Provider Goal - A PLAN OF [...] DEMONSTRATE UNDERSTANDING OF PAIN CONTROL MEASURES BY 01/19/25 Goal Provider Goal - PATIENT/CAREGIVER WILL VERBALIZE UNDERSTANDING OF SIGNS AND SYMPTOMS THAT PUT THE PATIENT AT RISK FOR HOSPITALIZATION /EMERGENCY ROOM VISITS, WHEN TO NOTIFY NURSE/PHYSICIAN OF COMPLICATIONS/DECLINE AND WHEN TO CALL 911. Goal Provider Goal - PATIENT / CAREGIVER WILL VERBALIZE/DEMONSTRATE UNDERSTANDING OF MEASURES TO MANAGE ALTERED CARDIOVASCULAR STATUS BY 01/19/25 Goal Provider Goal - PATIENT / CAREGIVER [...] End Date/Time Encounter Type Admission Type Attending [facility] Care Department Encounter ID Discharge Date Discharge Status Discharge Condition Discharge Reason Percent Goals Met 2024-11-21 00:00:00 2025-01-19 00:00:00 Outpatient [facility]ALY[facility] [id number] 16.67
--- OUTSIDE RECORDS SUMMARY | 2024-11-27 12:53 | XMS_ITS | Clinical Summary ---
Author Organization Unknown Care Team Providers Care Diesel Scoop Operator Name Role Phone JACKSON PALOMO, CANDACE Unavailable Unavailable JUAN J STONE, KALYANI Unavailable Unavailab javier BEARD LPN, HERMES Unavailable Unavail able JAYANT PT, MARINA Unavailable Unavailable SAMANTHA MANAGER INTERNAL, ALTAGRACIA Unavailable Unavailable SPAFFORD OT, ABELARDO Unavailable Unavailable CONDINO KIANA/OLGUIN, ANASTACIA Unavailable Unav ailable Payers Payer Name Policy Type Policy Number Effective Date Expira tion Date MEDICARE.NGS.PDGM [id number] Problems Condition Name Condition Details Condition Category Status Onset Date Resolution Date Last Treatment Date Treating Clinician Comments 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 Active 11-21 00:00: 00 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 Active 11-21 00:00: 00 ACUTE RESPIRATORY FAILURE WITH HYPOXIA Active 11-21 00:00: 00 ACUTE RESPIRATORY FAILURE WITH HYPERCAPNIA Active 11-21 00:00: 00 ATHSCL HEART DISEASE OF [place] CORONARY ARTERY W/O ANG PCTRS Active 11-21 [...] HYPERLIPIDEM IA, UNSPECIFIED Active 11-21 00:00: 00 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 TS Active 11-21 [...] % topical gel 2023-11 00:00: 00 Yes [id number] ARTHRITIS Per instruc tions 3 TIMES DAILY Per instructio ns 3 TIMES DAILY (route: topical) Med Classific ation: Dermatolo gical finasteride 5 mg tablet 2023-11 00:00: 00 Yes [id number] BPH 1 tablet AT BEDTIME 1 tablet AT BEDTIME (route: oral) Med Classific ation: Genitouri nary Therapy atorvastati n 40 mg tablet 2023-11 00:00: 00 Yes [id number] CHOLESTEROL 1 tablet DAILY 1 tablet DAILY (route: oral) Med Classific ation: Cardiovas cular Therapy Agents calcium magnesium zinc 15mcg-1000m g-40 2023-11 00:00: 00 Yes [id number] SUPPLEMENT 3 tablet DAILY 3 tablet DAILY (route: BY MOUTH) Med Classific ation: MISCELLAN EOUS HERBS AND SUPPLEMEN TS Co Q-10 100 mg capsule 2023-11 00:00: 00 Yes [id number] SUPPLEMENT 1 capsule DAILY 1 capsule DAILY (route: oral) Med Classific ation: Alternati ve Therapy famotidine 40 mg tablet 2023-11 00:00: 00 Yes [id number] GERD 1 tablet DAILY 1 tablet DAILY (route: oral) Med Classific ation: Gastroint estinal Therapy Agents furosemide 20 mg tablet 2023-11 00:00: 00 Yes [id number] CHF 1 tablet DAILY 1 tablet DAILY (route: oral) Med Classific ation: Cardiovas cular Therapy Agents latanoprost 0.005 % eye drops 2023-11 00:00: 00 Yes [id number] GLAUCOMA 1 drops DAILY 1 drops DAILY (route: ophthalmic (eye)) Med Classific ation: Ophthalmi c Agents multivitami n with minerals tablet 2023-11 00:00: 00 Yes [id number] SUPPLEMENT 1 tablet DAILY 1 tablet DAILY (route: oral) Med Classific ation: Electroly te Balance-N utritiona l Products terazosin 5 mg capsule 2023-11 00:00: 00 Yes [id number] HTN 1 capsule DAILY 1 capsule DAILY (route: oral) Med Classific ation: Cardiovas cular Therapy Agents Senna Lax 8.6 mg tablet 2023-11 00:00: 00 Yes [id number] CONSTIPATIO N 1 tablet DAILY 1 tablet DAILY (route: oral) Med Classific ation: Gastroint estinal Therapy Agents clopidogrel 75 mg tablet 2023-11 00:00: 00 Yes [id number] hld 1 tablet DAILY 1 tablet DAILY [...] Details Comments Future Scheduled Test MEDICATION MANAGEMENT; RN/LOOM INSPECTOR/LARDER COOK TO REVIEW MEDICATIONS FOR INTERACTIONS, EFFECTIVENESS OF DRUG THERAPY, AND SIGNS/SYMPTOMS OF ADVERSE REACTIONS. MAY INSTRUCT AND REINFORCE MEDICATION TEACHING RELATED TO THE USE OF MEDICATIONS, DOSAGE, FREQUENCY, PURPOSE, SIDE EFFECTS, AND TO REPORT COMPLICATIONS. [code = MEDICATION MANAGEMENT; RN/LOOM INSPECTOR/LARDER COOK TO REVIEW MEDICATIONS FOR INTERACTIONS, EFFECTIVENESS OF DRUG THERAPY, AND SIGNS/SYMPTOMS OF ADVERSE REACTIONS. MAY INSTRUCT AND REINFORCE MEDICATION TEACHING RELATED TO THE USE OF MEDICATIONS, DOSAGE, FREQUENCY, PURPOSE, SIDE EFFECTS, AND TO REPORT COMPLICATIONS.] Future Scheduled Test ANTICOAGUL ATION MANAGEMENT; RN TO ASSESS AND TEACH, LOOM INSPECTOR/LARDER COOK TO OBSERVE/TEACH/MONITOR EFFECTIVENESS OF ANTICOAGULATION THERAPY. RN/LOOM INSPECTOR/LARDER COOK TO INSTRUCT ON SIGNS AND SYMPTOMS OF BLEEDING/ADVERSE REACTIONS TO REPORT TO PHYSICIAN. RN/LOOM INSPECTOR/LARDER COOK TO PERFORM PT/INR VIA VENIPUNCTURE OR COAGUCHECK PER MD ORDER DUE 11/25/24 RN/LOOM INSPECTOR/LARDER COOK TO FAX/CALL IN RESULTS TO DR PAZ TIMELY IF NO PT/INR ORDERED, PT/INR TO BE PERFORMED AT [facility] RN/LOOM INSPECTOR/LARDER COOK TO OBTAIN LAB RESULTS FROM [facility] AND FOLLOW UP WITH THE PHYSICIAN WITH RESULTS TO VERIFY ANY MEDICATION CHANGES. [code = ANTICOAGULATION MANAGEMENT; RN TO ASSESS AND TEACH, LOOM INSPECTOR/LARDER COOK TO OBSERVE/TEACH/MONITOR EFFECTIVENESS OF ANTICOAGULATION THERAPY. RN/LOOM INSPECTOR/LARDER COOK TO INSTRUCT ON SIGNS AND SYMPTOMS OF BLEEDING/ADVERSE REACTIONS TO REPORT TO PHYSICIAN. RN/LOOM INSPECTOR/LARDER COOK TO PERFORM PT/INR VIA VENIPUNCTURE OR COAGUCHECK PER MD ORDER DUE 11/25/24 RN/LOOM INSPECTOR/LARDER COOK TO FAX/CALL IN RESULTS TO DR PAZ TIMELY IF NO PT/INR ORDERED, PT/INR TO BE PERFORMED AT [facility] RN/LOOM INSPECTOR/LARDER COOK TO OBTAIN LAB RESULTS FROM [facility] AND FOLLOW UP WITH THE PHYSICIAN WITH RESULTS TO VERIFY ANY MEDICATION CHANGES.] Future Scheduled Test RESPIRATOR Y SYSTEM MANAGEMENT; RN TO ASSESS AND TEACH, LOOM INSPECTOR/LARDER COOK TO OBSERVE AND TEACH RELATED TO ALTERED RESPIRATORY STATUS TO MINIMIZE COMPLICATIONS AND REDUCE HOSPITALIZATION. [code = RESPIRATORY SYSTEM MANAGEMENT; RN TO ASSESS AND TEACH, LOOM INSPECTOR/LARDER COOK TO OBSERVE AND TEACH RELATED TO ALTERED RESPIRATORY STATUS TO MINIMIZE COMPLICATIONS AND REDUCE HOSPITALIZATION.] Future Scheduled Test COPD MANAG EMENT; RN TO ASSESS AND TEACH, LOOM INSPECTOR/LARDER COOK TO OBSERVE AND TEACH SIGNS/SYMPTOMS OF COPD EXACERBATION AND PROVIDE EARLY INTERVENTIONS TO MINIMIZE RISK OF HOSPITALIZATION. RN/LOOM INSPECTOR/LARDER COOK TO INSTRUCT ON SELF-CARE MANAGEMENT INCLUDING BREATHING TECHNIQUES, AIRWAY CLEARANCE, AND PROPER USE OF COPD MEDICATIONS. RN TO ASSESS AND TEACH, LOOM INSPECTOR/LARDER COOK TO OBSERVE AND TEACH PATIENT/CAREGIVER ABILITY TO MONITOR AND RECORD VITAL SIGNS INCLUDING PULSE OXIMETRY AND BLOOD PRESSURE. PULSE OXIMETER AND BP MONITOR TO BE PROVIDED IF NEEDED [code = COPD MANAGEMENT; RN TO ASSESS AND TEACH, LOOM INSPECTOR/LARDER COOK TO OBSERVE AND TEACH SIGNS/SYMPTOMS OF COPD EXACERBATION AND PROVIDE EARLY INTERVENTIONS TO MINIMIZE RISK OF HOSPITALIZATION. RN/LOOM INSPECTOR/LARDER COOK TO INSTRUCT ON SELF-CARE MANAGEMENT INCLUDING BREATHING TECHNIQUES, AIRWAY CLEARANCE, AND PROPER USE OF COPD MEDICATIONS. RN TO ASSESS AND TEACH, LOOM INSPECTOR/LARDER COOK TO OBSERVE AND TEACH PATIENT/CAREGIVER ABILITY TO MONITOR AND RECORD VITAL SIGNS INCLUDING PULSE OXIMETRY AND BLOOD PRESSURE. PULSE OXIMETER AND BP MONITOR TO BE PROVIDED IF NEEDED ] Future Scheduled Test OXYGEN THE RAPY; RN/LOOM INSPECTOR/LARDER COOK TO INSTRUCT ON OXYGEN MANAGEMENT INCLUDING: ADMINISTRATION AT 1L/MIN VIA NC AT BEDTIME FOR HYPOXIA, CARE OF EQUIPMENT AND SAFETY. [code = OXYGEN THERAPY; RN/LOOM INSPECTOR/LARDER COOK TO INSTRUCT ON OXYGEN MANAGEMENT INCLUDING: ADMINISTRATION AT 1L/MIN VIA NC AT BEDTIME FOR HYPOXIA, CARE OF EQUIPMENT AND SAFETY.] Future Scheduled Test FALL REDUC TION MANAGEMENT; RN TO ASSESS AND OBSERVE, LOOM INSPECTOR/LARDER COOK TO OBSERVE FALL RISK FACTORS AND EDUCATE PATIENT/CAREGIVER ON STRATEGIES TO MINIMIZE THE RISK OF FALLING. [code = FALL REDUCTION MANAGEMENT; RN TO ASSESS AND OBSERVE, LOOM INSPECTOR/LARDER COOK TO OBSERVE FALL RISK FACTORS AND EDUCATE PATIENT/CAREGIVER ON STRATEGIES TO MINIMIZE THE RISK OF FALLING.] Future Scheduled Test RN TO OBSE RVE, ASSESS, EVALUATE, AND DEVELOP AN INDIVIDUALIZED PLAN OF CARE. AGENCY MAY ACCEPT ORDERS FROM CONSULTING PHYSICIANS RN TO OBSERVE AND ASSESS, LOOM INSPECTOR/LARDER COOK TO OBSERVE FOR RISK FOR FALLS AND INSTRUCT IN FALL PREVENTION, HOME SAFETY, MEDICATION MANAGEMENT, INFECTION PREVENTION, AND NUTRITION MANAGEMENT. RN/LOOM INSPECTOR/LARDER COOK NURSE MAY PERFORM O2 SATURATION LEVEL ON ADMISSION AND PRN FOR RESP STATUS CHANGES FOR RN TO ASSESS/LOOM INSPECTOR TO OBSERVE PATIENT, WITH NOTIFICATION TO THE PHYSICIAN IF SATURATION IS 90% IN THE ABSENCE OF MORE SPECIFIC PARAMETERS FROM THE PHYSICIAN. AGENCY MAY PERFORM A RESUMPTION OF CARE VISIT FOLLOWING ANY HOSPITAL ADMISSION. RN/LOOM INSPECTOR/LARDER COOK TO MONITOR CO-MORBID CONDITIONS LISTED ON THE PLAN OF CARE AND ANY NEW CONDITIONS THAT PRESENT THEMSELVES DURING THIS EPISODE TO IDENTIFY CHANGES AND INTERVENE TO MINIMIZE COMPLICATIONS. [code = RN TO OBSERVE, ASSESS, EVALUATE, AND DEVELOP AN INDIVIDUALIZED PLAN OF CARE. AGENCY MAY ACCEPT ORDERS FROM CONSULTING PHYSICIANS RN TO OBSERVE AND ASSESS, LOOM INSPECTOR/LARDER COOK TO OBSERVE FOR RISK FOR FALLS AND INSTRUCT IN FALL PREVENTION, HOME SAFETY, MEDICATION MANAGEMENT, INFECTION PREVENTION, AND NUTRITION MANAGEMENT. RN/LOOM INSPECTOR/LARDER COOK NURSE MAY PERFORM O2 SATURATION LEVEL ON ADMISSION AND PRN FOR RESP STATUS CHANGES FOR RN TO ASSESS/LOOM INSPECTOR TO OBSERVE PATIENT, WITH NOTIFICATION TO THE PHYSICIAN IF SATURATION IS 90% IN THE ABSENCE OF MORE SPECIFIC PARAMETERS FROM THE PHYSICIAN. AGENCY MAY PERFORM A RESUMPTION OF CARE VISIT FOLLOWING ANY HOSPITAL ADMISSION. RN/LOOM INSPECTOR/LARDER COOK TO MONITOR CO-MORBID CONDITIONS LISTED ON THE PLAN OF CARE AND ANY NEW CONDITIONS THAT PRESENT THEMSELVES DURING THIS EPISODE TO IDENTIFY CHANGES AND INTERVENE TO MINIMIZE COMPLICATIONS.] Future Scheduled Test PAIN MANAG EMENT; RN TO ASSESS AND TEACH, LARDER COOK/LOOM INSPECTOR TO OBSERVE AND TEACH AND PROVIDE EDUCATION ON PAIN MANAGEMENT TECHNIQUES. [code = PAIN MANAGEMENT; RN TO ASSESS AND TEACH, LARDER COOK/LOOM INSPECTOR TO OBSERVE AND TEACH AND PROVIDE EDUCATION ON PAIN MANAGEMENT TECHNIQUES.] Future Scheduled Test RISK FOR H OSPITALIZATION; RN TO ASSESS/TEACH, LARDER COOK/LOOM INSPECTOR TO OBSERVE/TEACH PATIENT/CAREGIVER ON RISK FOR HOSPITALIZATION/EMERGENCY ROOM VISITS, TEACH SIGNS AND SYMPTOMS THAT PUT PATIENT AT RISK, WHEN TO NOTIFY NURSE/PHYSICIAN OF COMPLICATIONS/DECLINE, AND WHEN TO CALL 911. [code = RISK FOR HOSPITALIZATION; RN TO ASSESS/TEACH, LARDER COOK/LOOM INSPECTOR TO OBSERVE/TEACH PATIENT/CAREGIVER ON RISK FOR HOSPITALIZATION/EMERGENCY ROOM VISITS, TEACH SIGNS AND SYMPTOMS THAT PUT PATIENT AT RISK, WHEN TO NOTIFY NURSE/PHYSICIAN OF COMPLICATIONS/DECLINE, AND WHEN TO CALL 911.] Future Scheduled Test CARDIOVASC ULAR SYSTEM; RN TO ASSESS/TEACH, LOOM INSPECTOR/LARDER COOK TO OBSERVE/TEACH RELATED TO ALTERED CARDIOVASCULAR STATUS TO MINIMIZE COMPLICATIONS AND REDUCE HOSPITALIZATION. [code = CARDIOVASCULAR SYSTEM; RN TO ASSESS/TEACH, LOOM INSPECTOR/LARDER COOK TO OBSERVE/TEACH RELATED TO ALTERED CARDIOVASCULAR STATUS TO MINIMIZE COMPLICATIONS AND REDUCE HOSPITALIZATION.] Future Scheduled Test HEART FAIL URE; RN TO ASSESS/TEACH, LOOM INSPECTOR/LARDER COOK TO OBSERVE/TEACH CARDIOPULMONARY SYSTEM TO IDENTIFY SIGNS [...] [code = HEART FAILURE; RN TO ASSESS/TEACH, LOOM INSPECTOR/LARDER COOK TO OBSERVE/TEACH CARDIOPULMONARY SYSTEM TO IDENTIFY SIGNS [...] ARRHYTHMIA MANAGEMENT; RN TO ASSESS AND TEACH, LOOM INSPECTOR/LARDER COOK TO OBSERVE AND TEACH WARNING SIGNS AND SYMPTOMS TO AVOID HOSPITALIZATION. [code = ARRHYTHMIA MANAGEMENT; RN TO ASSESS AND TEACH, LOOM INSPECTOR/LARDER COOK TO OBSERVE AND TEACH WARNING SIGNS AND [...] Date/Time Encounter Type Admission Type Attending [facility] Care Facility Care Department Encounter ID Discharge Date Discharge Status Discharge Condition Discharge Reason Percent Goals Met 2024-11-21 00:00:00 2025-01-19 00:00:00 Outpatient KALYANI WATT [facility] [id number] 16.67
[2024-11-27 13:00] VITALS: BP 124/50; PULSE 54; BMI 28.9
--- NOTE | 2024-11-27 13:00 | A.OFFVIS_ITS ---
Vital Signs 11/27/24 13:00 Height 5 ft 7 in Weight 184 lb 11.958 oz BMI 28.9 BP 124/50 L Blood Pressure Location Lt brachial Position Sitting Pulse 54 Pulse Source Auscultation Intake Visit Reasons: [facility] dc fu (KM) Intake Note: Pt c/o of intermittent ankle swelling. States it is getting better. Teacher Counselor Required: No Accompanied by: Self / Same As Patient Allergies Penicillins [PCN] Allergy (Unknown, Verified 11/27/24 13:43) RASH Medication List - Last Reconciled 11/27/24 by Gary Villanueva NP albuterol sulfate 2.5 mg (3 mL) inhalation Q2H PRN atorvastatin 40 mg PO DAILY buspirone 5 mg PO TID PRN coenzyme Q10 10 mg PO TID famotidine 40 mg PO DAILY finasteride 5 mg PO BEDTIME furosemide 40 mg See Protocol PO DAILY latanoprost 0.005% 1 drp ophthalmic (eye) BEDTIME multivitamin 1 tab PO DAILY rivaroxaban (Xarelto) 15 mg PO DAILY terazosin 5 mg PO BEDTIME HPI Comments Details: This is an 84-year-old male with history of coronary artery disease, previous RCA PCI, paroxysmal AFib, chronic diastolic heart failure, and bradycardia presenting for follow-up after hospital discharge for congestive heart failure. He was treated with IV Lasix during hospitalization and was discharged on increased dose of p.o. Lasix. Today, the patient reports feeling much better, with no chest pain, shortness of breath, dizziness, palpitations, presyncope, syncope or orthopnea. Additionally, he expresses a strong preference not to take we did, stating that he never started taking it. He states that he is uncomfortable with the idea of frequent blood draws. He states that his PCP recently prescribed Xarelto but has not started taking it yet. [facility] Medical History BPH (benign prostatic hyperplasia) CAD (coronary artery disease) Social History Household Members: Other Household Members Other:: live in [facility]. He lives on one sidee, son lives on other side Housing: Apartment Do you presently have visiting nurse or other home services: No Patient Tobacco Use Status: Former Tobacco user Tobacco use type: Cigarette e-Cigarette/Vaping Use: Never Used service: No Review of Systems Const Denies chills, Denies fatigue, Denies fever(s), Denies weight gain and Denies weight loss ENT Denies dizziness Card Denies chest pain, Reports leg edema, Denies lightheadedness, Denies palpitations, Denies dyspnea on exertion, Denies orthopnea and Denies other Resp Denies cough and Denies dyspnea on exertion GI Denies hematochezia and Denies change in stool character Musc Denies abnormal gait, Denies muscle weakness, Denies numbness, Denies radiating pain into limb and Denies tingling Neuro Denies abnormal gait, Denies dizziness, Denies numbness and Denies tingling Endo Denies fatigue and Denies palpitations Physical Exam Vital Signs: Last Vital Signs Pulse 54 11/27/24 13:00 BP 124/50 L 11/27/24 13:00 BMI result Body Mass Index 28.9 Const General: cooperative, healthy appearing, comfortable and no acute distress Orientation/consciousness: patient oriented x3 HEENT Head: Yes normal to inspection Ears: hearing grossly impaired bilaterally Neck Neck: Yes normal visual inspection, Yes trachea midline and Yes supple Chest Chest palpation & inspection: normal inspection of the chest Resp Effort & Inspection: normal respiratory effort Auscultation: crackles on the right at the base, no rales, no rhonchi and no wheezes Cardio Jugular venous distension: no JVD Palpation: normal PMI Rate: bradycardic Rhythm: regular rhythm Heart sounds: S1 normal heart sound present, S2 normal heart sound present, no click, no gallops, no murmurs and no rubs Peripheral pulses: Peripheral pulses 2+ throughout GI Inspection: Yes normal to inspection Palpation (GI): Soft to palpation Auscultation: normal bowel sounds Skin General skin exam: no rashes or lesions noted Neuro General: patient oriented x3 Extrem General: Yes normal to inspection, No no pedal edema and No calf tenderness Right lower extremity: edema Details: pitting and 1+ Left lower extremity: edema Details: pitting and 1+ Psych Appearance: grossly normal Mental Status: mental status grossly normal Speech and movement: Normal speech and movement present Assessment & Plan Assessment & Plan (1) PAF (paroxysmal atrial fibrillation): Code(s): I48.0 - Paroxysmal atrial fibrillation Category: Medical Plan: 09/11/2024-echo showed normal EF 60-65%, severely dilated left atrium, severe mitral annular calcification. 10/04/2024-cardiac event monitor showed AFib burden of 11%, controlled VR rates. As a result of this, he was switched from Plavix to Eliquis to reduce stroke risk. However, the patient reported that Eliquis was too expensive and not covered by insurance, so he agreed to start Coumadin. Today he expresses reluctance to take Coumadin due to frequent blood draws, even though he understands it is an affordable option. Also mentioned that his PCP started him on Xarelto but he has not yet begun taking it. Emphasized the need to stay on blood thinners and explained the associated risk for stroke if left untreated. I will send a new prescription for Xarelto. I did explain to the patient that this might also be expensive and not covered by insurance but we will still give it a try. (2) Chronic diastolic heart failure: Code(s): I50.32 - Chronic diastolic (congestive) heart failure Category: Medical Plan: Patient was discharged on p.o. Lasix 40 mg daily. However, he never started taking the new prescription and continued taking 20 mg dose that he was on previously. He still has bilateral +1 pitting edema in his ankles and crackles at the right lung base. Emphasized the significance of following the prescribed medication regimen. I will send a prescription for Lasix 40 mg daily to his pharmacy. We will repeat labs. Recommended heart healthy diet, low-salt intake, fluid restriction at 1.5 L per day, exercise. Also recommended patient get rid of his previous medications to avoid confusion and ensure he is taking the correct dosage moving forward. (3) Hospital discharge follow-up: Code(s): Z09 - Encounter for follow-up examination after completed treatment for conditions other than malignant neoplasm Plan: Plan as above Plan Patient will follow-up in 3 months. In the interim, patient will call us with any concerns. This note was generated using voice recognition software. While every effort has been made to ensure accuracy and proper publications sales representative, there may be occasional errors that could affect the content or meaning of the described symptoms. Orders: Orders Basic Metabolic Panel Today I50.32 - Chronic diastolic (congestive) heart failure NT-proBNP Today I50.32 - Chronic diastolic (congestive) heart failure Medications: New rivaroxaban (Xarelto) must administer with evening meal 15 mg PO DAILY 90 tabs 1RF Refilled furosemide 40 mg See Protocol PO DAILY 90 tabs 1RF Coding Level of Care Code Est Pt Level 4 (43864) Diagnoses PAF (paroxysmal atrial fibrillation) I48.0 Chronic diastolic heart failure I50.32 Hospital discharge follow-up Z09 Time Spent (min) 32 Comment Time spent in reviewing the chart, test results, assessment, counseling and documentation.
== END 2024-11-27 13:43 | disposition home or self-care (01) ==
PROVIDERS: PCP Family Medicine
DX: I48.0 Paroxysmal atrial fibrillation (principal); I50.32 Chronic diastolic (congestive) heart failure; Z09 Encounter for follow-up examination after completed treatment for conditions other than malignant neoplasm
CPT/HCPCS: 99214

== ENCOUNTER → 2024-11-27 12:50 | Outpatient (BNVA) | payer MEDICARE, SELFPAY | PROVIDERS: PCP Family Medicine | DX: Z09 Encounter for follow-up examination after completed treatment for conditions other than malignant neoplasm (principal); I48.0 Paroxysmal atrial fibrillation; I50.32 Chronic diastolic (congestive) heart failure | CPT/HCPCS: 99212 ==

== ENCOUNTER 2025-03-03 13:17 | Outpatient (AMB) | payer MEDICARE, SELFPAY ==
--- NOTE | 2025-03-03 13:32 | MHC.OFFVIS ---
Vital Signs 03/03/25 13:34 Height 5 ft 7 in Weight 180 lb 12.465 oz BMI 28.3 BP 120/60 Blood Pressure Location Lt brachial Position Sitting Pulse 72 Pulse Source Monitor Intake Visit Reasons: 3 month follow-up Intake Note: 3 mth f/up Deputy Attorney General Required: No Accompanied by: Self / Same As Patient Allergies Penicillins [PCN] Allergy (Unknown, Verified 11/27/24 13:43) RASH Medication List - Last Reconciled 03/03/25 by Kapil Fonseca MD albuterol sulfate 2.5 mg (3 mL) inhalation Q2H PRN atorvastatin 40 mg PO DAILY buspirone 5 mg PO TID PRN coenzyme Q10 10 mg PO TID famotidine 40 mg PO DAILY finasteride 5 mg PO BEDTIME furosemide 40 mg See Protocol PO DAILY latanoprost 0.005% 1 drp ophthalmic (eye) BEDTIME multivitamin 1 tab PO DAILY rivaroxaban (Xarelto) 15 mg PO DAILY terazosin 5 mg PO BEDTIME HPI Comments Details: [age] year gentleman who is here for follow-up. He known history of inferior wall SD in the past with previous PCI. He subsequently got admitted with diastolic heart failure and AV Wenckebach. He also had episodes of atrial fibrillation. Initially was started on Eliquis but could not afford it. Then he was changed to Coumadin. Subsequent to that he felt that Coumadin too difficult to manage and his primary care physician put him on Xarelto. Today he returns and is saying that he is back on Coumadin because Xarelto was too expensive for him. He is taking furosemide 40 mg daily and he has lower extremity edema has improved significantly. He still has some edema. He is denying any shortness of breath or chest discomfort. His main issues are related to balance and joint problems. [facility] Medical History BPH (benign prostatic hyperplasia) CAD (coronary artery disease) Social History Household Members: Other Household Members Other:: live in [facility]. He lives on one sidee, son lives on other side Housing: Apartment Do you presently have visiting nurse or other home services: No Patient Tobacco Use Status: Former Tobacco user Tobacco use type: Cigarette e-Cigarette/Vaping Use: Never Used service: No Review of Systems Const Denies chills, Denies fatigue, Denies fever(s), Denies frequent falls, Denies weakness, Denies weight gain and Denies weight loss ENT Denies dizziness Card Denies chest pain, Denies leg edema, Denies lightheadedness, Denies palpitations, Denies dyspnea and Denies dyspnea on exertion Resp Denies cough, Denies dyspnea and Denies dyspnea on exertion GI Denies hematochezia Musc Denies abnormal gait, Denies muscle weakness, Denies numbness, Denies radiating pain into limb and Denies tingling Neuro Denies abnormal gait, Denies dizziness, Denies frequent falls, Denies numbness, Denies tingling and Denies weakness Endo Denies fatigue and Denies palpitations Physical Exam Vital Signs: Last Vital Signs Pulse 72 03/03/25 13:34 BP 120/60 03/03/25 13:34 BMI result Body Mass Index 28.3 GENERAL APPEARANCE: in no acute distress, pleasant. NECK: no carotid bruit, no jugular venous distention. SKIN: no suspicious lesions, warm and dry. HEART: no murmurs, regular rate and rhythm. LUNGS: clear to auscultation bilaterally. ABDOMEN: soft, nontender. EXTREMITIES: no edema. PERIPHERAL PULSES: equal. NEUROLOGIC: No gross deficits, AAO X 3 Office Procedures EKG Details: Sinus rhythm with second-degree AV block Mobitz type 1, 72 beats per minute, left axis deviation, inferior infarct, QTC 402 milliseconds. [id number], Complete Assessment & Plan Assessment & Plan (1) PAF (paroxysmal atrial fibrillation): Code(s): I48.0 - Paroxysmal atrial fibrillation Category: Medical (2) Chronic diastolic heart failure: Code(s): I50.32 - Chronic diastolic (congestive) heart failure Category: Medical Plan Pleasant 85 year gentleman with background history of coronary disease with previous inferior wall SD and primary PCI, paroxysmal atrial fibrillation and diastolic heart failure. Clinically he appears to be euvolemic. He is still has some peripheral edema on examination but no JVD and clinically feeling much better. I think we continue Lasix at the same dose of 40 mg daily. He is back on Coumadin at this stage and has a visiting nurse who is monitoring the INRs. He could not afford Eliquis or Xarelto in the past. Blood pressure well controlled. Overall doing well and we will follow up with us in 4 months. Thank you for allowing me to participate in the care of your patient. Please feel free to contact me if you have any questions. Medications: New warfarin as per INR orally daily; 1 tab 0RF Discontinued rivaroxaban (Xarelto) must administer with evening meal Discontinued Reason: Doctor's Order 15 mg PO DAILY 90 tabs 1RF Coding Level of Care Code Est Pt Level 4 (52269) Diagnoses PAF (paroxysmal atrial fibrillation) I48.0 Chronic diastolic heart failure I50.32 CPT Codes EKG - CPT: 32114-[id number], Complete ([id number])
[2025-03-03 13:34] VITALS: BP 120/60; PULSE 72; BMI 28.3
--- OUTSIDE RECORDS SUMMARY | 2025-03-03 15:16 | XMS_ITS | Encounter Summary ---
Author Organization [facility] Address [address] [place] [address] Care Team Providers Care Hearing Officer Name Role Phone Carlos Allen MD Primary Care Provider [phone] Encounter Details Date Type Department Care Team (Late st Contact Info) Description 11/12/2024 Lab Requisition [facility] - Main Lab 299 [facility] [place] [address] Carlos Allen MD [address] [place] [phone] Acute on chronic diastolic (congestive) heart failure (CMS/HCC V24, CMS/HCC V28); Essential (primary) hypertension Social History Tobacco Use Types Packs/Day Years Used Date Smoking Tobacco: Never Assessed Sex and Gender Information Value Date Recorded Sex Assigned at Not on file Legal Sex Male 5:55 AM EST Gender Identity Not on file Sexual Orientation Not on file documented as of this encounter Plan of Treatment Not on file documented as of this encounter Procedures Procedure Name Priority Date/Time Associated Diagnosis Comments PROTHROMBIN TIME WITH INR Routine 11/14/2024 5:16 AM EST Acute on chronic diastolic (congestive) heart failure (CMS/HCC) Essential (primary) hypertension COMPLETE BLOOD COUNT Routine 11/14/2024 5:16 AM EST Acute on chronic diastolic (congestive) heart failure (CMS/HCC) Essential (primary) hypertension BASIC METABOLIC PANEL Routine 11/14/2024 5:16 AM EST Acute on chronic diastolic (congestive) heart failure (CMS/HCC) Essential (primary) hypertension documented in this encounter Results * (ABNORMAL) Prothrombin time with INR (11/14/2024 5:16 AM EST) Protime 28.3(H) 10.6 - 13.9 sec LAB COAGULATION METHOD 11/14/2024 11:35 AM EST [facility] INR 2.3 LAB COAGULATION METHOD 11/14/2024 11:35 AM [facility] Blood Venous blood specimen / Unknown 11/14/2024 5:16 AM EST 11/14/2024 11:35 AM EST us Carlos Allen MD LAB BLOOD ORDERABLES Final Resu lt [facility] [address] [place] [address], * (ABNORMAL) Complete blood count (11/14/2024 5:16 AM EST) [facility] WBC 4.3(L) 4.8 - 10.8 K/mcL LAB HEMETOLOGY METHOD 11/14/2024 12:07 PM [facility] RBC 3.60(L) 4.50 - 5.50 M/mcL LAB HEMETOLOGY METHOD 11/14/2024 12:07 PM [facility] Hemoglobin 11.4(L) 13.5 - 17.5 g/dL LAB HEMETOLOGY METHOD 11/14/2024 12:07 PM [facility] Hematocrit 35.9(L) 42.0 - 54.0 % LAB HEMETOLOGY METHOD 11/14/2024 12:07 PM [facility] MCV 100.8(H) 79.0 - 98.0 FL LAB HEMETOLOGY METHOD 11/14/2024 12:07 PM [facility] MCH 32.0 27.0 - 32.0 pcg LAB HEMETOLOGY METHOD 11/14/2024 12:07 PM [facility] MCHC 31.8(L) 32.0 - 37.0 g/dL LAB HEMETOLOGY METHOD 11/14/2024 12:07 PM EST [facility] RDW 13.5 11.0 - 15.0 % LAB HEMETOLOGY METHOD 11/14/2024 12:07 PM [facility] Platelets 108(L) 130 - 400 K/mcL LAB HEMETOLOGY METHOD 11/14/2024 12:07 PM [facility] MPV 11.7(H) 7.0 - 11.0 FL LAB HEMETOLOGY METHOD 11/14/2024 12:07 PM EST [facility] NRBC 0.0 <1.0 % LAB HEMETOLOGY METHOD 11/14/2024 12:07 PM [facility] NRBC Absolute 0.00 <0.10 K/mcL LAB HEMETOLOGY METHOD 11/14/2024 12:07 PM [facility] Blood Venous blood specimen / Unknown Venipuncture / Unknown 11/14/2024 5:16 AM EST 11/14/2024 12:07 PM EST us Carlos Allen MD LAB BLOOD ORDERABLES Final Resu lt [facility] [address] [place] [address], * (ABNORMAL) Basic metabolic panel (11/14/2024 5:16 AM EST) Sodium 142 133 - 145 mmol/L LAB CHEMISTRY METHOD 11/14/2024 12:37 PM EST [facility] Potassium 4.8 3.5 - 5.5 mmol/L LAB CHEMISTRY METHOD 11/14/2024 12:37 PM [facility] Chloride 106 96 - 110 mmol/L LAB CHEMISTRY METHOD 11/14/2024 12:37 PM [facility] CO2 32 21 - 32 mmol/L LAB CHEMISTRY METHOD 11/14/2024 12:37 PM [facility] Anion Gap 4 3 - 11 LAB CHEMISTRY METHOD 11/14/2024 12:37 PM [facility] Glucose 99 70 - 100 mg/dL LAB CHEMISTRY METHOD 11/14/2024 12:37 PM [facility] BUN 26(H) 5 - 25 mg/dL LAB CHEMISTRY METHOD 11/14/2024 12:37 PM [facility] Creatinine 1.04 0.70 - 1.30 mg/dL LAB CHEMISTRY METHOD 11/14/2024 12:37 PM [facility] eGFR 70 >=60 mL/min/1. 73m2 LAB CHEMISTRY METHOD 11/14/2024 12:37 PM [facility] Comment:Calculation based on the??Chronic Kidney Disease Epidemiology Collaboration (CKD-EPI) equation refit??without adjustment for race. BUN/Creatinine Ratio 25.0 LAB CHEMISTRY METHOD 11/14/2024 12:37 PM [facility] Calcium 8.4(L) 8.5 - 10.5 mg/dL LAB CHEMISTRY METHOD 11/14/2024 12:37 PM [facility] Blood Venous blood specimen / Unknown Venipuncture / Unknown 11/14/2024 5:16 AM EST 11/14/2024 11:21 AM EST us Carlos Allen MD LAB BLOOD ORDERABLES Final Resu lt [facility] [address] [place] [address], documented in this encounter Visit Diagnoses Diagnosis Acute on chronic diastolic (congestive) heart failure (CMS/HCC V24, CMS/HCC V28) Essential (primary) hypertension Unspecified essential hypertension documented in this encounter Care Teams Hearing Officer Relationship Specialty Start Date End Date Carlos Allen MD [address] [place] [address] PCP - General Internal Medicine 11/08/24 documented as of this encounter
--- OUTSIDE RECORDS SUMMARY | 2025-03-03 15:16 | XMS_ITS | Encounter Summary ---
Author Organization [facility] Address [address] [place] [address] Care Team Providers Care Instrument Tester Name Role Phone Carlos Allen MD Primary Care Provider [phone] Encounter Details Date Type Department Care Team (Late st Contact Info) Description 10/31/2024 Lab Requisition [facility] - Main Lab 299 [facility] [place] [address] Carlos Allen MD [address] [place] [phone] Acute on chronic diastolic (congestive) heart failure (CMS/HCC V24, CMS/HCC V28) Social History Tobacco Use Types Packs/Day Years [...] Diagnosis Comments PROTHROMBIN TIME WITH INR Routine 10/31/2024 5:26 AM EST Acute on chronic diastolic (congestive) heart failure ([facility]/HCC) COMPLETE BLOOD COUNT Routine 10/31/2024 5:26 AM EST Acute on chronic diastolic (congestive) heart failure (CMS/HCC) COMPREHENSIVE METABOLIC PANEL Routine 10/31/2024 5:26 AM EST Acute on chronic diastolic (congestive) heart failure (CMS/HCC) documented in this encounter Results * (ABNORMAL) Comprehensive metabolic panel (10/31/2024 5:26 AM EST) Sodium 140 133 - 145 mmol/L LAB CHEMISTRY METHOD 10/31/2024 11:05 AM [facility] Potassium 4.2 3.5 - 5.5 mmol/L LAB CHEMISTRY METHOD 10/31/2024 11:05 AM [facility] Chloride 103 96 - 110 mmol/L LAB CHEMISTRY METHOD 10/31/2024 11:05 AM [facility] CO2 34(H) 21 - 32 mmol/L LAB CHEMISTRY METHOD 10/31/2024 11:05 AM [facility] Anion Gap 3 3 - 11 LAB CHEMISTRY METHOD 10/31/2024 11:05 AM [facility] Glucose 96 70 - 100 mg/dL LAB CHEMISTRY METHOD 10/31/2024 11:05 AM [facility] BUN 37(H) 5 - 25 mg/dL LAB CHEMISTRY METHOD 10/31/2024 11:05 AM [facility] Creatinine 1.21 0.70 - 1.30 mg/dL LAB CHEMISTRY METHOD 10/31/2024 11:05 AM [facility] eGFR 58(L) >=60 mL/min/1. 73m2 LAB CHEMISTRY METHOD 10/31/2024 11:05 AM [facility] Comment:Calculation based on the??Chronic Kidney Disease Epidemiology Collaboration (CKD-EPI) equation refit??without adjustment for race. BUN/Creatinine Ratio 30.6 LAB CHEMISTRY METHOD 10/31/2024 11:05 AM [facility] Calcium 8.7 8.5 - 10.5 mg/dL LAB CHEMISTRY METHOD 10/31/2024 11:05 AM [facility] AST (SGOT) 29 10 - 42 unit/L LAB CHEMISTRY METHOD 10/31/2024 11:05 AM [facility] ALT (SGPT) 29 10 - 60 unit/L LAB CHEMISTRY METHOD 10/31/2024 11:05 AM [facility] Alkaline Phosphatase 70 42 - 121 unit/L LAB CHEMISTRY METHOD 10/31/2024 11:05 AM [facility] Total Protein 6.1 6.0 - 8.0 g/dL LAB CHEMISTRY METHOD 10/31/2024 11:05 AM [facility] Albumin 2.8(L) 3.2 - 5.0 g/dL LAB CHEMISTRY METHOD 10/31/2024 11:05 AM [facility] Total Bilirubin 0.5 0.0 - 1.4 mg/dL LAB CHEMISTRY METHOD 10/31/2024 11:05 AM [facility] Blood Venous blood specimen / Unknown Venipuncture / Unknown 10/31/2024 5:26 AM EST 10/31/2024 9:41 AM EST us Carlos Allen MD LAB BLOOD ORDERABLES Final Resu lt Performing Organization Address City/[facility]/ZIP Co de Phone Number [facility] [address] [place] [address], [place] [phone] * (ABNORMAL) Prothrombin time with INR (10/31/2024 5:26 AM EST) Protime 24.2(H) 10.6 - 13.9 sec LAB COAGULATION METHOD 10/31/2024 10:26 AM EST [facility] INR 1.9 LAB COAGULATION METHOD 10/31/2024 10:26 AM EST [facility] Blood Venous blood specimen / Unknown Venipuncture / Unknown 10/31/2024 5:26 AM EST 10/31/2024 9:41 AM EST us Carlos Allen MD LAB BLOOD ORDERABLES Final Resu lt [facility] [address] [place] [address], [place] [phone] * (ABNORMAL) Complete blood count (10/31/2024 5:26 AM EST) WBC 5.0 4.8 - 10.8 K/mcL LAB HEMETOLOGY METHOD 10/31/2024 10:27 AM [facility] RBC 4.00(L) 4.50 - 5.50 M/mcL LAB HEMETOLOGY METHOD 10/31/2024 10:27 AM [facility] Hemoglobin 13.2(L) 13.5 - 17.5 g/dL LAB HEMETOLOGY METHOD 10/31/2024 10:27 AM [facility] Hematocrit 40.4(L) 42.0 - 54.0 % LAB HEMETOLOGY METHOD 10/31/2024 10:27 AM [facility] MCV 100.0(H) 79.0 - 98.0 FL LAB HEMETOLOGY METHOD 10/31/2024 10:27 AM [facility] MCH 32.7(H) 27.0 - 32.0 pcg LAB HEMETOLOGY METHOD 10/31/2024 10:27 AM [facility] MCHC 32.7 32.0 - 37.0 g/dL LAB HEMETOLOGY METHOD 10/31/2024 10:27 AM [facility] RDW 13.2 11.0 - 15.0 % LAB HEMETOLOGY METHOD 10/31/2024 10:27 AM [facility] Platelets 110(L) 130 - 400 K/mcL LAB HEMETOLOGY METHOD 10/31/2024 10:27 AM [facility] MPV 11.7(H) 7.0 - 11.0 FL LAB HEMETOLOGY METHOD 10/31/2024 10:27 AM [facility] NRBC 0.0 <1.0 % LAB HEMETOLOGY METHOD 10/31/2024 10:27 AM [facility] NRBC Absolute 0.00 <0.10 K/mcL LAB HEMETOLOGY METHOD 10/31/2024 10:27 AM [facility] Blood Venous blood specimen / Unknown Venipuncture / Unknown 10/31/2024 5:26 AM EST 10/31/2024 9:41 AM EST Carlos Allen MD LAB BLOOD ORDERABLES Final Resu lt [facility] [address] [place] [address], documented in this encounter Visit Diagnoses Diagnosis Acute on chronic diastolic (congestive) heart failure (CMS/HCC V24, CMS/HCC V28) documented in this encounter Care Teams Instrument Tester Relationship Specialty Start Date End Date Carlos Allen MD [address] [place] [address] PCP - General Internal Medicine 11/08/24 documented as of this encounter
--- OUTSIDE RECORDS SUMMARY | 2025-03-03 15:16 | XMS_ITS | Encounter Summary ---
Author Organization [facility] Address [address] [place] [address] Care Team Providers Care Quality Control Microbiology Supervisor Name Role Phone Carlos Allen MD Primary Care Provider [phone] Encounter Details Date Type Department Care Team (Late st Contact Info) Description 11/08/2024 Lab Requisition [facility] - Main Lab [address] [facility] [place] [address] Carlos Allen MD [address] [place] [phone] Paroxysmal atrial fibrillation (CMS/HCC V24, CMS/HCC V28) Social History Tobacco [...] Diagnosis Comments PROTHROMBIN TIME WITH INR Routine 11/08/2024 8:57 AM EST Paroxysmal atrial fibrillation (CMS/HCC) documented in this encounter Results * (ABNORMAL) Prothrombin time with INR (11/08/2024 8:57 AM EST) Protime 32.2(H) 10.6 - 13.9 sec LAB COAGULATION METHOD 11/08/2024 10:40 AM EST [facility] INR 2.6 LAB COAGULATION METHOD 11/08/2024 10:40 AM EST [facility] Blood Venous blood specimen / Unknown Venipuncture / Unknown 11/08/2024 8:57 AM EST 11/08/2024 9:43 AM EST Carlos Allen MD LAB BLOOD ORDERABLES Final Resu lt [facility] [address] [place] [address], documented in this encounter Visit Diagnoses Diagnosis Paroxysmal atrial fibrillation (CMS/HCC V24, CMS/HCC V28) Atrial fibrillation documented in this encounter Care Teams Quality Control Microbiology Supervisor Relationship Specialty Start Date End Date Carlos Allen MD [address] [place] [address] PCP - General Internal Medicine 11/08/24 documented as of this encounter
--- OUTSIDE RECORDS SUMMARY | 2025-03-03 15:16 | XMS_ITS | Clinical Summary ---
Author Organization [address] [facility] Address [address] [place] [address] Phone Care Team Providers Care Clay Temperer Name Role Phone Carlos Allen MD Primary Care Provider [phone] Social History Tobacco Use Types Packs/Day Years Used Date Smoking Tobacco: Never Assessed Sex and Gender Information Value Date Recorded Sex Assigned at Not on file Legal Sex Male 5:55 AM EST Gender Identity Not on file Sexual Orientation Not on file Plan of Treatment Health Maintenance Due Date Last Done Comments DTaP,Tdap,and Td Vaccines (1 - Tdap) 1959 Pneumococcal Vaccine: 50+ Years (1 of 2 - PCV) 1957 Zoster Vaccines (1 of 2) 02/20/1988 RSV Immunization Adult Patients (1 - 1-dose 75+ series) 2013 Cholesterol Screening (Lipid Panel) 10/23/2022 Depression Screening 10/23/2022 Falls Risk Assessment 10/23/2022 Medicare Annual Wellness Visit 10/23/2022 Social Influencers of Health Screening 10/23/2022 COVID-19 Vaccine ( season) 2024 Influenza Vaccine (Season Ended) 2025 Hypertension/CHF/CAD Annual BMP Blood Test 11/18/2025 11/18/2024, 11/14/2024, 11/11/2024, Additional history exists HIB Vaccines Aged Out No longer eligi ble based on patient's age to complete this topic HPV Vaccines Aged Out No longer eligi ble based on patient's age to complete this topic Hepatitis A Vaccines Aged Out No long er eligible based on patient's age to complete this topic Hepatitis B Vaccines Aged Out No long er eligible based on patient's age to complete this topic IPV Vaccines Aged Out No longer eligi ble based on patient's age to complete this topic MMR Vaccines Aged Out No longer eligi ble based on patient's age to complete this topic Meningococcal ACWY Vaccine Aged Out N o longer eligible based on patient's age to complete this topic Meningococcal B Vaccine Aged Out No l onger eligible based on patient's age to complete this topic RSV Immunization Patients Under 20 months Aged Out No longer eligible based on patient's age to complete this topic Varicella Vaccines Aged Out No longer eligible based on patient's age to complete this topic Procedures Procedure Name Priority Date/Time Associated Diagnosis Comments COMPREHENSIVE METABOLIC PANEL Routine 11/18/2024 4:57 AM EST Essential (primary) hypertension Acute on chronic diastolic (congestive) heart failure (CMS/HCC) from Last 3 Months or Most Recently Relevant to Health Maintenance Results * (ABNORMAL) Comprehensive metabolic panel (11/18/2024 4:57 AM EST) Sodium 143 133 - 145 mmol/L LAB CHEMISTRY METHOD 11/18/2024 10:20 AM [facility] Potassium 4.5 3.5 - 5.5 mmol/L LAB CHEMISTRY METHOD 11/18/2024 10:20 AM [facility] Chloride 106 96 - 110 mmol/L LAB CHEMISTRY METHOD 11/18/2024 10:20 AM [facility] CO2 35(H) 21 - 32 mmol/L LAB CHEMISTRY METHOD 11/18/2024 10:20 AM [facility] Anion Gap 2(L) 3 - 11 LAB CHEMISTRY METHOD 11/18/2024 10:20 AM [facility] Glucose 90 70 - 100 mg/dL LAB CHEMISTRY METHOD 11/18/2024 10:20 AM [facility] BUN 29(H) 5 - 25 mg/dL LAB CHEMISTRY METHOD 11/18/2024 10:20 AM [facility] Creatinine 1.04 0.70 - 1.30 mg/dL LAB CHEMISTRY METHOD 11/18/2024 10:20 AM [facility] eGFR 70 >=60 mL/min/1. 73m2 LAB CHEMISTRY METHOD 11/18/2024 10:20 AM [facility] Comment:Calculation based on the??Chronic Kidney Disease Epidemiology Collaboration (CKD-EPI) equation refit??without adjustment for race. BUN/Creatinine Ratio 27.9 LAB CHEMISTRY METHOD 11/18/2024 10:20 AM [facility] Calcium 8.3(L) 8.5 - 10.5 mg/dL LAB CHEMISTRY METHOD 11/18/2024 10:20 AM [facility] AST (SGOT) 26 10 - 42 unit/L LAB CHEMISTRY METHOD 11/18/2024 10:20 AM [facility] ALT (SGPT) 22 10 - 60 unit/L LAB CHEMISTRY METHOD 11/18/2024 10:20 AM [facility] Alkaline Phosphatase 65 42 - 121 unit/L LAB CHEMISTRY METHOD 11/18/2024 10:20 AM [facility] Total Protein 5.6(L) 6.0 - 8.0 g/dL LAB CHEMISTRY METHOD 11/18/2024 10:20 AM [facility] Albumin 2.6(L) 3.2 - 5.0 g/dL LAB CHEMISTRY METHOD 11/18/2024 10:20 AM [facility] Total Bilirubin 0.4 0.0 - 1.4 mg/dL LAB CHEMISTRY METHOD 11/18/2024 10:20 AM [facility] Blood Venous blood specimen / Unknown Venipuncture / Unknown 11/18/2024 4:57 AM EST 11/18/2024 9:44 AM EST us Carlos Allen MD LAB BLOOD ORDERABLES Final Resu lt [facility] [address] [place] [address], from Last 3 Months or Most Recently Relevant to Health Maintenance Insurance MEDICARE [facility] Care Teams Clay Temperer Relationship Specialty Start Date End Date Carlos Allen MD [address] [place] [phone] PCP - General Internal Medicine 11/08/24
--- OUTSIDE RECORDS SUMMARY | 2025-03-03 15:16 | XMS_ITS | Encounter Summary ---
Author Organization [facility] Address [address] [place] [address] Care Team Providers Care Music Grapher Name Role Phone Carlos Allen MD Primary Care Provider Encounter Details Date Type Department Care Team (Late st Contact Info) Description 11/19/2024 Lab Requisition [facility] - Main Lab [address] [facility] [address] [place] [address] Carlos Allen MD [address] [place] [address] Acute on chronic diastolic (congestive) heart [...] on file documented as of this encounter Visit Diagnoses Diagnosis Acute on chronic diastolic (congestive) heart failure (CMS/HCC V24, CMS/HCC V28) Essential (primary) hypertension Unspecified essential hypertension documented in this encounter Care Teams Music Grapher Relationship Specialty Start Date End Date Carlos Allen MD [address] [facility] [place] [address] PCP - General Internal Medicine 11/08/24 documented as of this encounter
--- OUTSIDE RECORDS SUMMARY | 2025-03-03 15:16 | XMS_ITS | Encounter Summary ---
Author Organization [employer] Address [address] [place] [address] Care Team Providers Care Wire Welder Name Role Phone Carlos Allen MD Primary Care Provider [phone] Encounter Details Date Type Department Care Team (Latest Contact Info) Description 09/23/2024 Lab Requisition [facility] - Main Lab [address] [place] [address] aMrgarito Kuhn MD [address] [place] [id number] Unspecified atrioventricular block Social History Tobacco Use Types Packs/Day Years [...] Procedure Name Priority Date/Time Associated Diagnosis Comments CBC WITH AUTO DIFFERENTIAL Routine 09/23/2024 4:40 AM EST Unspecified atrioventricular block CBC AND DIFFERENTIAL Routine 09/23/2024 4:40 AM EST Unspecified atrioventricular block BASIC METABOLIC PANEL Routine 09/23/2024 4:40 AM EST Unspecified atrioventricular block documented in this encounter Results * (ABNORMAL) CBC auto differential (09/23/2024 4:40 AM EST) WBC 3.7(L) 4.8 - 10.8 K/[facility] LAB HEMETOLOGY METHOD 09/23/2024 11:37 AM EST [facility] LAB RBC 3.40(L) 4.50 - 5.50 M/[facility] LAB HEMETOLOGY METHOD 09/23/2024 11:37 AM [facility] LAB Hemoglobin 11.5(L) 13.5 - 17.5 g/dL LAB HEMETOLOGY METHOD 09/23/2024 11:37 AM [facility] LAB Hematocrit 35.5(L) 42.0 - 54.0 % LAB HEMETOLOGY METHOD 09/23/2024 11:37 AM [facility] LAB MCV 104.1(H) 79.0 - 98.0 FL LAB HEMETOLOGY METHOD 09/23/2024 11:37 AM [facility] LAB MCH 33.7(H) 27.0 - 32.0 pcg LAB HEMETOLOGY METHOD 09/23/2024 11:37 AM [facility] LAB MCHC 32.4 32.0 - 37.0 g/dL LAB HEMETOLOGY METHOD 09/23/2024 11:37 AM [facility] LAB RDW 13.2 11.0 - 15.0 % LAB HEMETOLOGY METHOD 09/23/2024 11:37 AM [facility] LAB Platelets 96(L) 130 - 400 K/mcL LAB HEMETOLOGY METHOD 09/23/2024 11:37 AM [facility] LAB Comment:previously verified by slide MPV 11.8(H) 7.0 - 11.0 FL LAB HEMETOLOGY METHOD 09/23/2024 11:37 AM [facility] LAB NRBC 0.0 <1.0 % LAB HEMETOLOGY METHOD 09/23/2024 11:37 AM [facility] LAB NRBC Absolute 0.00 <0.10 K/mcL LAB HEMETOLOGY METHOD 09/23/2024 11:37 AM [facility] LAB Neutrophils Relative 65.8 % LAB HEMETOLOGY METHOD 09/23/2024 11:37 AM [facility] LAB Lymphocytes Relative 19.6 % LAB HEMETOLOGY METHOD 09/23/2024 11:37 AM EST [facility] LAB Monocytes Relative 11.5 % LAB HEMETOLOGY METHOD 09/23/2024 11:37 AM [facility] LAB Eosinophils Relative 2.1 % LAB HEMETOLOGY METHOD 09/23/2024 11:37 AM [facility] LAB Basophils Relative 0.5 % LAB HEMETOLOGY METHOD 09/23/2024 11:37 AM [facility] LAB Immature Granulocytes Relative 0.5 % LAB HEMETOLOGY METHOD 09/23/2024 11:37 AM [facility] LAB Neutrophils Absolute 2.45 1.50 - 7.00 K/mcL LAB HEMETOLOGY METHOD 09/23/2024 11:37 AM [facility] LAB Lymphocytes Absolute 0.73(L) 1.00 - 5.00 K/mcL LAB HEMETOLOGY METHOD 09/23/2024 11:37 AM [facility] LAB Monocytes Absolute 0.43 0.20 - 1.00 K/mcL LAB HEMETOLOGY METHOD 09/23/2024 11:37 AM [facility] LAB Eosinophils Absolute 0.08 0.00 - 0.50 K/mcL LAB HEMETOLOGY METHOD 09/23/2024 11:37 AM [facility] LAB Basophils Absolute 0.02 0.00 - 0.20 K/mcL LAB HEMETOLOGY METHOD 09/23/2024 11:37 AM [facility] LAB Immature Granulocytes Absolute 0.02 0.00 - 0.03 K/mcL LAB HEMETOLOGY METHOD 09/23/2024 11:37 AM [facility] LAB Blood Venous blood specimen / Unknown Venipuncture / Unknown 09/23/2024 4:40 AM EST 09/23/2024 10:40 AM EST us Margarito Kuhn MD LAB BLOOD ORDERABLES Final Resu lt [facility] LAB [address] [place] [address], [place] [phone] * Basic metabolic panel (09/23/2024 4:40 AM EST) Sodium 141 133 - 145 mmol/L LAB CHEMISTRY METHOD 09/23/2024 11:38 AM [facility] LAB Potassium 4.1 3.5 - 5.5 mmol/L LAB CHEMISTRY METHOD 09/23/2024 11:38 AM [facility] LAB Chloride 106 96 - 110 mmol/L LAB CHEMISTRY METHOD 09/23/2024 11:38 AM [facility] LAB CO2 29 21 - 32 mmol/L LAB CHEMISTRY METHOD 09/23/2024 11:38 AM [facility] LAB Anion Gap 6 3 - 11 LAB CHEMISTRY METHOD 09/23/2024 11:38 AM [facility] LAB Glucose 79 70 - 100 mg/dL LAB CHEMISTRY METHOD 09/23/2024 11:38 AM [facility] LAB BUN 25 5 - 25 mg/dL LAB CHEMISTRY METHOD 09/23/2024 11:38 AM [facility] LAB Creatinine 0.85 0.70 - 1.30 mg/dL LAB CHEMISTRY METHOD 09/23/2024 11:38 AM [facility] LAB eGFR 85 >=60 mL/min/1. 73m2 LAB CHEMISTRY METHOD 09/23/2024 11:38 AM [facility] LAB Comment:Calculation based on the??Chronic Kidney Disease Epidemiology Collaboration (CKD-EPI) equation refit??without adjustment for race. BUN/Creatinine Ratio 29.4 LAB CHEMISTRY METHOD 09/23/2024 11:38 AM [facility] LAB Calcium 8.7 8.5 - 10.5 mg/dL LAB CHEMISTRY METHOD 09/23/2024 11:38 AM [facility] LAB Blood Venous blood specimen / Unknown Venipuncture / Unknown 09/23/2024 4:40 AM EST 09/23/2024 10:40 AM EST us Margarito Kuhn MD LAB BLOOD ORDERABLES Final Resu lt [facility] ([facility]) [facility] LAB [address] [place] [address], documented in this encounter Visit Diagnoses Diagnosis Unspecified atrioventricular block documented in this encounter Care Teams Wire Welder Relationship Specialty Start Date End Date Carlos Allen MD [address] [place] [address] PCP - General Internal Medicine 11/08/24 documented as of this encounter
--- OUTSIDE RECORDS SUMMARY | 2025-03-03 15:16 | XMS_ITS | Encounter Summary ---
Author Organization [employer] Address [address] [place] [address] Care Team Providers Care Master Plumber Name Role Phone Carlos Allen MD Primary Care Provider [phone] Encounter Details Date Type Department Care Team (Late st Contact Info) Description 11/15/2024 Lab Requisition [facility] - Main Lab [address] [facility] [place] [address] Cralos Allen MD [address] [place] [phone] Essential (primary) hypertension; Acute on chronic diastolic (congestive) heart failure [...] Diagnosis Comments PROTHROMBIN TIME WITH INR Routine 11/18/2024 4:57 AM EST Essential (primary) hypertension Acute on chronic diastolic (congestive) heart failure (CMS/HCC) COMPLETE BLOOD COUNT Routine 11/18/2024 4:57 AM EST Essential (primary) hypertension Acute on chronic diastolic (congestive) heart failure (CMS/HCC) COMPREHENSIVE METABOLIC PANEL Routine 11/18/2024 4:57 AM EST Essential (primary) hypertension Acute on chronic diastolic (congestive) heart failure (CMS/HCC) documented in this encounter Results * (ABNORMAL) Prothrombin time with INR (11/18/2024 4:57 AM EST) Protime 32.4(H) 10.6 - 13.9 sec LAB COAGULATION METHOD 11/18/2024 10:17 AM EST [facility] LAB INR 2.6 LAB COAGULATION METHOD 11/18/2024 10:17 AM [facility] LAB Blood Venous blood specimen / Unknown Venipuncture / Unknown 11/18/2024 4:57 AM EST 11/18/2024 9:46 AM EST us Carlos Allen MD LAB BLOOD ORDERABLES Final Resu lt [facility] LAB [address] [place] [address], [place] [phone] * (ABNORMAL) Comprehensive metabolic panel (11/18/2024 4:57 AM EST) [facility] Sodium 143 133 - 145 mmol/L LAB CHEMISTRY METHOD 11/18/2024 10:20 AM [facility] LAB Potassium 4.5 3.5 - 5.5 mmol/L LAB CHEMISTRY METHOD 11/18/2024 10:20 AM [facility] LAB Chloride 106 96 - 110 mmol/L LAB CHEMISTRY METHOD 11/18/2024 10:20 AM [facility] LAB CO2 35(H) 21 - 32 mmol/L LAB CHEMISTRY METHOD 11/18/2024 10:20 AM [facility] LAB Anion Gap 2(L) 3 - 11 LAB CHEMISTRY METHOD 11/18/2024 10:20 AM [facility] LAB Glucose 90 70 - 100 mg/dL LAB CHEMISTRY METHOD 11/18/2024 10:20 AM [facility] LAB BUN 29(H) 5 - 25 mg/dL LAB CHEMISTRY METHOD 11/18/2024 10:20 AM [facility] LAB Creatinine 1.04 0.70 - 1.30 mg/dL LAB CHEMISTRY METHOD 11/18/2024 10:20 AM [facility] LAB eGFR 70 >=60 mL/min/1. 73m2 LAB CHEMISTRY METHOD 11/18/2024 10:20 AM [facility] LAB Comment:Calculation based on the??Chronic Kidney Disease Epidemiology Collaboration (CKD-EPI) equation refit??without adjustment for race. BUN/Creatinine Ratio 27.9 LAB CHEMISTRY METHOD 11/18/2024 10:20 AM [facility] LAB Calcium 8.3(L) 8.5 - 10.5 mg/dL LAB CHEMISTRY METHOD 11/18/2024 10:20 AM [facility] LAB AST (SGOT) 26 10 - 42 unit/L LAB CHEMISTRY METHOD 11/18/2024 10:20 AM [facility] LAB ALT (SGPT) 22 10 - 60 unit/L LAB CHEMISTRY METHOD 11/18/2024 10:20 AM [facility] LAB Alkaline Phosphatase 65 42 - 121 unit/L LAB CHEMISTRY METHOD 11/18/2024 10:20 AM [facility] LAB Total Protein 5.6(L) 6.0 - 8.0 g/dL LAB CHEMISTRY METHOD 11/18/2024 10:20 AM [facility] LAB Albumin 2.6(L) 3.2 - 5.0 g/dL LAB CHEMISTRY METHOD 11/18/2024 10:20 AM [facility] LAB Total Bilirubin 0.4 0.0 - 1.4 mg/dL LAB CHEMISTRY METHOD 11/18/2024 10:20 AM [facility] LAB Blood Venous blood specimen / Unknown Venipuncture / Unknown 11/18/2024 4:57 AM EST 11/18/2024 9:44 AM EST us Carlos Allen MD LAB BLOOD ORDERABLES Final Resu lt [facility] LAB [address] [place] [address], [place] [phone] * (ABNORMAL) Complete blood count (11/18/2024 4:57 AM EST) [facility] WBC 4.0(L) 4.8 - 10.8 K/mcL LAB HEMETOLOGY METHOD 11/18/2024 11:25 AM [facility] LAB RBC 3.60(L) 4.50 - 5.50 M/mcL LAB HEMETOLOGY METHOD 11/18/2024 11:25 AM [facility] LAB Hemoglobin 11.6(L) 13.5 - 17.5 g/dL LAB HEMETOLOGY METHOD 11/18/2024 11:25 AM [facility] LAB Hematocrit 36.6(L) 42.0 - 54.0 % LAB HEMETOLOGY METHOD 11/18/2024 11:25 AM [facility] LAB MCV 100.5(H) 79.0 - 98.0 FL LAB HEMETOLOGY METHOD 11/18/2024 11:25 AM [facility] LAB MCH 31.9 27.0 - 32.0 pcg LAB HEMETOLOGY METHOD 11/18/2024 11:25 AM [facility] LAB MCHC 31.7(L) 32.0 - 37.0 g/dL LAB HEMETOLOGY METHOD 11/18/2024 11:25 AM [facility] LAB RDW 13.9 11.0 - 15.0 % LAB HEMETOLOGY METHOD 11/18/2024 11:25 AM [facility] LAB Platelets 96(L) 130 - 400 K/mcL LAB HEMETOLOGY METHOD 11/18/2024 11:25 AM [facility] LAB Comment:reviewed by slide MPV 12.0(H) 7.0 - 11.0 FL LAB HEMETOLOGY METHOD 11/18/2024 11:25 AM [facility] LAB NRBC 0.0 <1.0 % LAB HEMETOLOGY METHOD 11/18/2024 11:25 AM [facility] LAB NRBC Absolute 0.00 <0.10 K/mcL LAB HEMETOLOGY METHOD 11/18/2024 11:25 AM EST [facility] LAB Blood Venous blood specimen / Unknown Venipuncture / Unknown 11/18/2024 4:57 AM EST 11/18/2024 9:45 AM EST Carlos Allen MD LAB BLOOD ORDERABLES Final Resu lt [facility] LAB [address] [place] [address], documented in this encounter Visit Diagnoses Diagnosis Essential (primary) hypertension Unspecified essential hypertension Acute on chronic diastolic (congestive) heart failure (CMS/HCC V24, CMS/HCC V28) documented in this encounter Care Teams Master Plumber Relationship Specialty Start Date End Date Carlos Allen MD [address] [place] [phone] PCP - General Internal Medicine 11/08/24 documented as of this encounter
--- OUTSIDE RECORDS SUMMARY | 2025-03-03 15:16 | XMS_ITS | Clinical Summary ---
Author Organization Unknown Care Team Providers Care Director Cardiac Name Role Phone JACKSON PALOMO, CANDACE Unavailable Unavailable SAMANTHA TUBE FILLER, ALTAGRACIA Unavailable Unavailable JAYANT PT, MARINA Unavailable Unavailable SPAFFORD OT, ABELARDO Unavailable Unavailable CONDINO KIANA/OLGUIN, ANASTACIA Unavailable Unav kevinable JUAN J STONE, KALYANI Unavailable Unavailab javier KANG LPN, TIA Unavailable Unavailable Payers Payer Name Policy Type Policy Number Effective Date Expira tion Date MEDICARE.NGS.PDGM [id number] Problems Condition Name Condition Details Condition Category Status Onset Date Resolution Date Last Treatment Date Treating Clinician Comments 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 Active 11-21 00:00: 00 PAROXYSMAL ATRIAL FIBRILLATION Active 11-21 00:00: 00 CHRONIC OBSTRUCTIVE PULMONARY DISEASE, UNSPECIFIED Active 11-21 00:00: 00 ACUTE RESPIRATORY FAILURE WITH HYPOXIA Active 11-21 00:00: 00 ACUTE RESPIRATORY FAILURE WITH HYPERCAPNIA Active 11-21 00:00: 00 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 11-21 00:00: 00 NONSPECIFIC INTRAVENTRIC ULAR BLOCK Active 11-21 00:00: 00 UNSP DEMENTIA, UNSP SEVERITY, WITHOUT BEH/PSYCH/MO OD/ANX Active 11-21 00:00: 00 BENIGN PROSTATIC HYPERPLASIA WITHOUT LOWER URINRY TRACT SYMP Active 11-21 00:00: 00 UNSPECIFIED GLAUCOMA Active 11-21 00:00: 00 GASTRO-ESOPH AGEAL REFLUX DISEASE WITHOUT ESOPHAGITIS Active 11-21 00:00: 00 HYPERLIPIDEM IA, UNSPECIFIED Active 11-21 00:00: 00 PATIENT SAFETY MANAGER (CURRENT) USE OF ANTICOAGULAN TS Active 11-21 [...] % topical gel 2023-11 00:00: 00 Yes [id number] ARTHRITIS Per instruc tions 3 TIMES DAILY Per instructio ns 3 TIMES DAILY (route: topical) Med Classific ation: Dermatolo gical finasteride 5 mg tablet 2023-11 00:00: 00 Yes [id number] BPH 1 tablet AT BEDTIME 1 tablet AT BEDTIME (route: oral) Med Classific ation: Genitouri nary Therapy atorvastati n 40 mg tablet 2023-11 00:00: 00 Yes [id number] CHOLESTEROL 1 tablet DAILY 1 tablet DAILY (route: oral) Med Classific ation: Cardiovas cular Therapy Agents calcium magnesium zinc 15mcg-1000m g-40 2023-11 00:00: 00 Yes [id number] SUPPLEMENT 3 tablet DAILY 3 tablet DAILY (route: BY MOUTH) Med Classific ation: MISCELLAN EOUS HERBS AND SUPPLEMEN TS Co Q-10 100 mg capsule 2023-11 00:00: 00 Yes [id number] SUPPLEMENT 1 capsule DAILY 1 capsule DAILY (route: oral) Med Classific ation: Alternati ve Therapy famotidine 40 mg tablet 2023-11 00:00: 00 Yes [id number] GERD 1 tablet DAILY 1 tablet DAILY (route: oral) Med Classific ation: Gastroint estinal Therapy Agents furosemide 20 mg tablet 2023-11 00:00: 00 12-05 23:59 :00 No [id number] CHF 2 tablet DAILY 2 tablet DAILY (route: oral) Med Classific ation: Cardiovas cular Therapy Agents latanoprost 0.005 % eye drops 2023-11 00:00: 00 Yes [id number] GLAUCOMA 1 drops DAILY 1 drops DAILY (route: ophthalmic (eye)) Med Classific ation: Ophthalmi c Agents multivitami n with minerals tablet 2023-11 00:00: 00 Yes [id number] SUPPLEMENT 1 tablet DAILY 1 tablet DAILY (route: oral) Med Classific ation: Electroly te Balance-N utritiona l Products terazosin 5 mg capsule 2023-11 00:00: 00 Yes [id number] HTN 1 capsule DAILY 1 capsule DAILY (route: oral) Med Classific ation: Cardiovas cular Therapy Agents Senna Lax 8.6 mg tablet 2023-11 00:00: 00 Yes [id number] CONSTIPATIO N 1 tablet DAILY 1 tablet DAILY (route: oral) Med Classific ation: Gastroint estinal Therapy Agents clopidogrel 75 mg tablet 2023-11 00:00: 00 11-20 23:59 :00 No [id number] hld 1 tablet DAILY 1 tablet DAILY (route: oral) Med Classific ation: Hematolog ical Agents acetaminoph en 325 mg tablet 11-21 00:00: 00 Yes [id number] PAIN 2 tablet 4 TIMES DAILY 2 tablet 4 TIMES DAILY (route: oral) Med Classific ation: Analgesic , Anti-infl ammatory or Antipyret ic oxygen gas for inhalation 11-21 00:00: 00 Yes [id number] SUPPLEMENT 1 Liter BEDTIME 1 Liter BEDTIME (route: inhalation ) Med Classific ation: Medical Supplies and Durable Medical Equipment (DME) warfarin 6 mg tablet 11-21 00:00: 00 Yes [id number] PREVENT CLOTS 1 tablet DAILY 1 tablet DAILY (route: oral) Med Classific ation: Hematolog ical Agents furosemide 20 mg tablet 12-05 00:00: 00 12-19 23:59 :00 No [id number] CONGESTIVE HEART FAILURE 1 tablet DAILY 1 tablet DAILY (route: oral) Med Classific ation: Cardiovas cular Therapy Agents furosemide 20 mg tablet 12-05 00:00: 00 12-08 23:59 :00 No [id number] CONGESTIVE HEART FAILURE 1 tablet DAILY 1 tablet DAILY (route: oral) Med Classific ation: Cardiovas cular Therapy Agents furosemide 40 mg tablet 12-19 00:00: 00 Yes [id number] HEART FAILURE 1 tablet DAILY 1 tablet DAILY (route: oral) Med Classific ation: Cardiovas cular Therapy Agents warfarin 6 mg tablet 2-06 00:00: 00 01-01 23:59 :00 No [id number] AFIB 6 mg DAILY 6 mg DAILY (route: oral) Med Classific ation: Hematolog ical Agents warfarin 6 mg tablet 2-13 00:00: 00 01-16 23:59 :00 No [id number] AFIB 6 mg DAILY 6 mg DAILY (route: oral) Med Classific ation: Hematolog ical Agents Vital Signs Vital Name Observation Time Observation Value Commen ts Temperature 2025-02-25 12:35:00.000 97 [degF] Temperature 2025-02-11 13:58:00.000 97.4 [degF] Temperature 2025-02-04 10:24:00.000 97.7 [degF] Temperature 2025-01-28 12:45:00.000 98 [degF] Temperature 2025-01-23 11:01:00.000 97.2 [degF] Pulse 2025-02-25 12:35:00.000 62 /min Pulse 2025-02-11 13:58:00.000 73 /min Pulse 2025-02-04 10:24:00.000 70 /min Pulse 2025-01-28 12:45:00.000 65 /min Pulse 2025-01-23 11:01:00.000 68 /min O2 Saturation (%) 2025-02-25 12:35:00.000 94 % O2 Saturation (%) 2025-02-11 13:58:00.000 93 % O2 Saturation (%) 2025-02-04 10:24:00.000 98 % O2 Saturation (%) 2025-01-23 11:01:00.000 91 % Respirations 2025-02-25 12:35:00.000 16 /min Respirations 2025-02-11 13:58:00.000 18 /min Respirations 2025-02-04 10:24:00.000 18 /min Respirations 2025-01-28 12:45:00.000 17 /min Respirations 2025-01-23 11:01:00.000 18 /min Weight (lbs) 2025-02-25 12:35:00.000 178.2 [lb_av] Weight (lbs) 2025-02-11 13:58:00.000 182 [lb_av] Weight (lbs) 2025-02-04 10:24:00.000 183 [lb_av] Weight (lbs) 2025-01-28 12:52:00.000 177.8 [lb_av] Weight (lbs) 2025-01-23 11:01:00.000 177.9 [lb_av] Systolic Blood Pressure 2025-02-25 12:35:00.000 120 mm [Hg] Systolic Blood Pressure 2025-02-11 13:58:00.000 124 mm [Hg] Systolic Blood Pressure 2025-02-04 10:24:00.000 118 mm [Hg] Systolic Blood Pressure 2025-01-28 12:45:00.000 124 mm [Hg] Systolic Blood Pressure 2025-01-23 11:01:00.000 120 mm [Hg] Diastolic Blood Pressure 2025-02-25 12:35:00.000 80 mm [Hg] Diastolic Blood Pressure 2025-02-11 13:58:00.000 60 mm [Hg] Diastolic Blood Pressure 2025-02-04 10:24:00.000 60 mm [Hg] Diastolic Blood Pressure 2025-01-28 12:45:00.000 66 mm [Hg] Diastolic Blood Pressure 2025-01-23 11:01:00.000 60 mm [Hg] Plan of Treatment Planned Activity Planned Date Details Comments Future Scheduled Test RN TO OBSE RVE, ASSESS, EVALUATE, AND DEVELOP AN INDIVIDUALIZED PLAN OF CARE. AGENCY MAY ACCEPT ORDERS FROM CONSULTING PHYSICIANS. RN TO OBSERVE AND ASSESS, DRIER AND GRINDER TENDER/SHARPLES MACHINE OPERATOR TO OBSERVE FOR RISK FOR FALLS AND INSTRUCT IN FALL PREVENTION, HOME SAFETY, MEDICATION MANAGEMENT, INFECTION PREVENTION, AND NUTRITION MANAGEMENT. RN/DRIER AND GRINDER TENDER/SHARPLES MACHINE OPERATOR NURSE MAY PERFORM O2 SATURATION LEVEL ON ADMISSION AND PRN FOR RN TO ASSESS/DRIER AND GRINDER TENDER TO OBSERVE PATIENT, WITH NOTIFICATION TO THE PHYSICIAN IF SATURATION IS 90% IN THE ABSENCE OF MORE SPECIFIC PARAMETERS FROM THE PHYSICIAN. AGENCY MAY PERFORM A RESUMPTION OF CARE VISIT FOLLOWING ANY HOSPITAL ADMISSION. RN/DRIER AND GRINDER TENDER/SHARPLES MACHINE OPERATOR TO MONITOR CO-MORBID CONDITIONS LISTED ON THE PLAN OF CARE AND ANY NEW CONDITIONS THAT PRESENT THEMSELVES DURING THIS EPISODE TO IDENTIFY CHANGES AND INTERVENE TO MINIMIZE COMPLICATIONS. [code = RN TO OBSERVE, ASSESS, EVALUATE, AND DEVELOP AN INDIVIDUALIZED PLAN OF CARE. AGENCY MAY ACCEPT ORDERS FROM CONSULTING PHYSICIANS. RN TO OBSERVE AND ASSESS, DRIER AND GRINDER TENDER/SHARPLES MACHINE OPERATOR TO OBSERVE FOR RISK FOR FALLS AND INSTRUCT IN FALL PREVENTION, HOME SAFETY, MEDICATION MANAGEMENT, INFECTION PREVENTION, AND NUTRITION MANAGEMENT. RN/DRIER AND GRINDER TENDER/SHARPLES MACHINE OPERATOR NURSE MAY PERFORM O2 SATURATION LEVEL ON ADMISSION AND PRN FOR RN TO ASSESS/DRIER AND GRINDER TENDER TO OBSERVE PATIENT, WITH NOTIFICATION TO THE PHYSICIAN IF SATURATION IS 90% IN THE ABSENCE OF MORE SPECIFIC PARAMETERS FROM THE PHYSICIAN. AGENCY MAY PERFORM A RESUMPTION OF CARE VISIT FOLLOWING ANY HOSPITAL ADMISSION. RN/DRIER AND GRINDER TENDER/SHARPLES MACHINE OPERATOR TO MONITOR CO-MORBID CONDITIONS LISTED ON THE PLAN OF CARE AND ANY NEW CONDITIONS THAT PRESENT THEMSELVES DURING THIS EPISODE TO IDENTIFY CHANGES AND INTERVENE TO MINIMIZE COMPLICATIONS.] Future Scheduled Test MEDICATION MANAGEMENT; RN/DRIER AND GRINDER TENDER/SHARPLES MACHINE OPERATOR TO REVIEW MEDICATIONS FOR INTERACTIONS, EFFECTIVENESS OF DRUG THERAPY, AND SIGNS/SYMPTOMS OF ADVERSE REACTIONS. MAY INSTRUCT AND REINFORCE MEDICATION TEACHING RELATED TO THE USE OF MEDICATIONS, DOSAGE, FREQUENCY, PURPOSE, SIDE EFFECTS, AND TO REPORT COMPLICATIONS. [code = MEDICATION MANAGEMENT; RN/DRIER AND GRINDER TENDER/SHARPLES MACHINE OPERATOR TO REVIEW MEDICATIONS FOR INTERACTIONS, EFFECTIVENESS OF DRUG THERAPY, AND SIGNS/SYMPTOMS OF ADVERSE REACTIONS. MAY INSTRUCT AND REINFORCE MEDICATION TEACHING RELATED TO THE USE OF MEDICATIONS, DOSAGE, FREQUENCY, PURPOSE, SIDE EFFECTS, AND TO REPORT COMPLICATIONS.] Future Scheduled Test RISK FOR H OSPITALIZATION; RN TO ASSESS/TEACH, SHARPLES MACHINE OPERATOR/DRIER AND GRINDER TENDER TO OBSERVE/TEACH PATIENT/CAREGIVER ON RISK FOR HOSPITALIZATION/EMERGENCY ROOM VISITS, TEACH SIGNS AND SYMPTOMS THAT PUT PATIENT AT RISK, WHEN TO NOTIFY NURSE/PHYSICIAN OF COMPLICATIONS/DECLINE, AND WHEN TO CALL 911. [code = RISK FOR HOSPITALIZATION; RN TO ASSESS/TEACH, SHARPLES MACHINE OPERATOR/DRIER AND GRINDER TENDER TO OBSERVE/TEACH PATIENT/CAREGIVER ON RISK FOR HOSPITALIZATION/EMERGENCY ROOM VISITS, TEACH SIGNS AND SYMPTOMS THAT PUT PATIENT AT RISK, WHEN TO NOTIFY NURSE/PHYSICIAN OF COMPLICATIONS/DECLINE, AND WHEN TO CALL 911.] Future Scheduled Test CARDIOVASC ULAR SYSTEM; RN TO ASSESS/TEACH, DRIER AND GRINDER TENDER/SHARPLES MACHINE OPERATOR TO OBSERVE/TEACH RELATED TO ALTERED CARDIOVASCULAR STATUS TO MINIMIZE COMPLICATIONS AND REDUCE HOSPITALIZATION. [code = CARDIOVASCULAR SYSTEM; RN TO ASSESS/TEACH, DRIER AND GRINDER TENDER/SHARPLES MACHINE OPERATOR TO OBSERVE/TEACH RELATED TO ALTERED CARDIOVASCULAR STATUS TO MINIMIZE COMPLICATIONS AND REDUCE HOSPITALIZATION.] Future Scheduled Test HEART FAIL URE; RN TO ASSESS/TEACH, DRIER AND GRINDER TENDER/SHARPLES MACHINE OPERATOR TO OBSERVE/TEACH CARDIOPULMONARY SYSTEM TO IDENTIFY SIGNS [...] MEASURE ABDOMINAL GIRTH IF UNABLE TO WEIGH. [code = HEART FAILURE; RN TO ASSESS/TEACH, DRIER AND GRINDER TENDER/SHARPLES MACHINE OPERATOR TO OBSERVE/TEACH CARDIOPULMONARY SYSTEM TO IDENTIFY SIGNS [...] MEASURE ABDOMINAL GIRTH IF UNABLE TO WEIGH. ] Future Scheduled Test PT/INR MON ITORING; RN/ DRIER AND GRINDER TENDER/SHARPLES MACHINE OPERATOR TO PERFORM PT/INR VIA VENIPUNCTURE OR COAGUCHECK PER DR PAZ SCHEDULE [code = PT/INR MONITORING; RN/ DRIER AND GRINDER TENDER/SHARPLES MACHINE OPERATOR TO PERFORM PT/INR VIA VENIPUNCTURE OR COAGUCHECK PER DR PAZ SCHEDULE] Future Scheduled Test RESPIRATOR Y SYSTEM MANAGEMENT; RN TO ASSESS AND TEACH, DRIER AND GRINDER TENDER/SHARPLES MACHINE OPERATOR TO OBSERVE AND TEACH RELATED TO ALTERED RESPIRATORY STATUS TO MINIMIZE COMPLICATIONS AND REDUCE HOSPITALIZATION. [code = RESPIRATORY SYSTEM MANAGEMENT; RN TO ASSESS AND TEACH, DRIER AND GRINDER TENDER/SHARPLES MACHINE OPERATOR TO OBSERVE AND TEACH RELATED TO ALTERED RESPIRATORY STATUS TO MINIMIZE COMPLICATIONS AND REDUCE HOSPITALIZATION.] Future Scheduled Test COPD MANAG EMENT; RN TO ASSESS AND TEACH, DRIER AND GRINDER TENDER/SHARPLES MACHINE OPERATOR TO OBSERVE AND TEACH SIGNS/SYMPTOMS OF COPD EXACERBATION AND PROVIDE EARLY INTERVENTIONS TO MINIMIZE RISK OF HOSPITALIZATION. RN/DRIER AND GRINDER TENDER/SHARPLES MACHINE OPERATOR TO INSTRUCT ON SELF-CARE MANAGEMENT INCLUDING BREATHING TECHNIQUES, AIRWAY CLEARANCE, AND PROPER USE OF COPD MEDICATIONS. RN TO ASSESS AND TEACH, DRIER AND GRINDER TENDER/SHARPLES MACHINE OPERATOR TO OBSERVE AND TEACH PATIENT/CAREGIVER ABILITY TO MONITOR AND RECORD VITAL SIGNS INCLUDING PULSE OXIMETRY AND BLOOD PRESSURE. [code = COPD MANAGEMENT; RN TO ASSESS AND TEACH, DRIER AND GRINDER TENDER/SHARPLES MACHINE OPERATOR TO OBSERVE AND TEACH SIGNS/SYMPTOMS OF COPD EXACERBATION AND PROVIDE EARLY INTERVENTIONS TO MINIMIZE RISK OF HOSPITALIZATION. RN/DRIER AND GRINDER TENDER/SHARPLES MACHINE OPERATOR TO INSTRUCT ON SELF-CARE MANAGEMENT INCLUDING BREATHING TECHNIQUES, AIRWAY CLEARANCE, AND PROPER USE OF COPD MEDICATIONS. RN TO ASSESS AND TEACH, DRIER AND GRINDER TENDER/SHARPLES MACHINE OPERATOR TO OBSERVE AND TEACH PATIENT/CAREGIVER ABILITY TO MONITOR AND RECORD VITAL SIGNS INCLUDING PULSE OXIMETRY AND BLOOD PRESSURE. ] Future Scheduled Test ARRHYTHMIA MANAGEMENT; RN TO ASSESS AND TEACH, DRIER AND GRINDER TENDER/SHARPLES MACHINE OPERATOR TO OBSERVE AND TEACH WARNING SIGNS AND SYMPTOMS TO AVOID HOSPITALIZATION. [code = ARRHYTHMIA MANAGEMENT; RN TO ASSESS AND TEACH, DRIER AND GRINDER TENDER/SHARPLES MACHINE OPERATOR TO OBSERVE AND TEACH WARNING SIGNS AND SYMPTOMS TO AVOID HOSPITALIZATION.] Future Scheduled Test OXYGEN THE RAPY; RN/DRIER AND GRINDER TENDER/SHARPLES MACHINE OPERATOR TO INSTRUCT ON OXYGEN MANAGEMENT INCLUDING: ADMINISTRATION AT 2 L/MIN VIA NASAL CANNULA CONTINUOUS AT BEDTIME FOR COPD , CARE OF EQUIPMENT AND SAFETY. [code = OXYGEN THERAPY; RN/DRIER AND GRINDER TENDER/SHARPLES MACHINE OPERATOR TO INSTRUCT ON OXYGEN MANAGEMENT INCLUDING: ADMINISTRATION AT 2 L/MIN VIA NASAL CANNULA CONTINUOUS AT BEDTIME FOR COPD , CARE OF EQUIPMENT AND SAFETY.] Future Scheduled Test PAIN MANAG EMENT; RN TO ASSESS AND TEACH, SHARPLES MACHINE OPERATOR/DRIER AND GRINDER TENDER TO OBSERVE AND TEACH AND PROVIDE EDUCATION ON PAIN MANAGEMENT TECHNIQUES. [code = PAIN MANAGEMENT; RN TO ASSESS AND TEACH, SHARPLES MACHINE OPERATOR/DRIER AND GRINDER TENDER TO OBSERVE AND TEACH AND PROVIDE EDUCATION ON PAIN MANAGEMENT TECHNIQUES.] Future Scheduled Test FALL REDUC TION MANAGEMENT; RN TO ASSESS AND OBSERVE, DRIER AND GRINDER TENDER/SHARPLES MACHINE OPERATOR TO OBSERVE FALL RISK FACTORS AND EDUCATE PATIENT/CAREGIVER ON STRATEGIES TO MINIMIZE THE RISK OF FALLING. [code = FALL REDUCTION MANAGEMENT; RN TO ASSESS AND OBSERVE, DRIER AND GRINDER TENDER/SHARPLES MACHINE OPERATOR TO OBSERVE FALL RISK FACTORS AND EDUCATE PATIENT/CAREGIVER ON STRATEGIES TO MINIMIZE THE RISK OF FALLING.] Goal 2025-01-16 Patient Goal - TO STAY HOME Goal Patient Goal - TO STAY HOME Goal Provider Goal - A PLAN OF CARE WILL BE ESTABLISHED THAT MEETS THE PATIENTS NEEDS. PATIENT WILL DEMONSTRATE OXYGEN SATURATION WITHIN NORMAL LIMITS OR PATIENTS OPTIMAL LEVEL ESTABLISHED BY THE PHYSICIAN THROUGHOUT CARE. CHANGES TO CO-MORBID CONDITIONS AND ANY NEW CONDITIONS WILL BE IDENTIFIED AND REPORTED TO THE PHYSICIAN. Goal Provider Goal - PATIENT/CAREGIVER TO VERBALIZE, [...] OF EPISODE. Goal Provider Goal - PATIENT PT/INR WILL BE MAINTAINED AT A THERAPEUTIC LEVEL IDENTIFIED BY THE PHYSICIAN THROUGHOUT CARE. Goal Provider Goal - PATIENT / CAREGIVER [...] END OF EPISODE Goal Provider Goal - PATIENT / CAREGIVER WILL VERBALIZE / DEMONSTRATE UNDERSTANDING OF PAIN CONTROL MEASURES BY EOE Goal Provider Goal - PATIENT/CAREGIVER WILL VERBALIZE/DEMONSTRATE UNDERSTANDING OF FALL RISK FACTORS AND IMPLEMENT STRATEGIES TO MINIMIZE FALL RISK. PATIENT/CAREGIVER WILL VERBALIZE/DEMONSTRATE AN ABILITY TO ADHERE TO FALL REDUCTION SELF-MANAGEMENT AND LIFE-STYLE CHANGES BY EOE Encounters Start Date/Time End Date/Time Encounter Type Admission Type Attending Clinicians Care Facility Care Department Encounter ID Discharge Date Discharge Status Discharge Condition Discharge Reason Percent Goals Met 2024-11-21 00:00:00 2025-03-20 00:00:00 Outpatient [facility] [id number] 41.18
--- OUTSIDE RECORDS SUMMARY | 2025-03-03 15:16 | XMS_ITS | Encounter Summary ---
Author Organization [facility] Address [address] [place] [address] Care Team Providers Care Rheumatology Nurse Name Role Phone Carlos Allen MD Primary Care Provider [phone] Encounter Details Date Type Department Care Team (Late st Contact Info) Description 11/01/2024 Lab Requisition [facility] - Main Lab [address] [place] [address] Michael Yu MD [address] [place] [id number] Essential (primary) hypertension; Acute on chronic diastolic [...] Procedure Name Priority Date/Time Associated Diagnosis Comments COMPLETE BLOOD COUNT Routine 11/04/2024 5:23 AM EST Essential (primary) hypertension Acute on chronic diastolic (congestive) heart failure (CMS/HCC) COMPREHENSIVE METABOLIC PANEL Routine 11/04/2024 5:23 AM EST Essential (primary) hypertension Acute on chronic diastolic (congestive) heart failure (CMS/HCC) documented in this encounter Results * (ABNORMAL) Comprehensive metabolic panel (11/04/2024 5:23 AM EST) Sodium 142 133 - 145 mmol/L LAB CHEMISTRY METHOD 11/04/2024 1:32 PM EST [facility] Potassium 3.6 3.5 - 5.5 mmol/L LAB CHEMISTRY METHOD 11/04/2024 1:32 PM [facility] Chloride 104 96 - 110 mmol/L LAB CHEMISTRY METHOD 11/04/2024 1:32 PM [facility] CO2 32 21 - 32 mmol/L LAB CHEMISTRY METHOD 11/04/2024 1:32 PM [facility] Anion Gap 6 3 - 11 LAB CHEMISTRY METHOD 11/04/2024 1:32 PM [facility] Glucose 95 70 - 100 mg/dL LAB CHEMISTRY METHOD 11/04/2024 1:32 PM [facility] BUN 34(H) 5 - 25 mg/dL LAB CHEMISTRY METHOD 11/04/2024 1:32 PM [facility] Creatinine 0.99 0.70 - 1.30 mg/dL LAB CHEMISTRY METHOD 11/04/2024 1:32 PM [facility] eGFR 74 >=60 mL/min/1. 73m2 LAB CHEMISTRY METHOD 11/04/2024 1:32 PM [facility] Comment:Calculation based on the??Chronic Kidney Disease Epidemiology Collaboration (CKD-EPI) equation refit??without adjustment for race. BUN/Creatinine Ratio 34.3 LAB CHEMISTRY METHOD 11/04/2024 1:32 PM [facility] Calcium 8.6 8.5 - 10.5 mg/dL LAB CHEMISTRY METHOD 11/04/2024 1:32 PM [facility] AST (SGOT) 28 10 - 42 unit/L LAB CHEMISTRY METHOD 11/04/2024 1:32 PM [facility] ALT (SGPT) 41 10 - 60 unit/L LAB CHEMISTRY METHOD 11/04/2024 1:32 PM [facility] Alkaline Phosphatase 68 42 - 121 unit/L LAB CHEMISTRY METHOD 11/04/2024 1:32 PM [facility] Total Protein 5.8(L) 6.0 - 8.0 g/dL LAB CHEMISTRY METHOD 11/04/2024 1:32 PM EST [facility] Albumin 2.7(L) 3.2 - 5.0 g/dL LAB CHEMISTRY METHOD 11/04/2024 1:32 PM [facility] Total Bilirubin 0.3 0.0 - 1.4 mg/dL LAB CHEMISTRY METHOD 11/04/2024 1:32 PM [facility] Blood Venous blood specimen / Unknown Venipuncture / Unknown 11/04/2024 5:23 AM EST 11/04/2024 9:59 AM EST us Michael Yu MD LAB BLOOD ORDERABLES Final Result [facility] [address] [place] [address], [place] [phone] * (ABNORMAL) Complete blood count (11/04/2024 5:23 AM EST) WBC 3.9(L) 4.8 - 10.8 K/mcL LAB HEMETOLOGY METHOD 11/04/2024 10:35 AM [facility] RBC 3.70(L) 4.50 - 5.50 M/[facility] LAB HEMETOLOGY METHOD 11/04/2024 10:35 AM [facility] Hemoglobin 11.9(L) 13.5 - 17.5 g/dL LAB HEMETOLOGY METHOD 11/04/2024 10:35 AM [facility] Hematocrit 37.1(L) 42.0 - 54.0 % LAB HEMETOLOGY METHOD 11/04/2024 10:35 AM [facility] MCV 101.6(H) 79.0 - 98.0 FL LAB HEMETOLOGY METHOD 11/04/2024 10:35 AM [facility] MCH 32.6(H) 27.0 - 32.0 pcg LAB HEMETOLOGY METHOD 11/04/2024 10:35 AM [facility] MCHC 32.1 32.0 - 37.0 g/dL LAB HEMETOLOGY METHOD 11/04/2024 10:35 AM EST [facility] RDW 13.0 11.0 - 15.0 % LAB HEMETOLOGY METHOD 11/04/2024 10:35 AM [facility] Platelets 125(L) 130 - 400 K/mcL LAB HEMETOLOGY METHOD 11/04/2024 10:35 AM EST [facility] MPV 11.6(H) 7.0 - 11.0 FL LAB HEMETOLOGY METHOD 11/04/2024 10:35 AM EST [facility] NRBC 0.0 <1.0 % LAB HEMETOLOGY METHOD 11/04/2024 10:35 AM [facility] NRBC Absolute 0.00 <0.10 K/mcL LAB HEMETOLOGY METHOD 11/04/2024 10:35 AM [facility] Blood Venous blood specimen / Unknown Venipuncture / Unknown 11/04/2024 5:23 AM EST 11/04/2024 9:59 AM EST Michael Yu MD LAB BLOOD ORDERABLES Final Result [facility] [address] [place] [address], documented in this encounter Visit Diagnoses Diagnosis Essential (primary) hypertension Unspecified essential hypertension Acute on chronic diastolic (congestive) heart failure (CMS/HCC V24, CMS/HCC V28) documented in this encounter Care Teams Rheumatology Nurse Relationship Specialty Start Date End Date Carlos Allen MD [address] [place] [address] PCP - General Internal Medicine 11/08/24 documented as of this encounter
--- OUTSIDE RECORDS SUMMARY | 2025-03-03 15:16 | XMS_ITS | Encounter Summary ---
Author Organization 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 Social History Tobacco Use Types Packs/Day Years [...] Diagnosis Comments PROTHROMBIN TIME WITH INR Routine 11/05/2024 4:59 AM EST Chronic obstructive pulmonary disease, unspecified (CMS/HCC) care home (current) use of anticoagulants documented in this encounter Results * (ABNORMAL) Prothrombin time with INR (11/05/2024 4:59 AM EST) Protime 30.0(H) 10.6 - 13.9 sec LAB COAGULATION METHOD 11/05/2024 10:10 AM EST [facility] INR 2.4 LAB COAGULATION METHOD 11/05/2024 10:10 AM [facility] Blood Venous blood specimen / Unknown Venipuncture / Unknown 11/05/2024 4:59 AM EST 11/05/2024 9:36 AM EST Carlos Allen MD LAB BLOOD ORDERABLES Final Resu lt [facility] ([facility] [address] [place] [address], documented in this encounter Visit Diagnoses Diagnosis Chronic obstructive pulmonary disease, unspecified (CMS/HCC V24, CMS/HCC V28) care home (current) use of anticoagulants Long-term (current) use of anticoagulants documented in this encounter Care Teams Aircraft Electronics Technical Officer Relationship Specialty Start Date End Date Carlos Allen MD [address] [place] [address] PCP - General Internal Medicine 11/08/24 documented as of this encounter
--- OUTSIDE RECORDS SUMMARY | 2025-03-03 15:16 | XMS_ITS | Encounter Summary ---
Author Organization [employer] Address [address] [place] [address] Care Team Providers Care Color Matcher Name Role Phone Carlos Allen MD Primary Care Provider [phone] Encounter Details Date Type Department Care Team (Late st Contact Info) Description 11/09/[address] [facility] - Main Lab [address] [facility] [email or web address] [address] Carlos Allen MD [address] [place] [phone] Essential (primary) hypertension; Acute on chronic [...] Diagnosis Comments PROTHROMBIN TIME WITH INR Routine 11/11/2024 5:16 AM EST Essential (primary) hypertension Acute on chronic diastolic (congestive) heart failure (CMS/HCC) COMPLETE BLOOD COUNT Routine 11/11/2024 5:16 AM EST Essential (primary) hypertension Acute on chronic diastolic (congestive) heart failure (CMS/HCC) COMPREHENSIVE METABOLIC PANEL Routine 11/11/2024 5:16 AM EST Essential (primary) hypertension Acute on chronic diastolic (congestive) heart failure (CMS/HCC) documented in this encounter Results * (ABNORMAL) Prothrombin time with INR (11/11/2024 5:16 AM EST) Protime 27.7(H) 10.6 - 13.9 sec LAB COAGULATION METHOD 11/11/2024 9:[address] [facility] INR 2.2 LAB COAGULATION METHOD 11/11/2024 9:50 AM [facility] Blood Venous blood specimen / Unknown Venipuncture / Unknown 11/11/2024 5:16 AM EST 11/11/2024 9:38 AM EST us Carlos Allen MD LAB BLOOD ORDERABLES Final Resu lt [facility] [address] [place] [address], [place] [phone] * (ABNORMAL) Comprehensive metabolic panel (11/11/2024 5:16 AM EST) [facility] Sodium 139 133 - 145 mmol/L LAB CHEMISTRY METHOD 11/11/2024 10:29 AM [facility] Potassium 3.9 3.5 - 5.5 mmol/L LAB CHEMISTRY METHOD 11/11/2024 10:29 AM [facility] Chloride 103 96 - 110 mmol/L LAB CHEMISTRY METHOD 11/11/2024 10:29 AM [facility] CO2 34(H) 21 - 32 mmol/L LAB CHEMISTRY METHOD 11/11/2024 10:29 AM [facility] Anion Gap 2(L) 3 - 11 LAB CHEMISTRY METHOD 11/11/2024 10:29 AM [facility] Glucose 86 70 - 100 mg/dL LAB CHEMISTRY METHOD 11/11/2024 10:29 AM [facility] BUN 28(H) 5 - 25 mg/dL LAB CHEMISTRY METHOD 11/11/2024 10:29 AM [facility] Creatinine 1.11 0.70 - 1.30 mg/dL LAB CHEMISTRY METHOD 11/11/2024 10:29 AM [facility] eGFR 65 >=60 mL/min/1. 73m2 LAB CHEMISTRY METHOD 11/11/2024 10:29 AM [facility] Comment:Calculation based on the??Chronic Kidney Disease Epidemiology Collaboration (CKD-EPI) equation refit??without adjustment for race. BUN/Creatinine Ratio 25.2 LAB CHEMISTRY METHOD 11/11/2024 10:29 AM [facility] Calcium 8.6 8.5 - 10.5 mg/dL LAB CHEMISTRY METHOD 11/11/2024 10:29 AM [facility] AST (SGOT) 22 10 - 42 unit/L LAB CHEMISTRY METHOD 11/11/2024 10:29 AM [facility] ALT (SGPT) 28 10 - 60 unit/L LAB CHEMISTRY METHOD 11/11/2024 10:29 AM [facility] Alkaline Phosphatase 65 42 - 121 unit/L LAB CHEMISTRY METHOD 11/11/2024 10:29 AM [facility] Total Protein 5.6(L) 6.0 - 8.0 g/dL LAB CHEMISTRY METHOD 11/11/2024 10:29 AM [facility] Albumin 2.6(L) 3.2 - 5.0 g/dL LAB CHEMISTRY METHOD 11/11/2024 10:29 AM [facility] Total Bilirubin 0.3 0.0 - 1.4 mg/dL LAB CHEMISTRY METHOD 11/11/2024 10:29 AM [facility] Blood Venous blood specimen / Unknown Venipuncture / Unknown 11/11/2024 5:16 AM EST 11/11/2024 9:41 AM EST us Carlos Allen MD LAB BLOOD ORDERABLES Final Resu lt [facility] [address] [place] [address], * (ABNORMAL) Complete blood count (11/11/2024 5:16 AM EST) [facility] WBC 4.0(L) 4.8 - 10.8 K/mcL LAB HEMETOLOGY METHOD 11/11/2024 10:02 AM [facility] RBC 3.70(L) 4.50 - 5.50 M/mcL LAB HEMETOLOGY METHOD 11/11/2024 10:02 AM [facility] Hemoglobin 11.8(L) 13.5 - 17.5 g/dL LAB HEMETOLOGY METHOD 11/11/2024 10:02 AM [facility] Hematocrit 37.2(L) 42.0 - 54.0 % LAB HEMETOLOGY METHOD 11/11/2024 10:02 AM [facility] MCV 101.1(H) 79.0 - 98.0 FL LAB HEMETOLOGY METHOD 11/11/2024 10:02 AM [facility] MCH 32.1(H) 27.0 - 32.0 pcg LAB HEMETOLOGY METHOD 11/11/2024 10:02 AM [facility] MCHC 31.7(L) 32.0 - 37.0 g/dL LAB HEMETOLOGY METHOD 11/11/2024 10:02 AM [facility] RDW 13.4 11.0 - 15.0 % LAB HEMETOLOGY METHOD 11/11/2024 10:02 AM [facility] Platelets 119(L) 130 - 400 K/mcL LAB HEMETOLOGY METHOD 11/11/2024 10:02 AM [facility] MPV 12.0(H) 7.0 - 11.0 FL LAB HEMETOLOGY METHOD 11/11/2024 10:02 AM [facility] NRBC 0.0 <1.0 % LAB HEMETOLOGY METHOD 11/11/2024 10:02 AM [facility] NRBC Absolute 0.00 <0.10 K/mcL LAB HEMETOLOGY METHOD 11/11/2024 10:[address] [facility] Blood Venous blood specimen / Unknown Venipuncture / Unknown 11/11/2024 5:16 AM EST 11/11/2024 9:33 AM EST us Carlos Allen MD LAB BLOOD ORDERABLES Final Resu lt [facility] [address] [place] [address], documented in this encounter Visit Diagnoses Diagnosis Essential (primary) hypertension Unspecified essential hypertension Acute on chronic diastolic (congestive) heart failure (CMS/HCC V24, CMS/HCC V28) documented in this encounter Care Teams Color Matcher Relationship Specialty Start Date End Date Carlos Allen MD [address] [place] [address] PCP - General Internal Medicine 11/08/24 documented as of this encounter
--- OUTSIDE RECORDS SUMMARY | 2025-03-03 15:16 | XMS_ITS | Encounter Summary ---
Author Organization [employer] Address [address] [place] [address] Care Team Providers Care [facility] Office Supervisor Name Role Phone Carlos Allen MD Primary Care Provider [phone] Encounter Details Date Type Department Care Team (Late st Contact Info) Description 09/21/2024 Lab Requisition [facility] - Main Lab [address] [place] [address] Margarito Kuhn MD [address] [place] [phone] Other specified heart block Social History Tobacco Use Types Packs/Day [...] Associated Diagnosis Comments COMPLETE BLOOD COUNT Routine 09/21/2024 6:20 AM EDT Other specified heart block BASIC METABOLIC PANEL Routine 09/21/2024 6:20 AM EDT Other specified heart block documented in this encounter Results * (ABNORMAL) Complete blood count (09/21/2024 6:20 AM EDT) WBC 3.7(L) 4.8 - 10.8 K/[facility] LAB HEMETOLOGY METHOD 09/21/2024 4:37 PM EDT [facility] RBC 3.50(L) 4.50 - 5.50 M/mcL LAB HEMETOLOGY METHOD 09/21/2024 4:37 PM EDT [facility] Hemoglobin 11.6(L) 13.5 - 17.5 g/dL LAB HEMETOLOGY METHOD 09/21/2024 4:37 PM EDT [facility] Hematocrit 36.8(L) 42.0 - 54.0 % LAB HEMETOLOGY METHOD 09/21/2024 4:37 PM EDT [facility] MCV 104.5(H) 79.0 - 98.0 FL LAB HEMETOLOGY METHOD 09/21/2024 4:37 PM EDT [facility] MCH 33.0(H) 27.0 - 32.0 pcg LAB HEMETOLOGY METHOD 09/21/2024 4:37 PM EDT [facility] MCHC 31.5(L) 32.0 - 37.0 g/dL LAB HEMETOLOGY METHOD 09/21/2024 4:37 PM EDT [facility] RDW 13.3 11.0 - 15.0 % LAB HEMETOLOGY METHOD 09/21/2024 4:37 PM EDT [facility] Platelets 94(L) 130 - 400 K/mcL LAB HEMETOLOGY METHOD 09/21/2024 4:37 PM EDT [facility] MPV 11.6(H) 7.0 - 11.0 FL LAB HEMETOLOGY METHOD 09/21/2024 4:37 PM EDT [facility] NRBC 0.0 <1.0 % LAB HEMETOLOGY METHOD 09/21/2024 4:37 PM EDT [facility] NRBC Absolute 0.00 <0.10 K/mcL LAB HEMETOLOGY METHOD 09/21/2024 4:37 PM EDT [facility] Blood Venous blood specimen / Unknown Venipuncture / Unknown 09/21/2024 6:20 AM EDT 09/21/2024 9:19 AM EDT us Margarito Kuhn MD LAB BLOOD ORDERABLES Final Resu lt [facility] [address] [place] [address], [place] [phone] * Basic metabolic panel (09/21/2024 6:20 AM EDT) Sodium 141 133 - 145 mmol/L LAB CHEMISTRY METHOD 09/21/2024 11:15 AM [facility] Potassium 3.9 3.5 - 5.5 mmol/L LAB CHEMISTRY METHOD 09/21/2024 11:15 AM [facility] Chloride 105 96 - 110 mmol/L LAB CHEMISTRY METHOD 09/21/2024 11:15 AM [facility] CO2 31 21 - 32 mmol/L LAB CHEMISTRY METHOD 09/21/2024 11:15 AM [facility] Anion Gap 5 3 - 11 LAB CHEMISTRY METHOD 09/21/2024 11:15 AM [facility] Glucose 87 70 - 100 mg/dL LAB CHEMISTRY METHOD 09/21/2024 11:15 AM [facility] BUN 25 5 - 25 mg/dL LAB CHEMISTRY METHOD 09/21/2024 11:15 AM [facility] Creatinine 1.06 0.70 - 1.30 mg/dL LAB CHEMISTRY METHOD 09/21/2024 11:15 AM [facility] eGFR 68 >=60 mL/min/1. 73m2 LAB CHEMISTRY METHOD 09/21/2024 11:15 AM [facility] Comment:Calculation based on the??Chronic Kidney Disease Epidemiology Collaboration (CKD-EPI) equation refit??without adjustment for race. BUN/Creatinine Ratio 23.6 LAB CHEMISTRY METHOD 09/21/2024 11:15 AM [facility] Calcium 8.7 8.5 - 10.5 mg/dL LAB CHEMISTRY METHOD 09/21/2024 11:15 AM [facility] Blood Venous blood specimen / Unknown Venipuncture / Unknown 09/21/2024 6:20 AM EDT 09/21/2024 9:19 AM EDT us Margarito Kuhn MD LAB BLOOD ORDERABLES Final Resu lt [facility] [address] [place] [address], documented in this encounter Visit Diagnoses Diagnosis Other specified heart block documented in this encounter Care Teams [facility] Office Supervisor Relationship Specialty Start Date End Date Carlos Allen MD [address] [place] [address] PCP - General Internal Medicine 11/08/24 documented as of this encounter
--- OUTSIDE RECORDS SUMMARY | 2025-03-03 15:17 | XMS_ITS | Encounter Summary ---
Author Organization [employer] Address [address] [place] [address] Care Team Providers Care Machine Sander Name Role Phone Carlos Allen MD Primary Care Provider [phone] Encounter Details Date Type Department Care Team (Late st Contact Info) Description 11/06/[address] [facility] - Main Lab 299 [facility] [place] [address] Carlos Allen MD [address] [place] [phone] Acute on chronic diastolic (congestive) heart [...] Diagnosis Comments PROTHROMBIN TIME WITH INR Routine 11/07/2024 5:10 AM EST Acute on chronic diastolic (congestive) heart failure (CMS/HCC) Essential (primary) hypertension COMPLETE BLOOD COUNT Routine 11/07/2024 5:10 AM EST Acute on chronic diastolic (congestive) heart failure (CMS/HCC) Essential (primary) hypertension BASIC METABOLIC PANEL Routine 11/07/2024 5:10 AM EST Acute on chronic diastolic (congestive) heart failure (CMS/HCC) Essential (primary) hypertension documented in this encounter Results * (ABNORMAL) Prothrombin time with INR (11/07/2024 5:10 AM EST) Protime 40.5(H) 10.6 - 13.9 sec LAB COAGULATION METHOD 11/07/2024 12:04 PM [facility] INR 3.2 LAB COAGULATION METHOD 11/07/2024 12:04 PM [facility] Blood Venous blood specimen / Unknown Venipuncture / Unknown 11/07/2024 5:10 AM EST 11/07/2024 11:25 AM EST us Carlos Allen MD LAB BLOOD ORDERABLES Final Resu lt [facility] [address] [place] [address], [place] [phone] * (ABNORMAL) Basic metabolic panel (11/07/2024 5:10 AM EST) [facility] Sodium 143 133 - 145 mmol/L LAB CHEMISTRY METHOD 11/07/2024 1:23 PM [facility] Potassium 5.1 3.5 - 5.5 mmol/L LAB CHEMISTRY METHOD 11/07/2024 1:23 PM [facility] Chloride 106 96 - 110 mmol/L LAB CHEMISTRY METHOD 11/07/2024 1:23 PM [facility] CO2 34(H) 21 - 32 mmol/L LAB CHEMISTRY METHOD 11/07/2024 1:23 PM [facility] Anion Gap 3 3 - 11 LAB CHEMISTRY METHOD 11/07/2024 1:23 PM [facility] Glucose 89 70 - 100 mg/dL LAB CHEMISTRY METHOD 11/07/2024 1:23 PM [facility] BUN 34(H) 5 - 25 mg/dL LAB CHEMISTRY METHOD 11/07/2024 1:23 PM [facility] Creatinine 1.12 0.70 - 1.30 mg/dL LAB CHEMISTRY METHOD 11/07/2024 1:23 PM [facility] eGFR 64 >=60 mL/min/1. 73m2 LAB CHEMISTRY METHOD 11/07/2024 1:23 PM EST [facility] Comment:Calculation based on the??Chronic Kidney Disease Epidemiology Collaboration (CKD-EPI) equation refit??without adjustment for race. BUN/Creatinine Ratio 30.4 LAB CHEMISTRY METHOD 11/07/2024 1:23 PM EST [facility] Calcium 8.9 8.5 - 10.5 mg/dL LAB CHEMISTRY METHOD 11/07/2024 1:23 PM [facility] Blood Venous blood specimen / Unknown Venipuncture / Unknown 11/07/2024 5:10 AM EST 11/07/2024 11:25 AM EST us Carlos Allen MD LAB BLOOD ORDERABLES Final Resu lt [facility] [address] [place] [address], * (ABNORMAL) Complete blood count (11/07/2024 5:10 AM EST) WBC 3.9(L) 4.8 - 10.8 K/mcL LAB HEMETOLOGY METHOD 11/07/2024 12:36 PM [facility] RBC 3.80(L) 4.50 - 5.50 M/mcL LAB HEMETOLOGY METHOD 11/07/2024 12:36 PM [facility] Hemoglobin 12.0(L) 13.5 - 17.5 g/dL LAB HEMETOLOGY METHOD 11/07/2024 12:36 PM [facility] Hematocrit 38.7(L) 42.0 - 54.0 % LAB HEMETOLOGY METHOD 11/07/2024 12:36 PM [facility] MCV 102.9(H) 79.0 - 98.0 FL LAB HEMETOLOGY METHOD 11/07/2024 12:36 PM [facility] MCH 31.9 27.0 - 32.0 pcg LAB HEMETOLOGY METHOD 11/07/2024 12:36 PM [facility] MCHC 31.0(L) 32.0 - 37.0 g/dL LAB HEMETOLOGY METHOD 11/07/2024 12:36 PM [facility] RDW 13.3 11.0 - 15.0 % LAB HEMETOLOGY METHOD 11/07/2024 12:36 PM [facility] Platelets 128(L) 130 - 400 K/mcL LAB HEMETOLOGY METHOD 11/07/2024 12:36 PM [facility] MPV 11.7(H) 7.0 - 11.0 FL LAB HEMETOLOGY METHOD 11/07/2024 12:36 PM [facility] NRBC 0.0 <1.0 % LAB HEMETOLOGY METHOD 11/07/2024 12:36 PM [facility] NRBC Absolute 0.00 <0.10 K/mcL LAB HEMETOLOGY METHOD 11/07/2024 12:36 PM [facility] Blood Venous blood specimen / Unknown Venipuncture / Unknown 11/07/2024 5:10 AM EST 11/07/2024 11:25 AM EST us Carlos Allen MD LAB BLOOD ORDERABLES Final Resu lt [facility] [address] [place] [address], documented in this encounter Visit Diagnoses Diagnosis Acute on chronic diastolic (congestive) heart failure (CMS/HCC V24, CMS/HCC V28) Essential (primary) hypertension Unspecified essential hypertension documented in this encounter Care Teams Machine Sander Relationship Specialty Start Date End Date Carlos Allen MD [address] [place] [id number] PCP - General Internal Medicine 11/08/24 documented as of this encounter
--- OUTSIDE RECORDS SUMMARY | 2025-03-03 15:17 | XMS_ITS | Clinical Summary ---
Author Organization Unknown Care Team Providers Care Procedure Rn Name Role Phone JACKSON PALOMO, CANDACE Unavailable Unavailable SAMANTHA CHRISTIAN COUNSELOR, ALTAGRACIA Unavailable Unavailable JAYANT PT, MARINA Unavailable Unavailable SPAFFORD OT, ABELARDO Unavailable Unavailable CONDINO KIANA/OLGUIN, ANASTACIA Unavailable Unav kevinable JUAN J STONE, KALYANI Unavailable Unavailab javier KANG LPN, TIA Unavailable Unavailable Payers Payer Name Policy Type Policy Number Effective Date Expira tion Date MEDICARE.NGS.PDGM [id number] Problems Condition Name Condition Details Condition Category [...] 11-21 00:00: 00 ATHSCL HEART DISEASE OF [place] CORONARY ARTERY W/O ANG PCTRS Active 11-21 00:00: 00 NONSPECIFIC INTRAVENTRIC ULAR BLOCK Active 11-21 00:00: 00 UNSP DEMENTIA, UNSP SEVERITY, WITHOUT BEH/PSYCH/MO OD/ANX Active 11-21 00:00: 00 BENIGN PROSTATIC HYPERPLASIA WITHOUT LOWER URINRY TRACT SYMP Active 11-21 00:00: 00 UNSPECIFIED GLAUCOMA Active 11-21 00:00: 00 GASTRO-ESOPH AGEAL REFLUX DISEASE WITHOUT ESOPHAGITIS Active 11-21 00:00: 00 HYPERLIPIDEM IA, UNSPECIFIED Active 11-21 00:00: 00 CONSIGNEE (CURRENT) USE OF ANTICOAGULAN TS Active 11-21 [...] % topical gel 2023-11 00:00: 00 Yes [id number] ARTHRITIS Per instruc tions 3 TIMES DAILY Per instructio ns 3 TIMES DAILY (route: topical) Med Classific ation: Dermatolo gical finasteride 5 mg tablet 2023-11 00:00: 00 Yes [id number] BPH 1 tablet AT BEDTIME 1 tablet AT BEDTIME (route: oral) Med Classific ation: Genitouri nary Therapy atorvastati n 40 mg tablet 2023-11 00:00: 00 Yes [id number] CHOLESTEROL 1 tablet DAILY 1 tablet DAILY (route: oral) Med Classific ation: Cardiovas cular Therapy Agents calcium magnesium zinc 15mcg-1000m g-40 2023-11 00:00: 00 Yes [id number] SUPPLEMENT 3 tablet DAILY 3 tablet DAILY (route: BY MOUTH) Med Classific ation: MISCELLAN EOUS HERBS AND SUPPLEMEN TS Co Q-10 100 mg capsule 2023-11 00:00: 00 Yes [id number] SUPPLEMENT 1 capsule DAILY 1 capsule DAILY (route: oral) Med Classific ation: Alternati ve Therapy famotidine 40 mg tablet 2023-11 00:00: 00 Yes [id number] GERD 1 tablet DAILY 1 tablet DAILY (route: oral) Med Classific ation: Gastroint estinal Therapy Agents furosemide 20 mg tablet 2023-11 00:00: 00 12-05 23:59 :00 No [id number] CHF 2 tablet DAILY 2 tablet DAILY (route: oral) Med Classific ation: Cardiovas cular Therapy Agents latanoprost 0.005 % eye drops 2023-11 00:00: 00 Yes [id number] GLAUCOMA 1 drops DAILY 1 drops DAILY (route: ophthalmic (eye)) Med Classific ation: Ophthalmi c Agents multivitami n with minerals tablet 2023-11 00:00: 00 Yes [id number] SUPPLEMENT 1 tablet DAILY 1 tablet DAILY (route: oral) Med Classific ation: Electroly te Balance-N utritiona l Products terazosin 5 mg capsule 2023-11 00:00: 00 Yes [id number] HTN 1 capsule DAILY 1 capsule DAILY (route: oral) Med Classific ation: Cardiovas cular Therapy Agents Senna Lax 8.6 mg tablet 2023-11 00:00: 00 Yes [id number] CONSTIPATIO N 1 tablet DAILY 1 tablet DAILY (route: oral) Med Classific ation: Gastroint estinal Therapy Agents clopidogrel 75 mg tablet 2023-11 00:00: 00 11-20 23:59 :00 No [id number] hld 1 tablet DAILY 1 tablet DAILY (route: oral) Med Classific ation: Hematolog ical Agents acetaminoph en 325 mg tablet 11-21 00:00: 00 Yes [id number] PAIN 2 tablet 4 TIMES DAILY 2 tablet 4 TIMES DAILY (route: oral) Med Classific ation: Analgesic , Anti-infl ammatory or Antipyret ic oxygen gas for inhalation 11-21 00:00: 00 Yes [id number] SUPPLEMENT 1 Liter BEDTIME 1 Liter BEDTIME (route: inhalation ) Med Classific ation: Medical Supplies and Durable Medical Equipment (DME) warfarin 6 mg tablet 11-21 00:00: 00 Yes [id number] PREVENT CLOTS 1 tablet DAILY 1 tablet DAILY (route: oral) Med Classific ation: Hematolog ical Agents furosemide 20 mg tablet 12-05 00:00: 00 12-19 23:59 :00 No [id number] CONGESTIVE HEART FAILURE 1 tablet DAILY 1 tablet DAILY (route: oral) Med Classific ation: Cardiovas cular Therapy Agents furosemide 20 mg tablet 12-05 00:00: 00 12-08 23:59 :00 No [id number] CONGESTIVE HEART FAILURE 1 tablet DAILY 1 tablet DAILY (route: oral) Med Classific ation: Cardiovas cular Therapy Agents furosemide 40 mg tablet 12-19 00:00: 00 Yes [id number] HEART FAILURE 1 tablet DAILY 1 tablet DAILY (route: oral) Med Classific ation: Cardiovas cular Therapy Agents warfarin 6 mg tablet 2-06 00:00: 00 01-01 23:59 :00 No [id number] AFIB 6 mg DAILY 6 mg DAILY (route: oral) Med Classific ation: Hematolog ical Agents warfarin 6 mg tablet 2-13 00:00: 00 01-16 23:59 :00 No [id number] AFIB 6 mg DAILY 6 mg DAILY [...] CONSULTING PHYSICIANS. RN TO OBSERVE AND ASSESS, APPLICATIONS SUPPORT ENGINEER/CLINICAL PRODUCT MANAGER TO OBSERVE FOR RISK FOR FALLS AND INSTRUCT IN FALL PREVENTION, HOME SAFETY, MEDICATION MANAGEMENT, INFECTION PREVENTION, AND NUTRITION MANAGEMENT. RN/APPLICATIONS SUPPORT ENGINEER/CLINICAL PRODUCT MANAGER NURSE MAY PERFORM O2 SATURATION LEVEL ON ADMISSION AND PRN FOR RN TO ASSESS/APPLICATIONS SUPPORT ENGINEER TO OBSERVE PATIENT, WITH NOTIFICATION TO THE PHYSICIAN IF SATURATION IS 90% IN THE ABSENCE OF MORE SPECIFIC PARAMETERS FROM THE PHYSICIAN. AGENCY MAY PERFORM A RESUMPTION OF CARE VISIT FOLLOWING ANY HOSPITAL ADMISSION. RN/APPLICATIONS SUPPORT ENGINEER/CLINICAL PRODUCT MANAGER TO MONITOR CO-MORBID CONDITIONS LISTED ON THE PLAN OF CARE AND ANY NEW CONDITIONS THAT PRESENT THEMSELVES DURING THIS EPISODE TO IDENTIFY CHANGES AND INTERVENE TO MINIMIZE COMPLICATIONS. [code = RN TO OBSERVE, ASSESS, EVALUATE, AND DEVELOP AN INDIVIDUALIZED PLAN OF CARE. AGENCY MAY ACCEPT ORDERS FROM CONSULTING PHYSICIANS. RN TO OBSERVE AND ASSESS, APPLICATIONS SUPPORT ENGINEER/CLINICAL PRODUCT MANAGER TO OBSERVE FOR RISK FOR FALLS AND INSTRUCT IN FALL PREVENTION, HOME SAFETY, MEDICATION MANAGEMENT, INFECTION PREVENTION, AND NUTRITION MANAGEMENT. RN/APPLICATIONS SUPPORT ENGINEER/CLINICAL PRODUCT MANAGER NURSE MAY PERFORM O2 SATURATION LEVEL ON ADMISSION AND PRN FOR RN TO ASSESS/APPLICATIONS SUPPORT ENGINEER TO OBSERVE PATIENT, WITH NOTIFICATION TO THE PHYSICIAN IF SATURATION IS 90% IN THE ABSENCE OF MORE SPECIFIC PARAMETERS FROM THE PHYSICIAN. AGENCY MAY PERFORM A RESUMPTION OF CARE VISIT FOLLOWING ANY HOSPITAL ADMISSION. RN/APPLICATIONS SUPPORT ENGINEER/CLINICAL PRODUCT MANAGER TO MONITOR CO-MORBID CONDITIONS LISTED ON THE PLAN OF CARE AND ANY NEW CONDITIONS THAT PRESENT THEMSELVES DURING THIS EPISODE TO IDENTIFY CHANGES AND INTERVENE TO MINIMIZE COMPLICATIONS.] Future Scheduled Test MEDICATION MANAGEMENT; RN/APPLICATIONS SUPPORT ENGINEER/CLINICAL PRODUCT MANAGER TO REVIEW MEDICATIONS FOR INTERACTIONS, EFFECTIVENESS OF DRUG THERAPY, AND SIGNS/SYMPTOMS OF ADVERSE REACTIONS. MAY INSTRUCT AND REINFORCE MEDICATION TEACHING RELATED TO THE USE OF MEDICATIONS, DOSAGE, FREQUENCY, PURPOSE, SIDE EFFECTS, AND TO REPORT COMPLICATIONS. [code = MEDICATION MANAGEMENT; RN/APPLICATIONS SUPPORT ENGINEER/CLINICAL PRODUCT MANAGER TO REVIEW MEDICATIONS FOR INTERACTIONS, EFFECTIVENESS OF DRUG THERAPY, AND SIGNS/SYMPTOMS OF ADVERSE REACTIONS. MAY INSTRUCT AND REINFORCE MEDICATION TEACHING RELATED TO THE USE OF MEDICATIONS, DOSAGE, FREQUENCY, PURPOSE, SIDE EFFECTS, AND TO REPORT COMPLICATIONS.] Future Scheduled Test RISK FOR H OSPITALIZATION; RN TO ASSESS/TEACH, CLINICAL PRODUCT MANAGER/APPLICATIONS SUPPORT ENGINEER TO OBSERVE/TEACH PATIENT/CAREGIVER ON RISK FOR HOSPITALIZATION/EMERGENCY ROOM VISITS, TEACH SIGNS AND SYMPTOMS THAT PUT PATIENT AT RISK, WHEN TO NOTIFY NURSE/PHYSICIAN OF COMPLICATIONS/DECLINE, AND WHEN TO CALL 911. [code = RISK FOR HOSPITALIZATION; RN TO ASSESS/TEACH, CLINICAL PRODUCT MANAGER/APPLICATIONS SUPPORT ENGINEER TO OBSERVE/TEACH PATIENT/CAREGIVER ON RISK FOR HOSPITALIZATION/EMERGENCY ROOM VISITS, TEACH SIGNS AND SYMPTOMS THAT PUT PATIENT AT RISK, WHEN TO NOTIFY NURSE/PHYSICIAN OF COMPLICATIONS/DECLINE, AND WHEN TO CALL 911.] Future Scheduled Test CARDIOVASC ULAR SYSTEM; RN TO ASSESS/TEACH, APPLICATIONS SUPPORT ENGINEER/CLINICAL PRODUCT MANAGER TO OBSERVE/TEACH RELATED TO ALTERED CARDIOVASCULAR STATUS TO MINIMIZE COMPLICATIONS AND REDUCE HOSPITALIZATION. [code = CARDIOVASCULAR SYSTEM; RN TO ASSESS/TEACH, APPLICATIONS SUPPORT ENGINEER/CLINICAL PRODUCT MANAGER TO OBSERVE/TEACH RELATED TO ALTERED CARDIOVASCULAR STATUS TO MINIMIZE COMPLICATIONS AND REDUCE HOSPITALIZATION.] Future Scheduled Test HEART FAIL URE; RN TO ASSESS/TEACH, APPLICATIONS SUPPORT ENGINEER/CLINICAL PRODUCT MANAGER TO OBSERVE/TEACH CARDIOPULMONARY SYSTEM TO IDENTIFY [...] [code = HEART FAILURE; RN TO ASSESS/TEACH, APPLICATIONS SUPPORT ENGINEER/CLINICAL PRODUCT MANAGER TO OBSERVE/TEACH CARDIOPULMONARY SYSTEM TO IDENTIFY [...] Future Scheduled Test PT/INR MON ITORING; RN/ APPLICATIONS SUPPORT ENGINEER/CLINICAL PRODUCT MANAGER TO PERFORM PT/INR VIA VENIPUNCTURE OR COAGUCHECK PER DR PAZ SCHEDULE [code = PT/INR MONITORING; RN/ APPLICATIONS SUPPORT ENGINEER/CLINICAL PRODUCT MANAGER TO PERFORM PT/INR VIA VENIPUNCTURE OR COAGUCHECK PER DR PAZ SCHEDULE] Future Scheduled Test RESPIRATOR Y SYSTEM MANAGEMENT; RN TO ASSESS AND TEACH, APPLICATIONS SUPPORT ENGINEER/CLINICAL PRODUCT MANAGER TO OBSERVE AND TEACH RELATED TO ALTERED RESPIRATORY STATUS TO MINIMIZE COMPLICATIONS AND REDUCE HOSPITALIZATION. [code = RESPIRATORY SYSTEM MANAGEMENT; RN TO ASSESS AND TEACH, APPLICATIONS SUPPORT ENGINEER/CLINICAL PRODUCT MANAGER TO OBSERVE AND TEACH RELATED TO ALTERED RESPIRATORY STATUS TO MINIMIZE COMPLICATIONS AND REDUCE HOSPITALIZATION.] Future Scheduled Test COPD MANAG EMENT; RN TO ASSESS AND TEACH, APPLICATIONS SUPPORT ENGINEER/CLINICAL PRODUCT MANAGER TO OBSERVE AND TEACH SIGNS/SYMPTOMS OF COPD EXACERBATION AND PROVIDE EARLY INTERVENTIONS TO MINIMIZE RISK OF HOSPITALIZATION. RN/APPLICATIONS SUPPORT ENGINEER/CLINICAL PRODUCT MANAGER TO INSTRUCT ON SELF-CARE MANAGEMENT INCLUDING BREATHING TECHNIQUES, AIRWAY CLEARANCE, AND PROPER USE OF COPD MEDICATIONS. RN TO ASSESS AND TEACH, APPLICATIONS SUPPORT ENGINEER/CLINICAL PRODUCT MANAGER TO OBSERVE AND TEACH PATIENT/CAREGIVER ABILITY TO MONITOR AND RECORD VITAL SIGNS INCLUDING PULSE OXIMETRY AND BLOOD PRESSURE. [code = COPD MANAGEMENT; RN TO ASSESS AND TEACH, APPLICATIONS SUPPORT ENGINEER/CLINICAL PRODUCT MANAGER TO OBSERVE AND TEACH SIGNS/SYMPTOMS OF COPD EXACERBATION AND PROVIDE EARLY INTERVENTIONS TO MINIMIZE RISK OF HOSPITALIZATION. RN/APPLICATIONS SUPPORT ENGINEER/CLINICAL PRODUCT MANAGER TO INSTRUCT ON SELF-CARE MANAGEMENT INCLUDING BREATHING TECHNIQUES, AIRWAY CLEARANCE, AND PROPER USE OF COPD MEDICATIONS. RN TO ASSESS AND TEACH, APPLICATIONS SUPPORT ENGINEER/CLINICAL PRODUCT MANAGER TO OBSERVE AND TEACH PATIENT/CAREGIVER ABILITY TO MONITOR AND RECORD VITAL SIGNS INCLUDING PULSE OXIMETRY AND BLOOD PRESSURE. ] Future Scheduled Test ARRHYTHMIA MANAGEMENT; RN TO ASSESS AND TEACH, APPLICATIONS SUPPORT ENGINEER/CLINICAL PRODUCT MANAGER TO OBSERVE AND TEACH WARNING SIGNS AND SYMPTOMS TO AVOID HOSPITALIZATION. [code = ARRHYTHMIA MANAGEMENT; RN TO ASSESS AND TEACH, APPLICATIONS SUPPORT ENGINEER/CLINICAL PRODUCT MANAGER TO OBSERVE AND TEACH WARNING SIGNS AND SYMPTOMS TO AVOID HOSPITALIZATION.] Future Scheduled Test OXYGEN THE RAPY; RN/APPLICATIONS SUPPORT ENGINEER/CLINICAL PRODUCT MANAGER TO INSTRUCT ON OXYGEN MANAGEMENT INCLUDING: ADMINISTRATION AT 2 L/MIN VIA NASAL CANNULA CONTINUOUS AT BEDTIME FOR COPD , CARE OF EQUIPMENT AND SAFETY. [code = OXYGEN THERAPY; RN/APPLICATIONS SUPPORT ENGINEER/CLINICAL PRODUCT MANAGER TO INSTRUCT ON OXYGEN MANAGEMENT INCLUDING: ADMINISTRATION AT 2 L/MIN VIA NASAL CANNULA CONTINUOUS AT BEDTIME FOR COPD , CARE OF EQUIPMENT AND SAFETY.] Future Scheduled Test PAIN MANAG EMENT; RN TO ASSESS AND TEACH, CLINICAL PRODUCT MANAGER/APPLICATIONS SUPPORT ENGINEER TO OBSERVE AND TEACH AND PROVIDE EDUCATION ON PAIN MANAGEMENT TECHNIQUES. [code = PAIN MANAGEMENT; RN TO ASSESS AND TEACH, CLINICAL PRODUCT MANAGER/APPLICATIONS SUPPORT ENGINEER TO OBSERVE AND TEACH AND PROVIDE EDUCATION ON PAIN MANAGEMENT TECHNIQUES.] Future Scheduled Test FALL REDUC TION MANAGEMENT; RN TO ASSESS AND OBSERVE, APPLICATIONS SUPPORT ENGINEER/CLINICAL PRODUCT MANAGER TO OBSERVE FALL RISK FACTORS AND EDUCATE PATIENT/CAREGIVER ON STRATEGIES TO MINIMIZE THE RISK OF FALLING. [code = FALL REDUCTION MANAGEMENT; RN TO ASSESS AND OBSERVE, APPLICATIONS SUPPORT ENGINEER/CLINICAL PRODUCT MANAGER TO OBSERVE FALL RISK FACTORS AND EDUCATE [...] 2024-11-21 00:00:00 2025-03-20 00:00:00 Outpatient [facility] [id number] 41.18
== END 2025-03-03 14:12 | disposition home or self-care (01) ==
LOC: HO.HCS 13:17
PROVIDERS: PCP Family Medicine; Visit Provider Internal Medicine Cardiovascular Disease
DX: I48.0 Paroxysmal atrial fibrillation (principal); I50.32 Chronic diastolic (congestive) heart failure
CPT/HCPCS: 93010; 99214

== ENCOUNTER → 2025-03-03 13:17 | Outpatient (BNVA) | payer MEDICARE, SELFPAY | PROVIDERS: PCP Family Medicine; Visit Provider Internal Medicine Cardiovascular Disease | DX: I48.0 Paroxysmal atrial fibrillation (principal); I50.32 Chronic diastolic (congestive) heart failure; I44.1 Atrioventricular block, second degree; R94.31 Abnormal electrocardiogram [ECG] [EKG] | CPT/HCPCS: 93005; 99212 ==

== ENCOUNTER → 2025-04-07 12:12 | Outpatient (REF) | payer MEDICARE, SELFPAY ==
--- NOTE | 2025-04-07 12:41 | ECG_ITS ---
Test Reason : bradycardia Blood Pressure : */* mmHG Vent. Rate : 68 BPM Atrial Rate : 68 BPM P-R Int : 222 ms QRS Dur : 82 ms QT Int : 420 ms P-R-T Axes : 26 -27 23 degrees QTcB Int : 446 ms Sinus rhythm with marked sinus arrhythmia with 1st degree A-V block with occasional Premature ventricular complexes Inferior infarct (cited on or before 10-Sep-2024) Abnormal ECG When compared with ECG of 27-Oct-2024 06:46, Premature ventricular complexes are now Present Sinus rhythm is no longer with 2nd degree A-V block (Mobitz I) Referred By: Pavel Nelson Electronically Signed By: Kapil Fonseca
--- OUTSIDE RECORDS SUMMARY | 2025-04-07 12:44 | XMS_ITS | Encounter Summary ---
Author Organization [employer] Address [address] [place] [address] Care Team Providers Care Stripper Color Name Role Phone Carlos Allen MD Primary Care Provider [phone] Encounter Details Date Type Department Care Team (Late st Contact Info) Description 11/01/2024 Lab Requisition [facility] - Main Lab [address] [place] [address] Michael Yu MD [address] [place] [id number] Essential (primary) hypertension; Acute on chronic diastolic [...] LAB CHEMISTRY METHOD 11/04/2024 1:32 PM EST [facility] Potassium 3.6 3.5 - 5.5 mmol/L LAB CHEMISTRY METHOD 11/04/2024 1:32 PM [facility] Chloride 104 96 - 110 mmol/L LAB CHEMISTRY METHOD 11/04/2024 1:32 PM [facility] CO2 32 21 - 32 mmol/L LAB CHEMISTRY METHOD 11/04/2024 1:32 PM [facility] Anion Gap 6 3 - 11 LAB CHEMISTRY METHOD 11/04/2024 1:32 PM [facility] Glucose 95 70 - 100 mg/dL LAB CHEMISTRY METHOD 11/04/2024 1:32 PM [facility] BUN 34(H) 5 - 25 mg/dL LAB CHEMISTRY METHOD 11/04/2024 1:32 PM [facility] Creatinine 0.99 0.70 - 1.30 mg/dL LAB CHEMISTRY METHOD 11/04/2024 1:32 PM [facility] eGFR 74 >=60 mL/min/1. 73m2 LAB CHEMISTRY METHOD 11/04/2024 1:32 PM [facility] Comment:Calculation based on the??Chronic Kidney Disease Epidemiology Collaboration (CKD-EPI) equation refit??without adjustment for race. BUN/Creatinine Ratio 34.3 LAB CHEMISTRY METHOD 11/04/2024 1:32 PM [facility] Calcium 8.6 8.5 - 10.5 mg/dL LAB CHEMISTRY METHOD 11/04/2024 1:32 PM [facility] AST (SGOT) 28 10 - 42 unit/L LAB CHEMISTRY METHOD 11/04/2024 1:32 PM [facility] ALT (SGPT) 41 10 - 60 unit/L LAB CHEMISTRY METHOD 11/04/2024 1:32 PM [facility] Alkaline Phosphatase 68 42 - 121 unit/L LAB CHEMISTRY METHOD 11/04/2024 1:32 PM [facility] Total Protein 5.8(L) 6.0 - 8.0 g/dL LAB CHEMISTRY METHOD 11/04/2024 1:32 PM EST [facility] Albumin 2.7(L) 3.2 - 5.0 g/dL LAB CHEMISTRY METHOD 11/04/2024 1:32 PM [facility] Total Bilirubin 0.3 0.0 - 1.4 mg/dL LAB CHEMISTRY METHOD 11/04/2024 1:32 PM [facility] Blood Venous blood specimen / Unknown Venipuncture / Unknown 11/04/2024 5:23 AM EST 11/04/2024 9:59 AM EST us Michael Yu MD LAB BLOOD ORDERABLES Final Result [facility] [address] [place] [address], [place] [phone] * (ABNORMAL) Complete blood count (11/04/2024 5:23 AM EST) WBC 3.9(L) 4.8 - 10.8 K/mcL LAB HEMETOLOGY METHOD 11/04/2024 10:35 AM [facility] RBC 3.70(L) 4.50 - 5.50 M/[facility] LAB HEMETOLOGY METHOD 11/04/2024 10:35 AM [facility] Hemoglobin 11.9(L) 13.5 - 17.5 g/dL LAB HEMETOLOGY METHOD 11/04/2024 10:35 AM [facility] Hematocrit 37.1(L) 42.0 - 54.0 % LAB HEMETOLOGY METHOD 11/04/2024 10:35 AM [facility] MCV 101.6(H) 79.0 - 98.0 FL LAB HEMETOLOGY METHOD 11/04/2024 10:35 AM [facility] MCH 32.6(H) 27.0 - 32.0 pcg LAB HEMETOLOGY METHOD 11/04/2024 10:35 AM [facility] MCHC 32.1 32.0 - 37.0 g/dL LAB HEMETOLOGY METHOD 11/04/2024 10:35 AM EST [facility] RDW 13.0 11.0 - 15.0 % LAB HEMETOLOGY METHOD 11/04/2024 10:35 AM [facility] Platelets 125(L) 130 - 400 K/mcL LAB HEMETOLOGY METHOD 11/04/2024 10:35 AM EST [facility] MPV 11.6(H) 7.0 - 11.0 FL LAB HEMETOLOGY METHOD 11/04/2024 10:35 AM EST [facility] NRBC 0.0 <1.0 % LAB HEMETOLOGY METHOD 11/04/2024 10:35 AM [facility] NRBC Absolute 0.00 <0.10 K/mcL LAB HEMETOLOGY METHOD 11/04/2024 10:35 AM [facility] Blood Venous blood specimen / Unknown Venipuncture / Unknown 11/04/2024 5:23 AM EST 11/04/2024 9:59 AM EST Michael Yu MD LAB BLOOD ORDERABLES Final Result [facility] [address] [place] [address], documented in this encounter Visit Diagnoses Diagnosis Essential (primary) hypertension Unspecified essential hypertension Acute on chronic diastolic (congestive) heart failure (CMS/HCC V24, CMS/HCC V28) documented in this encounter Care Teams Stripper Color Relationship Specialty Start Date End Date Carlos Allen MD [address] [place] [address] PCP - General Internal Medicine 11/08/24 documented as of this encounter
--- OUTSIDE RECORDS SUMMARY | 2025-04-07 12:44 | XMS_ITS | Encounter Summary ---
Author Organization [facility] Address [address] [place] [address] Care Team Providers Care Link Wire Fabric Machine Operator Name Role Phone Carlos Allen MD Primary Care Provider [phone] Encounter Details Date Type Department Care Team (Latest Contact Info) Description 11/05/2024 Lab Requisition [facility] - Main Lab [address] [facility] 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 INR 2.4 LAB COAGULATION METHOD 11/05/2024 10:10 AM [facility] Blood Venous blood specimen / Unknown Venipuncture / Unknown 11/05/2024 4:59 AM EST 11/05/2024 9:36 AM EST Carlos Allen MD LAB BLOOD ORDERABLES Final Resu lt [facility] [address] [place] [address], documented in this encounter Visit Diagnoses Diagnosis Chronic obstructive pulmonary disease, unspecified (CMS/HCC V24, CMS/HCC V28) [facility] (current) use of anticoagulants Long-term (current) use of anticoagulants documented in this encounter Care Teams Link Wire Fabric Machine Operator Relationship Specialty Start Date End Date Carlos Allen MD [address] [place] [address] PCP - General Internal Medicine 11/08/24 documented as of this encounter
--- OUTSIDE RECORDS SUMMARY | 2025-04-07 12:44 | XMS_ITS | Encounter Summary ---
Author Organization [email or web address] Address [address] [place] [address] Care Team Providers Care Voip Technician Name Role Phone Carlos Allen MD Primary Care Provider [phone] Encounter Details Date Type Department Care Team (Late st Contact Info) Description 10/31/2024 Lab Requisition [facility] - Main Lab 299 [facility] [place] [address] Carlos Allen MD [address] [place] [address] Acute on chronic diastolic (congestive) heart [...] Acute on chronic diastolic (congestive) heart failure ([facility]/HCC) COMPLETE BLOOD COUNT Routine 10/31/2024 5:26 AM EST Acute on chronic diastolic (congestive) heart failure (CMS/HCC) COMPREHENSIVE METABOLIC PANEL Routine 10/31/2024 5:26 AM EST Acute on chronic diastolic (congestive) heart failure (CMS/HCC) documented in this encounter Results * (ABNORMAL) Comprehensive metabolic panel (10/31/2024 5:26 AM EST) Sodium 140 133 - 145 mmol/L LAB CHEMISTRY METHOD 10/31/2024 11:05 AM [facility] Potassium 4.2 3.5 - 5.5 mmol/L LAB CHEMISTRY METHOD 10/31/2024 11:05 AM [facility] Chloride 103 96 - 110 mmol/L LAB CHEMISTRY METHOD 10/31/2024 11:05 AM [facility] CO2 34(H) 21 - 32 mmol/L LAB CHEMISTRY METHOD 10/31/2024 11:05 AM [facility] Anion Gap 3 3 - 11 LAB CHEMISTRY METHOD 10/31/2024 11:05 AM [facility] Glucose 96 70 - 100 mg/dL LAB CHEMISTRY METHOD 10/31/2024 11:05 AM [facility] BUN 37(H) 5 - 25 mg/dL LAB CHEMISTRY METHOD 10/31/2024 11:05 AM [facility] Creatinine 1.21 0.70 - 1.30 mg/dL LAB CHEMISTRY METHOD 10/31/2024 11:05 AM [facility] eGFR 58(L) >=60 mL/min/1. 73m2 LAB CHEMISTRY METHOD 10/31/2024 11:05 AM [facility] Comment:Calculation based on the??Chronic Kidney Disease Epidemiology Collaboration (CKD-EPI) equation refit??without adjustment for race. BUN/Creatinine Ratio 30.6 LAB CHEMISTRY METHOD 10/31/2024 11:05 AM [facility] Calcium 8.7 8.5 - 10.5 mg/dL LAB CHEMISTRY METHOD 10/31/2024 11:05 AM [facility] AST (SGOT) 29 10 - 42 unit/L LAB CHEMISTRY METHOD 10/31/2024 11:05 AM [facility] ALT (SGPT) 29 10 - 60 unit/L LAB CHEMISTRY METHOD 10/31/2024 11:05 AM [facility] Alkaline Phosphatase 70 42 - 121 unit/L LAB CHEMISTRY METHOD 10/31/2024 11:05 AM [facility] Total Protein 6.1 6.0 - 8.0 g/dL LAB CHEMISTRY METHOD 10/31/2024 11:05 AM [facility] Albumin 2.8(L) 3.2 - 5.0 g/dL LAB CHEMISTRY METHOD 10/31/2024 11:05 AM [facility] Total Bilirubin 0.5 0.0 - 1.4 mg/dL LAB CHEMISTRY METHOD 10/31/2024 11:05 AM [facility] Blood Venous blood specimen / Unknown Venipuncture / Unknown 10/31/2024 5:26 AM EST 10/31/2024 9:41 AM EST us Carlos Allen MD LAB BLOOD ORDERABLES Final Resu lt Performing Organization Address City/[facility]/ZIP Co de Phone Number [facility] [address] [place] [address], [place] [phone] * (ABNORMAL) Prothrombin time with INR (10/31/2024 5:26 AM EST) Protime 24.2(H) 10.6 - 13.9 sec LAB COAGULATION METHOD 10/31/2024 10:26 AM EST [facility] INR 1.9 LAB COAGULATION METHOD 10/31/2024 10:26 AM EST [facility] Blood Venous blood specimen / Unknown Venipuncture / Unknown 10/31/2024 5:26 AM EST 10/31/2024 9:41 AM EST us Carlos Allen MD LAB BLOOD ORDERABLES Final Resu lt [facility] [address] [place] [address], [place] [phone] * (ABNORMAL) Complete blood count (10/31/2024 5:26 AM EST) WBC 5.0 4.8 - 10.8 K/mcL LAB HEMETOLOGY METHOD 10/31/2024 10:27 AM [facility] RBC 4.00(L) 4.50 - 5.50 M/mcL LAB HEMETOLOGY METHOD 10/31/2024 10:27 AM [facility] Hemoglobin 13.2(L) 13.5 - 17.5 g/dL LAB HEMETOLOGY METHOD 10/31/2024 10:27 AM [facility] Hematocrit 40.4(L) 42.0 - 54.0 % LAB HEMETOLOGY METHOD 10/31/2024 10:27 AM [facility] MCV 100.0(H) 79.0 - 98.0 FL LAB HEMETOLOGY METHOD 10/31/2024 10:27 AM [facility] MCH 32.7(H) 27.0 - 32.0 pcg LAB HEMETOLOGY METHOD 10/31/2024 10:27 AM [facility] MCHC 32.7 32.0 - 37.0 g/dL LAB HEMETOLOGY METHOD 10/31/2024 10:27 AM [facility] RDW 13.2 11.0 - 15.0 % LAB HEMETOLOGY METHOD 10/31/2024 10:27 AM [facility] Platelets 110(L) 130 - 400 K/mcL LAB HEMETOLOGY METHOD 10/31/2024 10:27 AM [facility] MPV 11.7(H) 7.0 - 11.0 FL LAB HEMETOLOGY METHOD 10/31/2024 10:27 AM [facility] NRBC 0.0 <1.0 % LAB HEMETOLOGY METHOD 10/31/2024 10:27 AM [facility] NRBC Absolute 0.00 <0.10 K/mcL LAB HEMETOLOGY METHOD 10/31/2024 10:27 AM [facility] Blood Venous blood specimen / Unknown Venipuncture / Unknown 10/31/2024 5:26 AM EST 10/31/2024 9:41 AM EST Carlos Allen MD LAB BLOOD ORDERABLES Final Resu lt [facility] ([facility] [address] [place] [address], documented in this encounter Visit Diagnoses Diagnosis Acute on chronic diastolic (congestive) heart failure (CMS/HCC V24, CMS/HCC V28) documented in this encounter Care Teams Voip Technician Relationship Specialty Start Date End Date Carlos Allen MD [address] [place] [address] PCP - General Internal Medicine 11/08/24 documented as of this encounter
--- OUTSIDE RECORDS SUMMARY | 2025-04-07 12:45 | XMS_ITS | Encounter Summary ---
Author Organization [employer] [facility] Address [address] [place] [address] Care Team Providers Care Photographer Motion Picture Name Role Phone Carlos Allen MD Primary Care Provider [phone] Encounter Details Date Type Department Care Team (Late st Contact Info) Description 11/19/2024 Lab Requisition [facility] - Main Lab 299 [facility] [place] [address] Carlos Allen MD [address] [place] [address] Acute on chronic diastolic (congestive) [...] hypertension documented in this encounter Care Teams Photographer Motion Picture Relationship Specialty Start Date End Date Carlos Allen MD [address] [place] [address] PCP - General Internal Medicine 11/08/24 documented as of this encounter
--- OUTSIDE RECORDS SUMMARY | 2025-04-07 12:45 | XMS_ITS | Encounter Summary ---
Author Organization [employer] Address [address] [place] [address] Care Team Providers Care Comber Operator Name Role Phone Carlos Allen MD Primary Care Provider [phone] Encounter Details Date Type Department Care Team (Late st Contact Info) Description 11/12/[address] [facility] - Main Lab 299 [facility] [place] [address] Carlos Allen MD [address] [place] [address] Acute on chronic diastolic (congestive) heart [...] LAB COAGULATION METHOD 11/14/2024 11:35 AM EST [facility] INR 2.3 LAB COAGULATION METHOD 11/14/2024 11:35 AM [facility] Blood Venous blood specimen / Unknown 11/14/2024 5:16 AM EST 11/14/2024 11:35 AM EST us Carlos Allen MD LAB BLOOD ORDERABLES Final Resu lt [facility] [address] [place] [address], * (ABNORMAL) Complete blood count (11/14/2024 5:16 AM EST) [facility] WBC 4.3(L) 4.8 - 10.8 K/mcL LAB HEMETOLOGY METHOD 11/14/2024 12:07 PM [facility] RBC 3.60(L) 4.50 - 5.50 M/mcL LAB HEMETOLOGY METHOD 11/14/2024 12:07 PM [facility] Hemoglobin 11.4(L) 13.5 - 17.5 g/dL LAB HEMETOLOGY METHOD 11/14/2024 12:07 PM [facility] Hematocrit 35.9(L) 42.0 - 54.0 % LAB HEMETOLOGY METHOD 11/14/2024 12:07 PM [facility] MCV 100.8(H) 79.0 - 98.0 FL LAB HEMETOLOGY METHOD 11/14/2024 12:07 PM [facility] MCH 32.0 27.0 - 32.0 pcg LAB HEMETOLOGY METHOD 11/14/2024 12:07 PM [facility] MCHC 31.8(L) 32.0 - 37.0 g/dL LAB HEMETOLOGY METHOD 11/14/2024 12:07 PM EST [facility] RDW 13.5 11.0 - 15.0 % LAB HEMETOLOGY METHOD 11/14/2024 12:07 PM [facility] Platelets 108(L) 130 - 400 K/mcL LAB HEMETOLOGY METHOD 11/14/2024 12:07 PM [facility] MPV 11.7(H) 7.0 - 11.0 FL LAB HEMETOLOGY METHOD 11/14/2024 12:07 PM EST [facility] NRBC 0.0 <1.0 % LAB HEMETOLOGY METHOD 11/14/2024 12:07 PM [facility] NRBC Absolute 0.00 <0.10 K/mcL LAB HEMETOLOGY METHOD 11/14/2024 12:07 PM [facility] Blood Venous blood specimen / Unknown Venipuncture / Unknown 11/14/2024 5:16 AM EST 11/14/2024 12:07 PM EST us Carlos Allen MD LAB BLOOD ORDERABLES Final Resu lt [facility] [address] [place] [address], * (ABNORMAL) Basic metabolic panel (11/14/2024 5:16 AM EST) Sodium 142 133 - 145 mmol/L LAB CHEMISTRY METHOD 11/14/2024 12:37 PM EST [facility] Potassium 4.8 3.5 - 5.5 mmol/L LAB CHEMISTRY METHOD 11/14/2024 12:37 PM [facility] Chloride 106 96 - 110 mmol/L LAB CHEMISTRY METHOD 11/14/2024 12:37 PM [facility] CO2 32 21 - 32 mmol/L LAB CHEMISTRY METHOD 11/14/2024 12:37 PM [facility] Anion Gap 4 3 - 11 LAB CHEMISTRY METHOD 11/14/2024 12:37 PM [facility] Glucose 99 70 - 100 mg/dL LAB CHEMISTRY METHOD 11/14/2024 12:37 PM [facility] BUN 26(H) 5 - 25 mg/dL LAB CHEMISTRY METHOD 11/14/2024 12:37 PM [facility] Creatinine 1.04 0.70 - 1.30 mg/dL LAB CHEMISTRY METHOD 11/14/2024 12:37 PM [facility] eGFR 70 >=60 mL/min/1. 73m2 LAB CHEMISTRY METHOD 11/14/2024 12:37 PM [facility] Comment:Calculation based on the??Chronic Kidney Disease Epidemiology Collaboration (CKD-EPI) equation refit??without adjustment for race. BUN/Creatinine Ratio 25.0 LAB CHEMISTRY METHOD 11/14/2024 12:37 PM [facility] Calcium 8.4(L) 8.5 - 10.5 mg/dL LAB CHEMISTRY METHOD 11/14/2024 12:37 PM [facility] Blood Venous blood specimen / Unknown Venipuncture / Unknown 11/14/2024 5:16 AM EST 11/14/2024 11:21 AM EST us Carlos Allen MD LAB BLOOD ORDERABLES Final Resu lt [facility] [address] [place] [address], documented in this encounter Visit Diagnoses Diagnosis Acute on chronic diastolic (congestive) heart failure (CMS/HCC V24, CMS/HCC V28) Essential (primary) hypertension Unspecified essential hypertension documented in this encounter Care Teams Comber Operator Relationship Specialty Start Date End Date Carlos Allen MD [address] [place] [address] PCP - General Internal Medicine 11/08/24 documented as of this encounter
--- OUTSIDE RECORDS SUMMARY | 2025-04-07 12:45 | XMS_ITS | Encounter Summary ---
Author Organization [employer] Address [address] [place] [address] Care Team Providers Care Hot Metal Charger Name Role Phone Carlos Allen MD Primary Care Provider [phone] Encounter Details Date Type Department Care Team (Late st Contact Info) Description 11/15/2024 Lab Requisition [facility] - Main Lab 299 [facility] [address] Carlos Allen MD [address] [place] [phone] Essential (primary) hypertension; Acute on chronic [...] LAB COAGULATION METHOD 11/18/2024 10:17 AM EST [facility] INR 2.6 LAB COAGULATION METHOD 11/18/2024 10:17 AM [facility] Blood Venous blood specimen / Unknown Venipuncture / Unknown 11/18/2024 4:57 AM EST 11/18/2024 9:46 AM EST us Carlos Allen MD LAB BLOOD ORDERABLES Final Resu lt [facility] [address] [place] [address], [place] [phone] * (ABNORMAL) Comprehensive metabolic panel (11/18/2024 4:57 AM EST) [facility] Sodium 143 133 - 145 mmol/L LAB CHEMISTRY METHOD 11/18/2024 10:20 AM [facility] Potassium 4.5 3.5 - 5.5 mmol/L LAB CHEMISTRY METHOD 11/18/2024 10:20 AM [facility] Chloride 106 96 - 110 mmol/L LAB CHEMISTRY METHOD 11/18/2024 10:20 AM [facility] CO2 35(H) 21 - 32 mmol/L LAB CHEMISTRY METHOD 11/18/2024 10:20 AM [facility] Anion Gap 2(L) 3 - 11 LAB CHEMISTRY METHOD 11/18/2024 10:20 AM [facility] Glucose 90 70 - 100 mg/dL LAB CHEMISTRY METHOD 11/18/2024 10:20 AM [facility] BUN 29(H) 5 - 25 mg/dL LAB CHEMISTRY METHOD 11/18/2024 10:20 AM [facility] Creatinine 1.04 0.70 - 1.30 mg/dL LAB CHEMISTRY METHOD 11/18/2024 10:20 AM [facility] eGFR 70 >=60 mL/min/1. 73m2 LAB CHEMISTRY METHOD 11/18/2024 10:20 AM [facility] Comment:Calculation based on the??Chronic Kidney Disease Epidemiology Collaboration (CKD-EPI) equation refit??without adjustment for race. BUN/Creatinine Ratio 27.9 LAB CHEMISTRY METHOD 11/18/2024 10:20 AM [facility] Calcium 8.3(L) 8.5 - 10.5 mg/dL LAB CHEMISTRY METHOD 11/18/2024 10:20 AM [facility] AST (SGOT) 26 10 - 42 unit/L LAB CHEMISTRY METHOD 11/18/2024 10:20 AM [facility] ALT (SGPT) 22 10 - 60 unit/L LAB CHEMISTRY METHOD 11/18/2024 10:20 AM [facility] Alkaline Phosphatase 65 42 - 121 unit/L LAB CHEMISTRY METHOD 11/18/2024 10:20 AM [facility] Total Protein 5.6(L) 6.0 - 8.0 g/dL LAB CHEMISTRY METHOD 11/18/2024 10:20 AM [facility] Albumin 2.6(L) 3.2 - 5.0 g/dL LAB CHEMISTRY METHOD 11/18/2024 10:20 AM [facility] Total Bilirubin 0.4 0.0 - 1.4 mg/dL LAB CHEMISTRY METHOD 11/18/2024 10:20 AM [facility] Blood Venous blood specimen / Unknown Venipuncture / Unknown 11/18/2024 4:57 AM EST 11/18/2024 9:44 AM EST us Carlos Allen MD LAB BLOOD ORDERABLES Final Resu lt [facility] [address] [place] [address], [place] [phone] * (ABNORMAL) Complete blood count (11/18/2024 4:57 AM EST) [facility] WBC 4.0(L) 4.8 - 10.8 K/mcL LAB HEMETOLOGY METHOD 11/18/2024 11:25 AM [facility] RBC 3.60(L) 4.50 - 5.50 M/mcL LAB HEMETOLOGY METHOD 11/18/2024 11:25 AM [facility] Hemoglobin 11.6(L) 13.5 - 17.5 g/dL LAB HEMETOLOGY METHOD 11/18/2024 11:25 AM [facility] Hematocrit 36.6(L) 42.0 - 54.0 % LAB HEMETOLOGY METHOD 11/18/2024 11:25 AM [facility] MCV 100.5(H) 79.0 - 98.0 FL LAB HEMETOLOGY METHOD 11/18/2024 11:25 AM [facility] MCH 31.9 27.0 - 32.0 pcg LAB HEMETOLOGY METHOD 11/18/2024 11:25 AM [facility] MCHC 31.7(L) 32.0 - 37.0 g/dL LAB HEMETOLOGY METHOD 11/18/2024 11:25 AM [facility] RDW 13.9 11.0 - 15.0 % LAB HEMETOLOGY METHOD 11/18/2024 11:25 AM [facility] Platelets 96(L) 130 - 400 K/mcL LAB HEMETOLOGY METHOD 11/18/2024 11:25 AM [facility] Comment:reviewed by slide MPV 12.0(H) 7.0 - 11.0 FL LAB HEMETOLOGY METHOD 11/18/2024 11:25 AM [facility] NRBC 0.0 <1.0 % LAB HEMETOLOGY METHOD 11/18/2024 11:25 AM [facility] NRBC Absolute 0.00 <0.10 K/mcL LAB HEMETOLOGY METHOD 11/18/2024 11:25 AM EST [facility] Blood Venous blood specimen / Unknown Venipuncture / Unknown 11/18/2024 4:57 AM EST 11/18/2024 9:45 AM EST Carlos Allen MD LAB BLOOD ORDERABLES Final Resu lt [facility] [address] [place] [address], documented in this encounter Visit Diagnoses Diagnosis Essential (primary) hypertension Unspecified essential hypertension Acute on chronic diastolic (congestive) heart failure (CMS/HCC V24, CMS/HCC V28) documented in this encounter Care Teams Hot Metal Charger Relationship Specialty Start Date End Date Carlos Allen MD [address] [place] [address] PCP - General Internal Medicine 11/08/24 documented as of this encounter
--- OUTSIDE RECORDS SUMMARY | 2025-04-07 12:45 | XMS_ITS | Encounter Summary ---
Author Organization [employer] Address [address] [place] [address] Care Team Providers Care Leaf Coverer Name Role Phone Carlos Allen MD Primary Care Provider [phone] Encounter Details Date Type Department Care Team (Late st Contact Info) Description 09/21/2024 Lab Requisition [facility] - Main Lab [address] [place] [address] Margarito Kuhn MD [address] [place] [phone] Other specified heart block Social History Tobacco [...] AM EDT) WBC 3.7(L) 4.8 - 10.8 K/[facility] LAB HEMETOLOGY METHOD 09/21/2024 4:37 PM EDT [facility] RBC 3.50(L) 4.50 - 5.50 M/mcL LAB HEMETOLOGY METHOD 09/21/2024 4:37 PM EDT [facility] Hemoglobin 11.6(L) 13.5 - 17.5 g/dL LAB HEMETOLOGY METHOD 09/21/2024 4:37 PM EDT [facility] Hematocrit 36.8(L) 42.0 - 54.0 % LAB HEMETOLOGY METHOD 09/21/2024 4:37 PM EDT [facility] MCV 104.5(H) 79.0 - 98.0 FL LAB HEMETOLOGY METHOD 09/21/2024 4:37 PM EDT [facility] MCH 33.0(H) 27.0 - 32.0 pcg LAB HEMETOLOGY METHOD 09/21/2024 4:37 PM EDT [facility] MCHC 31.5(L) 32.0 - 37.0 g/dL LAB HEMETOLOGY METHOD 09/21/2024 4:37 PM EDT [facility] RDW 13.3 11.0 - 15.0 % LAB HEMETOLOGY METHOD 09/21/2024 4:37 PM EDT [facility] Platelets 94(L) 130 - 400 K/mcL LAB HEMETOLOGY METHOD 09/21/2024 4:37 PM EDT [facility] MPV 11.6(H) 7.0 - 11.0 FL LAB HEMETOLOGY METHOD 09/21/2024 4:37 PM EDT [facility] NRBC 0.0 <1.0 % LAB HEMETOLOGY METHOD 09/21/2024 4:37 PM EDT [facility] NRBC Absolute 0.00 <0.10 K/mcL LAB HEMETOLOGY METHOD 09/21/2024 4:37 PM EDT [facility] Blood Venous blood specimen / Unknown Venipuncture / Unknown 09/21/2024 6:20 AM EDT 09/21/2024 9:19 AM EDT us Margarito Kuhn MD LAB BLOOD ORDERABLES Final Resu lt [facility] [address] [place] [address], [place] [phone] * Basic metabolic panel (09/21/2024 6:20 AM EDT) Sodium 141 133 - 145 mmol/L LAB CHEMISTRY METHOD 09/21/2024 11:15 AM [facility] Potassium 3.9 3.5 - 5.5 mmol/L LAB CHEMISTRY METHOD 09/21/2024 11:15 AM [facility] Chloride 105 96 - 110 mmol/L LAB CHEMISTRY METHOD 09/21/2024 11:15 AM [facility] CO2 31 21 - 32 mmol/L LAB CHEMISTRY METHOD 09/21/2024 11:15 AM [facility] Anion Gap 5 3 - 11 LAB CHEMISTRY METHOD 09/21/2024 11:15 AM [facility] Glucose 87 70 - 100 mg/dL LAB CHEMISTRY METHOD 09/21/2024 11:15 AM [facility] BUN 25 5 - 25 mg/dL LAB CHEMISTRY METHOD 09/21/2024 11:15 AM [facility] Creatinine 1.06 0.70 - 1.30 mg/dL LAB CHEMISTRY METHOD 09/21/2024 11:15 AM [facility] eGFR 68 >=60 mL/min/1. 73m2 LAB CHEMISTRY METHOD 09/21/2024 11:15 AM [facility] Comment:Calculation based on the??Chronic Kidney Disease Epidemiology Collaboration (CKD-EPI) equation refit??without adjustment for race. BUN/Creatinine Ratio 23.6 LAB CHEMISTRY METHOD 09/21/2024 11:15 AM [facility] Calcium 8.7 8.5 - 10.5 mg/dL LAB CHEMISTRY METHOD 09/21/2024 11:15 AM [facility] Blood Venous blood specimen / Unknown Venipuncture / Unknown 09/21/2024 6:20 AM EDT 09/21/2024 9:19 AM EDT us Margarito Kuhn MD LAB BLOOD ORDERABLES Final Resu lt [facility] ([facility] [address] [place] [address], documented in this encounter Visit Diagnoses Diagnosis Other specified heart block documented in this encounter Care Teams Leaf Coverer Relationship Specialty Start Date End Date Carlos Allen MD [address] [place] [address] PCP - General Internal Medicine 11/08/24 documented as of this encounter
--- OUTSIDE RECORDS SUMMARY | 2025-04-07 12:45 | XMS_ITS | Clinical Summary ---
Author Organization [address] [facility] Address [address] [place] [address] Phone Care Team Providers Care Ground Crew Supervisor Name Role Phone Carlos Allen MD Primary Care Provider [phone] Social History Tobacco Use Types Packs/Day Years [...] mmol/L LAB CHEMISTRY METHOD 11/18/2024 10:20 AM [facility] Potassium 4.5 3.5 - 5.5 mmol/L LAB CHEMISTRY METHOD 11/18/2024 10:20 AM [facility] Chloride 106 96 - 110 mmol/L LAB CHEMISTRY METHOD 11/18/2024 10:20 AM [facility] CO2 35(H) 21 - 32 mmol/L LAB CHEMISTRY METHOD 11/18/2024 10:20 AM [facility] Anion Gap 2(L) 3 - 11 LAB CHEMISTRY METHOD 11/18/2024 10:20 AM [facility] Glucose 90 70 - 100 mg/dL LAB CHEMISTRY METHOD 11/18/2024 10:20 AM [facility] BUN 29(H) 5 - 25 mg/dL LAB CHEMISTRY METHOD 11/18/2024 10:20 AM [facility] Creatinine 1.04 0.70 - 1.30 mg/dL LAB CHEMISTRY METHOD 11/18/2024 10:20 AM [facility] eGFR 70 >=60 mL/min/1. 73m2 LAB CHEMISTRY METHOD 11/18/2024 10:20 AM [facility] Comment:Calculation based on the??Chronic Kidney Disease Epidemiology Collaboration (CKD-EPI) equation refit??without adjustment for race. BUN/Creatinine Ratio 27.9 LAB CHEMISTRY METHOD 11/18/2024 10:20 AM [facility] Calcium 8.3(L) 8.5 - 10.5 mg/dL LAB CHEMISTRY METHOD 11/18/2024 10:20 AM [facility] AST (SGOT) 26 10 - 42 unit/L LAB CHEMISTRY METHOD 11/18/2024 10:20 AM [facility] ALT (SGPT) 22 10 - 60 unit/L LAB CHEMISTRY METHOD 11/18/2024 10:20 AM [facility] Alkaline Phosphatase 65 42 - 121 unit/L LAB CHEMISTRY METHOD 11/18/2024 10:20 AM [facility] Total Protein 5.6(L) 6.0 - 8.0 g/dL LAB CHEMISTRY METHOD 11/18/2024 10:20 AM [facility] Albumin 2.6(L) 3.2 - 5.0 g/dL LAB CHEMISTRY METHOD 11/18/2024 10:20 AM [facility] Total Bilirubin 0.4 0.0 - 1.4 mg/dL LAB CHEMISTRY METHOD 11/18/2024 10:20 AM [facility] Blood Venous blood specimen / Unknown Venipuncture / Unknown 11/18/2024 4:57 AM EST 11/18/2024 9:44 AM EST us Carlos Allen MD LAB BLOOD ORDERABLES Final Resu lt [facility] [address] [place] [address], from Last 3 Months or Most Recently Relevant to Health Maintenance Insurance MEDICARE [facility] Care Teams Ground Crew Supervisor Relationship Specialty Start Date End Date Carlos Allen MD [address] [place] [phone] PCP - General Internal Medicine 11/08/24
--- OUTSIDE RECORDS SUMMARY | 2025-04-07 12:45 | XMS_ITS | Encounter Summary ---
Author Organization [facility] Address [address] [place] [address] Care Team Providers Care Washer Off Name Role Phone Carlos Allen MD Primary Care Provider [phone] Encounter Details Date Type Department Care Team (Late st Contact Info) Description 11/08/2024 Lab Requisition [facility] - Main Lab 299 [facility] [place] [address] Carlos Allen MD [address] [place] [phone] Paroxysmal atrial fibrillation (CMS/HCC V24, CMS/HCC [...] LAB COAGULATION METHOD 11/08/2024 10:40 AM EST [facility] INR 2.6 LAB COAGULATION METHOD 11/08/2024 10:40 AM EST [facility] Blood Venous blood specimen / Unknown Venipuncture / Unknown 11/08/2024 8:57 AM EST 11/08/2024 9:43 AM EST Carlos Allen MD LAB BLOOD ORDERABLES Final Resu lt [facility] ([facility]) [facility] [address] [place] [address], documented in this encounter Visit Diagnoses Diagnosis Paroxysmal atrial fibrillation (CMS/HCC V24, CMS/HCC V28) Atrial fibrillation documented in this encounter Care Teams Washer Off Relationship Specialty Start Date End Date Carlos Allen MD [address] [place] [address] PCP - General Internal Medicine 11/08/24 documented as of this encounter
--- OUTSIDE RECORDS SUMMARY | 2025-04-07 12:45 | XMS_ITS | Encounter Summary ---
Author Organization [employer] Address [address] [place] [address] Care Team Providers Care Launch Operator Name Role Phone Carlos Allen MD Primary Care Provider Encounter Details Date Type Department Care Team (Late st Contact Info) Description 11/06/[address] [facility] - Main Lab 299 [facility] [place] [address] Carlos Allen MD [address] [place] [phone] Acute on chronic diastolic (congestive) heart [...] sec LAB COAGULATION METHOD 11/07/2024 12:04 PM [facility] LAB INR 3.2 LAB COAGULATION METHOD 11/07/2024 12:04 PM [facility] LAB Blood Venous blood specimen / Unknown Venipuncture / Unknown 11/07/2024 5:10 AM EST 11/07/2024 11:25 AM EST us Carlos Allen MD LAB BLOOD ORDERABLES Final Resu lt [facility] [address] [place] [address], [place] [phone] * (ABNORMAL) Basic metabolic panel (11/07/2024 5:10 AM EST) [facility] Sodium 143 133 - 145 mmol/L LAB CHEMISTRY METHOD 11/07/2024 1:23 PM [facility] Potassium 5.1 3.5 - 5.5 mmol/L LAB CHEMISTRY METHOD 11/07/2024 1:23 PM [facility] Chloride 106 96 - 110 mmol/L LAB CHEMISTRY METHOD 11/07/2024 1:23 PM [facility] LAB CO2 34(H) 21 - 32 mmol/L LAB CHEMISTRY METHOD 11/07/2024 1:23 PM [facility] Anion Gap 3 3 - 11 LAB CHEMISTRY METHOD 11/07/2024 1:23 PM [facility] Glucose 89 70 - 100 mg/dL LAB CHEMISTRY METHOD 11/07/2024 1:23 PM [facility] BUN 34(H) 5 - 25 mg/dL LAB CHEMISTRY METHOD 11/07/2024 1:23 PM [facility] Creatinine 1.12 0.70 - 1.30 mg/dL LAB CHEMISTRY METHOD 11/07/2024 1:23 PM [facility] LAB eGFR 64 >=60 mL/min/1. 73m2 LAB CHEMISTRY METHOD 11/07/2024 1:23 PM EST [facility] LAB Comment:Calculation based on the??Chronic Kidney Disease Epidemiology Collaboration (CKD-EPI) equation refit??without adjustment for race. BUN/Creatinine Ratio 30.4 LAB CHEMISTRY METHOD 11/07/2024 1:23 PM EST [facility] Calcium 8.9 8.5 - 10.5 mg/dL LAB CHEMISTRY METHOD 11/07/2024 1:23 PM [facility] Blood Venous blood specimen / Unknown Venipuncture / Unknown 11/07/2024 5:10 AM EST 11/07/2024 11:25 AM EST us Carlos Allen MD LAB BLOOD ORDERABLES Final Resu lt [facility] LAB [address] [place] [address], * (ABNORMAL) Complete blood count (11/07/2024 5:10 AM EST) WBC 3.9(L) 4.8 - 10.8 K/mcL LAB HEMETOLOGY METHOD 11/07/2024 12:36 PM [facility] RBC 3.80(L) 4.50 - 5.50 M/mcL LAB HEMETOLOGY METHOD 11/07/2024 12:36 PM [facility] Hemoglobin 12.0(L) 13.5 - 17.5 g/dL LAB HEMETOLOGY METHOD 11/07/2024 12:36 PM [facility] Hematocrit 38.7(L) 42.0 - 54.0 % LAB HEMETOLOGY METHOD 11/07/2024 12:36 PM [facility] LAB MCV 102.9(H) 79.0 - 98.0 FL LAB HEMETOLOGY METHOD 11/07/2024 12:36 PM [facility] LAB MCH 31.9 27.0 - 32.0 pcg LAB HEMETOLOGY METHOD 11/07/2024 12:36 PM [facility] LAB MCHC 31.0(L) 32.0 - 37.0 g/dL LAB HEMETOLOGY METHOD 11/07/2024 12:36 PM [facility] RDW 13.3 11.0 - 15.0 % LAB HEMETOLOGY METHOD 11/07/2024 12:36 PM [facility] Platelets 128(L) 130 - 400 K/mcL LAB HEMETOLOGY METHOD 11/07/2024 12:36 PM [facility] MPV 11.7(H) 7.0 - 11.0 FL LAB HEMETOLOGY METHOD 11/07/2024 12:36 PM [facility] LAB NRBC 0.0 <1.0 % LAB HEMETOLOGY METHOD 11/07/2024 12:36 PM [facility] LAB NRBC Absolute 0.00 <0.10 K/mcL LAB HEMETOLOGY METHOD 11/07/2024 12:36 PM [facility] Blood Venous blood specimen / Unknown Venipuncture / Unknown 11/07/2024 5:10 AM EST 11/07/2024 11:25 AM EST us Carlos Allen MD LAB BLOOD ORDERABLES Final Resu lt [facility] [address] [place] [address], documented in this encounter Visit Diagnoses Diagnosis Acute on chronic diastolic (congestive) heart failure (CMS/HCC V24, CMS/HCC V28) Essential (primary) hypertension Unspecified essential hypertension documented in this encounter Care Teams Launch Operator Relationship Specialty Start Date End Date Carlos Allen MD [address] [place] [id number] PCP - General Internal Medicine 11/08/24 documented as of this encounter
--- OUTSIDE RECORDS SUMMARY | 2025-04-07 12:45 | XMS_ITS | Encounter Summary ---
Author Organization [employer] Address [address] [place] [address] Care Team Providers Care Audit Officer Name Role Phone Carlos Allen MD Primary Care Provider [phone] Encounter Details Date Type Department Care Team (Late st Contact Info) Description 11/09/2024 Lab Requisition [facility] - Main Lab [address] [facility] [place] [address] Carlos Allen MD [address] [place] [phone] Essential (primary) hypertension; Acute on chronic [...] LAB COAGULATION METHOD 11/11/2024 9:50 AM EST [facility] INR 2.2 LAB COAGULATION METHOD 11/11/2024 9:[address] [facility] Blood Venous blood specimen / Unknown Venipuncture / Unknown 11/11/2024 5:16 AM EST 11/11/2024 9:38 AM EST us Carlos Allen MD LAB BLOOD ORDERABLES Final Resu lt [facility] [address] [place] [address], [place] [phone] * (ABNORMAL) Comprehensive metabolic panel (11/11/2024 5:16 AM EST) [facility] Sodium 139 133 - 145 mmol/L LAB CHEMISTRY METHOD 11/11/2024 10:[address] [facility] Potassium 3.9 3.5 - 5.5 mmol/L LAB CHEMISTRY METHOD 11/11/2024 10:[address] [facility] Chloride 103 96 - 110 mmol/L LAB CHEMISTRY METHOD 11/11/2024 10:[address] [facility] CO2 34(H) 21 - 32 mmol/L LAB CHEMISTRY METHOD 11/11/2024 10:[address] [facility] Anion Gap 2(L) 3 - 11 LAB CHEMISTRY METHOD 11/11/2024 10:[address] [facility] Glucose 86 70 - 100 mg/dL LAB CHEMISTRY METHOD 11/11/2024 10:[address] [facility] BUN 28(H) 5 - 25 mg/dL LAB CHEMISTRY METHOD 11/11/2024 10:[address] [facility] Creatinine 1.11 0.70 - 1.30 mg/dL LAB CHEMISTRY METHOD 11/11/2024 10:[address] [facility] LAB eGFR 65 >=60 mL/min/1. 73m2 LAB CHEMISTRY METHOD 11/11/2024 10:[address] [facility] LAB Comment:Calculation based on the??Chronic Kidney Disease Epidemiology Collaboration (CKD-EPI) equation refit??without adjustment for race. BUN/Creatinine Ratio 25.2 LAB CHEMISTRY METHOD 11/11/2024 10:[address] [facility] Calcium 8.6 8.5 - 10.5 mg/dL LAB CHEMISTRY METHOD 11/11/2024 10:[address] [facility] AST (SGOT) 22 10 - 42 unit/L LAB CHEMISTRY METHOD 11/11/2024 10:[address] [facility] ALT (SGPT) 28 10 - 60 unit/L LAB CHEMISTRY METHOD 11/11/2024 10:[address] [facility] Alkaline Phosphatase 65 42 - 121 unit/L LAB CHEMISTRY METHOD 11/11/2024 10:[address] [facility] Total Protein 5.6(L) 6.0 - 8.0 g/dL LAB CHEMISTRY METHOD 11/11/2024 10:[address] [facility] Albumin 2.6(L) 3.2 - 5.0 g/dL LAB CHEMISTRY METHOD 11/11/2024 10:[address] [facility] Total Bilirubin 0.3 0.0 - 1.4 mg/dL LAB CHEMISTRY METHOD 11/11/2024 10:[address] [facility] Blood Venous blood specimen / Unknown Venipuncture / Unknown 11/11/2024 5:16 AM EST 11/11/2024 9:41 AM EST us Carlos Allen MD LAB BLOOD ORDERABLES Final Resu lt [facility] [address] [place] [address], * (ABNORMAL) Complete blood count (11/11/2024 5:16 AM EST) [facility] WBC 4.0(L) 4.8 - 10.8 K/mcL LAB HEMETOLOGY METHOD 11/11/2024 10:[address] [facility] RBC 3.70(L) 4.50 - 5.50 M/mcL LAB HEMETOLOGY METHOD 11/11/2024 10:[address] [facility] Hemoglobin 11.8(L) 13.5 - 17.5 g/dL LAB HEMETOLOGY METHOD 11/11/2024 10:[address] [facility] Hematocrit 37.2(L) 42.0 - 54.0 % LAB HEMETOLOGY METHOD 11/11/2024 10:[address] [facility] MCV 101.1(H) 79.0 - 98.0 FL LAB HEMETOLOGY METHOD 11/11/2024 10:[address] [facility] MCH 32.1(H) 27.0 - 32.0 pcg LAB HEMETOLOGY METHOD 11/11/2024 10:[address] [facility] MCHC 31.7(L) 32.0 - 37.0 g/dL LAB HEMETOLOGY METHOD 11/11/2024 10:[address] [facility] RDW 13.4 11.0 - 15.0 % LAB HEMETOLOGY METHOD 11/11/2024 10:[address] [facility] Platelets 119(L) 130 - 400 K/mcL LAB HEMETOLOGY METHOD 11/11/2024 10:[address] [facility] MPV 12.0(H) 7.0 - 11.0 FL LAB HEMETOLOGY METHOD 11/11/2024 10:[address] [facility] NRBC 0.0 <1.0 % LAB HEMETOLOGY METHOD 11/11/2024 10:[address] [facility] NRBC Absolute 0.00 <0.10 K/mcL LAB HEMETOLOGY METHOD 11/11/2024 10:02 AM EST [facility] Blood Venous blood specimen / Unknown Venipuncture / Unknown 11/11/2024 5:16 AM EST 11/11/2024 9:33 AM EST us Carlos Allen MD LAB BLOOD ORDERABLES Final Resu lt [facility] [address] [place] [address], documented in this encounter Visit Diagnoses Diagnosis Essential (primary) hypertension Unspecified essential hypertension Acute on chronic diastolic (congestive) heart failure (CMS/HCC V24, CMS/HCC V28) documented in this encounter Care Teams Audit Officer Relationship Specialty Start Date End Date Carlos Allen MD [address] [place] [address] PCP - General Internal Medicine 11/08/24 documented as of this encounter
--- OUTSIDE RECORDS SUMMARY | 2025-04-07 12:45 | XMS_ITS | Encounter Summary ---
Author Organization [email or web address] Address [address] [place] [address] Care Team Providers Care Implementation Specialist Name Role Phone Carlos Allen MD Primary Care Provider [phone] Encounter Details Date Type Department Care Team (Latest Contact Info) Description 09/23/2024 Lab Requisition [facility] - Main Lab [address] [place] [address] Margarito Kuhn MD [address] [place] [address] Unspecified atrioventricular block Social History Tobacco Use [...] AM EST) WBC 3.7(L) 4.8 - 10.8 K/[facility] LAB HEMETOLOGY METHOD 09/23/2024 11:37 AM EST [facility] ([facility] RBC 3.40(L) 4.50 - 5.50 M/[facility] LAB HEMETOLOGY METHOD 09/23/2024 11:37 AM [facility] LAB HEMETOLOGY METHOD 09/23/2024 11:37 AM EST [facility] Monocytes Relative 11.5 % LAB [...] Final Resu lt [facility] [address] [place] [address], [place] [phone] * Basic metabolic panel (09/23/2024 4:40 AM [...] MD LAB BLOOD ORDERABLES Final Resu lt [facility] ([facility]) [facility] [address] [place] [address], documented in this encounter Visit Diagnoses Diagnosis Unspecified atrioventricular block documented in this encounter Care Teams Implementation Specialist Relationship Specialty Start Date End Date Carlos Allen MD [address] [place] [address] PCP - General Internal Medicine 11/08/24 documented as of this encounter
== END ==
LOC: HO.CARD 12:12
PROVIDERS: PCP Family Medicine; Visit Provider Family Medicine
DX: R00.1 Bradycardia, unspecified (principal)
CPT/HCPCS: 93005

== ENCOUNTER → 2025-04-07 12:41 | Outpatient (BNV) | payer MEDICARE, SELFPAY | PROVIDERS: PCP Family Medicine; Visit Provider Internal Medicine Cardiovascular Disease | DX: I44.0 Atrioventricular block, first degree (principal); I49.3 Ventricular premature depolarization; I49.9 Cardiac arrhythmia, unspecified; I25.2 Old myocardial infarction | CPT/HCPCS: 93010 ==

== ENCOUNTER 2025-04-29 12:25 | Outpatient (REF) | payer MEDICARE, SELFPAY ==
[2025-04-29 13:56] LABS: Estimated Average Glucose 111 mg/dL; Hemoglobin A1c % 5.5 % (<6.0); Total Hemoglobin (HGBA1C) 3623.0822 umol/L
[2025-04-29 14:12] LABS: Alanine Aminotransferase 21 U/L (0-40); Anion Gap 12 (12-20); Aspartate Amino Transferase 30 U/L (5-37); Blood Urea Nitrogen 29 mg/dL (9-16); Carbon Dioxide 32 mmol/L (22-29); Chloride 103 mmol/L (96-108); Cholesterol 108 mg/dL (<200); Estimated Glomerular Filt Rate > 60; Glucose Fasting 99 mg/dL (60-99); HDL Cholesterol 49 mg/dL (>40); LDL Cholesterol Calculated 51 mg/dL (<100); Potassium 3.7 mmol/L (3.3-5.1); Sodium 143 mmol/L (135-145); Triglycerides 44 mg/dL (<150)
--- OUTSIDE RECORDS SUMMARY | 2025-04-29 14:38 | XMS_ITS | Encounter Summary ---
Author Organization [employer] [facility] Address [address] [place] [address] Care Team Providers Care Field Training Agent Name Role Phone Carlos Allen MD Primary Care Provider [phone] Encounter Details Date Type Department Care Team (Late st Contact Info) Description 10/31/2024 Lab Requisition [facility] - Main Lab 299 [facility] [place] [address] Carlos Allen MD [address] [place] [phone] Acute on chronic diastolic (congestive) heart [...] Acute on chronic diastolic (congestive) heart failure ([facility]/HCC) COMPLETE BLOOD COUNT Routine 10/31/2024 5:26 AM EST Acute on chronic diastolic (congestive) heart failure (CMS/HCC) COMPREHENSIVE METABOLIC PANEL Routine 10/31/2024 5:26 AM EST Acute on chronic diastolic (congestive) heart failure (CMS/HCC) documented in this encounter Results * (ABNORMAL) Comprehensive metabolic panel (10/31/2024 5:26 AM EST) Sodium 140 133 - 145 mmol/L LAB CHEMISTRY METHOD 10/31/2024 11:05 AM [facility] Potassium 4.2 3.5 - 5.5 mmol/L LAB CHEMISTRY METHOD 10/31/2024 11:05 AM [facility] Chloride 103 96 - 110 mmol/L LAB CHEMISTRY METHOD 10/31/2024 11:05 AM [facility] CO2 34(H) 21 - 32 mmol/L LAB CHEMISTRY METHOD 10/31/2024 11:05 AM [facility] Anion Gap 3 3 - 11 LAB CHEMISTRY METHOD 10/31/2024 11:05 AM [facility] Glucose 96 70 - 100 mg/dL LAB CHEMISTRY METHOD 10/31/2024 11:05 AM [facility] BUN 37(H) 5 - 25 mg/dL LAB CHEMISTRY METHOD 10/31/2024 11:05 AM [facility] Creatinine 1.21 0.70 - 1.30 mg/dL LAB CHEMISTRY METHOD 10/31/2024 11:05 AM [facility] LAB eGFR 58(L) >=60 mL/min/1. 73m2 LAB CHEMISTRY METHOD 10/31/2024 11:05 AM [facility] LAB Comment:Calculation based on the??Chronic Kidney Disease Epidemiology Collaboration (CKD-EPI) equation refit??without adjustment for race. BUN/Creatinine Ratio 30.6 LAB CHEMISTRY METHOD 10/31/2024 11:05 AM [facility] Calcium 8.7 8.5 - 10.5 mg/dL LAB CHEMISTRY METHOD 10/31/2024 11:05 AM [facility] AST (SGOT) 29 10 - 42 unit/L LAB CHEMISTRY METHOD 10/31/2024 11:05 AM [facility] ALT (SGPT) 29 10 - 60 unit/L LAB CHEMISTRY METHOD 10/31/2024 11:05 AM [facility] Alkaline Phosphatase 70 42 - 121 unit/L LAB CHEMISTRY METHOD 10/31/2024 11:05 AM [facility] Total Protein 6.1 6.0 - 8.0 g/dL LAB CHEMISTRY METHOD 10/31/2024 11:05 AM [facility] Albumin 2.8(L) 3.2 - 5.0 g/dL LAB CHEMISTRY METHOD 10/31/2024 11:05 AM [facility] Total Bilirubin 0.5 0.0 - 1.4 mg/dL LAB CHEMISTRY METHOD 10/31/2024 11:05 AM [facility] Blood Venous blood specimen / Unknown Venipuncture / Unknown 10/31/2024 5:26 AM EST 10/31/2024 9:41 AM EST us Carlos Allen MD LAB BLOOD ORDERABLES Final Resu lt Performing Organization Address City/[facility]/ZIP Co de Phone Number [facility] [address] [place] [address], [place] [phone] * (ABNORMAL) Prothrombin time with INR (10/31/2024 5:26 AM EST) Protime 24.2(H) 10.6 - 13.9 sec LAB COAGULATION METHOD 10/31/2024 10:26 AM EST [facility] INR 1.9 LAB COAGULATION METHOD 10/31/2024 10:26 AM EST [facility] Blood Venous blood specimen / Unknown Venipuncture / Unknown 10/31/2024 5:26 AM EST 10/31/2024 9:41 AM EST us Carlos Allen MD LAB BLOOD ORDERABLES Final Resu lt [facility] [address] [place] [address], [place] [phone] * (ABNORMAL) Complete blood count (10/31/2024 5:26 AM EST) WBC 5.0 4.8 - 10.8 K/mcL LAB HEMETOLOGY METHOD 10/31/2024 10:27 AM [facility] RBC 4.00(L) 4.50 - 5.50 M/mcL LAB HEMETOLOGY METHOD 10/31/2024 10:27 AM [facility] Hemoglobin 13.2(L) 13.5 - 17.5 g/dL LAB HEMETOLOGY METHOD 10/31/2024 10:27 AM [facility] Hematocrit 40.4(L) 42.0 - 54.0 % LAB HEMETOLOGY METHOD 10/31/2024 10:27 AM [facility] LAB MCV 100.0(H) 79.0 - 98.0 FL LAB HEMETOLOGY METHOD 10/31/2024 10:27 AM [facility] LAB MCH 32.7(H) 27.0 - 32.0 pcg LAB HEMETOLOGY METHOD 10/31/2024 10:27 AM [facility] LAB MCHC 32.7 32.0 - 37.0 g/dL LAB HEMETOLOGY METHOD 10/31/2024 10:27 AM [facility] RDW 13.2 11.0 - 15.0 % LAB HEMETOLOGY METHOD 10/31/2024 10:27 AM [facility] Platelets 110(L) 130 - 400 K/mcL LAB HEMETOLOGY METHOD 10/31/2024 10:27 AM [facility] LAB MPV 11.7(H) 7.0 - 11.0 FL LAB HEMETOLOGY METHOD 10/31/2024 10:27 AM [facility] NRBC 0.0 <1.0 % LAB HEMETOLOGY METHOD 10/31/2024 10:27 AM [facility] NRBC Absolute 0.00 <0.10 K/mcL LAB HEMETOLOGY METHOD 10/31/2024 10:27 AM [facility] Blood Venous blood specimen / Unknown Venipuncture / Unknown 10/31/2024 5:26 AM EST 10/31/2024 9:41 AM EST Carlos Allen MD LAB BLOOD ORDERABLES Final Resu lt [facility] ([facility]) [facility] [address] [place] [address], documented in this encounter Visit Diagnoses Diagnosis Acute on chronic diastolic (congestive) heart failure (CMS/HCC V24, CMS/HCC V28) documented in this encounter Care Teams Field Training Agent Relationship Specialty Start Date End Date Carlos Allen MD [address] [place] [address] PCP - General Internal Medicine 11/08/24 documented as of this encounter
[2025-04-29 15:31] LABS: Creatinine Urine 109.19 mg/dL
== END 2025-04-29 12:26 | disposition home or self-care (01) ==
LOC: HO.LAB 12:25
PROVIDERS: PCP Family Medicine; Visit Provider Family Medicine
DX: I10 Essential (primary) hypertension (principal); E78.00 Pure hypercholesterolemia, unspecified; E11.9 Type 2 diabetes mellitus without complications; Z79.899 Other long term (current) drug therapy
CPT/HCPCS: 36415; 80051; 80061; 82043; 82550; 82565; 82570; 82947; 83036; 84450; 84460; 84520

== ENCOUNTER 2025-05-21 13:55 | Outpatient (REF) | payer MEDICARE, SELFPAY | END 2025-05-21 13:56 | disposition home or self-care (01) | LOC: HO.LAB 13:55 | PROVIDERS: PCP Family Medicine; Visit Provider Internal Medicine Medical Oncology | DX: Z51.81 Encounter for therapeutic drug level monitoring (principal); Z79.01 Long term (current) use of anticoagulants | CPT/HCPCS: 85610; 99202 ==

== ENCOUNTER 2025-05-21 13:55 | Outpatient (AMB) | payer MEDICARE, SELFPAY ==
--- NOTE | 2025-05-21 14:10 | MHC.OFFVISCO ---
Intake Intake Visit Reasons: Anticoagulation [employer] Home [employer] Teacher Required: No Allergies Penicillins (PCN) Allergy (Unknown, Verified 05/21/25 14:04) RASH Medication List - Last Reconciled 05/21/25 by Beth Carreon RN albuterol sulfate 2.5 mg (3 mL) inhalation Q2H PRN atorvastatin 40 mg PO DAILY buspirone 5 mg PO TID PRN coenzyme Q10 10 mg PO TID famotidine 40 mg PO DAILY finasteride 5 mg PO BEDTIME furosemide 40 mg See Protocol PO DAILY latanoprost 0.005% 1 drp ophthalmic (eye) BEDTIME multivitamin 1 tab PO DAILY terazosin 5 mg PO BEDTIME warfarin as per INR orally daily; Nursing Note INR: 2.5- in therapeutic range of 1.5-3 Medications and supplements reviewed- pt provided a list of current medications No changes in health, diet, medications, or supplements, Denies any signs and symptoms of bleeding or bruising or clotting. Bleeding, bruising, clotting discussed Nutritional guidance given Dose: warfarin 6mg x 7 [facility] and verified warfarin pill strength. F/U INR: 2 weeks Patient verbalizes understanding of instructions given pt son present for some of the admit to acs. pt amb with cane, limited mobility. w/c offered. pt pmh reviewed as well as medications. pt poor historian. educational material provided and reviewed with pt. dietary management discussed. pt states last inr last week was 2.8. pt on warfarin for afib.composed note to pcp Dr Starkey to verify inr range. awaiting response. 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 pre diabetic) Musculoskeletal Hx: Arthritis Blood Disorder Hx: Hyperlipidemia GI Hx: Other (gerd, irritable bowel, history constipation) Hx: Prostate (bph) Neurological Hx: Stroke/TIA Cancer HX: No Psych. Illness/Depression: Yes (anxiety) Surgeries: poor historian and does not recall Anti-Coag. Education Record Teaching Recipient: Family (son von- [phone]) What is the easiest way to learn: Listening and Demonstration Barriers to Learning Identified: Cognitive (? dementia) and Physical Physical: Vision (glasses), Hearing ([place], no hearing aids) and Mobility List any additional concerns (family/financial etc.): inablility to consistently come to acs, has vna Significant other who can be involved in Teaching Process when Indicated: darnell longoria If Barriers are identified, describe method to overcome: cognitive, mobility, [employer] Home Economics Teacher Required: No Readiness To Learn: Fair Teaching Methods: Demonstration, Handout and Teach Back Response to Teaching: Reinforcement Needed (? ability to comprehend info provided) Re-Education needs: Reinforce Content and Re-Teach Education Intervention/Brief Description of Teaching 1. Able to state reason for taking Warfarin: Yes 2. Able to state Pain Management techniques: Yes (tylenol recommended) 3. Able to state action of Warfarin.: Yes Able to state current dose, pill color, how and when Warfarin to be taken: Yes Able to identify signs of bleeding &/or clotting: Yes (enc to review handout) 4. Able to identify need to keep diet consistent in regard to vitamin K intake: Yes Able to state restriction on alcohol: Yes 5. Able to state need for compliance with PT/INR testing: Yes Describes rationale for carrying ID and wearing Medic Alert bracelet: Yes Patient instructed to monitor for excess bruising or signs/symptoms of clotting or bleeding: Yes 6. Able to state that there are drugs that interact with Warfin: Yes 7. Able to state the need to seek medical attention when illness/injury occur.: Yes Describes the need to avoid activities with high risk of injury: Yes 8. Able to state duration of treatment: Yes 9. Demonstrates understanding of notifying all providers of pending dental surgical, or other invasive procedures: Yes 10. Able to state Home Care instructions Questionnaires HAS-BLED Does the patient had uncontrolled Hypertension?: No Does the patient have renal disease?: No Does the patient have liver disease?: No Does the patient have a history of stroke?: No (tia) Has the patient had major bleeding or predisposition to bleeding?: No Does the patient have labile INRs?: Yes Is the patient over 65 years of age?: Yes Is the patient on medications that gives them a predisposition to bleeding?: Yes Does the patient use alcohol?: No HAS-BLED Score: 3 CHADSVASC Age: 75 or over Gender: Male Does the patient have a history of CHF?: Yes Does the patient have a history of Hypertension?: Yes Does the patient have a history of Stroke/TIA/Thromboembolism?: Yes Does the patient have a history of Vascular Disease (prior SC, PAD or aortic plaque)?: Yes Does the patient have a history of Diabetes?: Yes CHADS VACS Score: 8 Ely Prediction Score Rsk VTE Active Cancer: No Previous VTE, excluding superficial vein thrombosis: No Reduced mobility: Yes Already known Thrombophilic Condition: Yes With-in last month Trauma and/or Surgery: No Elderly 70 year or older: Yes Heart and/or Respiratory Failure: Yes Acute Myocardial infarction and/or Ischemic Stroke: Yes Acute Infection and/or Rheumatologic Disorder: No Obesity (BMI 30 or greater): No Ongoing Hormonal Treatment: No Score: 9 Ely Score less than 4; Low Risk of VTE Ely Score 4 or greater; High Risk of VTE Coding Level of Care Code New Patient Level 2 Diagnoses Current use of anticoagulant therapy Z79.01 Results AMB INR Fingerstick AMB INR Fingerstick 2.5 Last Edit by Beth Carreon RN on 05/21/25 14:43 interface delay Assessment & Plan Assessment & Plan (1) Current use of anticoagulant therapy: Code(s): Z79.01 - correction (current) use of anticoagulants Category: Medical Medications: New warfarin 6 mg See Protocol PO DAILY
--- OUTSIDE RECORDS SUMMARY | 2025-05-21 14:29 | XMS_ITS | Encounter Summary ---
Author Organization [employer] [facility] Address [address] [place] [address] Care Team Providers Care Fur Blowing Machine Attendant Name Role Phone Carlos Allen MD Primary Care Provider [phone] Encounter Details Date Type Department Care Team (Late st Contact Info) Description 10/31/2024 Lab Requisition [facility] - Main Lab [address] [facility] [place] [address] Carlos Allen MD [address] [place] [phone] Acute on chronic diastolic (congestive) heart [...] Acute on chronic diastolic (congestive) heart failure ([facility]/HCC) COMPLETE BLOOD COUNT Routine 10/31/2024 5:26 AM EST Acute on chronic diastolic (congestive) heart failure (CMS/HCC) COMPREHENSIVE METABOLIC PANEL Routine 10/31/2024 5:26 AM EST Acute on chronic diastolic (congestive) heart failure (CMS/HCC) documented in this encounter Results * (ABNORMAL) Comprehensive metabolic panel (10/31/2024 5:26 AM EST) Sodium 140 133 - 145 mmol/L LAB CHEMISTRY METHOD 10/31/2024 11:05 AM [facility] Potassium 4.2 3.5 - 5.5 mmol/L LAB CHEMISTRY METHOD 10/31/2024 11:05 AM [facility] Chloride 103 96 - 110 mmol/L LAB CHEMISTRY METHOD 10/31/2024 11:05 AM [facility] CO2 34(H) 21 - 32 mmol/L LAB CHEMISTRY METHOD 10/31/2024 11:05 AM [facility] Anion Gap 3 3 - 11 LAB CHEMISTRY METHOD 10/31/2024 11:05 AM [facility] Glucose 96 70 - 100 mg/dL LAB CHEMISTRY METHOD 10/31/2024 11:05 AM [facility] BUN 37(H) 5 - 25 mg/dL LAB CHEMISTRY METHOD 10/31/2024 11:05 AM [facility] Creatinine 1.21 0.70 - 1.30 mg/dL LAB CHEMISTRY METHOD 10/31/2024 11:05 AM [facility] eGFR 58(L) >=60 mL/min/1. 73m2 LAB CHEMISTRY METHOD 10/31/2024 11:05 AM [facility] Comment:Calculation based on the Chronic Kidney Disease Epidemiology Collaboration (CKD-EPI) equation refit without adjustment for race. BUN/Creatinine Ratio 30.6 LAB CHEMISTRY METHOD 10/31/2024 11:05 AM [facility] Calcium 8.7 8.5 - 10.5 mg/dL LAB CHEMISTRY METHOD 10/31/2024 11:05 AM [facility] AST (SGOT) 29 10 - 42 unit/L LAB CHEMISTRY METHOD 10/31/2024 11:05 AM [facility] ALT (SGPT) 29 10 - 60 unit/L LAB CHEMISTRY METHOD 10/31/2024 11:05 AM [facility] Alkaline Phosphatase 70 42 - 121 unit/L LAB CHEMISTRY METHOD 10/31/2024 11:05 AM [facility] Total Protein 6.1 6.0 - 8.0 g/dL LAB CHEMISTRY METHOD 10/31/2024 11:05 AM [facility] Albumin 2.8(L) 3.2 - 5.0 g/dL LAB CHEMISTRY METHOD 10/31/2024 11:05 AM [facility] Total Bilirubin 0.5 0.0 - 1.4 mg/dL LAB CHEMISTRY METHOD 10/31/2024 11:05 AM [facility] Blood Venous blood specimen / Unknown Venipuncture / Unknown 10/31/2024 5:26 AM EST 10/31/2024 9:41 AM EST us Carlos Allen MD LAB BLOOD ORDERABLES Final Resu lt Performing Organization Address [facility]/ZIP Co de Phone Number [facility] [address] [place] [address], [place] [phone] * (ABNORMAL) Prothrombin time with INR (10/31/2024 5:26 AM EST) Protime 24.2(H) 10.6 - 13.9 sec LAB COAGULATION METHOD 10/31/2024 10:26 AM [facility] INR 1.9 LAB COAGULATION METHOD 10/31/2024 10:26 AM [facility] Blood Venous blood specimen / Unknown Venipuncture / Unknown 10/31/2024 5:26 AM EST 10/31/2024 9:41 AM EST us Carlos Allen MD LAB BLOOD ORDERABLES Final Resu lt [facility] [address] [place] [address], [place] [phone] * (ABNORMAL) Complete blood count (10/31/2024 5:26 AM EST) WBC 5.0 4.8 - 10.8 K/mcL LAB HEMETOLOGY METHOD 10/31/2024 10:27 AM [facility] RBC 4.00(L) 4.50 - 5.50 M/mcL LAB HEMETOLOGY METHOD 10/31/2024 10:27 AM [facility] Hemoglobin 13.2(L) 13.5 - 17.5 g/dL LAB HEMETOLOGY METHOD 10/31/2024 10:27 AM [facility] Hematocrit 40.4(L) 42.0 - 54.0 % LAB HEMETOLOGY METHOD 10/31/2024 10:27 AM [facility] MCV 100.0(H) 79.0 - 98.0 FL LAB HEMETOLOGY METHOD 10/31/2024 10:27 AM [facility] MCH 32.7(H) 27.0 - 32.0 pcg LAB HEMETOLOGY METHOD 10/31/2024 10:27 AM [facility] MCHC 32.7 32.0 - 37.0 g/dL LAB HEMETOLOGY METHOD 10/31/2024 10:27 AM [facility] RDW 13.2 11.0 - 15.0 % LAB HEMETOLOGY METHOD 10/31/2024 10:27 AM [facility] Platelets 110(L) 130 - 400 K/mcL LAB HEMETOLOGY METHOD 10/31/2024 10:27 AM [facility] MPV 11.7(H) 7.0 - 11.0 FL LAB HEMETOLOGY METHOD 10/31/2024 10:27 AM [facility] NRBC 0.0 <1.0 % LAB HEMETOLOGY METHOD 10/31/2024 10:27 AM [facility] NRBC Absolute 0.00 <0.10 K/mcL LAB HEMETOLOGY METHOD 10/31/2024 10:27 AM EST [facility] Blood Venous blood specimen / Unknown Venipuncture / Unknown 10/31/2024 5:26 AM EST 10/31/2024 9:41 AM EST Carlos Allen MD LAB BLOOD ORDERABLES Final Resu lt [facility] ([facility]) [facility] [address] [place] [address], documented in this encounter Visit Diagnoses Diagnosis Acute on chronic diastolic (congestive) heart failure (CMS/HCC V24, CMS/HCC V28) documented in this encounter Care Teams Fur Blowing Machine Attendant Relationship Specialty Start Date End Date Carlos Allen MD [address] [place] [address] PCP - General Internal Medicine 11/08/24 documented as of this encounter
[2025-05-21 14:44] LABS: Prothrombin Time Whole Bld POC 29.6 sec (11.1-13.5); ~PT, ~INR - Anti Coag Clinic 2.5 (0.9-1.1)
== END 2025-05-21 15:57 | disposition home or self-care (01) ==
PROVIDERS: PCP Internal Medicine; Visit Provider Internal Medicine Medical Oncology
DX: Z79.01 Long term (current) use of anticoagulants (principal)

== ENCOUNTER 2025-07-14 13:16 | Outpatient (AMB) | payer MEDICARE, SELFPAY ==
[2025-07-14 13:26] VITALS: BP 120/56; PULSE 64; BMI 28.1
--- NOTE | 2025-07-14 13:26 | MHC.OFFVIS ---
Vital Signs 07/14/25 13:26 Height 5 ft 7 in Weight 179 lb 7.3 oz BMI 28.1 BP 120/56 L Blood Pressure Location Lt brachial Position Sitting Pulse 64 Pulse Source Pulse Oximeter Intake Visit Reasons: 4 mth f/up Intake Note: 4 mth f/up Orthopedic Surgeon Required: No Accompanied by: Self / Same As Patient Allergies Penicillins (PCN) Allergy (Unknown, Verified 07/10/25 14:06) RASH Medication List - Last Reconciled 07/14/25 by Kapil Fonseca MD albuterol sulfate 2.5 mg (3 mL) inhalation Q2H PRN atorvastatin 40 mg PO DAILY buspirone 5 mg PO TID PRN coenzyme Q10 10 mg PO TID famotidine 40 mg PO DAILY finasteride 5 mg PO BEDTIME furosemide 40 mg See Protocol PO DAILY latanoprost 0.005% 1 drp ophthalmic (eye) BEDTIME multivitamin 1 tab PO DAILY terazosin 5 mg PO BEDTIME warfarin 6 mg See Protocol PO DAILY HPI Comments Details: 85-year-old gentleman who is here for follow-up. He has known history of inferior wall AZ in the past with previous PCI. He subsequently got admitted with diastolic heart failure and AV Wenckebach. He also had episodes of atrial fibrillation. Initially was started on Eliquis but could not afford it. Then he was changed to Coumadin. Subsequent to that he felt that Coumadin too difficult to manage and his primary care physician put him on Xarelto. Today he returns and is saying that he is back on Coumadin because Xarelto was too expensive for him. He is taking furosemide 40 mg daily and he has lower extremity edema has improved significantly. He still has some edema. He is denying any shortness of breath or chest discomfort. His main issues are related to balance and joint problems. 07/14/2025: He is here for follow-up. He is complaining of significant fatigue and gets tired easily. He is saying he has not been exercising and does not do any physical activity in his day-to-day life. We discussed about cardiac rehabilitation but is quite difficult for him to come to the hospital for exercise few times a week. He is saying that he will start exercising on his own starting with his neighborhood. He has lower extremity edema which is chronic and stable. He is denying any orthopnea or PND. He is saying that he is able to go up 1 flight of stairs and does not get any dyspnea which he was getting before. Overall clinically stable. [facility] Medical History BPH (benign prostatic hyperplasia) CAD (coronary artery disease) Social History Household Members: Other Household Members Other:: live [facility]. 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 Current occupational exposures/hazards: No Review of Systems Const Denies chills, Denies fatigue, Denies fever(s), Denies frequent falls, Denies weakness, Denies weight gain and Denies weight loss ENT Denies dizziness Card Denies chest pain, Denies leg edema, Denies lightheadedness, Denies palpitations, Denies dyspnea and Denies dyspnea on exertion Resp Denies cough, Denies dyspnea and Denies dyspnea on exertion GI Denies hematochezia Musc Denies abnormal gait, Denies muscle weakness, Denies numbness, Denies radiating pain into limb and Denies tingling Neuro Denies abnormal gait, Denies dizziness, Denies frequent falls, Denies numbness, Denies tingling and Denies weakness Endo Denies fatigue and Denies palpitations Physical Exam Vital Signs: Last Vital Signs Pulse 64 07/14/25 13:26 BP 120/56 L 07/14/25 13:26 BMI result Body Mass Index 28.1 GENERAL APPEARANCE: in no acute distress, pleasant. NECK: no carotid bruit, no jugular venous distention. SKIN: no suspicious lesions, warm and dry. HEART: no murmurs, regular rate and rhythm. LUNGS: clear to auscultation bilaterally. ABDOMEN: soft, nontender. EXTREMITIES: no edema. PERIPHERAL PULSES: equal. NEUROLOGIC: No gross deficits, AAO X 3 Assessment & Plan Assessment & Plan (1) Chronic diastolic heart failure: Code(s): I50.32 - Chronic diastolic (congestive) heart failure Category: Medical (2) PAF (paroxysmal atrial fibrillation): Code(s): I48.0 - Paroxysmal atrial fibrillation Category: Medical Plan Pleasant 85 year gentleman who is here for follow-up. He has known history of coronary artery disease and had inferior wall AZ and underwent primary PCI. He subsequently was admitted to [facility] with congestive heart failure. He was diuresed and since then has been doing well on Lasix 40 mg daily. He has chronic lower extremity edema which is stable and I have advised him not to increase the furosemide dose currently. He is complaining of fatigue and clinical story appears to be consistent with deconditioning. I have advised him to start exercising as much as he can. He will be getting 5 lb weights and we will be exercising at home on his own. He is on Coumadin for anticoagulation. Not on any antiplatelet therapy anymore. Thank you for allowing me to participate in the care of your patient. Please feel free to contact me if you have any questions. Coding Level of Care Code Est Pt Level 4 (73964) Diagnoses Chronic diastolic heart failure I50.32 PAF (paroxysmal atrial fibrillation) I48.0
--- OUTSIDE RECORDS SUMMARY | 2025-07-14 14:37 | XMS_ITS | Encounter Summary ---
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 Social History Tobacco [...] EST Chronic obstructive pulmonary disease, unspecified (CMS/HCC) shelter (current) use of anticoagulants documented in this encounter Results * (ABNORMAL) Prothrombin time with INR (11/05/2024 4:59 AM EST) Protime 30.0(H) 10.6 - 13.9 sec LAB COAGULATION METHOD 11/05/2024 10:10 AM EST [facility] INR 2.4 LAB COAGULATION METHOD 11/05/2024 10:10 AM [facility] Blood Venous blood specimen / Unknown Venipuncture / Unknown 11/05/2024 4:59 AM EST 11/05/2024 9:36 AM EST Carlos Allen MD LAB BLOOD ORDERABLES Final Resu lt [facility] ([facility]) [facility] [address] [place] [address], documented in this encounter Visit Diagnoses Diagnosis Chronic obstructive pulmonary disease, unspecified (CMS/HCC V24, CMS/HCC V28) shelter (current) use of anticoagulants Long-term (current) use of anticoagulants documented in this encounter Care Teams Wallpaper Printer Relationship Specialty Start Date End Date Carlos Allen MD [address] [place] [address] PCP - General Internal Medicine 11/08/24 documented as of this encounter
--- OUTSIDE RECORDS SUMMARY | 2025-07-14 14:37 | XMS_ITS | Encounter Summary ---
Author Organization [facility] Address [address] [place] [address] Care Team Providers Care Mine Captain Name Role Phone Carlos Allen MD Primary Care Provider [phone] Encounter Details Date Type Department Care Team (Late st Contact Info) Description 11/09/2024 Lab Requisition [facility] - Main Lab [address] [facility] [place] [address] Carlos Allen MD [address] [place] [phone] Essential (primary) hypertension; Acute on chronic [...] LAB COAGULATION METHOD 11/11/2024 9:50 AM EST [facility] INR 2.2 LAB COAGULATION METHOD 11/11/2024 9:50 AM [facility] Blood Venous blood specimen / Unknown Venipuncture / Unknown 11/11/2024 5:16 AM EST 11/11/2024 9:38 AM EST us Carlos Allen MD LAB BLOOD ORDERABLES Final Resu lt [facility] [address] [place] [address], [place] [phone] * (ABNORMAL) Comprehensive metabolic panel (11/11/2024 5:16 AM EST) [facility] Sodium 139 133 - 145 mmol/L LAB CHEMISTRY METHOD 11/11/2024 10:29 AM [facility] Potassium 3.9 3.5 - 5.5 mmol/L LAB CHEMISTRY METHOD 11/11/2024 10:29 AM [facility] Chloride 103 96 - 110 mmol/L LAB CHEMISTRY METHOD 11/11/2024 10:29 AM [facility] CO2 34(H) 21 - 32 mmol/L LAB CHEMISTRY METHOD 11/11/2024 10:29 AM [facility] Anion Gap 2(L) 3 - 11 LAB CHEMISTRY METHOD 11/11/2024 10:29 AM [facility] Glucose 86 70 - 100 mg/dL LAB CHEMISTRY METHOD 11/11/2024 10:29 AM [facility] BUN 28(H) 5 - 25 mg/dL LAB CHEMISTRY METHOD 11/11/2024 10:29 AM [facility] Creatinine 1.11 0.70 - 1.30 mg/dL LAB CHEMISTRY METHOD 11/11/2024 10:29 AM [facility] eGFR 65 >=60 mL/min/1. 73m2 LAB CHEMISTRY METHOD 11/11/2024 10:29 AM [facility] Comment:Calculation based on the Chronic Kidney Disease Epidemiology Collaboration (CKD-EPI) equation refit without adjustment for race. BUN/Creatinine Ratio 25.2 LAB CHEMISTRY METHOD 11/11/2024 10:29 AM [facility] Calcium 8.6 8.5 - 10.5 mg/dL LAB CHEMISTRY METHOD 11/11/2024 10:29 AM [facility] AST (SGOT) 22 10 - 42 unit/L LAB CHEMISTRY METHOD 11/11/2024 10:29 AM [facility] ALT (SGPT) 28 10 - 60 unit/L LAB CHEMISTRY METHOD 11/11/2024 10:29 AM [facility] Alkaline Phosphatase 65 42 - 121 unit/L LAB CHEMISTRY METHOD 11/11/2024 10:29 AM [facility] Total Protein 5.6(L) 6.0 - 8.0 g/dL LAB CHEMISTRY METHOD 11/11/2024 10:29 AM [facility] Albumin 2.6(L) 3.2 - 5.0 g/dL LAB CHEMISTRY METHOD 11/11/2024 10:29 AM [facility] Total Bilirubin 0.3 0.0 - 1.4 mg/dL LAB CHEMISTRY METHOD 11/11/2024 10:29 AM [facility] Blood Venous blood specimen / Unknown Venipuncture / Unknown 11/11/2024 5:16 AM EST 11/11/2024 9:41 AM EST us Carlos Allen MD LAB BLOOD ORDERABLES Final Resu lt [facility] [address] [place] [address], [place] [phone] * (ABNORMAL) Complete blood count (11/11/2024 5:16 AM EST) [facility] WBC 4.0(L) 4.8 - 10.8 K/mcL LAB HEMETOLOGY METHOD 11/11/2024 10:02 AM [facility] RBC 3.70(L) 4.50 - 5.50 M/mcL LAB HEMETOLOGY METHOD 11/11/2024 10:02 AM [facility] Hemoglobin 11.8(L) 13.5 - 17.5 g/dL LAB HEMETOLOGY METHOD 11/11/2024 10:02 AM [facility] Hematocrit 37.2(L) 42.0 - 54.0 % LAB HEMETOLOGY METHOD 11/11/2024 10:02 AM [facility] MCV 101.1(H) 79.0 - 98.0 FL LAB HEMETOLOGY METHOD 11/11/2024 10:02 AM [facility] MCH 32.1(H) 27.0 - 32.0 pcg LAB HEMETOLOGY METHOD 11/11/2024 10:02 AM [facility] MCHC 31.7(L) 32.0 - 37.0 g/dL LAB HEMETOLOGY METHOD 11/11/2024 10:02 AM [facility] RDW 13.4 11.0 - 15.0 % LAB HEMETOLOGY METHOD 11/11/2024 10:02 AM [facility] Platelets 119(L) 130 - 400 K/mcL LAB HEMETOLOGY METHOD 11/11/2024 10:02 AM [facility] MPV 12.0(H) 7.0 - 11.0 FL LAB HEMETOLOGY METHOD 11/11/2024 10:02 AM [facility] NRBC 0.0 <1.0 % LAB HEMETOLOGY METHOD 11/11/2024 10:02 AM [facility] NRBC Absolute 0.00 <0.10 K/mcL LAB HEMETOLOGY METHOD 11/11/2024 10:02 AM EST [facility] Blood Venous blood specimen / Unknown Venipuncture / Unknown 11/11/2024 5:16 AM EST 11/11/2024 9:33 AM EST us Carlos Allen MD LAB BLOOD ORDERABLES Final Resu lt [facility] [address] [place] [address], documented in this encounter Visit Diagnoses Diagnosis Essential (primary) hypertension Unspecified essential hypertension Acute on chronic diastolic (congestive) heart failure (CMS/HCC V24, CMS/HCC V28) documented in this encounter Care Teams Mine Captain Relationship Specialty Start Date End Date Carlos Allen MD [address] [place] [address] PCP - General Internal Medicine 11/08/24 documented as of this encounter
--- OUTSIDE RECORDS SUMMARY | 2025-07-14 14:37 | XMS_ITS | Encounter Summary ---
Author Organization [employer] Address [address] [place] [address] Care Team Providers Care Pediatric Registered Nurse Name Role Phone Carlos Allen MD Primary Care Provider [phone] Encounter Details Date Type Department Care Team (Late st Contact Info) Description 09/21/2024 Lab Requisition [facility] - Main Lab [address] [place] [address] Margarito Kuhn MD [address] [place] [phone] Other specified heart block Social History Tobacco [...] LAB HEMETOLOGY METHOD 09/21/2024 4:37 PM EDT [facility] RBC 3.50(L) 4.50 - 5.50 M/mcL LAB HEMETOLOGY METHOD 09/21/2024 4:37 PM EDT [facility] Hemoglobin 11.6(L) 13.5 - 17.5 g/dL LAB HEMETOLOGY METHOD 09/21/2024 4:37 PM EDT [facility] Hematocrit 36.8(L) 42.0 - 54.0 % LAB HEMETOLOGY METHOD 09/21/2024 4:37 PM EDT [facility] MCV 104.5(H) 79.0 - 98.0 FL LAB HEMETOLOGY METHOD 09/21/2024 4:37 PM EDT [facility] MCH 33.0(H) 27.0 - 32.0 pcg LAB HEMETOLOGY METHOD 09/21/2024 4:37 PM EDT [facility] MCHC 31.5(L) 32.0 - 37.0 g/dL LAB HEMETOLOGY METHOD 09/21/2024 4:37 PM EDT [facility] RDW 13.3 11.0 - 15.0 % LAB HEMETOLOGY METHOD 09/21/2024 4:37 PM EDT [facility] Platelets 94(L) 130 - 400 K/mcL LAB HEMETOLOGY METHOD 09/21/2024 4:37 PM EDT [facility] MPV 11.6(H) 7.0 - 11.0 FL LAB HEMETOLOGY METHOD 09/21/2024 4:37 PM EDT [facility] NRBC 0.0 <1.0 % LAB HEMETOLOGY METHOD 09/21/2024 4:37 PM EDT [facility] NRBC Absolute 0.00 <0.10 K/mcL LAB HEMETOLOGY METHOD 09/21/2024 4:37 PM EDT [facility] Blood Venous blood specimen / Unknown Venipuncture / Unknown 09/21/2024 6:20 AM EDT 09/21/2024 9:19 AM EDT us Margarito Kuhn MD LAB BLOOD ORDERABLES Final Resu lt [facility] [address] [place] [address], * Basic metabolic panel (09/21/2024 6:20 AM EDT) Sodium 141 133 - 145 mmol/L LAB CHEMISTRY METHOD 09/21/2024 11:15 AM [facility] LAB Potassium 3.9 3.5 - 5.5 mmol/L LAB CHEMISTRY METHOD 09/21/2024 11:15 AM [facility] LAB Chloride 105 96 - 110 mmol/L LAB CHEMISTRY METHOD 09/21/2024 11:15 AM [facility] LAB CO2 31 21 - 32 mmol/L LAB CHEMISTRY METHOD 09/21/2024 11:15 AM [facility] LAB Anion Gap 5 3 - 11 LAB CHEMISTRY METHOD 09/21/2024 11:15 AM [facility] LAB Glucose 87 70 - 100 mg/dL LAB CHEMISTRY METHOD 09/21/2024 11:15 AM [facility] BUN 25 5 - 25 mg/dL LAB CHEMISTRY METHOD 09/21/2024 11:15 AM [facility] Creatinine 1.06 0.70 - 1.30 mg/dL LAB CHEMISTRY METHOD 09/21/2024 11:15 AM [facility] LAB eGFR 68 >=60 mL/min/1. 73m2 LAB CHEMISTRY METHOD 09/21/2024 11:15 AM [facility] LAB Comment:Calculation based on the Chronic Kidney Disease Epidemiology Collaboration (CKD-EPI) equation refit without adjustment for race. BUN/Creatinine Ratio 23.6 LAB CHEMISTRY METHOD 09/21/2024 11:15 AM [facility] LAB Calcium 8.7 8.5 - 10.5 mg/dL LAB CHEMISTRY METHOD 09/21/2024 11:15 AM [facility] LAB Blood Venous blood specimen / Unknown Venipuncture / Unknown 09/21/2024 6:20 AM EDT 09/21/2024 9:19 AM EDT us Margarito Kuhn MD LAB BLOOD ORDERABLES Final Resu lt [facility] [address] [place] [address], documented in this encounter Visit Diagnoses Diagnosis Other specified heart block documented in this encounter Care Teams Pediatric Registered Nurse Relationship Specialty Start Date End Date Carlos Allen MD [address] [place] [address] PCP - General Internal Medicine 11/08/24 documented as of this encounter
--- OUTSIDE RECORDS SUMMARY | 2025-07-14 14:37 | XMS_ITS | Encounter Summary ---
Author Organization [employer] Address [address] [place] [address] Care Team Providers Care Microwave Radio Technician Name Role Phone Carlos Allen MD Primary Care Provider [phone] Encounter Details Date Type Department Care Team (Late st Contact Info) Description 11/01/2024 Lab Requisition [facility] - Main Lab [address] [place] [address] Michael Yu MD [address] [place] [phone] Essential (primary) hypertension; Acute on chronic diastolic [...] 11/04/2024 1:32 PM EST [facility] Potassium 3.6 3.5 - 5.5 mmol/L LAB CHEMISTRY METHOD 11/04/2024 1:[address] [facility] Chloride 104 96 - 110 mmol/L LAB CHEMISTRY METHOD 11/04/2024 1:[address] [facility] CO2 32 21 - 32 mmol/L LAB CHEMISTRY METHOD 11/04/2024 1:[address] [facility] Anion Gap 6 3 - 11 LAB CHEMISTRY METHOD 11/04/2024 1:[address] [facility] Glucose 95 70 - 100 mg/dL LAB CHEMISTRY METHOD 11/04/2024 1:[address] [facility] BUN 34(H) 5 - 25 mg/dL LAB CHEMISTRY METHOD 11/04/2024 1:[address] [facility] Creatinine 0.99 0.70 - 1.30 mg/dL LAB CHEMISTRY METHOD 11/04/2024 1:[address] [facility] eGFR 74 >=60 mL/min/1. 73m2 LAB CHEMISTRY METHOD 11/04/2024 1:[address] [facility] LAB Comment:Calculation based on the Chronic Kidney Disease Epidemiology Collaboration (CKD-EPI) equation refit without adjustment for race. BUN/Creatinine Ratio 34.3 LAB CHEMISTRY METHOD 11/04/2024 1:[address] [facility] Calcium 8.6 8.5 - 10.5 mg/dL LAB CHEMISTRY METHOD 11/04/2024 1:[address] [facility] AST (SGOT) 28 10 - 42 unit/L LAB CHEMISTRY METHOD 11/04/2024 1:[address] [facility] ALT (SGPT) 41 10 - 60 unit/L LAB CHEMISTRY METHOD 11/04/2024 1:[address] [facility] Alkaline Phosphatase 68 42 - 121 unit/L LAB CHEMISTRY METHOD 11/04/2024 1:[address] [facility] Total Protein 5.8(L) 6.0 - 8.0 g/dL LAB CHEMISTRY METHOD 11/04/2024 1:32 PM EST [facility] Albumin 2.7(L) 3.2 - 5.0 g/dL LAB CHEMISTRY METHOD 11/04/2024 1:[address] [facility] Total Bilirubin 0.3 0.0 - 1.4 mg/dL LAB CHEMISTRY METHOD 11/04/2024 1:[address] [facility] Blood Venous blood specimen / Unknown Venipuncture / Unknown 11/04/2024 5:23 AM EST 11/04/2024 9:59 AM EST us Michael Yu MD LAB BLOOD ORDERABLES Final Result [facility] [address] [place] [address], [place] [phone] * (ABNORMAL) Complete blood count (11/04/2024 5:23 AM EST) WBC 3.9(L) 4.8 - 10.8 K/mcL LAB HEMETOLOGY METHOD 11/04/2024 10:[address] [facility] RBC 3.70(L) 4.50 - 5.50 M/mcL LAB HEMETOLOGY METHOD 11/04/2024 10:[address] [facility] Hemoglobin 11.9(L) 13.5 - 17.5 g/dL LAB HEMETOLOGY METHOD 11/04/2024 10:[address] [facility] Hematocrit 37.1(L) 42.0 - 54.0 % LAB HEMETOLOGY METHOD 11/04/2024 10:[address] [facility] MCV 101.6(H) 79.0 - 98.0 FL LAB HEMETOLOGY METHOD 11/04/2024 10:[address] [facility] MCH 32.6(H) 27.0 - 32.0 pcg LAB HEMETOLOGY METHOD 11/04/2024 10:[address] [facility] MCHC 32.1 32.0 - 37.0 g/dL LAB HEMETOLOGY METHOD 11/04/2024 10:35 AM EST [facility] RDW 13.0 11.0 - 15.0 % LAB HEMETOLOGY METHOD 11/04/2024 10:[address] [facility] Platelets 125(L) 130 - 400 K/mcL LAB HEMETOLOGY METHOD 11/04/2024 10:35 AM EST [facility] MPV 11.6(H) 7.0 - 11.0 FL LAB HEMETOLOGY METHOD 11/04/2024 10:35 AM EST [facility] NRBC 0.0 <1.0 % LAB HEMETOLOGY METHOD 11/04/2024 10:[address] [facility] NRBC Absolute 0.00 <0.10 K/mcL LAB HEMETOLOGY METHOD 11/04/2024 10:[address] [facility] Blood Venous blood specimen / Unknown Venipuncture / Unknown 11/04/2024 5:23 AM EST 11/04/2024 9:59 AM EST Michael Yu MD LAB BLOOD ORDERABLES Final Result [facility] [address] [place] [address], documented in this encounter Visit Diagnoses Diagnosis Essential (primary) hypertension Unspecified essential hypertension Acute on chronic diastolic (congestive) heart failure (CMS/HCC V24, CMS/HCC V28) documented in this encounter Care Teams Microwave Radio Technician Relationship Specialty Start Date End Date Carlos Allen MD [address] [place] [address] PCP - General Internal Medicine 11/08/24 documented as of this encounter
--- OUTSIDE RECORDS SUMMARY | 2025-07-14 14:37 | XMS_ITS | Encounter Summary ---
Author Organization [employer] Address [address] [place] [address] Care Team Providers Care Vice President Business Development Name Role Phone Carlos Allen MD Primary Care Provider [phone] Encounter Details Date Type Department Care Team (Latest Contact Info) Description 09/23/2024 Lab Requisition [facility] - Main Lab [address] [place] [address] Margarito Kuhn MD [address] [place] [address] Unspecified atrioventricular block Social History Tobacco Use [...] AM EST) WBC 3.7(L) 4.8 - 10.8 K/[facility] LAB HEMETOLOGY METHOD 09/23/2024 11:37 AM EST [facility] RBC 3.40(L) 4.50 - 5.50 M/[facility] LAB HEMETOLOGY METHOD 09/23/2024 11:37 AM [facility] LAB Hemoglobin 11.5(L) 13.5 - 17.5 g/dL LAB HEMETOLOGY METHOD 09/23/2024 11:37 AM [facility] LAB Hematocrit 35.5(L) 42.0 - 54.0 % LAB HEMETOLOGY METHOD 09/23/2024 11:37 AM [facility] LAB MCV 104.1(H) 79.0 - 98.0 FL LAB HEMETOLOGY METHOD 09/23/2024 11:37 AM [facility] LAB MCH 33.7(H) 27.0 - 32.0 pcg LAB HEMETOLOGY METHOD 09/23/2024 11:37 AM [facility] LAB MCHC 32.4 32.0 - 37.0 g/dL LAB HEMETOLOGY METHOD 09/23/2024 11:37 AM [facility] LAB RDW 13.2 11.0 - 15.0 % LAB HEMETOLOGY METHOD 09/23/2024 11:37 AM [facility] LAB Platelets 96(L) 130 - 400 K/mcL LAB HEMETOLOGY METHOD 09/23/2024 11:37 AM [facility] LAB Comment:previously verified by slide MPV 11.8(H) 7.0 - 11.0 FL LAB HEMETOLOGY METHOD 09/23/2024 11:37 AM [facility] LAB NRBC 0.0 <1.0 % LAB HEMETOLOGY METHOD 09/23/2024 11:37 AM [facility] LAB NRBC Absolute 0.00 <0.10 K/mcL LAB HEMETOLOGY METHOD 09/23/2024 11:37 AM [facility] LAB Neutrophils Relative 65.8 % LAB HEMETOLOGY METHOD 09/23/2024 11:37 AM [facility] LAB Lymphocytes Relative 19.6 % LAB HEMETOLOGY METHOD 09/23/2024 11:37 AM EST [facility] Monocytes Relative 11.5 % LAB HEMETOLOGY METHOD 09/23/2024 11:37 AM [facility] Eosinophils Relative 2.1 % LAB HEMETOLOGY METHOD 09/23/2024 11:37 AM [facility] Basophils Relative 0.5 % LAB HEMETOLOGY METHOD 09/23/2024 11:37 AM [facility] Immature Granulocytes Relative 0.5 % LAB HEMETOLOGY METHOD 09/23/2024 11:37 AM [facility] LAB Neutrophils Absolute 2.45 1.50 - 7.00 K/mcL LAB HEMETOLOGY METHOD 09/23/2024 11:37 AM [facility] LAB Lymphocytes Absolute 0.73(L) 1.00 - 5.00 K/mcL LAB HEMETOLOGY METHOD 09/23/2024 11:37 AM [facility] Monocytes Absolute 0.43 0.20 - 1.00 K/mcL LAB HEMETOLOGY METHOD 09/23/2024 11:37 AM [facility] LAB Eosinophils Absolute 0.08 0.00 - 0.50 K/mcL LAB HEMETOLOGY METHOD 09/23/2024 11:37 AM [facility] Basophils Absolute 0.02 0.00 - 0.20 K/mcL LAB HEMETOLOGY METHOD 09/23/2024 11:37 AM [facility] LAB Immature Granulocytes Absolute 0.02 0.00 - 0.03 K/mcL LAB HEMETOLOGY METHOD 09/23/2024 11:37 AM [facility] LAB Blood Venous blood specimen / Unknown Venipuncture / Unknown 09/23/2024 4:40 AM EST 09/23/2024 10:40 AM EST us Margarito Kuhn MD LAB BLOOD ORDERABLES Final Resu lt [facility] [address] [place] [address], [place] [phone] * Basic metabolic panel (09/23/2024 4:40 AM EST) Sodium 141 133 - 145 mmol/L LAB CHEMISTRY METHOD 09/23/2024 11:38 AM [facility] Potassium 4.1 3.5 - 5.5 mmol/L LAB CHEMISTRY METHOD 09/23/2024 11:38 AM [facility] LAB Chloride 106 96 - 110 mmol/L LAB CHEMISTRY METHOD 09/23/2024 11:38 AM [facility] LAB CO2 29 21 - 32 mmol/L LAB CHEMISTRY METHOD 09/23/2024 11:38 AM [facility] LAB Anion Gap 6 3 - 11 LAB CHEMISTRY METHOD 09/23/2024 11:38 AM [facility] Glucose 79 70 - 100 mg/dL LAB CHEMISTRY METHOD 09/23/2024 11:38 AM [facility] BUN 25 5 - 25 mg/dL LAB CHEMISTRY METHOD 09/23/2024 11:38 AM [facility] LAB Creatinine 0.85 0.70 - 1.30 mg/dL LAB CHEMISTRY METHOD 09/23/2024 11:38 AM [facility] LAB eGFR 85 >=60 mL/min/1. 73m2 LAB CHEMISTRY METHOD 09/23/2024 11:38 AM [facility] LAB Comment:Calculation based on the Chronic Kidney Disease Epidemiology Collaboration (CKD-EPI) equation refit without adjustment for race. BUN/Creatinine Ratio 29.4 LAB CHEMISTRY METHOD 09/23/2024 11:38 AM [facility] LAB Calcium 8.7 8.5 - 10.5 mg/dL LAB CHEMISTRY METHOD 09/23/2024 11:38 AM [facility] LAB Blood Venous blood specimen / Unknown Venipuncture / Unknown 09/23/2024 4:40 AM EST 09/23/2024 10:40 AM EST us Margarito Kuhn MD LAB BLOOD ORDERABLES Final Resu lt [facility] [address] [place] [address], documented in this encounter Visit Diagnoses Diagnosis Unspecified atrioventricular block documented in this encounter Care Teams Vice President Business Development Relationship Specialty Start Date End Date Carlos Allen MD [address] [place] [address] PCP - General Internal Medicine 11/08/24 documented as of this encounter
--- OUTSIDE RECORDS SUMMARY | 2025-07-14 14:37 | XMS_ITS | Encounter Summary ---
Author Organization [employer] Address [address] [place] [address] Care Team Providers Care Behavioral Health Counselor Name Role Phone Carlos Allen MD Primary Care Provider [phone] Encounter Details Date Type Department Care Team (Late st Contact Info) Description 11/06/2024 Lab Requisition [facility] - Main Lab [address] [facility] [place] [address] Carlos Allen MD [address] [place] [phone] Acute on chronic diastolic (congestive) heart [...] sec LAB COAGULATION METHOD 11/07/2024 12:04 PM [facility] LAB INR 3.2 LAB COAGULATION METHOD 11/07/2024 12:04 PM [facility] LAB Blood Venous blood specimen / Unknown Venipuncture / Unknown 11/07/2024 5:10 AM EST 11/07/2024 11:25 AM EST us Carlos Allen MD LAB BLOOD ORDERABLES Final Resu lt [facility] [address] [place] [address], [place] [phone] * (ABNORMAL) Basic metabolic panel (11/07/2024 5:10 AM EST) [facility] Sodium 143 133 - 145 mmol/L LAB CHEMISTRY METHOD 11/07/2024 1:23 PM [facility] LAB Potassium 5.1 3.5 - 5.5 mmol/L LAB CHEMISTRY METHOD 11/07/2024 1:23 PM [facility] LAB Chloride 106 96 - 110 mmol/L LAB CHEMISTRY METHOD 11/07/2024 1:23 PM [facility] LAB CO2 34(H) 21 - 32 mmol/L LAB CHEMISTRY METHOD 11/07/2024 1:23 PM [facility] LAB Anion Gap 3 3 - 11 LAB CHEMISTRY METHOD 11/07/2024 1:23 PM [facility] LAB Glucose 89 70 - 100 mg/dL LAB CHEMISTRY METHOD 11/07/2024 1:23 PM [facility] BUN 34(H) 5 - 25 mg/dL LAB CHEMISTRY METHOD 11/07/2024 1:23 PM [facility] Creatinine 1.12 0.70 - 1.30 mg/dL LAB CHEMISTRY METHOD 11/07/2024 1:23 PM [facility] LAB eGFR 64 >=60 mL/min/1. 73m2 LAB CHEMISTRY METHOD 11/07/2024 1:23 PM EST [facility] Comment:Calculation based on the Chronic Kidney Disease Epidemiology Collaboration (CKD-EPI) equation refit without adjustment for race. BUN/Creatinine Ratio 30.4 LAB CHEMISTRY METHOD 11/07/2024 1:23 PM EST [facility] Calcium 8.9 8.5 - 10.5 mg/dL LAB CHEMISTRY METHOD 11/07/2024 1:23 PM [facility] Blood Venous blood specimen / Unknown Venipuncture / Unknown 11/07/2024 5:10 AM EST 11/07/2024 11:25 AM EST us Carlos Allen MD LAB BLOOD ORDERABLES Final Resu lt [facility] [address] [place] [address], [place] [phone] * (ABNORMAL) Complete blood count (11/07/2024 5:10 AM EST) WBC 3.9(L) 4.8 - 10.8 K/mcL LAB HEMETOLOGY METHOD 11/07/2024 12:36 PM [facility] RBC 3.80(L) 4.50 - 5.50 M/mcL LAB HEMETOLOGY METHOD 11/07/2024 12:36 PM [facility] Hemoglobin 12.0(L) 13.5 - 17.5 g/dL LAB HEMETOLOGY METHOD 11/07/2024 12:36 PM [facility] LAB Hematocrit 38.7(L) 42.0 - 54.0 % LAB HEMETOLOGY METHOD 11/07/2024 12:36 PM [facility] LAB MCV 102.9(H) 79.0 - 98.0 FL LAB HEMETOLOGY METHOD 11/07/2024 12:36 PM [facility] LAB MCH 31.9 27.0 - 32.0 pcg LAB HEMETOLOGY METHOD 11/07/2024 12:36 PM [facility] LAB MCHC 31.0(L) 32.0 - 37.0 g/dL LAB HEMETOLOGY METHOD 11/07/2024 12:36 PM [facility] LAB RDW 13.3 11.0 - 15.0 % LAB HEMETOLOGY METHOD 11/07/2024 12:36 PM [facility] LAB Platelets 128(L) 130 - 400 K/mcL LAB HEMETOLOGY METHOD 11/07/2024 12:36 PM [facility] LAB MPV 11.7(H) 7.0 - 11.0 FL LAB HEMETOLOGY METHOD 11/07/2024 12:36 PM [facility] LAB NRBC 0.0 <1.0 % LAB HEMETOLOGY METHOD 11/07/2024 12:36 PM [facility] LAB NRBC Absolute 0.00 <0.10 K/mcL LAB HEMETOLOGY METHOD 11/07/2024 12:36 PM [facility] Blood Venous blood specimen / Unknown Venipuncture / Unknown 11/07/2024 5:10 AM EST 11/07/2024 11:25 AM EST us Carlos Allen MD LAB BLOOD ORDERABLES Final Resu lt [facility] [address] [place] [address], documented in this encounter Visit Diagnoses Diagnosis Acute on chronic diastolic (congestive) heart failure (CMS/HCC V24, CMS/HCC V28) Essential (primary) hypertension Unspecified essential hypertension documented in this encounter Care Teams Behavioral Health Counselor Relationship Specialty Start Date End Date Carlos Allen MD [address] [place] [id number] PCP - General Internal Medicine 11/08/24 documented as of this encounter
--- OUTSIDE RECORDS SUMMARY | 2025-07-14 14:37 | XMS_ITS | Encounter Summary ---
Author Organization [employer] [facility] Address [address] [place] [address] Care Team Providers Care Equipment Driver Name Role Phone Carlos Allen MD Primary Care Provider [phone] Encounter Details Date Type Department Care Team (Late st Contact Info) Description 10/31/2024 Lab Requisition [facility] - Main Lab [address] [facility] [place] [address] Carlos Allen MD [address] [place] [phone] Acute on chronic diastolic (congestive) heart [...] Acute on chronic diastolic (congestive) heart failure ([facility]/HCC) COMPLETE BLOOD COUNT Routine 10/31/2024 5:26 AM [...] ORDERABLES Final Resu lt Performing Organization Address [facility]/ZIP Co de Phone Number [facility] [address] [place] [address], [place] [phone] * (ABNORMAL) Prothrombin time with INR (10/31/2024 [...] MD LAB BLOOD ORDERABLES Final Resu lt [facility] [address] [place] [address], [place] [phone] * (ABNORMAL) Complete blood count (10/31/2024 5:26 [...] Final Resu lt [facility] ([facility] [address] [place] [address], documented in this encounter Visit Diagnoses Diagnosis Acute on chronic diastolic (congestive) heart failure (CMS/HCC V24, CMS/HCC V28) documented in this encounter Care Teams Equipment Driver Relationship Specialty Start Date End Date Carlos Allen MD [address] [place] [address] PCP - General Internal Medicine 11/08/24 documented as of this encounter
--- OUTSIDE RECORDS SUMMARY | 2025-07-14 14:37 | XMS_ITS | Encounter Summary ---
Author Organization [facility] Address [address] [place] [address] Care Team Providers Care Community Relations Officer Name Role Phone Carlos Allen MD Primary Care Provider [phone] Encounter Details Date Type Department Care Team (Late st Contact Info) Description 11/15/2024 Lab Requisition [facility] - Main Lab [address] [facility] [address] Carlos Allen MD [address] [place] [phone] Essential (primary) hypertension; Acute on chronic [...] LAB COAGULATION METHOD 11/18/2024 10:17 AM EST [facility] INR 2.6 LAB COAGULATION METHOD 11/18/2024 10:17 AM [facility] Blood Venous blood specimen / Unknown Venipuncture / Unknown 11/18/2024 4:57 AM EST 11/18/2024 9:46 AM EST us Carlos Allen MD LAB BLOOD ORDERABLES Final Resu lt [facility] [address] [place] [address], [place] [phone] * (ABNORMAL) Comprehensive metabolic panel (11/18/2024 4:57 AM EST) [facility] Sodium 143 133 - 145 mmol/L LAB CHEMISTRY METHOD 11/18/2024 10:20 AM [facility] Potassium 4.5 3.5 - 5.5 mmol/L LAB CHEMISTRY METHOD 11/18/2024 10:20 AM [facility] Chloride 106 96 - 110 mmol/L LAB CHEMISTRY METHOD 11/18/2024 10:20 AM [facility] CO2 35(H) 21 - 32 mmol/L LAB CHEMISTRY METHOD 11/18/2024 10:20 AM [facility] Anion Gap 2(L) 3 - 11 LAB CHEMISTRY METHOD 11/18/2024 10:20 AM [facility] Glucose 90 70 - 100 mg/dL LAB CHEMISTRY METHOD 11/18/2024 10:20 AM [facility] BUN 29(H) 5 - 25 mg/dL LAB CHEMISTRY METHOD 11/18/2024 10:20 AM [facility] Creatinine 1.04 0.70 - 1.30 mg/dL LAB CHEMISTRY METHOD 11/18/2024 10:20 AM [facility] eGFR 70 >=60 mL/min/1. 73m2 LAB CHEMISTRY METHOD 11/18/2024 10:20 AM [facility] Comment:Calculation based on the Chronic Kidney Disease Epidemiology Collaboration (CKD-EPI) equation refit without adjustment for race. BUN/Creatinine Ratio 27.9 LAB CHEMISTRY METHOD 11/18/2024 10:20 AM [facility] Calcium 8.3(L) 8.5 - 10.5 mg/dL LAB CHEMISTRY METHOD 11/18/2024 10:20 AM [facility] AST (SGOT) 26 10 - 42 unit/L LAB CHEMISTRY METHOD 11/18/2024 10:20 AM [facility] ALT (SGPT) 22 10 - 60 unit/L LAB CHEMISTRY METHOD 11/18/2024 10:20 AM [facility] Alkaline Phosphatase 65 42 - 121 unit/L LAB CHEMISTRY METHOD 11/18/2024 10:20 AM [facility] Total Protein 5.6(L) 6.0 - 8.0 g/dL LAB CHEMISTRY METHOD 11/18/2024 10:20 AM [facility] Albumin 2.6(L) 3.2 - 5.0 g/dL LAB CHEMISTRY METHOD 11/18/2024 10:20 AM [facility] Total Bilirubin 0.4 0.0 - 1.4 mg/dL LAB CHEMISTRY METHOD 11/18/2024 10:20 AM [facility] Blood Venous blood specimen / Unknown Venipuncture / Unknown 11/18/2024 4:57 AM EST 11/18/2024 9:44 AM EST us Carlos Allen MD LAB BLOOD ORDERABLES Final Resu lt [facility] [address] [place] [address], [place] [phone] * (ABNORMAL) Complete blood count (11/18/2024 4:57 AM EST) [facility] WBC 4.0(L) 4.8 - 10.8 K/mcL LAB HEMETOLOGY METHOD 11/18/2024 11:25 AM [facility] RBC 3.60(L) 4.50 - 5.50 M/mcL LAB HEMETOLOGY METHOD 11/18/2024 11:25 AM [facility] Hemoglobin 11.6(L) 13.5 - 17.5 g/dL LAB HEMETOLOGY METHOD 11/18/2024 11:25 AM [facility] Hematocrit 36.6(L) 42.0 - 54.0 % LAB HEMETOLOGY METHOD 11/18/2024 11:25 AM [facility] MCV 100.5(H) 79.0 - 98.0 FL LAB HEMETOLOGY METHOD 11/18/2024 11:25 AM [facility] MCH 31.9 27.0 - 32.0 pcg LAB HEMETOLOGY METHOD 11/18/2024 11:25 AM [facility] MCHC 31.7(L) 32.0 - 37.0 g/dL LAB HEMETOLOGY METHOD 11/18/2024 11:25 AM [facility] RDW 13.9 11.0 - 15.0 % LAB HEMETOLOGY METHOD 11/18/2024 11:25 AM [facility] Platelets 96(L) 130 - 400 K/mcL LAB HEMETOLOGY METHOD 11/18/2024 11:25 AM [facility] Comment:reviewed by slide MPV 12.0(H) 7.0 - 11.0 FL LAB HEMETOLOGY METHOD 11/18/2024 11:25 AM [facility] NRBC 0.0 <1.0 % LAB HEMETOLOGY METHOD 11/18/2024 11:25 AM [facility] NRBC Absolute 0.00 <0.10 K/mcL LAB HEMETOLOGY METHOD 11/18/2024 11:25 AM EST [facility] Blood Venous blood specimen / Unknown Venipuncture / Unknown 11/18/2024 4:57 AM EST 11/18/2024 9:45 AM EST us Carlos Allen MD LAB BLOOD ORDERABLES Final Resu lt [facility] [address] [place] [address], documented in this encounter Visit Diagnoses Diagnosis Essential (primary) hypertension Unspecified essential hypertension Acute on chronic diastolic (congestive) heart failure (CMS/HCC V24, CMS/HCC V28) documented in this encounter Care Teams Community Relations Officer Relationship Specialty Start Date End Date Carlos Allen MD [address] [place] [address] PCP - General Internal Medicine 11/08/24 documented as of this encounter
--- OUTSIDE RECORDS SUMMARY | 2025-07-14 14:37 | XMS_ITS | Clinical Summary ---
Author Organization [address] [facility] Address [address] [place] [address] Phone Care Team Providers Care Logistics Associate Name Role Phone Carlos Allen MD Primary Care Provider [phone] Social History Tobacco Use Types Packs/Day Years [...] series) 2013 Cholesterol Screening (Lipid Panel) 10/23/2022 Falls Risk Assessment 10/23/2022 Medicare Annual Wellness Visit 10/23/2022 Social Influencers of Health Screening 10/23/2022 COVID-19 Vaccine ( season) 2024 Depression Screening 11/20/2024 Influenza Vaccine (#1) 2025 Hypertension/CHF/CAD Annual BMP Blood Test 11/18/2025 [...] mmol/L LAB CHEMISTRY METHOD 11/18/2024 10:20 AM [facility] Potassium 4.5 3.5 - 5.5 mmol/L LAB CHEMISTRY METHOD 11/18/2024 10:20 AM [facility] Chloride 106 96 - 110 mmol/L LAB CHEMISTRY METHOD 11/18/2024 10:20 AM [facility] CO2 35(H) 21 - 32 mmol/L LAB CHEMISTRY METHOD 11/18/2024 10:20 AM [facility] Anion Gap 2(L) 3 - 11 LAB CHEMISTRY METHOD 11/18/2024 10:20 AM [facility] Glucose 90 70 - 100 mg/dL LAB CHEMISTRY METHOD 11/18/2024 10:20 AM [facility] BUN 29(H) 5 - 25 mg/dL LAB CHEMISTRY METHOD 11/18/2024 10:20 AM [facility] Creatinine 1.04 0.70 - 1.30 mg/dL LAB CHEMISTRY METHOD 11/18/2024 10:20 AM [facility] eGFR 70 >=60 mL/min/1. 73m2 LAB CHEMISTRY METHOD 11/18/2024 10:20 AM [facility] Comment:Calculation based on the Chronic Kidney Disease Epidemiology Collaboration (CKD-EPI) equation refit without adjustment for race. BUN/Creatinine Ratio 27.9 LAB CHEMISTRY METHOD 11/18/2024 10:20 AM [facility] Calcium 8.3(L) 8.5 - 10.5 mg/dL LAB CHEMISTRY METHOD 11/18/2024 10:20 AM [facility] AST (SGOT) 26 10 - 42 unit/L LAB CHEMISTRY METHOD 11/18/2024 10:20 AM [facility] ALT (SGPT) 22 10 - 60 unit/L LAB CHEMISTRY METHOD 11/18/2024 10:20 AM [facility] Alkaline Phosphatase 65 42 - 121 unit/L LAB CHEMISTRY METHOD 11/18/2024 10:20 AM [facility] Total Protein 5.6(L) 6.0 - 8.0 g/dL LAB CHEMISTRY METHOD 11/18/2024 10:20 AM [facility] Albumin 2.6(L) 3.2 - 5.0 g/dL LAB CHEMISTRY METHOD 11/18/2024 10:20 AM [facility] Total Bilirubin 0.4 0.0 - 1.4 mg/dL LAB CHEMISTRY METHOD 11/18/2024 10:20 AM [facility] Blood Venous blood specimen / Unknown Venipuncture / Unknown 11/18/2024 4:57 AM EST 11/18/2024 9:44 AM EST us Carlos Allen MD LAB BLOOD ORDERABLES Final Resu lt [facility] [address] [place] [address], from Last 3 Months or Most Recently Relevant to Health Maintenance Insurance MEDICARE [facility] * Guarantor: [facility] Account Type Relation to Patient Date of Phone Billing Address Corporate Other COMMERCIAL GENERIC on file Care Teams Logistics Associate Relationship Specialty Start Date End Date Carlos Allen MD [address] [place] [address] PCP - General Internal Medicine 11/08/24
--- OUTSIDE RECORDS SUMMARY | 2025-07-14 14:37 | XMS_ITS | Encounter Summary ---
Author Organization [facility] Address [address] [place] [address] Care Team Providers Care Invasive Manager Name Role Phone Carlos Allen MD Primary Care Provider [phone] Encounter Details Date Type Department Care Team (Late st Contact Info) Description 11/08/2024 Lab Requisition [facility] - Main Lab [address] [facility] [email or web address] [address] Carlos Allen MD [address] [place] [phone] Paroxysmal atrial fibrillation (CMS/HCC V24, CMS/HCC [...] LAB COAGULATION METHOD 11/08/2024 10:40 AM EST [facility] INR 2.6 LAB COAGULATION METHOD 11/08/2024 10:40 AM EST [facility] Blood Venous blood specimen / Unknown Venipuncture / Unknown 11/08/2024 8:57 AM EST 11/08/2024 9:43 AM EST Carlos Allen MD LAB BLOOD ORDERABLES Final Resu lt [facility] [address] [place] [address], documented in this encounter Visit Diagnoses Diagnosis Paroxysmal atrial fibrillation (CMS/HCC V24, CMS/HCC V28) Atrial fibrillation documented in this encounter Care Teams Invasive Manager Relationship Specialty Start Date End Date Carlos Allen MD [address] [place] [address] PCP - General Internal Medicine 11/08/24 documented as of this encounter
--- OUTSIDE RECORDS SUMMARY | 2025-07-14 14:37 | XMS_ITS | Encounter Summary ---
Author Organization [employer] Address [address] [place] [address] Care Team Providers Care Director Of Digital Technology Name Role Phone Carlos Allen MD Primary Care Provider [phone] Encounter Details Date Type Department Care Team (Late st Contact Info) Description 11/12/2024 Lab Requisition [facility] - Main Lab [address] [facility] [place] [address] Carlos Allen MD [address] [place] [phone] Acute on chronic diastolic (congestive) heart [...] LAB COAGULATION METHOD 11/14/2024 11:35 AM EST [facility] INR 2.3 LAB COAGULATION METHOD 11/14/2024 11:35 AM [facility] Blood Venous blood specimen / Unknown 11/14/2024 5:16 AM EST 11/14/2024 11:35 AM EST us Carlos Allen MD LAB BLOOD ORDERABLES Final Resu lt [facility] [address] [place] [address], * (ABNORMAL) Complete blood count (11/14/2024 5:16 AM EST) [facility] WBC 4.3(L) 4.8 - 10.8 K/mcL LAB HEMETOLOGY METHOD 11/14/2024 12:07 PM [facility] RBC 3.60(L) 4.50 - 5.50 M/mcL LAB HEMETOLOGY METHOD 11/14/2024 12:07 PM [facility] Hemoglobin 11.4(L) 13.5 - 17.5 g/dL LAB HEMETOLOGY METHOD 11/14/2024 12:07 PM [facility] Hematocrit 35.9(L) 42.0 - 54.0 % LAB HEMETOLOGY METHOD 11/14/2024 12:07 PM [facility] MCV 100.8(H) 79.0 - 98.0 FL LAB HEMETOLOGY METHOD 11/14/2024 12:07 PM [facility] MCH 32.0 27.0 - 32.0 pcg LAB HEMETOLOGY METHOD 11/14/2024 12:07 PM [facility] MCHC 31.8(L) 32.0 - 37.0 g/dL LAB HEMETOLOGY METHOD 11/14/2024 12:07 PM EST [facility] RDW 13.5 11.0 - 15.0 % LAB HEMETOLOGY METHOD 11/14/2024 12:07 PM [facility] Platelets 108(L) 130 - 400 K/mcL LAB HEMETOLOGY METHOD 11/14/2024 12:07 PM [facility] MPV 11.7(H) 7.0 - 11.0 FL LAB HEMETOLOGY METHOD 11/14/2024 12:07 PM EST [facility] NRBC 0.0 <1.0 % LAB HEMETOLOGY METHOD 11/14/2024 12:07 PM [facility] NRBC Absolute 0.00 <0.10 K/mcL LAB HEMETOLOGY METHOD 11/14/2024 12:07 PM [facility] Blood Venous blood specimen / Unknown Venipuncture / Unknown 11/14/2024 5:16 AM EST 11/14/2024 12:07 PM EST us Carlos Allen MD LAB BLOOD ORDERABLES Final Resu lt [facility] [address] [place] [address], * (ABNORMAL) Basic metabolic panel (11/14/2024 5:16 AM EST) Sodium 142 133 - 145 mmol/L LAB CHEMISTRY METHOD 11/14/2024 12:37 PM EST [facility] Potassium 4.8 3.5 - 5.5 mmol/L LAB CHEMISTRY METHOD 11/14/2024 12:37 PM [facility] Chloride 106 96 - 110 mmol/L LAB CHEMISTRY METHOD 11/14/2024 12:37 PM [facility] CO2 32 21 - 32 mmol/L LAB CHEMISTRY METHOD 11/14/2024 12:37 PM [facility] Anion Gap 4 3 - 11 LAB CHEMISTRY METHOD 11/14/2024 12:37 PM [facility] Glucose 99 70 - 100 mg/dL LAB CHEMISTRY METHOD 11/14/2024 12:37 PM [facility] BUN 26(H) 5 - 25 mg/dL LAB CHEMISTRY METHOD 11/14/2024 12:37 PM [facility] Creatinine 1.04 0.70 - 1.30 mg/dL LAB CHEMISTRY METHOD 11/14/2024 12:37 PM [facility] eGFR 70 >=60 mL/min/1. 73m2 LAB CHEMISTRY METHOD 11/14/2024 12:37 PM [facility] Comment:Calculation based on the Chronic Kidney Disease Epidemiology Collaboration (CKD-EPI) equation refit without adjustment for race. BUN/Creatinine Ratio 25.0 LAB CHEMISTRY METHOD 11/14/2024 12:37 PM [facility] Calcium 8.4(L) 8.5 - 10.5 mg/dL LAB CHEMISTRY METHOD 11/14/2024 12:37 PM [facility] Blood Venous blood specimen / Unknown Venipuncture / Unknown 11/14/2024 5:16 AM EST 11/14/2024 11:21 AM EST us Carlos Allen MD LAB BLOOD ORDERABLES Final Resu lt [facility] [address] [place] [address], documented in this encounter Visit Diagnoses Diagnosis Acute on chronic diastolic (congestive) heart failure (CMS/HCC V24, CMS/HCC V28) Essential (primary) hypertension Unspecified essential hypertension documented in this encounter Care Teams Director Of Digital Technology Relationship Specialty Start Date End Date Carlos Allen MD [address] [place] [address] PCP - General Internal Medicine 11/08/24 documented as of this encounter
--- OUTSIDE RECORDS SUMMARY | 2025-07-14 14:37 | XMS_ITS | Encounter Summary ---
Author Organization [email or web address] [facility] Address [address] [place] [address] Care Team Providers Care Glazier Artist Name Role Phone Carlos Allen MD Primary Care Provider [phone] Encounter Details Date Type Department Care Team (Late st Contact Info) Description 11/19/2024 Lab Requisition [facility] - Main Lab [address] [facility] [place] [address] Carlos Allen MD [address] [place] [address] Acute on chronic diastolic (congestive) [...] hypertension documented in this encounter Care Teams Glazier Artist Relationship Specialty Start Date End Date Carlos Allen MD [address] [place] [address] PCP - General Internal Medicine 11/08/24 documented as of this encounter
--- OUTSIDE RECORDS SUMMARY | 2025-07-17 20:00 | XMS_ITS | Clinical Summary ---
Author Organization Unknown Care Team Providers Care Machine Repairer Name Role Phone JACKSON PALOMO, CANDACE Unavailable Unavailable SAMANTHA TANK BUILDER SUPERVISOR, ALTAGRACIA Unavailable Unavailable JAYANT PT, MARINA Unavailable Unavailable SPAFFORD OT, ABELARDO Unavailable Unavailable CONDINO MECHANICAL ENGINEERING INTERN/OLGUIN, ANASTACIA Unavailable Unav kevinable JUAN J RN, KALYANI Unavailable Unavailab javier KANG LPN, TIA Unavailable Unavailable Payers Payer Name Policy Type Policy Number Effective Date Expira tion Date MEDICARE.NGS.PDGM [id number] Problems Condition Name Condition Details Condition Category Status Onset Date Resolution Date Last Treatment Date Treating Clinician Comments 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 Active 6 00:00: 00 PAROXYSMAL ATRIAL FIBRILLATION Active 11-21 00:00: 00 CHRONIC OBSTRUCTIVE PULMONARY DISEASE, UNSPECIFIED Active 11-21 00:00: 00 ACUTE RESPIRATORY FAILURE WITH HYPOXIA Active 11-21 00:00: 00 ACUTE RESPIRATORY FAILURE WITH HYPERCAPNIA Active 11-21 00:00: 00 ATHSCL HEART DISEASE OF [place] CORONARY ARTERY W/O ANG PCTRS Active 11-21 00:00: 00 NONSPECIFIC INTRAVENTRIC ULAR BLOCK Active 11-21 00:00: 00 UNSP DEMENTIA, UNSP SEVERITY, WITHOUT BEH/PSYCH/MO OD/ANX Active 11-21 00:00: 00 BENIGN PROSTATIC HYPERPLASIA WITHOUT LOWER URINRY TRACT SYMP Active 11-21 00:00: 00 UNSPECIFIED GLAUCOMA Active 11-21 00:00: 00 GASTRO-ESOPH AGEAL REFLUX DISEASE WITHOUT ESOPHAGITIS Active 11-21 00:00: 00 HYPERLIPIDEM IA, UNSPECIFIED Active 11-21 00:00: 00 JAIL (CURRENT) USE OF ANTICOAGULAN TS Active 11-21 [...] % topical gel 2023-11 00:00: 00 Yes [id number] ARTHRITIS Per instruc tions 3 TIMES DAILY Per instructio ns 3 TIMES DAILY (route: topical) Med Classific ation: Dermatolo gical finasteride 5 mg tablet 2023-11 00:00: 00 Yes [id number] BPH 1 tablet AT BEDTIME 1 tablet AT BEDTIME (route: oral) Med Classific ation: Genitouri nary Therapy atorvastati n 40 mg tablet 2023-11 00:00: 00 Yes [id number] CHOLESTEROL 1 tablet DAILY 1 tablet DAILY (route: oral) Med Classific ation: Cardiovas cular Therapy Agents calcium magnesium zinc 15mcg-1000m g-40 2023-11 00:00: 00 Yes [id number] SUPPLEMENT 3 tablet DAILY 3 tablet DAILY (route: BY MOUTH) Med Classific ation: MISCELLAN EOUS HERBS AND SUPPLEMEN TS Co Q-10 100 mg capsule 2023-11 00:00: 00 Yes [id number] SUPPLEMENT 1 capsule DAILY 1 capsule DAILY (route: oral) Med Classific ation: Alternati ve Therapy famotidine 40 mg tablet 2023-11 00:00: 00 Yes [id number] GERD 1 tablet DAILY 1 tablet DAILY (route: oral) Med Classific ation: Gastroint estinal Therapy Agents furosemide 20 mg tablet 2023-11 00:00: 00 12-05 23:59 :00 No [id number] CHF 2 tablet DAILY 2 tablet DAILY (route: oral) Med Classific ation: Cardiovas cular Therapy Agents latanoprost 0.005 % eye drops 2023-11 00:00: 00 Yes [id number] GLAUCOMA 1 drops DAILY 1 drops DAILY (route: ophthalmic (eye)) Med Classific ation: Ophthalmi c Agents multivitami n with minerals tablet 2023-11 00:00: 00 Yes [id number] SUPPLEMENT 1 tablet DAILY 1 tablet DAILY (route: oral) Med Classific ation: Electroly te Balance-N utritiona l Products terazosin 5 mg capsule 2023-11 00:00: 00 Yes [id number] HTN 1 capsule DAILY 1 capsule DAILY (route: oral) Med Classific ation: Cardiovas cular Therapy Agents Senna Lax 8.6 mg tablet 2023-11 00:00: 00 Yes [id number] CONSTIPATIO N 1 tablet DAILY 1 tablet DAILY (route: oral) Med Classific ation: Gastroint estinal Therapy Agents clopidogrel 75 mg tablet 2023-11 00:00: 00 11-20 23:59 :00 No [id number] hld 1 tablet DAILY 1 tablet DAILY (route: oral) Med Classific ation: Hematolog ical Agents acetaminoph en 325 mg tablet 11-21 00:00: 00 Yes [id number] PAIN 2 tablet 4 TIMES DAILY 2 tablet 4 TIMES DAILY (route: oral) Med Classific ation: Analgesic , Anti-infl ammatory or Antipyret ic oxygen gas for inhalation 11-21 00:00: 00 05-15 23:59 :00 No [id number] SUPPLEMENT 1 Liter BEDTIME 1 Liter BEDTIME (route: inhalation ) Med Classific ation: Medical Supplies and Durable Medical Equipment (DME) warfarin 6 mg tablet 11-21 00:00: 00 05-29 23:59 :00 No [id number] PREVENT CLOTS 1 tablet DAILY 1 tablet DAILY (route: oral) Med Classific ation: Hematolog ical Agents furosemide 20 mg tablet 12-05 00:00: 00 12-19 23:59 :00 No [id number] CONGESTIVE HEART FAILURE 1 tablet DAILY 1 tablet DAILY (route: oral) Med Classific ation: Cardiovas cular Therapy Agents furosemide 20 mg tablet 12-05 00:00: 00 12-08 23:59 :00 No [id number] CONGESTIVE HEART FAILURE 1 tablet DAILY 1 tablet DAILY (route: oral) Med Classific ation: Cardiovas cular Therapy Agents furosemide 40 mg tablet 2025-0 1-30 00:00: 00 Yes [id number] HEART FAILURE 1 tablet DAILY 1 tablet DAILY (route: oral) Med Classific ation: Cardiovas cular Therapy Agents warfarin 6 mg tablet 2-06 00:00: 00 01-01 23:59 :00 No [id number] AFIB 6 mg DAILY 6 mg DAILY (route: oral) Med Classific ation: Hematolog ical Agents warfarin 6 mg tablet 2-13 00:00: 00 01-16 23:59 :00 No [id number] AFIB 6 mg DAILY 6 mg DAILY (route: oral) Med Classific ation: Hematolog ical Agents oxygen gas for inhalation 05-20 00:00: 00 Yes [id number] LOW OXYGEN OVERNIGHT 2 Liter BEDTIME 2 Liter BEDTIME (route: inhalation ) Med Classific ation: Medical Supplies and Durable Medical Equipment (DME) Jantoven 6 mg tablet 05-29 00:00: 00 Yes [id number] ANTICOAGULA NT 1 tablet DAILY 1 tablet DAILY (route: oral) Med Classific ation: Hematolog ical Agents Vital Signs Vital Name Observation Time Observation Value Commen ts Temperature 2025-07-10 12:33:00.000 97.4 [degF] Temperature 2025-07-03 10:22:00.000 97.3 [degF] Temperature 2025-06-26 10:49:00.000 97.3 [degF] Temperature 2025-06-19 14:11:00.000 97.2 [degF] Temperature 2025-06-12 12:38:00.000 97 [degF] Temperature 2025-06-05 11:05:00.000 97.9 [degF] Temperature 2025-05-29 11:12:00.000 97.1 [degF] Temperature 2025-05-22 16:35:00.000 97.2 [degF] Pulse 2025-07-10 12:33:00.000 65 /min Pulse 2025-07-03 10:22:00.000 71 /min Pulse 2025-06-26 10:49:00.000 62 /min Pulse 2025-06-19 14:11:00.000 53 /min Pulse 2025-06-12 12:38:00.000 67 /min Pulse 2025-06-05 11:05:00.000 72 /min Pulse 2025-05-29 11:12:00.000 71 /min Pulse 2025-05-22 16:35:00.000 75 /min O2 Saturation (%) 2025-07-10 12:33:00.000 96 % O2 Saturation (%) 2025-07-03 10:22:00.000 98 % O2 Saturation (%) 2025-06-26 10:49:00.000 95 % O2 Saturation (%) 2025-06-19 14:11:00.000 96 % O2 Saturation (%) 2025-06-12 12:38:00.000 97 % O2 Saturation (%) 2025-06-05 11:05:00.000 96 % O2 Saturation (%) 2025-05-29 11:12:00.000 93 % O2 Saturation (%) 2025-05-22 16:35:00.000 95 % Respirations 2025-07-10 12:33:00.000 20 /min Respirations 2025-07-03 10:22:00.000 18 /min Respirations 2025-06-26 10:49:00.000 18 /min Respirations 2025-06-19 14:11:00.000 20 /min Respirations 2025-06-12 12:38:00.000 18 /min Respirations 2025-06-05 11:05:00.000 18 /min Respirations 2025-05-29 11:12:00.000 18 /min Respirations 2025-05-22 16:35:00.000 18 /min Weight (lbs) 2025-07-10 12:33:00.000 182 [lb_av] Weight (lbs) 2025-07-03 10:23:00.000 179.2 [lb_av] Weight (lbs) 2025-06-26 10:49:00.000 179 [lb_av] Weight (lbs) 2025-06-19 14:20:00.000 179.8 [lb_av] Weight (lbs) 2025-06-12 12:45:00.000 174.6 [lb_av] Weight (lbs) 2025-06-05 11:05:00.000 171 [lb_av] Weight (lbs) 2025-05-29 11:18:00.000 177 [lb_av] Weight (lbs) 2025-05-22 16:35:00.000 177.8 [lb_av] Systolic Blood Pressure 2025-07-10 12:33:00.000 150 mm [Hg] Systolic Blood Pressure 2025-07-03 10:22:00.000 118 mm [Hg] Systolic Blood Pressure 2025-06-26 10:49:00.000 120 mm [Hg] Systolic Blood Pressure 2025-06-19 14:11:00.000 138 mm [Hg] Systolic Blood Pressure 2025-06-12 12:38:00.000 135 mm [Hg] Systolic Blood Pressure 2025-06-05 11:05:00.000 130 mm [Hg] Systolic Blood Pressure 2025-05-29 11:12:00.000 132 mm [Hg] Systolic Blood Pressure 2025-05-22 16:35:00.000 150 mm [Hg] Diastolic Blood Pressure 2025-07-10 12:33:00.000 64 mm [Hg] Diastolic Blood Pressure 2025-07-03 10:22:00.000 60 mm [Hg] Diastolic Blood Pressure 2025-06-26 10:49:00.000 80 mm [Hg] Diastolic Blood Pressure 2025-06-19 14:11:00.000 62 mm [Hg] Diastolic Blood Pressure 2025-06-12 12:38:00.000 70 mm [Hg] Diastolic Blood Pressure 2025-06-05 11:05:00.000 72 mm [Hg] Diastolic Blood Pressure 2025-05-29 11:12:00.000 64 mm [Hg] Diastolic Blood Pressure 2025-05-22 16:35:00.000 80 mm [Hg] Plan of Treatment Planned Activity Planned Date Details Comments Future Scheduled Test RN TO OBSE RVE, ASSESS, EVALUATE, AND DEVELOP AN INDIVIDUALIZED PLAN OF CARE. AGENCY MAY ACCEPT ORDERS FROM CONSULTING PHYSICIANS. RN TO OBSERVE AND ASSESS, TEST DESIGNER/UNIFORM FORCE CAPTAIN TO OBSERVE FOR RISK FOR FALLS AND INSTRUCT IN FALL PREVENTION, HOME SAFETY, MEDICATION MANAGEMENT, INFECTION PREVENTION, AND NUTRITION MANAGEMENT. RN/TEST DESIGNER/UNIFORM FORCE CAPTAIN NURSE MAY PERFORM O2 SATURATION LEVEL ON ADMISSION AND PRN FOR RN TO ASSESS/TEST DESIGNER TO OBSERVE PATIENT, WITH NOTIFICATION TO THE PHYSICIAN IF SATURATION IS 90% IN THE ABSENCE OF MORE SPECIFIC PARAMETERS FROM THE PHYSICIAN. AGENCY MAY PERFORM A RESUMPTION OF CARE VISIT FOLLOWING ANY HOSPITAL ADMISSION. RN/TEST DESIGNER/UNIFORM FORCE CAPTAIN TO MONITOR CO-MORBID CONDITIONS LISTED ON THE PLAN OF CARE AND ANY NEW CONDITIONS THAT PRESENT THEMSELVES DURING THIS EPISODE TO IDENTIFY CHANGES AND INTERVENE TO MINIMIZE COMPLICATIONS. [code = RN TO OBSERVE, ASSESS, EVALUATE, AND DEVELOP AN INDIVIDUALIZED PLAN OF CARE. AGENCY MAY ACCEPT ORDERS FROM CONSULTING PHYSICIANS. RN TO OBSERVE AND ASSESS, TEST DESIGNER/UNIFORM FORCE CAPTAIN TO OBSERVE FOR RISK FOR FALLS AND INSTRUCT IN FALL PREVENTION, HOME SAFETY, MEDICATION MANAGEMENT, INFECTION PREVENTION, AND NUTRITION MANAGEMENT. RN/TEST DESIGNER/UNIFORM FORCE CAPTAIN NURSE MAY PERFORM O2 SATURATION LEVEL ON ADMISSION AND PRN FOR RN TO ASSESS/TEST DESIGNER TO OBSERVE PATIENT, WITH NOTIFICATION TO THE PHYSICIAN IF SATURATION IS 90% IN THE ABSENCE OF MORE SPECIFIC PARAMETERS FROM THE PHYSICIAN. AGENCY MAY PERFORM A RESUMPTION OF CARE VISIT FOLLOWING ANY HOSPITAL ADMISSION. RN/TEST DESIGNER/UNIFORM FORCE CAPTAIN TO MONITOR CO-MORBID CONDITIONS LISTED ON THE PLAN OF CARE AND ANY NEW CONDITIONS THAT PRESENT THEMSELVES DURING THIS EPISODE TO IDENTIFY CHANGES AND INTERVENE TO MINIMIZE COMPLICATIONS.] Future Scheduled Test MEDICATION MANAGEMENT; RN/TEST DESIGNER/UNIFORM FORCE CAPTAIN TO REVIEW MEDICATIONS FOR INTERACTIONS, EFFECTIVENESS OF DRUG THERAPY, AND SIGNS/SYMPTOMS OF ADVERSE REACTIONS. MAY INSTRUCT AND REINFORCE MEDICATION TEACHING RELATED TO THE USE OF MEDICATIONS, DOSAGE, FREQUENCY, PURPOSE, SIDE EFFECTS, AND TO REPORT COMPLICATIONS. [code = MEDICATION MANAGEMENT; RN/TEST DESIGNER/UNIFORM FORCE CAPTAIN TO REVIEW MEDICATIONS FOR INTERACTIONS, EFFECTIVENESS OF DRUG THERAPY, AND SIGNS/SYMPTOMS OF ADVERSE REACTIONS. MAY INSTRUCT AND REINFORCE MEDICATION TEACHING RELATED TO THE USE OF MEDICATIONS, DOSAGE, FREQUENCY, PURPOSE, SIDE EFFECTS, AND TO REPORT COMPLICATIONS.] Future Scheduled Test RISK FOR H OSPITALIZATION; RN TO ASSESS/TEACH, UNIFORM FORCE CAPTAIN/TEST DESIGNER TO OBSERVE/TEACH PATIENT/CAREGIVER ON RISK FOR HOSPITALIZATION/EMERGENCY ROOM VISITS, TEACH SIGNS AND SYMPTOMS THAT PUT PATIENT AT RISK, WHEN TO NOTIFY NURSE/PHYSICIAN OF COMPLICATIONS/DECLINE, AND WHEN TO CALL 911. [code = RISK FOR HOSPITALIZATION; RN TO ASSESS/TEACH, UNIFORM FORCE CAPTAIN/TEST DESIGNER TO OBSERVE/TEACH PATIENT/CAREGIVER ON RISK FOR HOSPITALIZATION/EMERGENCY ROOM VISITS, TEACH SIGNS AND SYMPTOMS THAT PUT PATIENT AT RISK, WHEN TO NOTIFY NURSE/PHYSICIAN OF COMPLICATIONS/DECLINE, AND WHEN TO CALL 911.] Future Scheduled Test CARDIOVASC ULAR SYSTEM; RN TO ASSESS/TEACH, TEST DESIGNER/UNIFORM FORCE CAPTAIN TO OBSERVE/TEACH RELATED TO ALTERED CARDIOVASCULAR STATUS TO MINIMIZE COMPLICATIONS AND REDUCE HOSPITALIZATION. [code = CARDIOVASCULAR SYSTEM; RN TO ASSESS/TEACH, TEST DESIGNER/UNIFORM FORCE CAPTAIN TO OBSERVE/TEACH RELATED TO ALTERED CARDIOVASCULAR STATUS TO MINIMIZE COMPLICATIONS AND REDUCE HOSPITALIZATION.] Future Scheduled Test HEART FAIL URE; RN TO ASSESS/TEACH, TEST DESIGNER/UNIFORM FORCE CAPTAIN TO OBSERVE/TEACH CARDIOPULMONARY SYSTEM TO IDENTIFY SIGNS [...] [code = HEART FAILURE; RN TO ASSESS/TEACH, TEST DESIGNER/UNIFORM FORCE CAPTAIN TO OBSERVE/TEACH CARDIOPULMONARY SYSTEM TO IDENTIFY SIGNS [...] UNABLE TO WEIGH. ] Future Scheduled Test ARRHYTHMIA MANAGEMENT; RN TO ASSESS AND TEACH, TEST DESIGNER/UNIFORM FORCE CAPTAIN TO OBSERVE AND TEACH WARNING SIGNS AND SYMPTOMS TO AVOID HOSPITALIZATION. [code = ARRHYTHMIA MANAGEMENT; RN TO ASSESS AND TEACH, TEST DESIGNER/UNIFORM FORCE CAPTAIN TO OBSERVE AND TEACH WARNING SIGNS AND SYMPTOMS TO AVOID HOSPITALIZATION.] Future Scheduled Test RESPIRATOR Y SYSTEM MANAGEMENT; RN TO ASSESS AND TEACH, TEST DESIGNER/UNIFORM FORCE CAPTAIN TO OBSERVE AND TEACH RELATED TO ALTERED RESPIRATORY STATUS TO MINIMIZE COMPLICATIONS AND REDUCE HOSPITALIZATION. [code = RESPIRATORY SYSTEM MANAGEMENT; RN TO ASSESS AND TEACH, TEST DESIGNER/UNIFORM FORCE CAPTAIN TO OBSERVE AND TEACH RELATED TO ALTERED RESPIRATORY STATUS TO MINIMIZE COMPLICATIONS AND REDUCE HOSPITALIZATION.] Future Scheduled Test COPD MANAG EMENT; RN TO ASSESS AND TEACH, TEST DESIGNER/UNIFORM FORCE CAPTAIN TO OBSERVE AND TEACH SIGNS/SYMPTOMS OF COPD EXACERBATION AND PROVIDE EARLY INTERVENTIONS TO MINIMIZE RISK OF HOSPITALIZATION. RN/TEST DESIGNER/UNIFORM FORCE CAPTAIN TO INSTRUCT ON SELF-CARE MANAGEMENT INCLUDING BREATHING TECHNIQUES, AIRWAY CLEARANCE, AND PROPER USE OF COPD MEDICATIONS. RN TO ASSESS AND TEACH, TEST DESIGNER/UNIFORM FORCE CAPTAIN TO OBSERVE AND TEACH PATIENT/CAREGIVER ABILITY TO MONITOR AND RECORD VITAL SIGNS INCLUDING PULSE OXIMETRY AND BLOOD PRESSURE. [code = COPD MANAGEMENT; RN TO ASSESS AND TEACH, TEST DESIGNER/UNIFORM FORCE CAPTAIN TO OBSERVE AND TEACH SIGNS/SYMPTOMS OF COPD EXACERBATION AND PROVIDE EARLY INTERVENTIONS TO MINIMIZE RISK OF HOSPITALIZATION. RN/TEST DESIGNER/UNIFORM FORCE CAPTAIN TO INSTRUCT ON SELF-CARE MANAGEMENT INCLUDING BREATHING TECHNIQUES, AIRWAY CLEARANCE, AND PROPER USE OF COPD MEDICATIONS. RN TO ASSESS AND TEACH, TEST DESIGNER/UNIFORM FORCE CAPTAIN TO OBSERVE AND TEACH PATIENT/CAREGIVER ABILITY TO MONITOR AND RECORD VITAL SIGNS INCLUDING PULSE OXIMETRY AND BLOOD PRESSURE. ] Future Scheduled Test OXYGEN THE RAPY; RN/TEST DESIGNER/UNIFORM FORCE CAPTAIN TO INSTRUCT ON OXYGEN MANAGEMENT INCLUDING: ADMINISTRATION AT 2 L/MIN VIA CONTINUOUS FOR COPD, CARE OF EQUIPMENT AND SAFETY. [code = OXYGEN THERAPY; RN/TEST DESIGNER/UNIFORM FORCE CAPTAIN TO INSTRUCT ON OXYGEN MANAGEMENT INCLUDING: ADMINISTRATION AT 2 L/MIN VIA CONTINUOUS FOR COPD, CARE OF EQUIPMENT AND SAFETY.] Future Scheduled Test PAIN MANAG EMENT; RN TO ASSESS AND TEACH, UNIFORM FORCE CAPTAIN/TEST DESIGNER TO OBSERVE AND TEACH AND PROVIDE EDUCATION ON PAIN MANAGEMENT TECHNIQUES. [code = PAIN MANAGEMENT; RN TO ASSESS AND TEACH, UNIFORM FORCE CAPTAIN/TEST DESIGNER TO OBSERVE AND TEACH AND PROVIDE EDUCATION ON PAIN MANAGEMENT TECHNIQUES.] Future Scheduled Test FALL REDUC TION MANAGEMENT; RN TO ASSESS AND OBSERVE, TEST DESIGNER/UNIFORM FORCE CAPTAIN TO OBSERVE FALL RISK FACTORS AND EDUCATE PATIENT/CAREGIVER ON STRATEGIES TO MINIMIZE THE RISK OF FALLING. [code = FALL REDUCTION MANAGEMENT; RN TO ASSESS AND OBSERVE, TEST DESIGNER/UNIFORM FORCE CAPTAIN TO OBSERVE FALL RISK FACTORS AND EDUCATE PATIENT/CAREGIVER ON STRATEGIES TO MINIMIZE THE RISK OF FALLING.] Future Scheduled Test SKIN INTEG RITY RN TO ASSESS AND TEACH, TEST DESIGNER/UNIFORM FORCE CAPTAIN TO OBSERVE AND TEACH INTEGUMENTARY STATUS TO IDENTIFY CHANGES AND INTERVENE TO MINIMIZE COMPLICATIONS. PROVIDE SKILLED TEACHING OF GENERAL WOUND AND SKIN CARE AND PREVENTION RELATED TO ACTUAL ALTERED SKIN INTEGRITY [code = SKIN INTEGRITY RN TO ASSESS AND TEACH, TEST DESIGNER/UNIFORM FORCE CAPTAIN TO OBSERVE AND TEACH INTEGUMENTARY STATUS TO IDENTIFY CHANGES AND INTERVENE TO MINIMIZE COMPLICATIONS. PROVIDE SKILLED TEACHING OF GENERAL WOUND AND SKIN CARE AND PREVENTION RELATED TO ACTUAL ALTERED SKIN INTEGRITY ] Goal 2025-01-16 Patient Goal - TO STAY HOME Goal 2025-03-19 Patient Goal - TO STAY HOME Goal 2025-05-15 Patient Goal - T O STAY HOME, GET DENTURES, STOP FALLING, GET CONTROL HEART FAILURE Goal Patient Goal - T O STAY HOME, GET DENTURES, STOP FALLING, GET CONTROL HEART FAILURE Goal Provider Goal - A PLAN OF [...] MEASURES TO MANAGE ALTERED CARDIOVASCULAR STATUS BY EOE Goal Provider Goal - PATIENT [...] REDUCTION SELF-MANAGEMENT AND LIFE-STYLE CHANGES BY EOE Goal Provider Goal - CHANGES IN SKIN INTEGRITY STATUS WILL BE IDENTIFIED AND REPORTED TO THE PHYSICIAN FOR PROMPT INTERVENTION. PATIENT / CAREGIVER WILL VERBALIZE/DEMONSTRATE ADEQUATE KNOWLEDGE OF INTEGUMENTARY STATUS AND APPROPRIATE MEASURES TO PROMOTE SKIN INTEGRITY AND PREVENT INJURY BY EOE Encounters Start Date/Time End Date/Time Encounter Type Admission Type Attending Clinicians Care Facility Care Department Encounter ID Discharge Date Discharge Status Discharge Condition Discharge Reason Percent Goals Met 2025-05-20 00:00:00 2025-07-18 00:00:00 Outpatient RECERTIFIC KALYANI DAMON [facility] [id number] 11.
--- OUTSIDE RECORDS SUMMARY | 2025-07-17 20:00 | XMS_ITS | Clinical Summary ---
Author Organization Unknown Care Team Providers Care Field Marketing Specialist Name Role Phone JACKSON PALOMO, CANDACE Unavailable Unavailable SAMANTHA SUPERVISOR CELLARS, ALTAGRACIA Unavailable Unavailable JAYANT PT, MARINA Unavailable Unavailable SPAFFORD OT, ABELARDO Unavailable Unavailable CONDINO FURNACE UTILITY OPERATOR/OLGUIN, ANASTACIA Unavailable Unav kevinable JUAN J RN, KALYANI Unavailable Unavailab javier KANG LPN, TIA Unavailable Unavailable Payers Payer Name Policy Type Policy Number Effective Date Expira tion Date MEDICARE.NGS.PDGM [id number] Problems Condition Name Condition Details Condition Category [...] 11-21 00:00: 00 ATHSCL HEART DISEASE OF [place] CORONARY ARTERY W/O ANG PCTRS Active 11-21 00:00: 00 NONSPECIFIC INTRAVENTRIC ULAR BLOCK Active 11-21 00:00: 00 UNSP DEMENTIA, UNSP SEVERITY, WITHOUT BEH/PSYCH/MO OD/ANX Active 11-21 00:00: 00 BENIGN PROSTATIC HYPERPLASIA WITHOUT LOWER URINRY TRACT SYMP Active 11-21 00:00: 00 UNSPECIFIED GLAUCOMA Active 11-21 00:00: 00 GASTRO-ESOPH AGEAL REFLUX DISEASE WITHOUT ESOPHAGITIS Active 11-21 00:00: 00 HYPERLIPIDEM IA, UNSPECIFIED Active 11-21 00:00: 00 DETENTION (CURRENT) USE OF ANTICOAGULAN TS Active 11-21 [...] % topical gel 2023-11 00:00: 00 Yes [id number] ARTHRITIS Per instruc tions 3 TIMES DAILY Per instructio ns 3 TIMES DAILY (route: topical) Med Classific ation: Dermatolo gical finasteride 5 mg tablet 2023-11 00:00: 00 Yes [id number] BPH 1 tablet AT BEDTIME 1 tablet AT BEDTIME (route: oral) Med Classific ation: Genitouri nary Therapy atorvastati n 40 mg tablet 2023-11 00:00: 00 Yes [id number] CHOLESTEROL 1 tablet DAILY 1 tablet DAILY (route: oral) Med Classific ation: Cardiovas cular Therapy Agents calcium magnesium zinc 15mcg-1000m g-40 2023-11 00:00: 00 Yes [id number] SUPPLEMENT 3 tablet DAILY 3 tablet DAILY (route: BY MOUTH) Med Classific ation: MISCELLAN EOUS HERBS AND SUPPLEMEN TS Co Q-10 100 mg capsule 2023-11 00:00: 00 Yes [id number] SUPPLEMENT 1 capsule DAILY 1 capsule DAILY (route: oral) Med Classific ation: Alternati ve Therapy famotidine 40 mg tablet 2023-11 00:00: 00 Yes [id number] GERD 1 tablet DAILY 1 tablet DAILY (route: oral) Med Classific ation: Gastroint estinal Therapy Agents furosemide 20 mg tablet 2023-11 00:00: 00 12-05 23:59 :00 No [id number] CHF 2 tablet DAILY 2 tablet DAILY (route: oral) Med Classific ation: Cardiovas cular Therapy Agents latanoprost 0.005 % eye drops 2023-11 00:00: 00 Yes [id number] GLAUCOMA 1 drops DAILY 1 drops DAILY (route: ophthalmic (eye)) Med Classific ation: Ophthalmi c Agents multivitami n with minerals tablet 2023-11 00:00: 00 Yes [id number] SUPPLEMENT 1 tablet DAILY 1 tablet DAILY (route: oral) Med Classific ation: Electroly te Balance-N utritiona l Products terazosin 5 mg capsule 2023-11 00:00: 00 Yes [id number] HTN 1 capsule DAILY 1 capsule DAILY (route: oral) Med Classific ation: Cardiovas cular Therapy Agents Senna Lax 8.6 mg tablet 2023-11 00:00: 00 Yes [id number] CONSTIPATIO N 1 tablet DAILY 1 tablet DAILY (route: oral) Med Classific ation: Gastroint estinal Therapy Agents clopidogrel 75 mg tablet 2023-11 00:00: 00 11-20 23:59 :00 No [id number] hld 1 tablet DAILY 1 tablet DAILY (route: oral) Med Classific ation: Hematolog ical Agents acetaminoph en 325 mg tablet 11-21 00:00: 00 Yes [id number] PAIN 2 tablet 4 TIMES DAILY 2 tablet 4 TIMES DAILY (route: oral) Med Classific ation: Analgesic , Anti-infl ammatory or Antipyret ic oxygen gas for inhalation 11-21 00:00: 00 05-15 23:59 :00 No [id number] SUPPLEMENT 1 Liter BEDTIME 1 Liter BEDTIME (route: inhalation ) Med Classific ation: Medical Supplies and Durable Medical Equipment (DME) warfarin 6 mg tablet 11-21 00:00: 00 05-29 23:59 :00 No [id number] PREVENT CLOTS 1 tablet DAILY 1 tablet DAILY (route: oral) Med Classific ation: Hematolog ical Agents furosemide 20 mg tablet 12-05 00:00: 00 12-19 23:59 :00 No [id number] CONGESTIVE HEART FAILURE 1 tablet DAILY 1 tablet DAILY (route: oral) Med Classific ation: Cardiovas cular Therapy Agents furosemide 20 mg tablet 12-05 00:00: 00 12-08 23:59 :00 No [id number] CONGESTIVE HEART FAILURE 1 tablet DAILY 1 tablet DAILY (route: oral) Med Classific ation: Cardiovas cular Therapy Agents furosemide 40 mg tablet 2025-0 1-30 00:00: 00 Yes [id number] HEART FAILURE 1 tablet DAILY 1 tablet DAILY (route: oral) Med Classific ation: Cardiovas cular Therapy Agents warfarin 6 mg tablet 2-06 00:00: 00 01-01 23:59 :00 No [id number] AFIB 6 mg DAILY 6 mg DAILY (route: oral) Med Classific ation: Hematolog ical Agents warfarin 6 mg tablet 2-13 00:00: 00 01-16 23:59 :00 No [id number] AFIB 6 mg DAILY 6 mg DAILY (route: oral) Med Classific ation: Hematolog ical Agents oxygen gas for inhalation 05-20 00:00: 00 Yes [id number] LOW OXYGEN OVERNIGHT 2 Liter BEDTIME 2 Liter BEDTIME (route: inhalation ) Med Classific ation: Medical Supplies and Durable Medical Equipment (DME) Jantoven 6 mg tablet 05-29 00:00: 00 Yes [id number] ANTICOAGULA NT 1 tablet DAILY 1 tablet [...] CONSULTING PHYSICIANS. RN TO OBSERVE AND ASSESS, PIPE CUTTER/WEB SPECIALIST TO OBSERVE FOR RISK FOR FALLS AND INSTRUCT IN FALL PREVENTION, HOME SAFETY, MEDICATION MANAGEMENT, INFECTION PREVENTION, AND NUTRITION MANAGEMENT. RN/PIPE CUTTER/WEB SPECIALIST NURSE MAY PERFORM O2 SATURATION LEVEL ON ADMISSION AND PRN FOR RN TO ASSESS/PIPE CUTTER TO OBSERVE PATIENT, WITH NOTIFICATION TO THE PHYSICIAN IF SATURATION IS 90% IN THE ABSENCE OF MORE SPECIFIC PARAMETERS FROM THE PHYSICIAN. AGENCY MAY PERFORM A RESUMPTION OF CARE VISIT FOLLOWING ANY HOSPITAL ADMISSION. RN/PIPE CUTTER/WEB SPECIALIST TO MONITOR CO-MORBID CONDITIONS LISTED ON THE PLAN OF CARE AND ANY NEW CONDITIONS THAT PRESENT THEMSELVES DURING THIS EPISODE TO IDENTIFY CHANGES AND INTERVENE TO MINIMIZE COMPLICATIONS. [code = RN TO OBSERVE, ASSESS, EVALUATE, AND DEVELOP AN INDIVIDUALIZED PLAN OF CARE. AGENCY MAY ACCEPT ORDERS FROM CONSULTING PHYSICIANS. RN TO OBSERVE AND ASSESS, PIPE CUTTER/WEB SPECIALIST TO OBSERVE FOR RISK FOR FALLS AND INSTRUCT IN FALL PREVENTION, HOME SAFETY, MEDICATION MANAGEMENT, INFECTION PREVENTION, AND NUTRITION MANAGEMENT. RN/PIPE CUTTER/WEB SPECIALIST NURSE MAY PERFORM O2 SATURATION LEVEL ON ADMISSION AND PRN FOR RN TO ASSESS/PIPE CUTTER TO OBSERVE PATIENT, WITH NOTIFICATION TO THE PHYSICIAN IF SATURATION IS 90% IN THE ABSENCE OF MORE SPECIFIC PARAMETERS FROM THE PHYSICIAN. AGENCY MAY PERFORM A RESUMPTION OF CARE VISIT FOLLOWING ANY HOSPITAL ADMISSION. RN/PIPE CUTTER/WEB SPECIALIST TO MONITOR CO-MORBID CONDITIONS LISTED ON THE PLAN OF CARE AND ANY NEW CONDITIONS THAT PRESENT THEMSELVES DURING THIS EPISODE TO IDENTIFY CHANGES AND INTERVENE TO MINIMIZE COMPLICATIONS.] Future Scheduled Test MEDICATION MANAGEMENT; RN/PIPE CUTTER/WEB SPECIALIST TO REVIEW MEDICATIONS FOR INTERACTIONS, EFFECTIVENESS OF DRUG THERAPY, AND SIGNS/SYMPTOMS OF ADVERSE REACTIONS. MAY INSTRUCT AND REINFORCE MEDICATION TEACHING RELATED TO THE USE OF MEDICATIONS, DOSAGE, FREQUENCY, PURPOSE, SIDE EFFECTS, AND TO REPORT COMPLICATIONS. [code = MEDICATION MANAGEMENT; RN/PIPE CUTTER/WEB SPECIALIST TO REVIEW MEDICATIONS FOR INTERACTIONS, EFFECTIVENESS OF DRUG THERAPY, AND SIGNS/SYMPTOMS OF ADVERSE REACTIONS. MAY INSTRUCT AND REINFORCE MEDICATION TEACHING RELATED TO THE USE OF MEDICATIONS, DOSAGE, FREQUENCY, PURPOSE, SIDE EFFECTS, AND TO REPORT COMPLICATIONS.] Future Scheduled Test RISK FOR H OSPITALIZATION; RN TO ASSESS/TEACH, WEB SPECIALIST/PIPE CUTTER TO OBSERVE/TEACH PATIENT/CAREGIVER ON RISK FOR HOSPITALIZATION/EMERGENCY ROOM VISITS, TEACH SIGNS AND SYMPTOMS THAT PUT PATIENT AT RISK, WHEN TO NOTIFY NURSE/PHYSICIAN OF COMPLICATIONS/DECLINE, AND WHEN TO CALL 911. [code = RISK FOR HOSPITALIZATION; RN TO ASSESS/TEACH, WEB SPECIALIST/PIPE CUTTER TO OBSERVE/TEACH PATIENT/CAREGIVER ON RISK FOR HOSPITALIZATION/EMERGENCY ROOM VISITS, TEACH SIGNS AND SYMPTOMS THAT PUT PATIENT AT RISK, WHEN TO NOTIFY NURSE/PHYSICIAN OF COMPLICATIONS/DECLINE, AND WHEN TO CALL 911.] Future Scheduled Test CARDIOVASC ULAR SYSTEM; RN TO ASSESS/TEACH, PIPE CUTTER/WEB SPECIALIST TO OBSERVE/TEACH RELATED TO ALTERED CARDIOVASCULAR STATUS TO MINIMIZE COMPLICATIONS AND REDUCE HOSPITALIZATION. [code = CARDIOVASCULAR SYSTEM; RN TO ASSESS/TEACH, PIPE CUTTER/WEB SPECIALIST TO OBSERVE/TEACH RELATED TO ALTERED CARDIOVASCULAR STATUS TO MINIMIZE COMPLICATIONS AND REDUCE HOSPITALIZATION.] Future Scheduled Test HEART FAIL URE; RN TO ASSESS/TEACH, PIPE CUTTER/WEB SPECIALIST TO OBSERVE/TEACH CARDIOPULMONARY SYSTEM TO IDENTIFY SIGNS [...] [code = HEART FAILURE; RN TO ASSESS/TEACH, PIPE CUTTER/WEB SPECIALIST TO OBSERVE/TEACH CARDIOPULMONARY SYSTEM TO IDENTIFY SIGNS [...] ARRHYTHMIA MANAGEMENT; RN TO ASSESS AND TEACH, PIPE CUTTER/WEB SPECIALIST TO OBSERVE AND TEACH WARNING SIGNS AND SYMPTOMS TO AVOID HOSPITALIZATION. [code = ARRHYTHMIA MANAGEMENT; RN TO ASSESS AND TEACH, PIPE CUTTER/WEB SPECIALIST TO OBSERVE AND TEACH WARNING SIGNS AND SYMPTOMS TO AVOID HOSPITALIZATION.] Future Scheduled Test RESPIRATOR Y SYSTEM MANAGEMENT; RN TO ASSESS AND TEACH, PIPE CUTTER/WEB SPECIALIST TO OBSERVE AND TEACH RELATED TO ALTERED RESPIRATORY STATUS TO MINIMIZE COMPLICATIONS AND REDUCE HOSPITALIZATION. [code = RESPIRATORY SYSTEM MANAGEMENT; RN TO ASSESS AND TEACH, PIPE CUTTER/WEB SPECIALIST TO OBSERVE AND TEACH RELATED TO ALTERED RESPIRATORY STATUS TO MINIMIZE COMPLICATIONS AND REDUCE HOSPITALIZATION.] Future Scheduled Test COPD MANAG EMENT; RN TO ASSESS AND TEACH, PIPE CUTTER/WEB SPECIALIST TO OBSERVE AND TEACH SIGNS/SYMPTOMS OF COPD EXACERBATION AND PROVIDE EARLY INTERVENTIONS TO MINIMIZE RISK OF HOSPITALIZATION. RN/PIPE CUTTER/WEB SPECIALIST TO INSTRUCT ON SELF-CARE MANAGEMENT INCLUDING BREATHING TECHNIQUES, AIRWAY CLEARANCE, AND PROPER USE OF COPD MEDICATIONS. RN TO ASSESS AND TEACH, PIPE CUTTER/WEB SPECIALIST TO OBSERVE AND TEACH PATIENT/CAREGIVER ABILITY TO MONITOR AND RECORD VITAL SIGNS INCLUDING PULSE OXIMETRY AND BLOOD PRESSURE. [code = COPD MANAGEMENT; RN TO ASSESS AND TEACH, PIPE CUTTER/WEB SPECIALIST TO OBSERVE AND TEACH SIGNS/SYMPTOMS OF COPD EXACERBATION AND PROVIDE EARLY INTERVENTIONS TO MINIMIZE RISK OF HOSPITALIZATION. RN/PIPE CUTTER/WEB SPECIALIST TO INSTRUCT ON SELF-CARE MANAGEMENT INCLUDING BREATHING TECHNIQUES, AIRWAY CLEARANCE, AND PROPER USE OF COPD MEDICATIONS. RN TO ASSESS AND TEACH, PIPE CUTTER/WEB SPECIALIST TO OBSERVE AND TEACH PATIENT/CAREGIVER ABILITY TO MONITOR AND RECORD VITAL SIGNS INCLUDING PULSE OXIMETRY AND BLOOD PRESSURE. ] Future Scheduled Test OXYGEN THE RAPY; RN/PIPE CUTTER/WEB SPECIALIST TO INSTRUCT ON OXYGEN MANAGEMENT INCLUDING: ADMINISTRATION AT 2 L/MIN VIA CONTINUOUS FOR COPD, CARE OF EQUIPMENT AND SAFETY. [code = OXYGEN THERAPY; RN/PIPE CUTTER/WEB SPECIALIST TO INSTRUCT ON OXYGEN MANAGEMENT INCLUDING: ADMINISTRATION AT 2 L/MIN VIA CONTINUOUS FOR COPD, CARE OF EQUIPMENT AND SAFETY.] Future Scheduled Test PAIN MANAG EMENT; RN TO ASSESS AND TEACH, WEB SPECIALIST/PIPE CUTTER TO OBSERVE AND TEACH AND PROVIDE EDUCATION ON PAIN MANAGEMENT TECHNIQUES. [code = PAIN MANAGEMENT; RN TO ASSESS AND TEACH, WEB SPECIALIST/PIPE CUTTER TO OBSERVE AND TEACH AND PROVIDE EDUCATION ON PAIN MANAGEMENT TECHNIQUES.] Future Scheduled Test FALL REDUC TION MANAGEMENT; RN TO ASSESS AND OBSERVE, PIPE CUTTER/WEB SPECIALIST TO OBSERVE FALL RISK FACTORS AND EDUCATE PATIENT/CAREGIVER ON STRATEGIES TO MINIMIZE THE RISK OF FALLING. [code = FALL REDUCTION MANAGEMENT; RN TO ASSESS AND OBSERVE, PIPE CUTTER/WEB SPECIALIST TO OBSERVE FALL RISK FACTORS AND EDUCATE PATIENT/CAREGIVER ON STRATEGIES TO MINIMIZE THE RISK OF FALLING.] Future Scheduled Test SKIN INTEG RITY RN TO ASSESS AND TEACH, PIPE CUTTER/WEB SPECIALIST TO OBSERVE AND TEACH INTEGUMENTARY STATUS TO IDENTIFY CHANGES AND INTERVENE TO MINIMIZE COMPLICATIONS. PROVIDE SKILLED TEACHING OF GENERAL WOUND AND SKIN CARE AND PREVENTION RELATED TO ACTUAL ALTERED SKIN INTEGRITY [code = SKIN INTEGRITY RN TO ASSESS AND TEACH, PIPE CUTTER/WEB SPECIALIST TO OBSERVE AND TEACH INTEGUMENTARY STATUS TO [...] 00:00:00 Outpatient RECERTIFIC KALYANI DAMON [facility] [id number].
== END 2025-07-14 14:06 | disposition home or self-care (01) ==
PROVIDERS: PCP Internal Medicine; Visit Provider Internal Medicine Cardiovascular Disease
DX: I50.32 Chronic diastolic (congestive) heart failure (principal); I48.0 Paroxysmal atrial fibrillation
CPT/HCPCS: 99214

== ENCOUNTER → 2025-07-14 13:16 | Outpatient (BNVA) | payer MEDICARE, SELFPAY | PROVIDERS: PCP Family Medicine; Visit Provider Internal Medicine Cardiovascular Disease | DX: I50.32 Chronic diastolic (congestive) heart failure (principal); I48.0 Paroxysmal atrial fibrillation | CPT/HCPCS: 99212 ==

== ENCOUNTER → 2025-07-18 23:59 | Outpatient (BNV) | payer MEDICARE, SELFPAY | PROVIDERS: PCP Internal Medicine; Visit Provider Internal Medicine | DX: I50.33 Acute on chronic diastolic (congestive) heart failure (principal); I48.0 Paroxysmal atrial fibrillation; J44.9 Chronic obstructive pulmonary disease, unspecified | CPT/HCPCS: G0179 ==

== ENCOUNTER 2025-07-28 13:58 | Outpatient (REF) | payer MEDICARE, SELFPAY ==
[2025-07-28 15:05] LABS: MANUAL DIFF FLAG NO
[2025-07-28 15:30] LABS: Hematocrit 40.2 % (42.0-52.0); Hemoglobin 13.6 g/dl (14.0-18.0); Imm Gran Abs Auto 0.03 X10*3/uL (0.00-0.03); Imm Gran Pct Auto 0.5 % (0.0-0.4); Lymphocytes Absolute Auto 0.8 X10*3/uL (1.2-4.9); Mean Corpuscular HGB Conc 33.8 g/dl (31.0-36.0); Mean Corpuscular Hemoglobin 33.3 pg (27.0-33.0); Mean Corpuscular Volume 98.3 fL (80.0-98.0); NRBC Abs Auto 0.000 X10*3/uL (0.0-0.012); NRBC Pct Auto 0.0 /100WBC (0.0-0.2); Platelet Count 123 X10*3/uL (160-400); Red Blood Count 4.09 X10*6/uL (4.60-5.80); White Blood Count 6.0 X10*3/uL (4.8-10.8)
[2025-07-28 16:16] LABS: Alanine Aminotransferase 31 U/L (0-40); Albumin Level 3.8 g/dL (3.5-5.0); Alkaline Phosphatase 92 U/L (39-117); Anion Gap 12 (12-20); Aspartate Amino Transferase 44 U/L (5-37); Blood Urea Nitrogen 31 mg/dL (9-16); Calcium 8.8 mg/dL (8.4-10.2); Carbon Dioxide 32 mmol/L (22-29); Chloride 104 mmol/L (96-108); Cholesterol 107 mg/dL (<200); Estimated Glomerular Filt Rate 55; HDL Cholesterol 44 mg/dL (>40); Potassium 4.0 mmol/L (3.3-5.1); Sodium 144 mmol/L (135-145); Total Protein 6.8 g/dL (6.5-8.0); Triglycerides 53 mg/dL (<150)
== END 2025-07-28 13:59 | disposition home or self-care (01) ==
LOC: HO.LAB 13:58
PROVIDERS: PCP Internal Medicine; Visit Provider Student in an Organized Health Care Education/Training Program
DX: I50.32 Chronic diastolic (congestive) heart failure (principal); I48.0 Paroxysmal atrial fibrillation; J44.9 Chronic obstructive pulmonary disease, unspecified; K21.9 Gastro-esophageal reflux disease without esophagitis; E78.5 Hyperlipidemia, unspecified
CPT/HCPCS: 36415; 80053; 80061; 82306; 83036; 84443; 85025; 96127; 99202

== ENCOUNTER 2025-07-28 13:58 | Outpatient (AMB) | payer MEDICARE, SELFPAY ==
--- NOTE | 2025-07-28 14:06 | A.OFFPC_ITS ---
Vital Signs 07/28/25 14:14 Height 5 ft 7 in Weight 178 lb BMI 27.9 BP 142/70 H Blood Pressure Location Lt brachial Position Sitting Respiration 18 Pulse 82 Pulse Source Pulse Oximeter Temp 97.5 F Temp Source Temporal Artery Scan Pulse Oximetry (%) 95 Oxygen Delivery Method Room Air Intake Visit Reasons: Routine / Dr Nelson Frog Catcher Required: No Accompanied by: Self / Same As Patient Allergies Penicillins (PCN) Allergy (Unknown, Verified 07/28/25 14:06) RASH Tobacco use date assessed: 07/28/25 HPI HPI Comments History of Present Illness Details The patient is an 85-year-old male presenting with complaints of indigestion. The patient reports experiencing significant indigestion and f requent burping which have been ongoing for an unspecified period. The patient self-identified this as a notable issue and mentioned not adhering to a regimen of available hpel-rvl-atarkyz mints, speculating they might help alleviate symptoms. Although prescribed famotidine for management of similar symptoms, he admits to not taking this medication recently. Despite this, the patient is wary of adding new prescriptions due to the number of medications he currently takes, indicating a preference to attempt peppermint for symptom relief instead. This decision appears to stem from a combination of apprehension regarding increasing medication burden and a desire to manage symptoms through alternative means. The patient does not indicate significant changes in severity or progression over time beyond the frequency of symptoms like burping. Medical History: - Diastolic heart failure - Atrial fibrillation, managed with warf debi - Bradycardia - Enlarged prostate, historical, previou sly managed with medication - History of smoking, ceased many years ago - No history of surgeries, aside from ey e procedures Surgical History: - Eye surgery (details and dates not spe cified by the patient) Medications: - Warfarin for atrial fibrillation - Pepcid (famotidine), prescribed but no t routinely taken - Water pill (diuretic) for heart failur e - Approximately 10 unspecified medicatio ns per patient report Social: - Lives in a duplex with son residing [place] [facility], providing family support and transportation - Former smoker, stopped many years ago after smoking a pack a day for 30 years - Does not consume alcohol or illicit dr dobbins - Experiences some fatigue but denies de pression - Reports a safe living environment and satisfactory functional mobility given age ON LICENSE OF [facility] Medical History (Updated 07/28/25 @ 14:51 by Kiko Weller MD) Hyperlipidemia GERD (gastroesophageal reflux disease) BPH (benign prostatic hyperplasia) CAD (coronary artery disease) Social History Household Members: Other Household Members Other:: live in [facility]. 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 1. Little interest or pleasure in doing things: not at all 2. Feeling down, depressed, or hopeless: not at all 3. Trouble falling or staying asleep, or sleeping too much: not at all 4. Feeling tired or having little energy: not at all 5. Poor appetite or overeating: not at all 6. Feeling bad about yourself - or that you are a failure or have let yourself or your family down: not at all 7. Trouble concentrating on things, such as reading the newspaper or watching television: not at all 8. Moving or speaking so slowly that other people could have noticed. Or the opposite - being so fidgety or restless that you have been moving around a lot more than usual: not at all 9. Thoughts that you would be better off or of hurting yourself in some way: not at all Total score: 0 Depression Screening Interpretation: Negative Depression Screening Done: Yes 20519 - PHQ-9 Billing: Yes Source: Developed by Drs. Redd Gamez, Evelyn Benz, Narinder Walls and colleagues, with an educational mindy from [employer]. Thrive Questionnaire Date Thrive assessed: 07/28/25 I am a: Patient What is your living situation today?: I have a steady place to live Within the past 12 months, did the food you bought not last and you didn't have the money to get more?: Never true Within the past 12 months, did you worry whether your food would run out before you got money to buy more?: Never true Do you have trouble paying for medicines?: No Do you have trouble getting transportation to medical appointments?: No Do you have trouble paying your heating and electricity bill?: No Do you have trouble taking care of your child, family member or friend?: No Do you have trouble with day-to-day activities such as bathing, preparing meals, shopping, managing finances, etc.?: No Are you currently unemployed and looking for a job?: No Are you interested in more education?: No THRIVE Score: 0 AUDIT C Alcohol Use Questionnaire (AUDIT-C) 1. How often do you have a drink containing alcohol?: Never Total Score: 0 Score Reviewed/Action Taken: Yes DARIO-7 AMB Questionnaire DARIO-7 Date DARIO - 7 assessed: 07/28/25 Feeling nervous, anxious, or on edge: 0 = Not at all Not being able to stop or control worryin = Not at all Worrying too much about different things: 0 = Not at all Trouble relaxin = Not at all Being so restless that it is hard to sit still: 0 = Not at all Becoming easily annoyed or irritable: 0 = Not at all Feeling afraid as if something awful might happen: 0 = Not at all Total DARIO-7 score (0-4 normal; 5-9 mild; 10-14 moderate; 15-21 severe): 0 Source: Developed by Drs. Redd Gamez, Evelyn Benz, Narinder Walls and colleagues, with an educational mindy from [employer]. DARIO-7 Assessment Billing DARIO-7 Assessment Tool: DARIO-7 Assessment 09755 Review of Systems Const Details: - Gastrointestinal: Reports indigestion and burping - Cardiovascular: Denies chest pain; reports management of heart failure and atrial fibrillation - Respiratory: Denies shortness of breath when climbing stairs - Genitourinary: Denies current urinary difficulties - Musculoskeletal: Reports some loss of muscle mass and fatigue - Psychiatric: Denies depression history, though recently feeling some mood changes Physical exam (Primary Care) Vital Signs: Last Vital Signs Temp 97.5 F 07/28/25 14:14 Pulse 82 07/28/25 14:14 Resp 18 07/28/25 14:14 BP 142/70 H 07/28/25 14:14 Pulse Ox 95 07/28/25 14:14 Oxygen Delivery Method Room Air 07/28/25 14:14 BMI result Body Mass Index 27.9 Tobacco/Smoking Status: Tobacco use Status Tobacco use date assessed 07/28/25 07/28/25 14:08 Patient Tobacco Use Status Former Tobacco user 07/28/25 14:08 Tobacco use type Cigarette 07/28/25 14:08 e-Cigarette/Vaping Use Never Used 07/28/25 14:08 Depression Screening Interpretation: Negative Thrive Assessment: Date of Thrive Assessment Date Thrive assessed 10/25/24 07/28/25 14:08 Const Other: General: +Alert and oriented, Well nourished, No acute distress. Eye: Pupils are equal, round and reactive to light, Intact accommodation, Extraocular movements are intact, Normal conjunctiva, Vision unchanged. HENT: Normocephalic, Atraumatic, Tympanic membranes are clear, Normal hearing, Oral mucosa is moist, No pharyngeal erythema, Ear canals patent. Respiratory: Lungs CTA bilaterally, No wheeze, Respirations are non-labored. Cardiovascular: Regular rate, Regular rhythm, S1 auscultated, S2 auscultated, No murmur, Good pulses equal in all extremities, Normal peripheral perfusion, 1+ edema in legs. Gastrointestinal: Soft, Non-tender, Non-distended, Normal bowel sounds, No organomegaly. Musculoskeletal: Normal range of motion, Normal strength, No tenderness, No swelling, No deformity, Normal gait. Integumentary: Warm, Dry, [place], Intact. Neurologic: Alert, Oriented, Normal sensory, Normal motor function, No focal defects, Cranial Nerves II-XII are grossly intact, Normal deep tendon reflexes. Psychiatric: Cooperative, Appropriate mood & affect, Normal judgment, Reports a bit of fatigue. Coding Level of Care Code New Pt Level 4 (48011) Complex EM visit Add On G2211 Diagnoses Chronic diastolic heart failure I50.32 PAF (paroxysmal atrial fibrillation) I48.0 Chronic obstructive pulmonary disease, unspecified COPD type J44.9 COPD type: unspecified COPD Gastroesophageal reflux disease, unspecified whether esophagitis present K21.9 Esophagitis presence: esophagitis presence not specified Hyperlipidemia, unspecified hyperlipidemia type E78.5 Hyperlipidemia type: unspecified Additional Codes PHQ-9 - 41143 - PHQ-9 Billing: Yes ([id number]) DARIO-7 Assessment Billing - DARIO-7 Assessment Tool: DARIO-7 Assessment 16181 ([id number]) Assessment & Plan Assessment & Plan (1) Chronic diastolic heart failure: Comment: - Reinforced the importance of adhering to diuretic for fluid management. - Encouraged regular weight checks to monitor for fluid retention, albeit patient provided challenges with adherence. Code(s): I50.32 - Chronic diastolic (congestive) heart failure Category: Medical (2) PAF (paroxysmal atrial fibrillation): Comment: - Monitoring through INR checks by nurse for warfarin dosing; no changes recommended. Code(s): I48.0 - Paroxysmal atrial fibrillation Category: Medical (3) COPD (chronic obstructive pulmonary disease): Comment: - Unclear diagnosis Code(s): J44.9 - Chronic obstructive pulmonary disease, unspecified Category: Medical Qualifiers: COPD type: unspecified COPD Qualified Code(s): J44.9 - Chronic obstructive pulmonary disease, unspecified (4) GERD (gastroesophageal reflux disease): Comment: - Discussed use of Pepcid (famotidine) to manage symptoms; considered restarting for symptom control. - Explored abdl-gwy-plmcrpc mints, patient open to self-management initially. - Agreed not to add additional prescribed medications at this time given preference for minimal increase in pill burden. (patient preference) Code(s): K21.9 - Gastro-esophageal reflux disease without esophagitis Category: Medical Qualifiers: Esophagitis presence: esophagitis presence not specified Qualified Code(s): K21.9 - Gastro-esophageal reflux disease without esophagitis (5) Hyperlipidemia: Comment: - Continue atorvastatin - WIll obtain panel today Code(s): E78.5 - Hyperlipidemia, unspecified Category: Medical Qualifiers: Hyperlipidemia type: unspecified Qualified Code(s): E78.5 - Hyperlipidemia, unspecified Plan I engaged the patient in a comprehensive discussion regarding his current symptoms of indigestion and highlighted the option of improving this with Pepcid, which was initially prescribed for such symptoms but not specified for daily routine due to his discretion in medication use. Given the patient's preference not to increase medication usage, alternative elrx-zgf-ghrzsws options like mints were suggested which the patient found agreeable. We ensured a clear understanding about the importance of maintaining heart failure management through diuretics and keeping track of weight daily to prevent fluid accumulation. Blood pressure, though slightly above target, was not altered as his at-home cuff provides satisfactory management and approximates clinic measurements closely. Adjustments in warfarin are done under nurse guidance with communication to their managing physician. The patient was receptive to non- invasive recommendations and we set up a follow-up call in three months to further address any emerging concerns. Orders: Orders Complete Blood Count Auto Diff Today I50.32 - Chronic diastolic (congestive) heart failure Comprehensive Met. Panel Today I50.32 - Chronic diastolic (congestive) heart failure Hemoglobin A1c Today I50.32 - Chronic diastolic (congestive) heart failure Lipid Panel Today I50.32 - Chronic diastolic (congestive) heart failure TSH reflex Free T4 Today I50.32 - Chronic diastolic (congestive) heart failure Vitamin D 25-OH Total Today I50.32 - Chronic diastolic (congestive) heart failure Patient Instructions: - Try using mints or other beoa-yll-sgwqagc remedies for indigestion if needed. - Consider restarting Pepcid if indigestion does not improve. - Take your water pill as prescribed to avoid swelling due to heart failure. - Check your weight every day to help with fluid management. - Monitor your blood pressure regularly even if not every reading is perfect. - Stay active to keep your mood up and continue daily routines. - Call the nurse if there are any questions about your warfarin dose.
[2025-07-28 14:14] VITALS: BP 142/70; PULSE 82; RESP 18; TEMP 36.4; O2SAT 95; BMI 27.9
--- OUTSIDE RECORDS SUMMARY | 2025-07-28 16:21 | XMS_ITS | Encounter Summary ---
Author Organization [employer] [facility] Address [address] [place] [address] Care Team Providers Care Ditch Digger Name Role Phone Carlos Allen MD Primary Care Provider [phone] Encounter Details Date Type Department Care Team (Late st Contact Info) Description 11/19/[address] [facility] - Main Lab [address] [facility] [place] [address] Carlos Allen MD [address] [place] [address] Acute on chronic diastolic (congestive) [...] hypertension documented in this encounter Care Teams Ditch Digger Relationship Specialty Start Date End Date Carlos Allen MD [address] [place] [address] PCP - General Internal Medicine 11/08/24 documented as of this encounter
--- OUTSIDE RECORDS SUMMARY | 2025-07-28 16:21 | XMS_ITS | Encounter Summary ---
Author Organization [employer] Address [address] [place] [address] Care Team Providers Care Registered Dietician Name Role Phone Carlos Allen MD Primary Care Provider [phone] Encounter Details Date Type Department Care Team (Late st Contact Info) Description 11/09/2024 Lab Requisition [facility] - Main Lab [address] [facility] [place] [address] Carlos Allen MD [address] [place] [phone] Essential (primary) hypertension; Acute on chronic [...] LAB COAGULATION METHOD 11/11/2024 9:50 AM EST [facility] INR 2.2 LAB COAGULATION METHOD 11/11/2024 9:50 AM [facility] Blood Venous blood specimen / Unknown Venipuncture / Unknown 11/11/2024 5:16 AM EST 11/11/2024 9:38 AM EST us Carlos Allen MD LAB BLOOD ORDERABLES Final Resu lt [facility] [address] [place] [address], [place] [phone] * (ABNORMAL) Comprehensive metabolic panel (11/11/2024 5:16 AM EST) [facility] Sodium 139 133 - 145 mmol/L LAB CHEMISTRY METHOD 11/11/2024 10:29 AM [facility] Potassium 3.9 3.5 - 5.5 mmol/L LAB CHEMISTRY METHOD 11/11/2024 10:29 AM [facility] Chloride 103 96 - 110 mmol/L LAB CHEMISTRY METHOD 11/11/2024 10:29 AM [facility] CO2 34(H) 21 - 32 mmol/L LAB CHEMISTRY METHOD 11/11/2024 10:29 AM [facility] Anion Gap 2(L) 3 - 11 LAB CHEMISTRY METHOD 11/11/2024 10:29 AM [facility] Glucose 86 70 - 100 mg/dL LAB CHEMISTRY METHOD 11/11/2024 10:29 AM [facility] BUN 28(H) 5 - 25 mg/dL LAB CHEMISTRY METHOD 11/11/2024 10:29 AM [facility] Creatinine 1.11 0.70 - 1.30 mg/dL LAB CHEMISTRY METHOD 11/11/2024 10:29 AM [facility] eGFR 65 >=60 mL/min/1. 73m2 LAB CHEMISTRY METHOD 11/11/2024 10:29 AM [facility] Comment:Calculation based on the Chronic Kidney Disease Epidemiology Collaboration (CKD-EPI) equation refit without adjustment for race. BUN/Creatinine Ratio 25.2 LAB CHEMISTRY METHOD 11/11/2024 10:29 AM [facility] Calcium 8.6 8.5 - 10.5 mg/dL LAB CHEMISTRY METHOD 11/11/2024 10:29 AM [facility] AST (SGOT) 22 10 - 42 unit/L LAB CHEMISTRY METHOD 11/11/2024 10:29 AM [facility] ALT (SGPT) 28 10 - 60 unit/L LAB CHEMISTRY METHOD 11/11/2024 10:29 AM [facility] Alkaline Phosphatase 65 42 - 121 unit/L LAB CHEMISTRY METHOD 11/11/2024 10:29 AM [facility] Total Protein 5.6(L) 6.0 - 8.0 g/dL LAB CHEMISTRY METHOD 11/11/2024 10:29 AM [facility] Albumin 2.6(L) 3.2 - 5.0 g/dL LAB CHEMISTRY METHOD 11/11/2024 10:29 AM [facility] Total Bilirubin 0.3 0.0 - 1.4 mg/dL LAB CHEMISTRY METHOD 11/11/2024 10:29 AM [facility] Blood Venous blood specimen / Unknown Venipuncture / Unknown 11/11/2024 5:16 AM EST 11/11/2024 9:41 AM EST us Carlos Allen MD LAB BLOOD ORDERABLES Final Resu lt [facility] [address] [place] [address], [place] [phone] * (ABNORMAL) Complete blood count (11/11/2024 5:16 AM EST) [facility] WBC 4.0(L) 4.8 - 10.8 K/mcL LAB HEMETOLOGY METHOD 11/11/2024 10:02 AM [facility] RBC 3.70(L) 4.50 - 5.50 M/mcL LAB HEMETOLOGY METHOD 11/11/2024 10:02 AM [facility] Hemoglobin 11.8(L) 13.5 - 17.5 g/dL LAB HEMETOLOGY METHOD 11/11/2024 10:02 AM [facility] Hematocrit 37.2(L) 42.0 - 54.0 % LAB HEMETOLOGY METHOD 11/11/2024 10:02 AM [facility] MCV 101.1(H) 79.0 - 98.0 FL LAB HEMETOLOGY METHOD 11/11/2024 10:02 AM [facility] MCH 32.1(H) 27.0 - 32.0 pcg LAB HEMETOLOGY METHOD 11/11/2024 10:02 AM [facility] MCHC 31.7(L) 32.0 - 37.0 g/dL LAB HEMETOLOGY METHOD 11/11/2024 10:02 AM [facility] RDW 13.4 11.0 - 15.0 % LAB HEMETOLOGY METHOD 11/11/2024 10:02 AM [facility] Platelets 119(L) 130 - 400 K/mcL LAB HEMETOLOGY METHOD 11/11/2024 10:02 AM [facility] MPV 12.0(H) 7.0 - 11.0 FL LAB HEMETOLOGY METHOD 11/11/2024 10:02 AM [facility] NRBC 0.0 <1.0 % LAB HEMETOLOGY METHOD 11/11/2024 10:02 AM [facility] NRBC Absolute 0.00 <0.10 K/mcL LAB HEMETOLOGY METHOD 11/11/2024 10:02 AM EST [facility] Blood Venous blood specimen / Unknown Venipuncture / Unknown 11/11/2024 5:16 AM EST 11/11/2024 9:33 AM EST us Carlos Allen MD LAB BLOOD ORDERABLES Final Resu lt [facility] [address] [place] [address], documented in this encounter Visit Diagnoses Diagnosis Essential (primary) hypertension Unspecified essential hypertension Acute on chronic diastolic (congestive) heart failure (CMS/HCC V24, CMS/HCC V28) documented in this encounter Care Teams Registered Dietician Relationship Specialty Start Date End Date Carlos Allen MD [address] [place] [address] PCP - General Internal Medicine 11/08/24 documented as of this encounter
--- OUTSIDE RECORDS SUMMARY | 2025-07-28 16:21 | XMS_ITS | Encounter Summary ---
Author Organization [employer] Address [address] [place] [address] Care Team Providers Care Insurance Claims Clerk Name Role Phone Carlos Allen MD Primary Care Provider [phone] Encounter Details Date Type Department Care Team (Late st Contact Info) Description 11/01/2024 Lab Requisition [facility] - Main Lab [address] [place] [address] Michael Yu MD [address] [place] [address] Essential (primary) hypertension; Acute on chronic diastolic [...] LAB CHEMISTRY METHOD 11/04/2024 1:32 PM EST [facility] Potassium 3.6 3.5 - 5.5 mmol/L LAB CHEMISTRY METHOD 11/04/2024 1:32 PM [facility] Chloride 104 96 - 110 mmol/L LAB CHEMISTRY METHOD 11/04/2024 1:32 PM [facility] CO2 32 21 - 32 mmol/L LAB CHEMISTRY METHOD 11/04/2024 1:32 PM [facility] Anion Gap 6 3 - 11 LAB CHEMISTRY METHOD 11/04/2024 1:32 PM [facility] Glucose 95 70 - 100 mg/dL LAB CHEMISTRY METHOD 11/04/2024 1:32 PM [facility] BUN 34(H) 5 - 25 mg/dL LAB CHEMISTRY METHOD 11/04/2024 1:32 PM [facility] Creatinine 0.99 0.70 - 1.30 mg/dL LAB CHEMISTRY METHOD 11/04/2024 1:32 PM [facility] eGFR 74 >=60 mL/min/1. 73m2 LAB CHEMISTRY METHOD 11/04/2024 1:32 PM [facility] Comment:Calculation based on the Chronic Kidney Disease Epidemiology Collaboration (CKD-EPI) equation refit without adjustment for race. BUN/Creatinine Ratio 34.3 LAB CHEMISTRY METHOD 11/04/2024 1:32 PM [facility] Calcium 8.6 8.5 - 10.5 mg/dL LAB CHEMISTRY METHOD 11/04/2024 1:32 PM [facility] AST (SGOT) 28 10 - 42 unit/L LAB CHEMISTRY METHOD 11/04/2024 1:32 PM [facility] ALT (SGPT) 41 10 - 60 unit/L LAB CHEMISTRY METHOD 11/04/2024 1:32 PM [facility] Alkaline Phosphatase 68 42 - 121 unit/L LAB CHEMISTRY METHOD 11/04/2024 1:32 PM [facility] Total Protein 5.8(L) 6.0 - 8.0 g/dL LAB CHEMISTRY METHOD 11/04/2024 1:32 PM EST [facility] Albumin 2.7(L) 3.2 - 5.0 g/dL LAB CHEMISTRY METHOD 11/04/2024 1:32 PM [facility] Total Bilirubin 0.3 0.0 - 1.4 mg/dL LAB CHEMISTRY METHOD 11/04/2024 1:32 PM [facility] Blood Venous blood specimen / Unknown Venipuncture / Unknown 11/04/2024 5:23 AM EST 11/04/2024 9:59 AM EST us Michael Yu MD LAB BLOOD ORDERABLES Final Result [facility] [address] [place] [address], [place] [phone] * (ABNORMAL) Complete blood count (11/04/2024 5:23 AM EST) WBC 3.9(L) 4.8 - 10.8 K/mcL LAB HEMETOLOGY METHOD 11/04/2024 10:35 AM [facility] RBC 3.70(L) 4.50 - 5.50 M/mcL LAB HEMETOLOGY METHOD 11/04/2024 10:35 AM [facility] Hemoglobin 11.9(L) 13.5 - 17.5 g/dL LAB HEMETOLOGY METHOD 11/04/2024 10:35 AM [facility] Hematocrit 37.1(L) 42.0 - 54.0 % LAB HEMETOLOGY METHOD 11/04/2024 10:35 AM [facility] MCV 101.6(H) 79.0 - 98.0 FL LAB HEMETOLOGY METHOD 11/04/2024 10:35 AM [facility] MCH 32.6(H) 27.0 - 32.0 pcg LAB HEMETOLOGY METHOD 11/04/2024 10:35 AM [facility] MCHC 32.1 32.0 - 37.0 g/dL LAB HEMETOLOGY METHOD 11/04/2024 10:35 AM EST [facility] RDW 13.0 11.0 - 15.0 % LAB HEMETOLOGY METHOD 11/04/2024 10:35 AM [facility] Platelets 125(L) 130 - 400 K/mcL LAB HEMETOLOGY METHOD 11/04/2024 10:35 AM EST [facility] MPV 11.6(H) 7.0 - 11.0 FL LAB HEMETOLOGY METHOD 11/04/2024 10:35 AM EST [facility] NRBC 0.0 <1.0 % LAB HEMETOLOGY METHOD 11/04/2024 10:35 AM [facility] NRBC Absolute 0.00 <0.10 K/mcL LAB HEMETOLOGY METHOD 11/04/2024 10:35 AM [facility] Blood Venous blood specimen / Unknown Venipuncture / Unknown 11/04/2024 5:23 AM EST 11/04/2024 9:59 AM EST Michael Yu MD LAB BLOOD ORDERABLES Final Result [facility] [address] [place] [address], documented in this encounter Visit Diagnoses Diagnosis Essential (primary) hypertension Unspecified essential hypertension Acute on chronic diastolic (congestive) heart failure (CMS/HCC V24, CMS/HCC V28) documented in this encounter Care Teams Insurance Claims Clerk Relationship Specialty Start Date End Date Carlos Allen MD [address] [place] [address] PCP - General Internal Medicine 11/08/24 documented as of this encounter
--- OUTSIDE RECORDS SUMMARY | 2025-07-28 16:21 | XMS_ITS | Encounter Summary ---
Author Organization [facility] Address [address] [place] [address] Care Team Providers Care Program Analyst Name Role Phone Carlos [place] MD Primary Care Provider [phone] Encounter Details Date Type Department Care Team (Latest Contact Info) Description 11/05/2024 Lab Requisition [facility] - Main Lab 299 [facility] [email or web address] [address] Carlos [place] MD [address] [place] [phone] Chronic obstructive pulmonary disease, unspecified (CMS/HCC V24, CMS/HCC V28); intermediate designer (current) use of anticoagulants Social History Tobacco [...] EST Chronic obstructive pulmonary disease, unspecified (CMS/HCC) senior living (current) use of anticoagulants documented in this encounter Results * (ABNORMAL) Prothrombin time with INR (11/05/2024 4:59 AM EST) Protime 30.0(H) 10.6 - 13.9 sec LAB COAGULATION METHOD 11/05/2024 10:10 AM EST [facility] LAB INR 2.4 LAB COAGULATION METHOD 11/05/2024 10:10 AM [facility] LAB Blood Venous blood specimen / Unknown Venipuncture / Unknown 11/05/2024 4:59 AM EST 11/05/2024 9:36 AM EST Carlos [place] MD LAB BLOOD ORDERABLES Final Resu lt [facility] ([facility]) [facility] [address] [place] [address], documented in this encounter Visit Diagnoses Diagnosis Chronic obstructive pulmonary disease, unspecified (CMS/HCC V24, CMS/HCC V28) intermediate designer (current) use of anticoagulants Long-term (current) use of anticoagulants documented in this encounter Care Teams Program Analyst Relationship Specialty Start Date End Date Carlos [place] MD [address] [place] [address] PCP - General Internal Medicine 11/08/24 documented as of this encounter
--- OUTSIDE RECORDS SUMMARY | 2025-07-28 16:21 | XMS_ITS | Encounter Summary ---
Author Organization [employer] Address [address] [place] [address] Care Team Providers Care Natural Resource Specialist Name Role Phone Carlos [place] MD Primary Care Provider [phone] Encounter Details Date Type Department Care Team (Late st Contact Info) Description 11/12/2024 Lab Requisition [facility] - Main Lab 299 [facility] [employer] ([employer] [place] [address] Carlos [place] MD [address] [place] [phone] Acute on chronic diastolic (congestive) heart [...] LAB COAGULATION METHOD 11/14/2024 11:35 AM EST [facility] LAB INR 2.3 LAB COAGULATION METHOD 11/14/2024 11:35 AM [facility] LAB Blood Venous blood specimen / Unknown 11/14/2024 5:16 AM EST 11/14/2024 11:35 AM EST us Carlos [place] MD LAB BLOOD ORDERABLES Final Resu lt [facility] LAB [address] [place] [address], * (ABNORMAL) Complete blood count (11/14/2024 5:16 AM EST) [facility] WBC 4.3(L) 4.8 - 10.8 K/mcL LAB [...] LAB HEMETOLOGY METHOD 11/14/2024 12:07 PM EST [facility] LAB RDW 13.5 11.0 - 15.0 % LAB HEMETOLOGY METHOD 11/14/2024 12:07 PM [facility] LAB Platelets 108(L) 130 - 400 K/mcL LAB HEMETOLOGY METHOD 11/14/2024 12:07 PM [facility] LAB MPV 11.7(H) 7.0 - 11.0 FL LAB HEMETOLOGY METHOD 11/14/2024 12:07 PM EST [facility] LAB NRBC 0.0 [...] lt [facility] [address] [place] [address], * (ABNORMAL) Basic metabolic panel (11/14/2024 5:16 AM EST) Sodium 142 133 - 145 mmol/L LAB CHEMISTRY METHOD 11/14/2024 12:37 PM EST [facility] LAB Potassium 4.8 3.5 - [...] lt [facility] [address] [place] [address], documented in this encounter Visit Diagnoses Diagnosis Acute on chronic diastolic (congestive) heart failure (CMS/HCC V24, CMS/HCC V28) Essential (primary) hypertension Unspecified essential hypertension documented in this encounter Care Teams Natural Resource Specialist Relationship Specialty Start Date End Date Carlos [place] MD [address] [place] [address] PCP - General Internal Medicine 11/08/24 documented as of this encounter
--- OUTSIDE RECORDS SUMMARY | 2025-07-28 16:21 | XMS_ITS | Encounter Summary ---
Author Organization [employer] Address [address] [place] [address] Care Team Providers Care Testing Machine Operator Name Role Phone Carlos [place] MD Primary Care Provider [phone] Encounter Details Date Type Department Care Team (Latest Contact Info) Description 09/23/2024 Lab Requisition [facility] - Main Lab [address] [place] [address] Margarito Kuhn MD [address] [place] [id number] Unspecified atrioventricular block Social History Tobacco Use [...] AM EST) WBC 3.7(L) 4.8 - 10.8 K/[facility] LAB HEMETOLOGY METHOD 09/23/2024 11:37 AM EST [facility] LAB RBC 3.40(L) 4.50 - 5.50 M/[facility] LAB HEMETOLOGY METHOD 09/23/2024 11:37 AM [facility] LAB Hemoglobin 11.5(L) 13.5 - 17.5 g/dL LAB HEMETOLOGY METHOD 09/23/2024 11:37 AM [facility] LAB Hematocrit 35.5(L) 42.0 - 54.0 % LAB HEMETOLOGY METHOD 09/23/2024 11:37 AM [facility] LAB MCV 104.1(H) 79.0 - 98.0 FL LAB HEMETOLOGY METHOD 09/23/2024 11:37 AM [facility] LAB MCH 33.7(H) 27.0 - 32.0 pcg LAB HEMETOLOGY METHOD 09/23/2024 11:37 AM [facility] LAB MCHC 32.4 32.0 - 37.0 g/dL LAB HEMETOLOGY METHOD 09/23/2024 11:37 AM [facility] LAB RDW 13.2 11.0 - 15.0 % LAB HEMETOLOGY METHOD 09/23/2024 11:37 AM [facility] LAB Platelets 96(L) 130 - 400 K/mcL LAB HEMETOLOGY METHOD 09/23/2024 11:37 AM [facility] LAB Comment:previously verified by slide MPV 11.8(H) 7.0 - 11.0 FL LAB HEMETOLOGY METHOD 09/23/2024 11:37 AM [facility] LAB NRBC 0.0 <1.0 % LAB HEMETOLOGY METHOD 09/23/2024 11:37 AM [facility] LAB NRBC Absolute 0.00 <0.10 K/mcL LAB HEMETOLOGY METHOD 09/23/2024 11:37 AM [facility] LAB Neutrophils Relative 65.8 % LAB HEMETOLOGY METHOD 09/23/2024 11:37 AM [facility] LAB Lymphocytes Relative 19.6 % LAB HEMETOLOGY METHOD 09/23/2024 11:37 AM EST [facility] LAB Monocytes Relative 11.5 % LAB HEMETOLOGY METHOD 09/23/2024 11:37 AM [facility] LAB Eosinophils Relative 2.1 % LAB HEMETOLOGY METHOD 09/23/2024 11:37 AM [facility] LAB Basophils Relative 0.5 % LAB HEMETOLOGY METHOD 09/23/2024 11:37 AM [facility] LAB Immature Granulocytes Relative 0.5 % LAB HEMETOLOGY METHOD 09/23/2024 11:37 AM [facility] LAB Neutrophils Absolute 2.45 1.50 - 7.00 K/mcL LAB HEMETOLOGY METHOD 09/23/2024 11:37 AM [facility] LAB Lymphocytes Absolute 0.73(L) 1.00 - 5.00 K/mcL LAB HEMETOLOGY METHOD 09/23/2024 11:37 AM [facility] LAB Monocytes Absolute 0.43 0.20 - 1.00 K/mcL LAB HEMETOLOGY METHOD 09/23/2024 11:37 AM [facility] LAB Eosinophils Absolute 0.08 0.00 - 0.50 K/mcL LAB HEMETOLOGY METHOD 09/23/2024 11:37 AM [facility] LAB Basophils Absolute 0.02 0.00 - 0.20 K/mcL LAB HEMETOLOGY METHOD 09/23/2024 11:37 AM [facility] LAB Immature Granulocytes Absolute 0.02 0.00 - 0.03 K/mcL LAB HEMETOLOGY METHOD 09/23/2024 11:37 AM [facility] LAB Blood Venous blood specimen / Unknown Venipuncture / Unknown 09/23/2024 4:40 AM EST 09/23/2024 10:40 AM EST us Margarito Kuhn MD LAB BLOOD ORDERABLES Final Resu lt [facility] LAB [address] [place] [address], [place] [phone] * Basic metabolic panel (09/23/2024 4:40 AM EST) Sodium 141 133 - 145 mmol/L LAB CHEMISTRY METHOD 09/23/2024 11:38 AM [facility] LAB Potassium 4.1 3.5 - 5.5 mmol/L LAB CHEMISTRY METHOD 09/23/2024 11:38 AM [facility] LAB Chloride 106 96 - 110 mmol/L LAB CHEMISTRY METHOD 09/23/2024 11:38 AM [facility] LAB CO2 29 21 - 32 mmol/L LAB CHEMISTRY METHOD 09/23/2024 11:38 AM [facility] LAB Anion Gap 6 3 - 11 LAB CHEMISTRY METHOD 09/23/2024 11:38 AM [facility] LAB Glucose 79 70 - 100 mg/dL LAB CHEMISTRY METHOD 09/23/2024 11:38 AM [facility] LAB BUN 25 5 - 25 mg/dL LAB CHEMISTRY METHOD 09/23/2024 11:38 AM [facility] LAB Creatinine 0.85 0.70 - 1.30 mg/dL LAB CHEMISTRY METHOD 09/23/2024 11:38 AM [facility] LAB eGFR 85 >=60 mL/min/1. 73m2 LAB CHEMISTRY METHOD 09/23/2024 11:38 AM [facility] LAB Comment:Calculation based on the Chronic Kidney Disease Epidemiology Collaboration (CKD-EPI) equation refit without adjustment for race. BUN/Creatinine Ratio 29.4 LAB CHEMISTRY METHOD 09/23/2024 11:38 AM [facility] LAB Calcium 8.7 8.5 - 10.5 mg/dL LAB CHEMISTRY METHOD 09/23/2024 11:38 AM [facility] LAB Blood Venous blood specimen / Unknown Venipuncture / Unknown 09/23/2024 4:40 AM EST 09/23/2024 10:40 AM EST us Margarito Kuhn MD LAB BLOOD ORDERABLES Final Resu lt [facility] ([facility] LAB [address] [place] [address], documented in this encounter Visit Diagnoses Diagnosis Unspecified atrioventricular block documented in this encounter Care Teams Testing Machine Operator Relationship Specialty Start Date End Date Carlos [place] MD [address] [place] [address] PCP - General Internal Medicine 11/08/24 documented as of this encounter
--- OUTSIDE RECORDS SUMMARY | 2025-07-28 16:21 | XMS_ITS | Encounter Summary ---
Author Organization [facility] Address [address] [place] [address] Care Team Providers Care Plasma Cutting Machine Operator Name Role Phone Carlos [place] MD Primary Care Provider [phone] Encounter Details Date Type Department Care Team (Late st Contact Info) Description 11/08/2024 Lab Requisition [facility] - Main Lab 299 [facility] [place] [address] Carlos [place] MD [address] [place] [phone] Paroxysmal atrial fibrillation (CMS/HCC V24, CMS/HCC [...] LAB COAGULATION METHOD 11/08/2024 10:40 AM EST [facility] LAB INR 2.6 LAB COAGULATION METHOD 11/08/2024 10:40 AM EST [facility] LAB Blood Venous blood specimen / Unknown Venipuncture / Unknown 11/08/2024 8:57 AM EST 11/08/2024 9:43 AM EST Carlos [place] MD LAB BLOOD ORDERABLES Final Resu lt [facility] ([facility]) [facility] LAB [address] [place] [address], documented in this encounter Visit Diagnoses Diagnosis Paroxysmal atrial fibrillation (CMS/HCC V24, CMS/HCC V28) Atrial fibrillation documented in this encounter Care Teams Plasma Cutting Machine Operator Relationship Specialty Start Date End Date Carlos [place] MD [address] [place] [address] PCP - General Internal Medicine 11/08/24 documented as of this encounter
--- OUTSIDE RECORDS SUMMARY | 2025-07-28 16:21 | XMS_ITS | Encounter Summary ---
Author Organization [employer] Address [address] [place] [address] Care Team Providers Care Keno Terminal Operator Name Role Phone Carlos [place] MD Primary Care Provider [phone] Encounter Details Date Type Department Care Team (Late st Contact Info) Description 11/15/2024 Lab Requisition [facility] - Main Lab 299 [facility] [place] [address] Carlos [place] MD [address] [place] [phone] Essential (primary) hypertension; Acute on chronic [...] LAB COAGULATION METHOD 11/18/2024 10:17 AM EST [facility] LAB INR 2.6 LAB COAGULATION METHOD 11/18/2024 10:17 AM [facility] LAB Blood Venous blood specimen / Unknown Venipuncture / Unknown 11/18/2024 4:57 AM EST 11/18/2024 9:46 AM EST us Carlos [place] MD LAB BLOOD ORDERABLES Final Resu lt [facility] LAB [address] [place] [address], [place] [phone] * (ABNORMAL) Comprehensive metabolic panel (11/18/2024 4:57 AM EST) [facility] Sodium 143 133 - 145 mmol/L LAB CHEMISTRY METHOD 11/18/2024 10:20 AM [facility] LAB Potassium 4.5 3.5 - 5.5 mmol/L LAB CHEMISTRY METHOD 11/18/2024 10:20 AM [facility] LAB Chloride 106 96 - 110 mmol/L LAB CHEMISTRY METHOD 11/18/2024 10:20 AM [facility] LAB CO2 35(H) 21 - 32 mmol/L LAB CHEMISTRY METHOD 11/18/2024 10:20 AM [facility] LAB Anion Gap 2(L) 3 - 11 LAB CHEMISTRY METHOD 11/18/2024 10:20 AM [facility] LAB Glucose 90 70 - 100 mg/dL LAB CHEMISTRY METHOD 11/18/2024 10:20 AM [facility] LAB BUN 29(H) 5 - 25 mg/dL LAB CHEMISTRY METHOD 11/18/2024 10:20 AM [facility] LAB Creatinine 1.04 0.70 - 1.30 mg/dL LAB CHEMISTRY METHOD 11/18/2024 10:20 AM [facility] LAB eGFR 70 >=60 mL/min/1. 73m2 LAB CHEMISTRY METHOD 11/18/2024 10:20 AM [facility] LAB Comment:Calculation based on the Chronic Kidney Disease Epidemiology Collaboration (CKD-EPI) equation refit without adjustment for race. BUN/Creatinine Ratio 27.9 LAB CHEMISTRY METHOD 11/18/2024 10:20 AM [facility] LAB Calcium 8.3(L) 8.5 - 10.5 mg/dL LAB CHEMISTRY METHOD 11/18/2024 10:20 AM [facility] LAB AST (SGOT) 26 10 - 42 unit/L LAB CHEMISTRY METHOD 11/18/2024 10:20 AM [facility] LAB ALT (SGPT) 22 10 - 60 unit/L LAB CHEMISTRY METHOD 11/18/2024 10:20 AM [facility] LAB Alkaline Phosphatase 65 42 - 121 unit/L LAB CHEMISTRY METHOD 11/18/2024 10:20 AM [facility] LAB Total Protein 5.6(L) 6.0 - 8.0 g/dL LAB CHEMISTRY METHOD 11/18/2024 10:20 AM [facility] LAB Albumin 2.6(L) 3.2 - 5.0 g/dL LAB CHEMISTRY METHOD 11/18/2024 10:20 AM [facility] LAB Total Bilirubin 0.4 0.0 - 1.4 mg/dL LAB CHEMISTRY METHOD 11/18/2024 10:20 AM [facility] LAB Blood Venous blood specimen / Unknown Venipuncture / Unknown 11/18/2024 4:57 AM EST 11/18/2024 9:44 AM EST us Carlos [place] MD LAB BLOOD ORDERABLES Final Resu lt [facility] [address] [place] [address], [place] [phone] * (ABNORMAL) Complete blood count (11/18/2024 4:57 AM EST) [facility] WBC 4.0(L) 4.8 - 10.8 K/mcL LAB HEMETOLOGY METHOD 11/18/2024 11:25 AM [facility] LAB RBC 3.60(L) 4.50 - 5.50 M/mcL LAB HEMETOLOGY METHOD 11/18/2024 11:25 AM [facility] LAB Hemoglobin 11.6(L) 13.5 - 17.5 g/dL LAB HEMETOLOGY METHOD 11/18/2024 11:25 AM [facility] LAB Hematocrit 36.6(L) 42.0 - 54.0 % LAB HEMETOLOGY METHOD 11/18/2024 11:25 AM [facility] LAB MCV 100.5(H) 79.0 - 98.0 FL LAB HEMETOLOGY METHOD 11/18/2024 11:25 AM [facility] LAB MCH 31.9 27.0 - 32.0 pcg LAB HEMETOLOGY METHOD 11/18/2024 11:25 AM [facility] LAB MCHC 31.7(L) 32.0 - 37.0 g/dL LAB HEMETOLOGY METHOD 11/18/2024 11:25 AM [facility] LAB RDW 13.9 11.0 - 15.0 % LAB HEMETOLOGY METHOD 11/18/2024 11:25 AM [facility] LAB Platelets 96(L) 130 - 400 K/mcL LAB HEMETOLOGY METHOD 11/18/2024 11:25 AM [facility] LAB Comment:reviewed by slide MPV 12.0(H) 7.0 - 11.0 FL LAB HEMETOLOGY METHOD 11/18/2024 11:25 AM [facility] LAB NRBC 0.0 <1.0 % LAB HEMETOLOGY METHOD 11/18/2024 11:25 AM [facility] LAB NRBC Absolute 0.00 <0.10 K/mcL LAB HEMETOLOGY METHOD 11/18/2024 11:25 AM EST [facility] LAB Blood Venous blood specimen / Unknown Venipuncture / Unknown 11/18/2024 4:57 AM EST 11/18/2024 9:45 AM EST us Carlos [place] MD LAB BLOOD ORDERABLES Final Resu lt [facility] LAB [address] [place] [address], documented in this encounter Visit Diagnoses Diagnosis Essential (primary) hypertension Unspecified essential hypertension Acute on chronic diastolic (congestive) heart failure (CMS/HCC V24, CMS/HCC V28) documented in this encounter Care Teams Keno Terminal Operator Relationship Specialty Start Date End Date Carlos [place] MD [address] [place] [address] PCP - General Internal Medicine 11/08/24 documented as of this encounter
--- OUTSIDE RECORDS SUMMARY | 2025-07-28 16:21 | XMS_ITS | Encounter Summary ---
Author Organization [employer] Address [address] [place] [address] Care Team Providers Care Industrial Diamond Polisher Name Role Phone Carlos [place] MD Primary Care Provider Encounter Details Date Type Department Care Team (Late st Contact Info) Description 09/21/2024 Lab Requisition [facility] - Main Lab [address] [place] [address] Margarito Kuhn MD [address] [place] [id number] Other specified heart block Social History Tobacco [...] AM EDT) WBC 3.7(L) 4.8 - 10.8 K/[facility] LAB HEMETOLOGY METHOD 09/21/2024 4:37 PM EDT [facility] LAB RBC 3.50(L) 4.50 - 5.50 M/mcL LAB HEMETOLOGY METHOD 09/21/2024 4:37 PM EDT [facility] LAB Hemoglobin 11.6(L) 13.5 - 17.5 g/dL LAB HEMETOLOGY METHOD 09/21/2024 4:37 PM EDT [facility] LAB Hematocrit 36.8(L) 42.0 - 54.0 % LAB HEMETOLOGY METHOD 09/21/2024 4:37 PM EDT [facility] LAB MCV 104.5(H) 79.0 - 98.0 FL LAB HEMETOLOGY METHOD 09/21/2024 4:37 PM EDT [facility] LAB MCH 33.0(H) 27.0 - 32.0 pcg LAB HEMETOLOGY METHOD 09/21/2024 4:37 PM EDT [facility] LAB MCHC 31.5(L) 32.0 - 37.0 g/dL LAB HEMETOLOGY METHOD 09/21/2024 4:37 PM EDT [facility] LAB RDW 13.3 11.0 - 15.0 % LAB HEMETOLOGY METHOD 09/21/2024 4:37 PM EDT [facility] LAB Platelets 94(L) 130 - 400 K/mcL LAB HEMETOLOGY METHOD 09/21/2024 4:37 PM EDT [facility] LAB MPV 11.6(H) 7.0 - 11.0 FL LAB HEMETOLOGY METHOD 09/21/2024 4:37 PM EDT [facility] LAB NRBC 0.0 <1.0 % LAB HEMETOLOGY METHOD 09/21/2024 4:37 PM EDT [facility] LAB NRBC Absolute 0.00 <0.10 K/mcL LAB HEMETOLOGY METHOD 09/21/2024 4:37 PM EDT [facility] LAB Blood Venous blood specimen / Unknown Venipuncture / Unknown 09/21/2024 6:20 AM EDT 09/21/2024 9:19 AM EDT us Margarito Kuhn MD LAB BLOOD ORDERABLES Final Resu lt [facility] [address] [place] [address], * Basic metabolic panel (09/21/2024 6:20 AM EDT) Sodium 141 133 - 145 mmol/L LAB CHEMISTRY METHOD 09/21/2024 11:15 AM [facility] LAB Potassium 3.9 3.5 - 5.5 mmol/L LAB CHEMISTRY METHOD 09/21/2024 11:15 AM [facility] LAB Chloride 105 96 - 110 mmol/L LAB CHEMISTRY METHOD 09/21/2024 11:15 AM [facility] LAB CO2 31 21 - 32 mmol/L LAB CHEMISTRY METHOD 09/21/2024 11:15 AM [facility] LAB Anion Gap 5 3 - 11 LAB CHEMISTRY METHOD 09/21/2024 11:15 AM [facility] LAB Glucose 87 70 - 100 mg/dL LAB CHEMISTRY METHOD 09/21/2024 11:15 AM [facility] LAB BUN 25 5 - 25 mg/dL LAB CHEMISTRY METHOD 09/21/2024 11:15 AM [facility] LAB Creatinine 1.06 0.70 - 1.30 mg/dL LAB CHEMISTRY METHOD 09/21/2024 11:15 AM [facility] LAB eGFR 68 >=60 mL/min/1. 73m2 LAB CHEMISTRY METHOD 09/21/2024 11:15 AM [facility] LAB Comment:Calculation based on the Chronic Kidney Disease Epidemiology Collaboration (CKD-EPI) equation refit without adjustment for race. BUN/Creatinine Ratio 23.6 LAB CHEMISTRY METHOD 09/21/2024 11:15 AM [facility] Calcium 8.7 8.5 - 10.5 mg/dL LAB CHEMISTRY METHOD 09/21/2024 11:15 AM [facility] LAB Blood Venous blood specimen / Unknown Venipuncture / Unknown 09/21/2024 6:20 AM EDT 09/21/2024 9:19 AM EDT us Margarito Kuhn MD LAB BLOOD ORDERABLES Final Resu lt [facility] [address] [place] [address], documented in this encounter Visit Diagnoses Diagnosis Other specified heart block documented in this encounter Care Teams Industrial Diamond Polisher Relationship Specialty Start Date End Date Carlos [place] MD [address] [place] [address] PCP - General Internal Medicine 11/08/24 documented as of this encounter
--- OUTSIDE RECORDS SUMMARY | 2025-07-28 16:21 | XMS_ITS | Clinical Summary ---
Author Organization [address] [facility] Address [address] [place] [address] Phone Care Team Providers Care General Road Production Manager Name Role Phone Carlos [place] MD Primary Care Provider [phone] Social History Tobacco Use Types Packs/Day Years [...] 10/23/2022 Social Influencers of Health Screening 10/23/2022 Depression Screening 11/20/2024 COVID-19 Vaccine ( season) 2025 Influenza Vaccine (#1) 2025 Hypertension/CHF/CAD Annual BMP [...] mmol/L LAB CHEMISTRY METHOD 11/18/2024 10:20 AM [facility] LAB Potassium 4.5 3.5 - 5.5 mmol/L LAB CHEMISTRY METHOD 11/18/2024 10:20 AM [facility] LAB Chloride 106 96 - 110 mmol/L LAB CHEMISTRY METHOD 11/18/2024 10:20 AM [facility] LAB CO2 35(H) 21 - 32 mmol/L LAB CHEMISTRY METHOD 11/18/2024 10:20 AM [facility] LAB Anion Gap 2(L) 3 - 11 LAB CHEMISTRY METHOD 11/18/2024 10:20 AM [facility] LAB Glucose 90 70 - 100 mg/dL LAB CHEMISTRY METHOD 11/18/2024 10:20 AM [facility] LAB BUN 29(H) 5 - 25 mg/dL LAB CHEMISTRY METHOD 11/18/2024 10:20 AM [facility] LAB Creatinine 1.04 0.70 - 1.30 mg/dL LAB CHEMISTRY METHOD 11/18/2024 10:20 AM [facility] LAB eGFR 70 >=60 mL/min/1. 73m2 LAB CHEMISTRY METHOD 11/18/2024 10:20 AM [facility] LAB Comment:Calculation based on the Chronic Kidney Disease Epidemiology Collaboration (CKD-EPI) equation refit without adjustment for race. BUN/Creatinine Ratio 27.9 LAB CHEMISTRY METHOD 11/18/2024 10:20 AM [facility] LAB Calcium 8.3(L) 8.5 - 10.5 mg/dL LAB CHEMISTRY METHOD 11/18/2024 10:20 AM [facility] LAB AST (SGOT) 26 10 - 42 unit/L LAB CHEMISTRY METHOD 11/18/2024 10:20 AM [facility] ALT (SGPT) 22 10 - 60 unit/L LAB CHEMISTRY METHOD 11/18/2024 10:20 AM [facility] LAB Alkaline Phosphatase 65 42 - 121 unit/L LAB CHEMISTRY METHOD 11/18/2024 10:20 AM [facility] Total Protein 5.6(L) 6.0 - 8.0 g/dL LAB CHEMISTRY METHOD 11/18/2024 10:20 AM [facility] Albumin 2.6(L) 3.2 - 5.0 g/dL LAB CHEMISTRY METHOD 11/18/2024 10:20 AM [facility] Total Bilirubin 0.4 0.0 - 1.4 mg/dL LAB CHEMISTRY METHOD 11/18/2024 10:20 AM [facility] LAB Blood Venous blood specimen / Unknown Venipuncture / Unknown 11/18/2024 4:57 AM EST 11/18/2024 9:44 AM EST us Carlos [place] MD LAB BLOOD ORDERABLES Final Resu lt [facility] [address] [place] [address], from Last 3 Months or Most Recently Relevant to Health Maintenance Insurance MEDICARE [facility] * Guarantor: [facility] Account Type Relation to Patient Date of Phone Billing Address Corporate Other COMMERCIAL GENERIC on file Care Teams General Road Production Manager Relationship Specialty Start Date End Date Carlos [place] MD [address] [place] [phone] PCP - General Internal Medicine 11/08/24
--- OUTSIDE RECORDS SUMMARY | 2025-07-28 16:21 | XMS_ITS | Encounter Summary ---
Author Organization [facility] Address [address] [place] [address] Care Team Providers Care Parking Lot Spotter Name Role Phone Carlos Allen MD Primary Care Provider [phone] Encounter Details Date Type Department Care Team (Late st Contact Info) Description 10/31/2024 Lab Requisition [facility] - Main Lab [address] [facility] [place] [address] Carlos Allen MD [address] [place] [phone] Acute on chronic diastolic (congestive) heart [...] Acute on chronic diastolic (congestive) heart failure ([facility]/HCC) COMPLETE BLOOD COUNT Routine 10/31/2024 5:26 AM EST Acute on chronic diastolic (congestive) heart failure (CMS/HCC) COMPREHENSIVE METABOLIC PANEL Routine 10/31/2024 5:26 AM EST Acute on chronic diastolic (congestive) heart failure (CMS/HCC) documented in this encounter Results * (ABNORMAL) Comprehensive metabolic panel (10/31/2024 5:26 AM EST) Sodium 140 133 - 145 mmol/L LAB CHEMISTRY METHOD 10/31/2024 11:05 AM [facility] Potassium 4.2 3.5 - 5.5 mmol/L LAB CHEMISTRY METHOD 10/31/2024 11:05 AM [facility] Chloride 103 96 - 110 mmol/L LAB CHEMISTRY METHOD 10/31/2024 11:05 AM [facility] CO2 34(H) 21 - 32 mmol/L LAB CHEMISTRY METHOD 10/31/2024 11:05 AM [facility] Anion Gap 3 3 - 11 LAB CHEMISTRY METHOD 10/31/2024 11:05 AM [facility] Glucose 96 70 - 100 mg/dL LAB CHEMISTRY METHOD 10/31/2024 11:05 AM [facility] BUN 37(H) 5 - 25 mg/dL LAB CHEMISTRY METHOD 10/31/2024 11:05 AM [facility] Creatinine 1.21 0.70 - 1.30 mg/dL LAB CHEMISTRY METHOD 10/31/2024 11:05 AM [facility] eGFR 58(L) >=60 mL/min/1. 73m2 LAB CHEMISTRY METHOD 10/31/2024 11:05 AM [facility] Comment:Calculation based on the Chronic Kidney Disease Epidemiology Collaboration (CKD-EPI) equation refit without adjustment for race. BUN/Creatinine Ratio 30.6 LAB CHEMISTRY METHOD 10/31/2024 11:05 AM [facility] Calcium 8.7 8.5 - 10.5 mg/dL LAB CHEMISTRY METHOD 10/31/2024 11:05 AM [facility] AST (SGOT) 29 10 - 42 unit/L LAB CHEMISTRY METHOD 10/31/2024 11:05 AM [facility] ALT (SGPT) 29 10 - 60 unit/L LAB CHEMISTRY METHOD 10/31/2024 11:05 AM [facility] Alkaline Phosphatase 70 42 - 121 unit/L LAB CHEMISTRY METHOD 10/31/2024 11:05 AM [facility] Total Protein 6.1 6.0 - 8.0 g/dL LAB CHEMISTRY METHOD 10/31/2024 11:05 AM [facility] Albumin 2.8(L) 3.2 - 5.0 g/dL LAB CHEMISTRY METHOD 10/31/2024 11:05 AM [facility] Total Bilirubin 0.5 0.0 - 1.4 mg/dL LAB CHEMISTRY METHOD 10/31/2024 11:05 AM [facility] Blood Venous blood specimen / Unknown Venipuncture / Unknown 10/31/2024 5:26 AM EST 10/31/2024 9:41 AM EST us Carlos Allen MD LAB BLOOD ORDERABLES Final Resu lt Performing Organization Address [facility]/ZIP Co de Phone Number [facility] [address] [place] [address], [place] [phone] * (ABNORMAL) Prothrombin time with INR (10/31/2024 5:26 AM EST) Protime 24.2(H) 10.6 - 13.9 sec LAB COAGULATION METHOD 10/31/2024 10:26 AM [facility] INR 1.9 LAB COAGULATION METHOD 10/31/2024 10:26 AM [facility] Blood Venous blood specimen / Unknown Venipuncture / Unknown 10/31/2024 5:26 AM EST 10/31/2024 9:41 AM EST us Carlos Allen MD LAB BLOOD ORDERABLES Final Resu lt [facility] [address] [place] [address], [place] [phone] * (ABNORMAL) Complete blood count (10/31/2024 5:26 AM EST) WBC 5.0 4.8 - 10.8 K/mcL LAB HEMETOLOGY METHOD 10/31/2024 10:27 AM [facility] RBC 4.00(L) 4.50 - 5.50 M/mcL LAB HEMETOLOGY METHOD 10/31/2024 10:27 AM [facility] Hemoglobin 13.2(L) 13.5 - 17.5 g/dL LAB HEMETOLOGY METHOD 10/31/2024 10:27 AM [facility] Hematocrit 40.4(L) 42.0 - 54.0 % LAB HEMETOLOGY METHOD 10/31/2024 10:27 AM [facility] MCV 100.0(H) 79.0 - 98.0 FL LAB HEMETOLOGY METHOD 10/31/2024 10:27 AM [facility] MCH 32.7(H) 27.0 - 32.0 pcg LAB HEMETOLOGY METHOD 10/31/2024 10:27 AM [facility] MCHC 32.7 32.0 - 37.0 g/dL LAB HEMETOLOGY METHOD 10/31/2024 10:27 AM [facility] RDW 13.2 11.0 - 15.0 % LAB HEMETOLOGY METHOD 10/31/2024 10:27 AM [facility] Platelets 110(L) 130 - 400 K/mcL LAB HEMETOLOGY METHOD 10/31/2024 10:27 AM [facility] MPV 11.7(H) 7.0 - 11.0 FL LAB HEMETOLOGY METHOD 10/31/2024 10:27 AM [facility] NRBC 0.0 <1.0 % LAB HEMETOLOGY METHOD 10/31/2024 10:27 AM [facility] NRBC Absolute 0.00 <0.10 K/mcL LAB HEMETOLOGY METHOD 10/31/2024 10:27 AM EST [facility] Blood Venous blood specimen / Unknown Venipuncture / Unknown 10/31/2024 5:26 AM EST 10/31/2024 9:41 AM EST Carlos Allen MD LAB BLOOD ORDERABLES Final Resu lt [facility] [address] [place] [address], documented in this encounter Visit Diagnoses Diagnosis Acute on chronic diastolic (congestive) heart failure (CMS/HCC V24, CMS/HCC V28) documented in this encounter Care Teams Parking Lot Spotter Relationship Specialty Start Date End Date Carlos Allen MD [address] [place] [address] PCP - General Internal Medicine 11/08/24 documented as of this encounter
--- OUTSIDE RECORDS SUMMARY | 2025-07-28 16:21 | XMS_ITS | Encounter Summary ---
Author Organization [employer] Address [address] [place] [address] Care Team Providers Care Scrap Breaker Name Role Phone Carlos Allen MD Primary Care Provider [phone] Encounter Details Date Type Department Care Team (Late st Contact Info) Description 11/06/2024 Lab Requisition [facility] - Main Lab [address] [facility] [place] [address] Carlos Allen MD [address] [place] [phone] Acute on chronic diastolic (congestive) heart [...] sec LAB COAGULATION METHOD 11/07/2024 12:04 PM [facility] INR 3.2 LAB COAGULATION METHOD 11/07/2024 12:04 PM [facility] Blood Venous blood specimen / Unknown Venipuncture / Unknown 11/07/2024 5:10 AM EST 11/07/2024 11:25 AM EST us Carlos Allen MD LAB BLOOD ORDERABLES Final Resu lt [facility] [address] [place] [address], [place] [phone] * (ABNORMAL) Basic metabolic panel (11/07/2024 5:10 AM EST) [facility] Sodium 143 133 - 145 mmol/L LAB CHEMISTRY METHOD 11/07/2024 1:23 PM [facility] Potassium 5.1 3.5 - 5.5 mmol/L LAB CHEMISTRY METHOD 11/07/2024 1:23 PM [facility] Chloride 106 96 - 110 mmol/L LAB CHEMISTRY METHOD 11/07/2024 1:23 PM [facility] CO2 34(H) 21 - 32 mmol/L LAB CHEMISTRY METHOD 11/07/2024 1:23 PM [facility] Anion Gap 3 3 - 11 LAB CHEMISTRY METHOD 11/07/2024 1:23 PM [facility] Glucose 89 70 - 100 mg/dL LAB CHEMISTRY METHOD 11/07/2024 1:23 PM [facility] BUN 34(H) 5 - 25 mg/dL LAB CHEMISTRY METHOD 11/07/2024 1:23 PM [facility] Creatinine 1.12 0.70 - 1.30 mg/dL LAB CHEMISTRY METHOD 11/07/2024 1:23 PM [facility] eGFR 64 >=60 mL/min/1. 73m2 LAB CHEMISTRY METHOD 11/07/2024 1:23 PM EST [facility] Comment:Calculation based on the Chronic Kidney Disease Epidemiology Collaboration (CKD-EPI) equation refit without adjustment for race. BUN/Creatinine Ratio 30.4 LAB CHEMISTRY METHOD 11/07/2024 1:23 PM EST [facility] Calcium 8.9 8.5 - 10.5 mg/dL LAB CHEMISTRY METHOD 11/07/2024 1:23 PM [facility] Blood Venous blood specimen / Unknown Venipuncture / Unknown 11/07/2024 5:10 AM EST 11/07/2024 11:25 AM EST us Carlos Allen MD LAB BLOOD ORDERABLES Final Resu lt [facility] [address] [place] [address], [place] [phone] * (ABNORMAL) Complete blood count (11/07/2024 5:10 AM EST) WBC 3.9(L) 4.8 - 10.8 K/mcL LAB HEMETOLOGY METHOD 11/07/2024 12:36 PM [facility] RBC 3.80(L) 4.50 - 5.50 M/mcL LAB HEMETOLOGY METHOD 11/07/2024 12:36 PM [facility] Hemoglobin 12.0(L) 13.5 - 17.5 g/dL LAB HEMETOLOGY METHOD 11/07/2024 12:36 PM [facility] Hematocrit 38.7(L) 42.0 - 54.0 % LAB HEMETOLOGY METHOD 11/07/2024 12:36 PM [facility] MCV 102.9(H) 79.0 - 98.0 FL LAB HEMETOLOGY METHOD 11/07/2024 12:36 PM [facility] MCH 31.9 27.0 - 32.0 pcg LAB HEMETOLOGY METHOD 11/07/2024 12:36 PM [facility] MCHC 31.0(L) 32.0 - 37.0 g/dL LAB HEMETOLOGY METHOD 11/07/2024 12:36 PM [facility] RDW 13.3 11.0 - 15.0 % LAB HEMETOLOGY METHOD 11/07/2024 12:36 PM [facility] Platelets 128(L) 130 - 400 K/mcL LAB HEMETOLOGY METHOD 11/07/2024 12:36 PM [facility] MPV 11.7(H) 7.0 - 11.0 FL LAB HEMETOLOGY METHOD 11/07/2024 12:36 PM [facility] NRBC 0.0 <1.0 % LAB HEMETOLOGY METHOD 11/07/2024 12:36 PM [facility] NRBC Absolute 0.00 <0.10 K/mcL LAB HEMETOLOGY METHOD 11/07/2024 12:36 PM [facility] Blood Venous blood specimen / Unknown Venipuncture / Unknown 11/07/2024 5:10 AM EST 11/07/2024 11:25 AM EST us Carlos Allen MD LAB BLOOD ORDERABLES Final Resu lt [facility] [address] [place] [address], documented in this encounter Visit Diagnoses Diagnosis Acute on chronic diastolic (congestive) heart failure (CMS/HCC V24, CMS/HCC V28) Essential (primary) hypertension Unspecified essential hypertension documented in this encounter Care Teams Scrap Breaker Relationship Specialty Start Date End Date Carlos Allen MD [address] [place] [id number] PCP - General Internal Medicine 11/08/24 documented as of this encounter
== END 2025-07-28 15:53 | disposition home or self-care (01) ==
LOC: HO.HMCHD 13:58
PROVIDERS: PCP Student in an Organized Health Care Education/Training Program; Visit Provider Student in an Organized Health Care Education/Training Program
DX: I50.32 Chronic diastolic (congestive) heart failure (principal); I48.0 Paroxysmal atrial fibrillation; J44.9 Chronic obstructive pulmonary disease, unspecified; K21.9 Gastro-esophageal reflux disease without esophagitis; E78.5 Hyperlipidemia, unspecified